=== PATIENT | female | born 1960 | race Caucasian/White ===

== ENCOUNTER 2018-05-22 09:31 | Inpatient (IN) | payer MEDICARE ==
[~2018-05-22] VITALS: Ht 170.2 cm; Wt 68.3 kg
[2018-05-22] MEDS ORDERED: HYDROCODONE/APAP 7.5MG-325MG 1 EA TAB PO PRN (10:15)
[2018-05-22 10:54] LABS: BILIRUBIN,URINE NEGATIVE (NEGATIVE); CLARITY,URINE SL CLOUDY (CLEAR); COLOR,URINE YELLOW (YELLOW); KETONES,URINE NEGATIVE (NEGATIVE); LEUKOCYTE ESTERASE ,URINE NEGATIVE (NEGATIVE); NITRITE,URINE NEGATIVE (NEGATIVE); PROTEIN,URINE DIPSTICK 1+ (NEGATIVE); URINE UROBILINOGEN 1 mg/dL (0.2 - 1)
[2018-05-22 11:01] LABS: BACTERIA,URINE MODERATE /HPF; EPITHELIAL CELLS,URINE MODERATE /LPF; RBC,URINE 0-5 /HPF (0-5)
[2018-05-22 11:17] LABS: BASOPHILS % 0.2 % (0.0-1.0); EOSINOPHILS % 0.2 % (0.0-6.0); HEMOGLOBIN 13.1 g/dL (12.0-16.0); LYMPHOCYTES # (AUTO) 1.8 (1.0-3.2); LYMPHOCYTES % 13.6 % (18.0-39.1); MEAN CORPUSCULAR HEMOGLOBIN 29.2 pg (28-32); MEAN CORPUSCULAR HGB CONC 33.6 g/dL (31-35); MEAN CORPUSCULAR VOLUME 86.9 fL (81-99); MONOCYTES # (AUTO) 0.9 (0.2-0.8); MONOCYTES % 7.1 % (4.4-11.3); NEUTROPHILS # (AUTO) 10.4 (2.1-6.9); NEUTROPHILS % 78.6 % (38.7-80.0); PLATELET COUNT 228 x10e3/uL (140-360); RED BLOOD COUNT 4.49 x10e6/uL (3.6-5.1); RED CELL DISTRIBUTION WIDTH 13.9 % (11.7-14.4)
[2018-05-22 11:25] LABS: INR 1.07; PROTHROMBIN TIME 13.1 seconds (11.9-14.5)
[2018-05-22 11:31] LABS: ALANINE AMINOTRANSFERASE 31 IU/L (0-55); ALBUMIN 3.4 g/dL (3.5-5.0); ALBUMIN/GLOBULIN RATIO 0.9 (0.8-2.0); ALKALINE PHOSPHATASE 85 IU/L (40-150); ANION GAP 14.2 mmol/L (8-16); BLOOD UREA NITROGEN 15 mg/dL (7-26); BUN/CREATININE RATIO 19 (6-25); CALCIUM 9.1 mg/dL (8.4-10.2); CARBON DIOXIDE 28 mmol/L (22-29); CHLORIDE 97 mmol/L (98-107); CREATINE KINASE 2349 IU/L (29-168); CREATININE, SERUM 0.79 mg/dL (0.57-1.11); EST GLOMERULAR FILTRATION RATE > 60 ML/MIN (60-); GLUCOSE 91 mg/dL (74-118); POTASSIUM 4.2 mmol/L (3.5-5.1); SODIUM 135 mmol/L (136-145)
--- NOTE | 2018-05-22 13:11 | Diagnostic Imaging Report ---
Examination: CT CERVICAL SPINE WITHOUT CONTRAST HISTORY:Seizures; syncope. COMPARISON:None. TECHNIQUE: Multidetector helical axial images were obtained without contrast from the foramen magnum to T1. Coronal and sagittal reformatted images were done. Bone and soft tissue windows were evaluated. FINDINGS: Alignment:Normal alignment with straightening of normal lordosis. Vertebrae: Normal height and density. No acute fracture, infection or neoplasm. A 7 mm hemangioma is demonstrated in the posterior and superior aspect of the C5 vertebral body. Disc space heights: Moderately narrowed at C5-C6. Caliber of spinal canal: Developmentally normal. Posterior fossa and craniocervical junction: Foramen magnum patent. No Chiari 1 malformation. Soft tissues: No abnormality. Degenerative changes: Diffuse disc osteophyte complexes at C5-C6 and C6-C7 with severe left foraminal narrowing at C5-C6. No canal stenosis at either level. The remaining cervical levels demonstrate no disc bulge/ herniation or canal stenosis. Visualized lung apices: Biapical pleural thickening. Paraseptal and interstitial emphysematous change. IMPRESSION: 1. No acute abnormality. 2. Degenerative changes at C5-C6 and C6-C7, as above. Signed by: Dr. Demetra Casas M.D. on 05/22/2018 11:33 AM
--- NOTE | 2018-05-22 13:11 | Diagnostic Imaging Report ---
Examination: CT BRAIN WITHOUT CONTRAST History:Seizures. Syncope. Comparison studies:None Technique: Axial images were obtained from the skull base to the vertex. Coronal and sagittal images reconstructed from the axial data. Intravenous contrast: None Findings: Scalp: No abnormalities. Bones: No fractures, blastic or lytic lesions. Brain sulci: Appropriate for age. Ventricles: Normal in size and configuration. No hydrocephalus. Extra-axial space: No abnormalities. Parenchyma: No abnormal densities. No masses, hemorrhage, or acute or chronic cortical based vascular insults.. Sellar/suprasellar region: No abnormalities. Craniocervical junction: Patent foramen magnum. No Chiari one malformation. Incidental findings: None. Impression: No intracranial abnormalities. Signed by: Dr. Demetra Casas M.D. on 05/22/2018 11:28 AM
[2018-05-22] MEDS ORDERED: SODIUM CHLORIDE FLUSH 10 ML SYR INJ PRN (14:15)
[2018-05-22] MEDS ORDERED: ASPIRIN 81 MG CHEW TAB PO ONE (14:15)
[2018-05-22] MEDS ORDERED: NITROGLYCERIN 0.4 MG SUBL SL PRN (14:15)
--- NOTE | 2018-05-22 15:06 | Diagnostic Imaging Report ---
PROCEDURE:HIP LEFT ONE VIEW (+/- PELVIS) COMPARISON:None. INDICATIONS:SEIZURE, FALL FINDINGS: Only a single frontal view of the left hip is submitted. No displaced fracture. Femoral head projects appropriately over the acetabulum. Joint space is maintained. Soft tissues are unremarkable. CONCLUSION: Single frontal view of the left hip shows no acute osseous abnormality. Dictated by: Juvencio Feldman M.D. on 05/22/2018 at 10:58 Electronically approved by: Juvencio Feldman M.D. on 05/22/2018 at 10:58
--- NOTE | 2018-05-22 15:06 | Diagnostic Imaging Report ---
PROCEDURE: CHEST SINGLE (PORTABLE) COMPARISON: None. INDICATIONS: SEIZURE FINDINGS: LUNGS: No consolidations or edema. PLEURA: No effusions or pneumothorax. HEART \T\ MEDIASTINUM: The heart is within normal size-limits. BONES \T\ SOFT TISSUES: No acute findings. CONCLUSION: No acute thoracic abnormality. Dictated by: Juvencio Feldman M.D. on 05/22/2018 at 11:00 Electronically approved by: Juvencio Feldman M.D. on 05/22/2018 at 11:00
[2018-05-22] MEDS ORDERED: IPRATROPIUM BROMIDE 0.02% 2.5 ML NEB NEB STA (15:30)
[2018-05-22] MEDS ORDERED: ALBUTEROL SULF 0.083% NEB SOLN 3 ML NEB NEB STA (15:30)
[2018-05-22] MEDS ORDERED: TRAMADOL/APAP 37.5MG-325MG TAB PO PRN (16:45)
[2018-05-22 17:12] VITALS: BP 104/52
[2018-05-22 17:24] LABS: FERRITIN 229.07 ng/mL (4.63-204.00)
[2018-05-22 17:48] LABS: CREATINE KINASE MB 3.2 ng/mL (0-5.0)
--- NOTE | 2018-05-22 17:50 | History and Physical ---
NO DICTATION. 8 seconds. Job#: [id number] GH
[2018-05-22] MEDS: DEXTROSE 5%/0.9% SOD CHL 1,000 ML IV SCH (17:56)
[2018-05-22] MEDS ORDERED: NICOTINE 21 MG/EA PATCH ONE (17:58)
[2018-05-22] MEDS ORDERED: NICOTINE 7 MG PATCH TOP SCH (18:00)
[2018-05-22] MEDS: NICOTINE 21 MG/EA PATCH TOP SCH (18:00)
--- NOTE | 2018-05-22 18:17 | History and Physical ---
HISTORY OF PRESENT ILLNESS: Patient is a 58-year-old female who had a past medical history positive for COPD and chronic pain. Patient apparently had a syncopal episode at home. She does not remember what happened and she was admitted to the hospital. She was found to have rhabdomyolysis. REVIEW OF SYSTEMS: CARDIOVASCULAR: No chest pain or palpitations. RESPIRATORY: No shortness of breath. No cough. GASTROINTESTINAL: No nausea and no vomiting. No diarrhea. GENITOURINARY: She has no frequency or dysuria. ALLERGIES: CLAIMS SHE NOT ALLERGIC TO ANYTHING. PAST MEDICAL HISTORY: Positive for COPD, bipolar disorder and depression. SOCIAL HISTORY: She smokes. She does not drink alcohol. PHYSICAL EXAMINATION: VITAL SIGNS: Blood pressure 112/78, temperature is 98 degrees, heart rate 78 per minute, respiratory rate 20 per minute. Oxygen saturation 95%. HEART: Regular rhythm. No murmur. No extra sounds. LUNGS: Clear bilaterally. ABDOMEN: Soft. EXTREMITIES: Show no evidence of cyanosis, edema or trauma. On the BMP sodium 135, potassium 4.2, chloride 97. CO2 28. BUN 15, creatinine 0.79. Glucose 91. On the CBC white blood count 13.1, hemoglobin 13.1, hematocrit 39.0, platelet count 228,000. PT 13.1. INR 1.07. PTT 32.0. AST is 73, ALT 31. Total bilirubin 0.7, alkaline phosphatase 85. Total CK of 2349. CK-MB 5.50. Troponin 0.049. Patient also had a CT of the head which came back negative. CT of the cervical spine which showed no fractures. Chest x-ray came back negative and hip x-ray came back negative for fractures. FINAL IMPRESSION 1. Syncopal episode. 2. Rhabdomyolysis. 3. Elevated liver function test. 4. Chronic obstructive pulmonary disease. 5. Bipolar disorder. PLAN OF TREATMENT: Going to get a neurology consult with Dr. Baker, cardiology consultation with Dr. Davis. Continue D5 normal saline 100 mL an hour. Repeat CBC, CMP tomorrow. Liver function test has been ordered for tomorrow also. Hepatitis profile, antinuclear antibodies, ceruloplasmin levels and antimitochondrial antibodies and liver ultrasound has been ordered due to the elevated LFTs. Job#: [id number] GH
[2018-05-22 19:31] VITALS: BP 104/52
[2018-05-22 20:33] VITALS: BP 86/49
--- NOTE | 2018-05-22 20:52 | Diagnostic Imaging Report ---
PROCEDURE:US LIVER COMPARISON:None. INDICATIONS:ELEVATED LFT'S TECHNIQUE: Gonzalez-scale and color doppler transverse and longitudinal images of the right upper quadrant of the abdomen were obtained. FINDINGS: Liver: 12.5 cm in right mid-clavicular line. Normal echogenicity. No masses. Main portal vein: 1.1 cm, hepatopetal flow Gallbladder: No stones, sludge, wall thickening, or pericholecystic fluid. Common Bile Duct: 0.6 cm Sonographic Joshua's sign: Negative Right kidney: 10.1 cm. Normal echogenicity. No solid masses, stones or hydronephrosis. Pancreas: The visualized portions are unremarkable. Inferior vena cava: Patent Aorta: Within normal limits Ascites: None in the right upper quadrant of the abdomen. CONCLUSION: 1. Unremarkable right upper quadrant ultrasound. Tom Henriquez M.D. Dictated by: Tom Henriquez M.D. on 05/22/2018 at 17:49 Electronically approved by: Tom Henriquez M.D. on 05/22/2018 at 17:49
[2018-05-22 21:25] VITALS: BP 86/49
[2018-05-22] MEDS ORDERED: DEPAKOTE ER500 MG PO (21:44)
[2018-05-22] MEDS ORDERED: BENZTROPINE MESY1 MG PO (21:44)
[2018-05-22] MEDS ORDERED: SEROQUEL25 MG PO (21:44)
[2018-05-22] MEDS ORDERED: HYDROXYZINE HCL25 MG PO (21:44)
[2018-05-22] MEDS ORDERED: VENLAFAXINE HCL75 MG PO (21:44)
[2018-05-22] MEDS ORDERED: HYDROXYZINE HCL 25 MG TAB PO PRN (22:00)
[2018-05-22] MEDS: QUETIAPINE FUMARATE 100 MG TAB PO PRN (23:04)
[2018-05-22] MEDS: DEPAKOTE DELAYED-RELEASE TAB 500 MG PO SCH (23:04)
[2018-05-23] VITALS (8 sets, daily range): BP systolic 94–120; BP diastolic 54–77
[2018-05-23] MEDS: DEXTROSE 5%/0.9% SOD CHL 1,000 ML IV SCH ×3 (04:11→19:41)
[2018-05-23 06:51] LABS: BASOPHILS % 0.3 % (0.0-1.0); EOSINOPHILS # (AUTO) 0.1 (0.0-0.4); EOSINOPHILS % 0.8 % (0.0-6.0); HEMATOCRIT 35.7 % (34.2-44.1); HEMOGLOBIN 11.7 g/dL (12.0-16.0); LYMPHOCYTES # (AUTO) 1.8 (1.0-3.2); LYMPHOCYTES % 23.1 % (18.0-39.1); MEAN CORPUSCULAR HEMOGLOBIN 29.3 pg (28-32); MEAN CORPUSCULAR HGB CONC 32.8 g/dL (31-35); MEAN CORPUSCULAR VOLUME 89.3 fL (81-99); MONOCYTES # (AUTO) 0.8 (0.2-0.8); MONOCYTES % 10.2 % (4.4-11.3); NEUTROPHILS # (AUTO) 5.1 (2.1-6.9); NEUTROPHILS % 65.2 % (38.7-80.0); PLATELET COUNT 234 x10e3/uL (140-360); RED CELL DISTRIBUTION WIDTH 13.9 % (11.7-14.4)
[2018-05-23 07:09] LABS: ALANINE AMINOTRANSFERASE 20 IU/L (0-55); ALBUMIN 2.6 g/dL (3.5-5.0); ALBUMIN/GLOBULIN RATIO 0.9 (0.8-2.0); ALKALINE PHOSPHATASE 67 IU/L (40-150); ANION GAP 9.7 mmol/L (8-16); BLOOD UREA NITROGEN 11 mg/dL (7-26); BUN/CREATININE RATIO 15 (6-25); CALCIUM 8.3 mg/dL (8.4-10.2); CARBON DIOXIDE 26 mmol/L (22-29); CHLORIDE 104 mmol/L (98-107); CHOL/HDL RATIO 4.1 (3.0-3.6); CHOLESTEROL 156 MD/DL (0-199); CREATININE, SERUM 0.72 mg/dL (0.57-1.11); EST GLOMERULAR FILTRATION RATE > 60 ML/MIN (60-); GLUCOSE 115 mg/dL (74-118); HDL CHOLESTEROL 38 MG/DL (40-60); LDL CHOLESTEROL 98 MG/DL (60-130); POTASSIUM 3.7 mmol/L (3.5-5.1); SODIUM 136 mmol/L (136-145); TRIGLYCERIDES 101 MG/DL (0-149)
[2018-05-23 07:18] LABS: CREATINE KINASE MB 1.3 ng/mL (0-5.0)
[2018-05-23] MEDS: VENLAFAXINE HCL 75 MG CAPCR PO SCH (08:35)
[2018-05-23] MEDS: NICOTINE 21 MG/EA PATCH TOP SCH (08:35)
[2018-05-23] MEDS: DEPAKOTE DELAYED-RELEASE TAB 500 MG PO SCH ×2 (08:35→17:35)
[2018-05-23] MEDS: ASPIRIN 81 MG ENTERIC COATED PO SCH (08:35)
[2018-05-23] MEDS: BENZTROPINE MESYLATE 1 MG TAB PO SCH ×2 (08:35→17:35)
[2018-05-23] MEDS ORDERED: METOPROLOL TARTRATE 25 MG TAB PO SCH (09:00)
[2018-05-23] MEDS ORDERED: NICOTINE 7 MG PATCH TOP SCH (09:00)
[2018-05-23] MEDS ORDERED: ALBUTEROL SULF 0.083% NEB SOLN 3 ML NEB NEB PRN (09:15)
--- NOTE | 2018-05-23 11:31 | Consultation ---
DATE OF CONSULTATION: May 22, 2018 CARDIAC CONSULTATION REASON FOR CONSULTATION: Syncope. INFORMATION SOURCE: The patient was good historian. HISTORY: She is a a 58-year-old woman who is known with longstanding history of bipolar disorder on several psychotic medications. Patient stays with her mother and father and she takes care of them. Yesterday, her mother came to her room because she did not show up for dinner. She was out for almost an hour. Her mother found her on the floor unconscious. She shook her and she woke up and after that she was doing well. She is having left hip pain. Probably she fell on her hip. She was not able to come to the emergency room because she is taking care of her family. Today, her daughter came and she is still having pain in her left hip so she decided to come to the emergency room. Patient does not recall what happened. She does not remember any details and how she passed out and how she was found on the floor, etcetera, but she was out of her mother's site for an hour and she was found to be on the floor. She had CT head which showed no acute changes. Left hip x-ray showed no fractures, degenerative joint disease in C5 to C7. EKG showing normal sinus rhythm, nonspecific ST changes. CK total are elevated at 2349. Troponin is normal. Patient unfortunately smoker for many years. She continues to smoke, but she cut down to 5 to 6 cigarettes a day. She does have easy fatigability and shortness of breath on exertion. She denied having any anginal symptoms. She denied having any prior cardiac history. There is no orthopnea. There is no paroxysmal nocturnal dyspnea. She does have easy fatigability and shortness of breath on exertion and occasional headaches. No history of seizure activity. There is no history of recent travel. She is at her baseline of shortness of breath on exertion and chronic smoker cough. There is no hemoptysis. There is no pleuritic component of chest pain. She denied having any palpitations. She denied having any syncope or presyncope, although many years ago she had an episode when it was not really "____". REVIEW OF SYSTEMS: Done to all systems and all 14 systems will be summarized for clarity. GENERAL: No fever, no chills. No weight loss. No weight gain. HEENT: Repeated congestion. Cough. PULMONARY: Chronic pulmonary symptoms with no hemoptysis. CARDIAC: As per acute illness. GI: Bloating and indigestion, severe GERD. No hematemesis. No melena. : No hematuria. No dysuria. Occasional stress incontinence. NEUROMUSCULAR: Muscular aches and pain nonspecific. NEUROLOGIC: No seizure activity. No prior syncope. Occasional headache. HOME MEDICATIONS: Include Depakote, hydroxyzine, Cogentin, Seroquel and Effexor. ALLERGIES: NONE. PAST MEDICAL HISTORY: 1. Bipolar disorder, followed in the [facility]. 2. GERD. 3. Several dental surgeries. 4. Partial hysterectomy. 5. Removal of ganglion cyst from the hand. 6. Several other minor surgeries. SOCIAL HISTORY: She is . She does not drink alcohol. She is a smoker of many years. She decreased now to 5 to 10 cigarettes a day. 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 FAMILY HISTORY: Father in his 90s. He got aches and robbie but no major illness. Mother had some form of valve surgery and pacemaker. She is in her 80s. She lost her brother to alcoholism and drug abuse. Her sister is alive, but she does have several medical health problems. She does have one son and two daughters. One of them at least with bipolar. PHYSICAL EXAMINATION GENERAL: A well-built lady. VITAL SIGNS: Height of 5 feet 7 inches, weight of 146 pounds. Blood pressure 100/50. Heart. rate of 80. Respiratory rate of 18. Afebrile. HEENT: There are no teeth. NECK: No elevation of jugular venous pulsation. No bruit. CHEST: Clear to auscultation and percussion. HEART: PMI 5th left intercostal space. Normal 1st and 2nd heart sounds. ABDOMEN: Soft with no organomegaly. No abdominal bruits. EXTREMITIES: No cyanosis. No clubbing. No edema. No delay between pulses. There is tenderness over the left hip but pulses are palpable distally. There are no signs of deep venous thrombosis. NEUROLOGIC: Awake, alert and oriented. Neck is supple. No motor deficits. LABORATORY DATA: CK total of 2349. Troponin of 0.049. BUN of 15. Creatinine 0.8. Sodium 135. Potassium 4.2. Bicarb of 28. White blood cell count of 13.1. Hemoglobin 13.1. Hematocrit 39%. Platelet count of 228,000. EKG he showed no acute changes. IMPRESSION 1. Syncope. 2. Bipolar disorder. 3. Chronic obstructive pulmonary disease. 4. Left hip pain following a fall. 5. Rhabdomyolysis. 6. Gastroesophageal reflux disease. Cardiac-miller plan will be on telemetry. Will review her echocardiogram ordered. Patient should be on telemetry. IV fluids to be given. Repeated labs. Observation. Carotid Doppler will be reviewed. Will follow patient's progression with you and pending on her course further steps to be done. Job#: [id number] MTDKaren
[2018-05-23] MEDS ORDERED: ASPIRIN 81 MG CHEW TAB PO ONE (14:30)
--- NOTE | 2018-05-23 14:43 | Progress Note ---
DATE: INTERNAL MEDICINE PROGRESS NOTE NO DICTATION, LENGTH 0:2 Job#: [id number] NOREEN
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
--- NOTE | 2018-05-23 14:53 | Progress Note ---
DATE: INTERNAL MEDICINE PROGRESS NOTE She is complaining of shortness of breath and wheezing. PHYSICAL EXAMINATION VITALS: Blood pressure 100/68, temperature 98.7, heart rate 73 and now 79 per minute, respiratory rate 15 per minute, oxygen saturation 91%. HEART: Shows regular rhythm. Normal S1 and S2 sounds. LUNGS: With bilateral wheezing and rhonchi. ABDOMEN: Soft. EXTREMITIES: Show no evidence of cyanosis or trauma. On the blood, we have a BMP with a sodium of 136, potassium 3.7, chloride 104, CO2 26, BUN 11, creatinine 0.72, glucose 115. On the CBC, white blood count 7.78, hemoglobin 11.7, hematocrit 35.7, and platelet count 234,000. PT 13.1, INR 1.07 and PTT 32. AST 34, ALT 20, total bilirubin 0.4, alkaline phosphatase 67. MRI of the head and EEG has been ordered. Report is pending. Liver ultrasound showed unremarkable liver. Cervical spine, chest x-ray, hip x-ray, and brain CT all were normal. FINAL IMPRESSION 1. Syncopal episode. 2. Rhabdomyolysis. 3. Elevated liver function tests. 4. Chronic obstructive pulmonary disease exacerbation. 5. Nicotine dependent. PLAN OF TREATMENT: Continue albuterol q.2 h. as needed for shortness of breath. Prednisone 20 mg daily. Albuterol 250 per 50 mg 1 inhalation twice a day. Spiriva 1 inhalation daily. Seroquel 300 mg at bedtime. NicoDerm patch 21 mg daily. 1 mg twice a day. Effexor 150 mg daily. Metoprolol 25 mg daily. Depakote 500 mg twice a day. Tramadol with Tylenol 1 tablet q.6 h. as needed. Hydroxyzine 50 mg 3 times a day as needed. EEG and MRI of the head has been ordered. Dr. Baker is following the case from the neurology point of view. Continue with IV fluids. Going to repeat a BMP and CPK tomorrow. Job#: [id number] NOREEN
[2018-05-23] MEDS: SALMETEROL/FLUTICASONE 250/50 INH SCH (21:51)
[2018-05-23] MEDS: QUETIAPINE FUMARATE 100 MG TAB PO PRN (23:23)
[2018-05-24] VITALS: BP 115/68
[2018-05-24 05:45] VITALS: BP 105/64
[2018-05-24] MEDS ORDERED: TIOTROPIUM 18 MCG INH POWDER INH SCH (06:00)
[2018-05-24 06:03] LABS: ANION GAP 10.9 mmol/L (8-16); BLOOD UREA NITROGEN 8 mg/dL (7-26); BUN/CREATININE RATIO 12 (6-25); CALCIUM 8.3 mg/dL (8.4-10.2); CARBON DIOXIDE 24 mmol/L (22-29); CHLORIDE 112 mmol/L (98-107); CREATINE KINASE 467 IU/L (29-168); CREATININE, SERUM 0.68 mg/dL (0.57-1.11); EST GLOMERULAR FILTRATION RATE > 60 ML/MIN (60-); GLUCOSE 98 mg/dL (74-118); POTASSIUM 3.9 mmol/L (3.5-5.1); SODIUM 143 mmol/L (136-145)
[2018-05-24 07:59] VITALS: BP 121/70
[2018-05-24] MEDS: BENZTROPINE MESYLATE 1 MG TAB PO SCH ×2 (08:22→17:06)
[2018-05-24] MEDS: DEPAKOTE DELAYED-RELEASE TAB 500 MG PO SCH ×2 (08:22→17:06)
[2018-05-24] MEDS: ASPIRIN 81 MG ENTERIC COATED PO SCH (08:22)
[2018-05-24] MEDS: DEXTROSE 5%/0.9% SOD CHL 1,000 ML IV SCH (08:22)
[2018-05-24] MEDS: NICOTINE 21 MG/EA PATCH TOP SCH (08:22)
[2018-05-24] MEDS: VENLAFAXINE HCL 75 MG CAPCR PO SCH (08:22)
[2018-05-24] MEDS: SALMETEROL/FLUTICASONE 250/50 INH SCH (09:00)
[2018-05-24] MEDS ORDERED: PREDNISONE 20 MG TAB PO SCH (09:00)
[2018-05-24] MEDS ORDERED: NEBIVOLOL 10 MG TAB PO SCH (09:00)
[2018-05-24 10:12] VITALS: BP 121/70
[2018-05-24 12:13] VITALS: BP 128/86
--- NOTE | 2018-05-24 13:31 | Diagnostic Imaging Report ---
EXAMINATION: MRI of the brain without contrast. HISTORY: Syncopal episodes COMPARISON: Head CT on 06/18/2018 TECHNIQUE: Sagittal T2; axial DWI, T2, FLAIR, T1-IR, T2 gradient echo; coronal FLAIR. Additional high-resolution coronal T2 and FLAIR over the temporal lobes. IMAGE QUALITY: Adequate. FINDINGS: Parenchyma: 1. No abnormal signal intensity 2. No mass, hemorrhage, acute or chronic infarcts. Skull: Unremarkable. Vessels: Expected flow voids present in the major arteries and dural sinuses. Extra-axial spaces: No abnormal signal intensity or mass effect. Brain volume: Within normal limits for age. Ventricles: No hydrocephalus or displacement. Foramen magnum: Unremarkable. Sella: Unremarkable. Paranasal / mastoid sinuses: No significant inflammatory disease. IMPRESSION: No intracranial abnormalities. Signed by: Dr. Jeana Elkins M.D. on 05/24/2018 1:27 PM
[2018-05-24 16:36] VITALS: BP 114/70
[2018-05-24] MEDS ORDERED: ADVAIR 250-501 EACH INH (18:00)
[2018-05-24] MEDS ORDERED: SPIRIVA18 MCG INH (18:04)
[2018-05-24] MEDS ORDERED: PROAIR HFA INH8.5 GM INH (18:04)
[2018-05-24] MEDS ORDERED: BYSTOLIC10 MG PO (18:04)
--- NOTE | 2018-05-24 20:06 | Discharge Summary ---
HISTORY OF PRESENT ILLNESS: [id number] white female who had a past medical history positive for COPD, history of chronic pain, apparently had syncopal episode at home. She does not remember what happened. She was found to have rhabdomyolysis. Started IV fluids and total CK has decreased significantly. The MRI of the head showed no significant abnormalities. CT of the cervical spine, chest x-ray, hip x-rays and liver ultrasound were and all of them negative. MRI of the head was done and it did not show any significant abnormalities. Electroencephalogram done by Dr. Araceli Baker showed no evidence of any epileptic activity. Patient going home today. PHYSICAL EXAMINATION VITAL SIGNS: Blood pressure 128/86, temperature 98.7, heart rate 87 per minute, respiratory rate 18 per minute. Oxygen saturation 92%. HEART: Regular rhythm. No murmur. No extra sounds. LUNGS: Clear bilaterally. ABDOMEN: Soft. EXTREMITIES: Show no evidence of cyanosis, edema or trauma. NEUROLOGIC: Normal. On the BMP, sodium 143, potassium 3.9, chloride 112. CO2 24, BUN 8, creatinine 0.68, glucose 98. On the CBC white blood count 7.78, hemoglobin 11.7, hematocrit 35.7, platelet count 234,000. PT 13.1, INR 1.07, PTT 32.0. AST 34, ALT 20, total bilirubin 0.4, alkaline phosphatase 67. FINAL IMPRESSION: 1. Episode of syncope. 2. Chronic obstructive pulmonary disease exacerbation. 3. Hypertension. 4. Depression. 5. Bipolar disorder PLAN OF TREATMENT: She is going to be diagnosis home on ProAir metered-dose inhaler 1 puff every 2 or 3 hours as needed for shortness of breath. Aspirin 81 mg daily. Medrol Dosepak to be taken as directed. We are going to continue Depakote 500 mg twice a day. Continue Bystolic 5 mg daily. Effexor 550 mg daily. 1 mg twice a day. Ultracet, she was taking q.6 hours 1 tablet q.6 hours as needed. Advair 250/50 one inhalation twice a day. Seroquel 300 mg at bedtime. Spiriva 1 inhalation daily. The patient is told to quit smoking and to get a nicotine patch. The patient is going home today. LIDA PENNY MD Job#: [id number] [facility]
== END 2018-05-24 18:19 | disposition home or self-care (01) | DRG 312 ==
LOC: ER 09:31 → ERHOLD 14:44 → MED/SURG 15:52
PROVIDERS: ADMIT Internal Medicine; ATTEND Internal Medicine
DX: R55 Syncope and collapse (principal); J44.1 Chronic obstructive pulmonary disease with (acute) exacerbation; M62.82 Rhabdomyolysis; K21.9 Gastro-esophageal reflux disease without esophagitis; I10 Essential (primary) hypertension; F32.9 Major depressive disorder, single episode, unspecified; F43.10 Post-traumatic stress disorder, unspecified; F17.210 Nicotine dependence, cigarettes, uncomplicated; M25.552 Pain in left hip; G89.29 Other chronic pain; R79.89 Other specified abnormal findings of blood chemistry
CPT/HCPCS: 36415; 70450; 70551; 71045; 72125; 76705; 80048; 80053; 80061; 81001; 82390; 82550; 82553; 82728; 83540; 83880; 84443; 84466; 84484; 85025; 85610; 85730; 86039; 86255; 87086; 93005; 93306; 93880; 95812; 99284; J7042

== ENCOUNTER 2018-07-28 19:25 | Observation (INO) | payer OTHER ==
[~2018-07-28] VITALS: Ht 170.2 cm; Wt 70.3 kg
[~2018-07-28 19:25] MED LIST: ADVAIR 250-501 EACH INH; BENZTROPINE MESY1 MG PO; BYSTOLIC10 MG PO; DEPAKOTE ER500 MG PO; HYDROXYZINE HCL25 MG PO; PROAIR HFA INH8.5 GM INH; SEROQUEL25 MG PO; SPIRIVA18 MCG INH; VENLAFAXINE HCL75 MG PO
[2018-07-28 19:45] LABS: BASOPHILS % 0.3 % (0.0-1.0); EOSINOPHILS # (AUTO) 0.1 (0.0-0.4); EOSINOPHILS % 1.2 % (0.0-6.0); HEMATOCRIT 39.1 % (34.2-44.1); HEMOGLOBIN 12.7 g/dL (12.0-16.0); LYMPHOCYTES # (AUTO) 3.6 (1.0-3.2); MEAN CORPUSCULAR HEMOGLOBIN 28.9 pg (28-32); MEAN CORPUSCULAR HGB CONC 32.5 g/dL (31-35); MEAN CORPUSCULAR VOLUME 88.9 fL (81-99); MONOCYTES # (AUTO) 0.8 (0.2-0.8); MONOCYTES % 8.4 % (4.4-11.3); NEUTROPHILS # (AUTO) 5.1 (2.1-6.9); NEUTROPHILS % 52.7 % (38.7-80.0); PLATELET COUNT 280 x10e3/uL (140-360); RED CELL DISTRIBUTION WIDTH 14.9 % (11.7-14.4)
[2018-07-28] MEDS ORDERED: ALBUTEROL/IPRATROPIUM 3 ML NEB NEB ONE ×2 (19:45)
[2018-07-28 20:05] LABS: ALBUMIN 3.6 g/dL (3.5-5.0); ALBUMIN/GLOBULIN RATIO 1.2 (0.8-2.0); CREATININE, SERUM 1.06 mg/dL (0.57-1.11)
[2018-07-28 20:11] LABS: CREATINE KINASE MB 2.1 ng/mL (0-5.0)
--- NOTE | 2018-07-28 20:11 | Diagnostic Imaging Report ---
CHEST SINGLE (PORTABLE), 07/28/2018 7:32 PM Technique: CHEST SINGLE (PORTABLE) Comparison: 06/18/2018 Clinical history: COPD exacerbation Findings: Stable appearance of the heart, mediastinum, lungs and pleural spaces. Hyperinflation related to emphysema. Impression: Emphysema without acute abnormality. Signed by: Dr Cony Tapia MD on 07/28/2018 8:08 PM
[2018-07-28] MEDS ORDERED: SODIUM CHLORIDE 0.9% 500ML 500 ML ONE (20:43)
[2018-07-28] MEDS ORDERED: SODIUM CHLORIDE 0.9% 1000ML 500 ML IV SCH (20:45)
[2018-07-28] MEDS ORDERED: SODIUM CHLORIDE 0.9% 1000ML 500 ML IV ONE (21:00)
[2018-07-28] MEDS ORDERED: AZITHROMYCIN 500MG/NS 250 ML 250 ML IV SCH (22:15)
[2018-07-28 22:20] LABS: ABG HCO3 25 mmol/L (23-28); ABG PCO2 40 mmHg (41-51); ABG PO2 69 mmHg (80-105)
[2018-07-28] MEDS ORDERED: ALBUTEROL SULF 0.083% NEB SOLN 3 ML NEB NEB STA (22:34)
[2018-07-28] MEDS ORDERED: ALBUTEROL SULF 0.083% NEB SOLN 3 ML NEB ONE (22:44)
[2018-07-28] MEDS ORDERED: ADVAIR 250-501 EACH INH (22:57)
[2018-07-28] MEDS ORDERED: QUETIAPINE FUM100 MG PO (22:57)
[2018-07-28] MEDS ORDERED: HYDROXYZINE HCL 25 MG TAB PO PRN (23:00)
[2018-07-28] MEDS ORDERED: ALBUTEROL SULFATE HFA 8GM INHALATION AEROSOL INH PRN (23:00)
[2018-07-28 23:24] VITALS: BP 114/64
[2018-07-28 23:54] VITALS: BP 114/64
[2018-07-29 00:04] VITALS: BP 114/64
[2018-07-29 04:00] VITALS: BP 108/59
[2018-07-29 06:03] LABS: BASOPHILS % 0.1 % (0.0-1.0); HEMATOCRIT 38.9 % (34.2-44.1); HEMOGLOBIN 12.4 g/dL (12.0-16.0); LYMPHOCYTES # (AUTO) 0.7 (1.0-3.2); LYMPHOCYTES % 9.5 % (18.0-39.1); MEAN CORPUSCULAR HEMOGLOBIN 28.8 pg (28-32); MEAN CORPUSCULAR HGB CONC 31.9 g/dL (31-35); MEAN CORPUSCULAR VOLUME 90.3 fL (81-99); MONOCYTES # (AUTO) 0.1 (0.2-0.8); NEUTROPHILS # (AUTO) 6.8 (2.1-6.9); PLATELET COUNT 269 x10e3/uL (140-360); RED BLOOD COUNT 4.31 x10e6/uL (3.6-5.1)
[2018-07-29 06:21] LABS: ANION GAP 14.2 mmol/L (8-16); BLOOD UREA NITROGEN 13 mg/dL (7-26); BUN/CREATININE RATIO 15 (6-25); CALCIUM 8.9 mg/dL (8.4-10.2); CARBON DIOXIDE 24 mmol/L (22-29); CHLORIDE 109 mmol/L (98-107); CREATININE, SERUM 0.88 mg/dL (0.57-1.11); EST GLOMERULAR FILTRATION RATE > 60 ML/MIN (60-); GLUCOSE 172 mg/dL (74-118); POTASSIUM 4.2 mmol/L (3.5-5.1); SODIUM 143 mmol/L (136-145)
[2018-07-29 06:33] LABS: CREATINE KINASE 57 IU/L (29-168)
[2018-07-29] MEDS ORDERED: SALMETEROL/FLUTICASONE 250/50 INH SCH (07:00)
[2018-07-29 08:40] VITALS: BP 111/66
[2018-07-29] MEDS ORDERED: VENLAFAXINE HCL 75 MG TAB PO SCH (09:00)
[2018-07-29] MEDS ORDERED: TIOTROPIUM 18 MCG INH POWDER INH SCH (09:00)
[2018-07-29] MEDS ORDERED: DEPAKOTE ER 500MG TAB(ONCE DAILY) PO SCH (09:00)
[2018-07-29] MEDS ORDERED: BENZTROPINE MESYLATE 1 MG TAB PO SCH (09:00)
[2018-07-29 09:56] VITALS: BP 111/66
[2018-07-29 11:44] VITALS: BP 129/66
[2018-07-29] MEDS ORDERED: AZITHROMYCIN250 MG PO (13:28)
[2018-07-29] MEDS ORDERED: ALBUTEROL0.63 MG/3 INH (13:28)
[2018-07-29] MEDS ORDERED: PREDNISONE20 MG PO (13:28)
--- NOTE | 2018-07-29 14:03 | History and Physical ---
CHIEF COMPLAINT: "I am short of breath". This is a 58-year-old white woman who presents to [facility] with a 3-4 day history of worsening shortness of breath. The patient has COPD, as well as chronic bronchitis. The patient said she quit tobacco smoking in May 2018. She does have a history of preserved ejection fraction congestive heart failure. In May 2018, the patient underwent a 2-D echocardiogram, which revealed left ventricular ejection fraction of 51%. On admission, the patient was found to have a white blood cell count of 9600 with 52% segmented neutrophils. The patient did receive 2 doses of intravenous azithromycin during her brief hospitalization. On the day of discharge, the patient's white blood cell count was 7600 with 89% segmented neutrophils. The patient had a chest x-ray done in the emergency room that revealed lymphemia without acute abnormality. During her brief hospitalization, supplemental home oxygen usage was arranged. The patient did state, however, that she could use her mother's oxygen at home until her own oxygen tanks arrive. The patient was found to have oxygen saturation of 86% on room air at rest during this hospital stay. REVIEW OF SYSTEMS GENERAL: Weight has increased over the last few months because of her psychotropic medications. Denies any fever or chills. HEENT: No headaches. No visual changes. CARDIOVASCULAR/RESPIRATORY: Worsening shortness of breath, as well as worsening nonproductive cough over the last 3-4 days. The patient denies any hemoptysis. The patient also denies any purulent sputum production. The patient denies any chest pain or tenderness. GI: No nausea, vomiting or constipation. She does complain of significant GERD symptoms, which is only minimally alleviated with [id number] Nexium. : Denies any UTI symptoms. NEUROMUSCULAR: Denies any limb weakness or numbness. ALLERGIES: NO KNOWN DRUG ALLERGIES. FAMILY HISTORY: Mother with COPD and recently brother also suffered from COPD. The patient states her brother was an alcoholic. SOCIAL HISTORY: The patient lives with her elderly parents. She is disabled. The patient is a heavy tobacco smoker. Approximately, 40-pack year smoker, but she quit in May 2018. Denies any alcohol or illicit drug use. HOME MEDICATIONS 1. Albuterol inhaler 2 puffs q.i.d. p.r.n. shortness of breath. 2. Cogentin 100 mg b.i.d. 3. Depakote 500 mg b.i.d. 4. Advair 250 per 50 mg 1 puff daily. 5. Hydroxyzine 50 mg t.i.d. p.r.n. itching. 6. Seroquel 600 mg daily. 7. Spiriva 1 puff daily. 8. Venlafaxine 150 mg daily. PAST MEDICAL HISTORY 1. Advanced COPD. 2. Chronic bronchitis. 3. Tobacco abuse (quit in May 2018). 4. Bipolar disorder. 5. Posttraumatic stress disorder. 6. Major depressive disorder. 7. GERD. SURGICAL HISTORY 1. Right hand surgery twice to resect ganglion cyst. 2. Bilateral tubal ligation. 3. Partial hysterectomy. 4. Appendectomy. 5. Tonsillectomy. 6. Adenoidectomy. PHYSICAL EXAMINATION GENERAL: She is awake, alert and oriented. She is pleasant and cooperative with exam. VITALS: Height is 5 feet 7 inches, weight 155 pounds. BMI is 24. Blood pressure is 129/66, pulse 94, respiratory rate 18, temperature 96, oxygen saturation is 95% on 3 L of oxygen. INTEGUMENT: Skin warm and dry. No pallor. No diaphoresis. HEENT: Anicteric. Moist mucous membranes. The patient is edentulous. The patient has a hoarse spoken voice. NECK: Supple. No evidence of jugular venous distention. CARDIOVASCULAR: Distant heart sounds. Tachycardic rate. Regular rhythm. LUNGS: The patient has expiratory wheezing with bronchial breath sounds bilaterally. ABDOMEN: Obese and benign. EXTREMITIES: No edema or deformities. IMPRESSION 1. Chronic obstructive pulmonary disease exacerbation. 2. Acute bronchitis. 3. Preserved ejection fraction congestive heart failure. 4. Tobacco abuse (quit in May 2018). 5. Posttraumatic stress disorder. 6. Bipolar disorder. PLAN 1. Continue psychotropic medications. 2. Prescribe prednisone 40 mg by mouth daily for 5 days for the patient's COPD exacerbation. 3. Will prescribe albuterol/ipratropium in the form of DuoNeb nebulized treatments that the patient will use up to 4 times daily for shortness of breath or wheezing. 4. Will arrange home oxygen therapy for the patient. 5. Prescribe 5-day course of oral azithromycin for the patient's acute bronchitis. 6. Will refill the patient's albuterol inhaler 2 puffs q.i.d. as needed for breakthrough shortness of breath or wheezing. The patient will continue her home medications. The patient will follow up with her primary care physician, namely Dr. Penny, within the next week. DISCHARGE DIAGNOSES 1. Chronic obstructive pulmonary disease exacerbation. 2. Advanced chronic obstructive pulmonary disease. 3. Acute bronchitis. 4. Preserved ejection fraction congestive heart failure. 5. Tobacco abuse (quit in May 2018). 6. Posttraumatic stress disorder. 7. Bipolar disorder. Job#: [id number] RI cc:LIDA PENNY MD
[2018-07-29] MEDS ORDERED: QUETIAPINE FUMARATE 100 MG TAB PO SCH (21:00)
== END 2018-07-29 13:59 | disposition home or self-care (01) ==
LOC: ER 19:25 → UNDOADMOB 22:31 → MED/SURG 22:31 → ERHOLD 23:05 → MED/SURG 23:40
PROVIDERS: ADMIT Internal Medicine; ATTEND Internal Medicine
DX: J44.0 Chronic obstructive pulmonary disease with (acute) lower respiratory infection (principal); J20.9 Acute bronchitis, unspecified; J44.1 Chronic obstructive pulmonary disease with (acute) exacerbation; Z87.891 Personal history of nicotine dependence; R06.03 Acute respiratory distress; I50.9 Heart failure, unspecified; F43.10 Post-traumatic stress disorder, unspecified; F31.9 Bipolar disorder, unspecified; F32.9 Major depressive disorder, single episode, unspecified; K21.9 Gastro-esophageal reflux disease without esophagitis
CPT/HCPCS: 36415 ×2; 71045; 80048; 80053; 82550 ×2; 82553 ×2; 82805; 84484 ×2; 85025 ×2; 93005; 94640; 99285; G0378 ×2; J0456; J7040; 36600

== ENCOUNTER 2019-01-04 11:13 | Emergency (ER) | payer OTHER ==
[~2019-01-04] VITALS: Ht 170.2 cm; Wt 62.1 kg
[~2019-01-04 11:13] MED LIST changes: +ALBUTEROL0.63 MG/3 INH; +AZITHROMYCIN250 MG PO; +PREDNISONE20 MG PO; +QUETIAPINE FUM100 MG PO
--- NOTE | 2019-01-04 12:34 | Diagnostic Imaging Report ---
LEFT SHOULDER - 2 Images LEFT HUMERUS - 2 Images HISTORY: Fall, injury COMPARISON: None available. FINDINGS: Bones: No acute displaced fracture. No aggressive osseous lesion. Joints: Osseous alignment is within normal limits and the joint spaces are well-maintained. Soft tissues: The soft tissues appear unremarkable. IMPRESSION: No acute radiographic abnormality. Signed by: Dr. Jasmeet Penny D.O., M.M.M. on 01/04/2019 12:31 PM
--- NOTE | 2019-01-04 13:13 | Diagnostic Imaging Report ---
LEFT ELBOW - 3 Images HISTORY: Fall, left arm injury COMPARISON: None available. FINDINGS: Bones: No acute displaced fracture. No aggressive osseous lesion. Joints: Osseous alignment is within normal limits and the joint spaces are well-maintained. Soft tissues: The soft tissues appear unremarkable. IMPRESSION: No acute displaced fracture. Signed by: Dr. Jasmeet Penny D.O., M.M.M. on 01/04/2019 1:09 PM
--- NOTE | 2019-01-04 14:13 | Diagnostic Imaging Report ---
RIGHT HIP - 3 Images HISTORY: Fall, injury COMPARISON: None available. FINDINGS: Bones: Some of the osseous structures are partially obscured by stool and overlying bowel gas. No acute displaced fracture. No aggressive osseous lesion. Joints: Moderate degenerative changes of the right hip. Soft tissues: The soft tissues appear unremarkable. IMPRESSION: 1. No acute radiographic abnormality. 2. Moderate right hip osteoarthrosis. Signed by: Dr. Jasmeet Penny D.O., M.M.M. on 01/04/2019 2:10 PM
--- NOTE | 2019-01-04 14:15 | Diagnostic Imaging Report ---
LEFT FOREARM - 2 Images HISTORY: Fall, injury COMPARISON: Elbow radiographs from the same date. FINDINGS: Bones: No acute displaced fracture. No aggressive osseous lesion. Incidentally, ulnar minus variance. Joints: Osseous alignment is within normal limits and the joint spaces are well-maintained. Soft tissues: The soft tissues appear unremarkable. IMPRESSION: No acute radiographic abnormality. Signed by: Dr. Jasmeet Penny D.O., M.M.M. on 01/04/2019 2:12 PM
--- NOTE | 2019-01-04 14:17 | Diagnostic Imaging Report ---
Frontal and lateral views of the chest. HISTORY: Fall, injury COMPARISON: Chest radiograph July 28, 2018 DISCUSSION: Lungs: The lungs remain hyperinflated. No evidence of a consolidative pneumonia or pulmonary alveolar edema. Pleura: No pleural effusion or pneumothorax. Heart and mediastinum: The cardiomediastinal silhouette appears unremarkable. Bones and soft tissues: Mild accentuation of the thoracic kyphosis with mild to moderate multilevel degenerative disc changes. IMPRESSION: 1. No acute radiographic abnormality. 2. No significant interval change. 3. Findings remain compatible with chronic obstructive pulmonary disease. Signed by: Dr. Jasmeet Penny D.O., M.M.M. on 01/04/2019 2:14 PM
[2019-01-04 15:52] VITALS: BP 100/79
--- NOTE | 2019-01-04 16:05 | NUR ---
CALLED PT IN TO ROOM TO DISCHARGE HOME, NO ANSWER WHEN CALLED 3 DIFFERENT TIMES. INFORMED BY MEDIA ASSISTANT THAT PT WAS SEEN WALKING OUT OF ER DOOR INTO PARKING LOT. WENT OUT INTO LOT AND UNABLE TO LOCATE PT. INFORMED CECI LING AND DR. HORTON OF THIS.
[2019-01-04] MEDS ORDERED: HYDROMORPHONE 2MG/ML 2 MG/ML ML IM ONE (19:45)
[2019-01-04] MEDS ORDERED: ONDANSETRON HCL 4 MG ORAL DISINTEGRATING TAB PO ONE (19:45)
== END 2019-01-04 16:05 | disposition home or self-care (01) ==
LOC: ER 11:13
DX: S70.01XA Contusion of right hip, initial encounter (principal); S40.012A Contusion of left shoulder, initial encounter; S40.022A Contusion of left upper arm, initial encounter; S50.02XA Contusion of left elbow, initial encounter; W01.0XXA Fall on same level from slipping, tripping and stumbling without subsequent striking against object, initial encounter; Y92.008 Other place in unspecified non-institutional (private) residence as the place of occurrence of the external cause; J44.9 Chronic obstructive pulmonary disease, unspecified; F41.9 Anxiety disorder, unspecified; F32.9 Major depressive disorder, single episode, unspecified; F17.210 Nicotine dependence, cigarettes, uncomplicated
CPT/HCPCS: 71046; 73030; 73060; 73080; 73090; 73502; 99283; J1170; Q0162

== ENCOUNTER 2019-05-25 12:15 | Emergency (ER) | payer OTHER ==
[~2019-05-25] VITALS: Ht 170.2 cm; Wt 62.1 kg
--- OUTSIDE RECORDS SUMMARY | 2019-05-25 12:17 | XMS REPORT | Continuity of Care Document ---
Author Author [employer] Organization [employer] Address Unknown Phone Unavailable Care Team Providers Care Tank Washer Name Role Phone [employer] Information [employer] Unavailable Unavailable Problems Problem Status Onset Date Classification Date Reported Comments Source Discharge Diagnosis: Asthma with acute exacerbation in adult 07/07/2016 07/10/2016 [facility] ASTHMA Active 07/07/2016 [facility] COPD exacerbation Resolved Problem 07/10/2016 [facility] Medications Medication Details Route Status Patient Instructions Ordering Provider Order Date Source predniSONE 20 mg oral tablet 60 mg=3 tab, PO, Daily, Take 3 tablets for 60 mg dose, X 5 day, # 15 tab, 0 Refill(s) Active 07/07/2016 [facility] 200 ACTUAT Albuterol 0.09 MG/ACTUAT Metered Dose Inhaler 2 puff, Route: INHALATION, Drug Form: AERO/A, Dosing Weight 59.091, kg, ONCE, Start date: 07/07/16 13:14:00 CDT, Stop date: 07/07/16 13:14:00 CDTNotes: Albuterol 90 microgram/inh 8gm HFA WASTE: Aerosol - Return to Pharmacy Same as: Ventolin, Proventil Inactive 07/07/2016 [facility] Allergies, Adverse Reactions, Alerts No Known Medication Allergies Immunizations No Data Provided for This Section Results No Data Provided for This Section Pathology Reports No Data Provided for This Section Diagnostic Reports Report Value Date Source Chest 2 views DX CLINICAL HISTORY: Cough and fever AGE: 56 years GENDER: Female TECHNIQUE: PA and lateral chest radiographs, 2 views. COMPARISON: None FINDINGS: The cardiomediastinal silhouette is within normal limits. No focal airspace or interstitial opacities are seen. No pleural effusions. No pneumothorax. No significant osseous abnormalities are identified. IMPRESSION: No acute cardiopulmonary abnormality. 07/07/2016 [facility] Consultation Notes No Data Provided for This Section Discharge Summaries No Data Provided for This Section History and Physicals No Data Provided for This Section Vital Signs Vital Sign Value Date Comments Source Heart Rate 79 07/07/2016 [facility] Respitory Rate 19 07/07/2016 [facility] Systolic (mm Hg) 116 07/07/2016 [facility] Diastolic (mm Hg) 71 07/07/2016 [facility] Weight 59.091 07/07/2016 [facility] BMI Calculated 20.4 07/07/2016 [facility] Height 170.18 cm 07/07/2016 [facility] Temperature Oral (F) 97.4 F 07/07/2016 [facility] Heart Rate 79 07/07/2016 [facility] Systolic (mm Hg) 122 07/07/2016 [facility] Diastolic (mm Hg) 72 07/07/2016 [facility] Respitory Rate 20 07/07/2016 [facility] Encounters Location Location Details Encounter Type Encounter Number Reason For Visit Attending Provider ADM Date DC Date Status Source [facility] Emergency [id number] Jaymie Jerome 07/07/2016 07/07/2016 [facility] Procedures No Data Provided for This Section Assessment and Plan No Data Provided for This Section Plan of Care No Data Provided for This Section Social History Social History Date Source Social History TypeResponse Smoking Status Former smoker; Exposure to Tobacco Smoke None; Cigarette Smoking Last 365 Days No; Reg Smoking Cessation Counseling No 07/07/2016 [facility] Family History No Data Provided for This Section Advance Directives No Data Provided for This Section Functional Status No Data Provided for This Section
[2019-05-25 12:52] LABS: BILIRUBIN,URINE NEGATIVE (NEGATIVE); CLARITY,URINE CLEAR (CLEAR); COLOR,URINE YELLOW (YELLOW); KETONES,URINE NEGATIVE (NEGATIVE); LEUKOCYTE ESTERASE ,URINE TRACE (NEGATIVE); NITRITE,URINE NEGATIVE (NEGATIVE); PROTEIN,URINE DIPSTICK TRACE (NEGATIVE); URINE UROBILINOGEN 0.2 mg/dL (0.2 - 1)
--- NOTE | 2019-05-25 13:14 | Diagnostic Imaging Report ---
HIP RIGHT 2-3 VW (+/- PELVIS) - 3 views HISTORY: 01/04/2019 COMPARISON: None available. FINDINGS: Bones: No acute displaced fracture. Osseous alignment is within normal limits. Joints: Mild degenerative changes of the hips. Soft tissues: The soft tissues appear unremarkable. IMPRESSION: No acute radiographic abnormality. Signed by: Dr. Clayton Gudino MD on 05/25/2019 1:11 PM
[2019-05-25 13:18] LABS: BACTERIA,URINE FEW /HPF; EPITHELIAL CELLS,URINE MODERATE /LPF; RBC,URINE 0-5 /HPF (0-5); WBC,URINE (MAN) 0-5 /HPF (0-5)
[2019-05-25 13:31] VITALS: BP 112/78
== END 2019-05-25 13:41 | disposition home or self-care (01) ==
LOC: ER 12:15
DX: R30.0 Dysuria (principal); S70.01XA Contusion of right hip, initial encounter; J44.9 Chronic obstructive pulmonary disease, unspecified; F31.9 Bipolar disorder, unspecified
CPT/HCPCS: 81001; 87086; 99283

== ENCOUNTER 2020-06-27 19:00 | Observation (INO) | payer OTHER ==
[~2020-06-27] VITALS: Ht 170.2 cm; Wt 62.6 kg
[~2020-06-27 19:00] MED LIST changes: +KEFLEX500 MG PO
[2020-06-27 21:11] LABS: BASOPHILS % 0.3 % (0.0-1.0); EOSINOPHILS # (AUTO) 0.1 (0.0-0.4); EOSINOPHILS % 0.8 % (0.0-6.0); HEMATOCRIT 43.8 % (34.2-44.1); HEMOGLOBIN 13.7 g/dL (12.0-16.0); LYMPHOCYTES # (AUTO) 1.3 (1.0-3.2); LYMPHOCYTES % 16.8 % (18.0-39.1); MEAN CORPUSCULAR HEMOGLOBIN 26.7 pg (28-32); MEAN CORPUSCULAR HGB CONC 31.3 g/dL (31-35); MEAN CORPUSCULAR VOLUME 85.2 fL (81-99); MONOCYTES # (AUTO) 0.5 (0.2-0.8); MONOCYTES % 6.4 % (4.4-11.3); NEUTROPHILS % 75.3 % (38.7-80.0); PLATELET COUNT 354 x10e3/uL (140-360); RED BLOOD COUNT 5.14 x10e6/uL (3.6-5.1); RED CELL DISTRIBUTION WIDTH 15.9 % (11.7-14.4)
[2020-06-27 21:21] LABS: INR 0.86; PROTHROMBIN TIME 12.1 seconds (11.9-14.5)
[2020-06-27 21:22] LABS: PARTIAL THROMBOPLASTIN TIME 28.3 seconds (23.8-35.5)
[2020-06-27 21:32] LABS: ALANINE AMINOTRANSFERASE 16 IU/L (0-55); ALBUMIN 3.9 g/dL (3.5-5.0); ALBUMIN/GLOBULIN RATIO 1.3 (0.8-2.0); ALKALINE PHOSPHATASE 106 IU/L (40-150); ANION GAP 12.3 mmol/L (8-16); BLOOD UREA NITROGEN 11 mg/dL (7-26); BUN/CREATININE RATIO 9 (6-25); CALCIUM 9.1 mg/dL (8.4-10.2); CARBON DIOXIDE 23 mmol/L (22-29); CHLORIDE 108 mmol/L (98-107); CREATINE KINASE 589 IU/L (29-168); CREATININE, SERUM 1.24 mg/dL (0.57-1.11); EST GLOMERULAR FILTRATION RATE 44 ML/MIN (60-); GLUCOSE 159 mg/dL (74-118); POTASSIUM 3.3 mmol/L (3.5-5.1); SODIUM 140 mmol/L (136-145)
--- NOTE | 2020-06-27 21:43 | Emergency Department Note ---
History of Present Illnes History of Present Illness Chief Complaint: Respiratory History of Present Illness This is a 60 year old female REPORTS "MY COPD IS FLARING UP AND I MAYBE HAD SOME CHEST TIGHTNESS." PT DENIES ANY SOB OR CHEST PAIN AT THIS TIME . Historian: Patient Arrival Mode: Car Onset (how long ago): hour(s) (4) Location: CHEST Quality: TIGHNESS, SOB Radiation: Reports non-radiation Severity: mild Onset quality: sudden Duration (how long): hour(s) (4) Timing of current episode: intermittent Progression: resolved Chronicity: recurrent Context: Denies recent illness, Denies recent surgery, Denies recent travel Relieving factors: none Exacerbating factors: none Associated symptoms: Reports denies other symptoms Past Medical/Family History Physician Review I have reviewed the patient's past medical and family history. Any updates have been documented here. Past Medical History Recent Fever: No Clinical Suspicion of Infectio: No New/Unexplained Change in Ment: No Past Medical History: Asthma, GERD Other Medical History: BIPOLAR Past Surgical History: Appendectomy, Tubal Ligation Other Surgery: LEFT GANGLION CYST Social History Smoking Cessation: Current every day smoker Alcohol Use: None Any Illegal Drug Use: No Family History Family history of heart diseas: No Other Last Tetanus: UTD Review of Systems Review of Systems Constitutional: Reports no symptoms EENTM: Reports no symptoms Cardiovascular: Reports as per HPI Respiratory: Reports as per HPI Gastrointestinal: Reports no symptoms Genitourinary: Reports no symptoms Musculoskeletal: Reports no symptoms Integumentary: Reports no symptoms Neurological: Reports no symptoms Psychological: Reports no symptoms Endocrine: Reports no symptoms Hematological/Lymphatic: Reports no symptoms Physical Exam Related Data Allergies: Uncoded Allergies: SPIRIVA (Allergy, Severe, CAUSES CHEST PAIN, 09/01/19) Triage Vital Signs Vital Signs Date Time Temp Pulse Resp B/P (MAP) Pulse Ox O2 Delivery O2 Flow Rate FiO2 06/27/20 20:21 98.4 92 17 108/69 97 Room Air Vital signs reviewed: Yes Physical Exam CONSTITUTIONAL Constitutional: Present well-developed, Present well-nourished; Absent distressed HENT HENT: Present normocephalic, Present atraumatic, Present oropharynx clear/moist, Present nose normal HENT L/R: Present left ext ear normal, Present right ext ear normal EYES Eyes: Reports PERRL, Reports conjunctivae normal NECK Neck: Present ROM normal PULMONARY Pulmonary: Present effort normal, Present breath sounds normal, Present other (NO WHEEZING, PT WITH GOOD AIR MOVMENT BILATERAL) CARDIOVASCULAR Cardiovascular: Present regular rhythm, Present heart sounds normal, Present capillary refill normal, Present normal rate GASTROINTESTINAL Abdominal: Present soft, Present nontender, Present bowel sounds normal GENITOURINARY Genitourinary: Present exam deferred SKIN Skin: Present warm, Present dry MUSCULOSKELETAL Musculoskeletal: Present ROM normal NEUROLOGICAL Neurological: Present alert, Present oriented x 3, Present no gross motor or sensory deficits PSYCHOLOGICAL Psychological: Present mood/affect normal, Present judgement normal Results Laboratory Result Diagram: 06/27/20203006/27/202030 Laboratory Laboratory Tests Test 06/27/20 20:31 White Blood Count 7.99 x10e3/uL (4.8-10.8) Red Blood Count 5.14 x10e6/uL (3.6-5.1) Hemoglobin 13.7 g/dL (12.0-16.0) Hematocrit 43.8 % (34.2-44.1) Mean Corpuscular Volume 85.2 fL (81-99) Mean Corpuscular Hemoglobin 26.7 pg (28-32) Mean Corpuscular Hemoglobin Concent 31.3 g/dL (31-35) Red Cell Distribution Width 15.9 % (11.7-14.4) Platelet Count 354 x10e3/uL (140-360) Neutrophils (%) (Auto) 75.3 % (38.7-80.0) Lymphocytes (%) (Auto) 16.8 % (18.0-39.1) Monocytes (%) (Auto) 6.4 % (4.4-11.3) Eosinophils (%) (Auto) 0.8 % (0.0-6.0) Basophils (%) (Auto) 0.3 % (0.0-1.0) Neutrophils # (Auto) 6.0 (2.1-6.9) Lymphocytes # (Auto) 1.3 (1.0-3.2) Monocytes # (Auto) 0.5 (0.2-0.8) Eosinophils # (Auto) 0.1 (0.0-0.4) Basophils # (Auto) 0.0 (0.0-0.1) Absolute Immature Granulocyte (auto 0.03 x10e3/uL (0-0.1) Prothrombin Time 12.1 seconds (11.9-14.5) Prothromb Time International Ratio 0.86 Activated Partial Thromboplast Time 28.3 seconds (23.8-35.5) Sodium Level 140 mmol/L (136-145) Potassium Level 3.3 mmol/L (3.5-5.1) Chloride Level 108 mmol/L (98-107) Carbon Dioxide Level 23 mmol/L (22-29) Anion Gap 12.3 mmol/L (8-16) Blood Urea Nitrogen 11 mg/dL (7-26) Creatinine 1.24 mg/dL (0.57-1.11) Estimat Glomerular Filtration Rate 44 ML/MIN (60-) BUN/Creatinine Ratio 9 (6-25) Glucose Level 159 mg/dL (74-118) Calcium Level 9.1 mg/dL (8.4-10.2) Total Bilirubin 0.3 mg/dL (0.2-1.2) Aspartate Amino Transf (AST/SGOT) 24 IU/L (5-34) Alanine Aminotransferase (ALT/SGPT) 16 IU/L (0-55) Alkaline Phosphatase 106 IU/L (40-150) Creatine Kinase 589 IU/L (29-168) Total Protein 6.9 g/dL (6.5-8.1) Albumin 3.9 g/dL (3.5-5.0) Globulin 3.0 g/dL (2.3-3.5) Albumin/Globulin Ratio 1.3 (0.8-2.0) Lipase 32 U/L (8-78) Lab results reviewed: Yes Imaging Imaging results reviewed: Yes Impressions Procedure: [id number] DX/CHEST 2 VIEWS Exam Date: 06/27/20 Exam Time: 2144 REPORT STATUS: Signed EXAMINATION: CHEST 2 VIEWS INDICATION: CHEST TIGHTNESS COMPARISON: Radiograph dated 09/01/2019 FINDINGS: TUBES and LINES: None. LUNGS: Normal lung volumes. Lungs are clear. No consolidations. PLEURA: No pleural effusion or pneumothorax. HEART AND MEDIASTINUM: The cardiomediastinal silhouette is unremarkable. BONES AND SOFT TISSUES: No acute osseous lesion. Soft tissues are unremarkable. UPPER ABDOMEN: No free air under the diaphragm. IMPRESSION: No acute thoracic radiographic abnormality. Signed by: Keily Chu MD on 06/27/2020 10:06 PM Dictated By: KEILY CHU MD 05 Transcribed By: NASIM on 06/27/202205 COPY TO: ZENIA DE PAZ MD~ Procedures 12 Lead ECG Interpretation ECG Interpretation : ECG: ECG 1 Service Tech/Welder: Interpreted by ED physician Date: Jun 27, 2020 Time: 20:24 Rhythm: sinus rhythm Rate: normal BPM: 92 QRS axis: normal ST segments normal: Yes T waves normal: Yes Q waves: V1 Clinical Impression: abnormal ECG Clinical Decision Tools HEART Score List risk factors SMOKER HEART Score: HEART Score Response (Comments) Value History Slightly suspicious 0 EKG Non specific repolarization 1 Age 45 - 65 1 Risk factors 1 or 2 risk factors 1 Troponin 1-3x normal limit Total 3 Assessment & Plan Medical Decision Making MDM PT WITH C/O HAVING CHEST TIGHTNESS AND SOB EARLIER THAT HAS RESOLVED, PT HAS H/O COPD CBC, CMP, EKG, CXR, CARDIAC ENZYMES ORDERED TO EVAL FOR MYOCARDIAL INFARCTION, PNEUMONIA, ELECTROLYTE ABNORMALITY PT'S CK AND CKMB ELEVATED BUT TROPONIN IS NEGATIVE, I SPOKE WITH DR PENNY AND DR Yamilka MCKINLEY, PLACE IN OBS FOR CARDIAC RULE OUT Assessment & Plan Final Impression: (1) Chest pain Last Vital Signs Date Time Temp Pulse Resp B/P (MAP) Pulse Ox O2 Delivery O2 Flow Rate FiO2 06/27/20 20:21 98.4 92 17 108/69 97 Room Air Home Meds Active Scripts Cephalexin Monohydrate (KEFLEX) 500 Mg Capsule, 500 MG PO Q6H for 10 Days, #40 TAB 0 Refills Prov:EVAN NAYAK, 09/01/19 Reported Medications Prednisone (PREDNISONE) 20 Mg Tab, 40 MG PO DAILY, TAB 07/29/18 Azithromycin (Z-HAILEY) 250 Mg Tablet, 250 MG PO UD, #1 UDPKT Z-Pack 07/29/18 Albuterol Sulfate (ALBUTEROL SULFATE) 0.63 Mg/3 Ml Vial.neb, 0.63 MG INH QID PRN for SHORTNESS OF BREATH 07/29/18 Fluticasone/Salmeterol (ADVAIR 250-50 DISKUS) 1 Each Disk.w.dev, 1 INH INH Q12H 07/28/18 Quetiapine Fumarate (QUETIAPINE FUMARATE) 100 Mg Tablet, 600 MG PO HS, #30 TAB 07/28/18 Albuterol Sulf* (PROAIR HFA INHALER*) 8.5 Gm Inh, 2 INH INH Q4HR PRN for SHORTNESS OF BREATH 2 puffs 05/24/18 Tiotropium Newberry (SPIRIVA) 18 Mcg Cap.w.dev, 18 MCG INH DAILY, BOTTLE 05/24/18 Venlafaxine Hcl (VENLAFAXINE HCL) 75 Mg Tab, 150 MG PO DAILY, #30 TAB 05/22/18 Hydroxyzine Hcl (HYDROXYZINE HCL) 25 Mg Tablet, 50 MG PO TID PRN for ANXIETY, #30 TAB 05/22/18 Divalproex Sodium (DEPAKOTE ER) 500 Mg [id number], 500 MG PO BID 05/22/18 Benztropine Mesylate (BENZTROPINE MESYLATE) 1 Mg Tablet, 1 MG PO BID 05/22/18 ZENIA DE PAZ MD Jun 27, 2020 21:43
--- NOTE | 2020-06-27 22:10 | Diagnostic Imaging Report ---
EXAMINATION: CHEST 2 VIEWS INDICATION: CHEST TIGHTNESS COMPARISON: Radiograph dated 09/01/2019 FINDINGS: TUBES and LINES: None. LUNGS: Normal lung volumes. Lungs are clear. No consolidations. PLEURA: No pleural effusion or pneumothorax. HEART AND MEDIASTINUM: The cardiomediastinal silhouette is unremarkable. BONES AND SOFT TISSUES: No acute osseous lesion. Soft tissues are unremarkable. UPPER ABDOMEN: No free air under the diaphragm. IMPRESSION: No acute thoracic radiographic abnormality. Signed by: Ming Bryant MD on 06/27/2020 10:06 PM
--- OUTSIDE RECORDS SUMMARY | 2020-06-27 22:38 | XMS REPORT | Continuity of Care Document ---
Author Author Robert [place]pamela Torres PAYAL [facility] [employer] Address Unknown Phone Unavailable Care Team Providers Care Engineering Supplies Sales Name Role Phone [facility] Unavailable Un available Problems Problem Status Onset Date Classification Date Reported Comments Source Discharge Diagnosis: Asthma with acute e xacerbation in adult 07/07/2016 07/10/2016 [facility] ASTHMA Active 07/07/2016 [facility] Acute exacerbation of chronic obstructiv e airways disease (disorder) Resolved Pr oblem 07/10/2016 [facility] Medications Medication Details Route Status Patient Instructions Ordering Provider Order Date Source predniSONE 20 mg oral tablet 6 0 mg = 3 tab, PO, Daily, Take 3 tablets for 60 mg dose, X 5 day, # 15 tab, 0 Refill(s) Active 07/07/2016 [facility] 200 ACTUAT Albuterol 0.09 MG/ACTUAT Mete red Dose Inhaler Notes: Albuterol 90 microgram/inh 8gm HF A WASTE: Aerosol - Return to Pharmacy Same as: Cheryl Ramesh Inactive 07/07/2016 [facility] Allergies, Adverse Reactions, Alerts No Known Medication Allergies Immunizations No Data Provided for This Section Results No Data Provided for This Section Pathology Reports No Data Provided for This Section Diagnostic Reports Report Value Date Source Chest 2 views DX CLINICAL HIST ORY: Cough and fever AGE: 56 years GENDER: Female TECHNIQUE: PA and lateral chest radiographs, 2 views. COMPARISON: None FINDINGS: The cardiomediastinal silhouette is within normal limits. No focal airspace or interstitial opacities are seen. No pleural effusions. No pneumothorax. No significant osseous abnormalities are identified. IMPRESSION: No acute cardiopulmonary abnormality. 07/07/2016 [facility] Consultation Notes No Data Provided for This Section Discharge Summaries No Data Provided for This Section History and Physicals No Data Provided for This Section Vital Signs Vital Sign Value Date Comments Source Heart Rate 79 07/07/2016 [facility] Respitory Rate 19 07/07/2016 [facility] Systolic (mm Hg) 116 07/07/2016 [facility] Diastolic (mm Hg) 71 07/07/2016 [facility] Weight 59.091 07/07/2016 [facility] BMI Calculated 20.4 07/07/2016 [facility] Height 170.18 cm 07/07/2016 [facility] Temperature Oral (F) 97.4 F 07/07/2016 [facility] Heart Rate 79 07/07/2016 [facility] Systolic (mm Hg) 122 07/07/2016 [facility] Diastolic (mm Hg) 72 07/07/2016 [facility] Respitory Rate 20 07/07/2016 [facility] Encounters Location Location Details Encounter Type Encounter Number Reason For Visit Attending Provider ADM Date DC Date Status Source [facility] Emergency [id number] Jaymie Cano 07/07/2016 07/07/2016 [facility] Procedures No Data Provided for This Section Assessment and Plan No Data Provided for This Section Plan of Care No Data Provided for This Section Social History Social History Date Source Social History TypeResponse Smoking Status Former smoker; Exposure to Tobacco Smoke None; Cigarette Smoking Last 365 Days No; Reg Smoking Cessation Counseling No 07/07/2016 [facility] Family History No Data Provided for This Section Advance Directives No Data Provided for This Section Functional Status No Data Provided for This Section
--- OUTSIDE RECORDS SUMMARY | 2020-06-27 22:38 | XMS REPORT | Clinical Summary ---
Author Author [facility] Organization [facility] Address Unknown Phone Unavailable Care Team Providers Care Hospice Consultant Name Role Phone PCP Unavailable Allergies No Known Allergies Medications End Date Status Medication Sig Dispensed Refills Start Date Active omeprazole (PRILOSEC) 20 Take 1 90 capsule 3 0 mg delayed release capsule by 7 capsuleIndications: mouth daily. Gastroesophageal reflux disease, esophagitis presence not specified Active benztropine (COGENTIN) Take 1 tablet 30 tablet 2 0 0.5 mg tabletIndications: by mouth at 7 Bipolar 1 disorder bedtime nightly. Active venlafaxine (EFFEXOR XR) Take 2 60 capsule 2 0 75 mg extended release capsules by 7 capsuleIndications: mouth daily. Bipolar 1 disorder Active divalproex (DEPAKOTE) 500 Take 1 tablet 30 tablet 2 mg delayed release by mouth at 7 tabletIndications: bedtime Bipolar 1 disorder nightly. Active QUEtiapine (SEROQUEL) 200 Take 3 90 tablet 2 mg tabletIndications: tablets by 7 Bipolar 1 disorder mouth at bedtime nightly. Active hydrOXYzine (ATARAX) 50 Take 1 and 45 tablet 2 mg tabletIndications: 1/2 tablets 7 Bipolar 1 disorder by mouth nightly at bedtime as needed for Anxiety. Active albuterol (PROVENTIL) 2.5 Inhale 1 vial 75 mL 0 mg /3 mL (0.083 %) (3 mL) 7 nebulizer nebulizer and solutionIndications: Mild inhale by persistent asthma without mouth every 6 complication, Medication hours as refill needed for Wheezing or Shortness of Breath. Active Problems Problem Noted Date Shortness of breath 07/30/2017 Generalized anxiety disorder 03/31/2017 Bipolar 1 disorder Immunizations Name Administration Dates Next Due Influenza Vaccine 10/03/2016 PPV 23 Pneumococcal 10/03/2016 Polysaccaride Tdap Tetanus, diphtheria, 10/03/2016 acellular pertussis Vaccine Family History Medical History Relation Name Comments Arthritis Father Diabetes Father Hypertension Father Psychiatry Father Psychiatry Maternal Grandfather Arthritis Mother Heart Mother OPEN HEART SURGERY Hypothyroid Mother Psychiatry Mother Pulmonary Mother Stroke Paternal Grandfather Cancer Paternal COLON CANCER Grandmother Diabetes Paternal Grandmother Psychiatry Paternal Grandmother Hypothyroid Sister Relation Name Status Comments Brother Alive Daughter Alive Daughter Alive Father Alive Maternal Grandfather Maternal Grandmother Mother Alive Paternal Grandfather Paternal Grandmother Sister Alive Sister Son Alive Social History Date Tobacco Use Types Packs/Day Years Used Quit: 11/29/2013 Former Smoker Cigarettes 1 30 Smokeless Tobacco: Never Used Tobacco Cessation: Counseling Given: No Drinks/Week oz/Week Comments Alcohol Use 0 Standard drinks or equivalent 0.0 No Sex Assigned at Date Recorded Not on file Industry Job Start Date Occupation Not on file Not on file Not on file Travel End Travel History Travel Start No recent travel history available. Last Filed Vital Signs Not on file Plan of Treatment Health Maintenance Due Date Last Done Comments Breast Cancer Scrn 2002 (Yearly) Colorectal Cancer Scrn 12/01/2017 12/01/2016 Annual (FIT/FOBT) Age 50 to 75 IMM Influenza Seasonal 08/20/2020 10/03/2016 Oct to January (>/= 19 yrs) Results Not on fileafter 06/27/2019 Insurance Type Payer Benefit Subscriber ID Effective Phone Address Plan / Dates Group [facility] SELF-PAY SELF-PAY xxxxxxxxx 2017- [phone] [id number] [place] [address]
--- OUTSIDE RECORDS SUMMARY | 2020-06-27 22:39 | XMS REPORT | Continuity of Care Document ---
Author Author [facility] t Organization [facility] Address [address] [place] [address] Phone Unavailable Care Team Providers Care Script Girl Name Role Phone JI PENNY MD PCP Emil DE PAZ Attphys Unavailable JOSE MARIA, Low GORDON Attphys Unavailable HUSBYAsh Attphys Unavailable SOL, P DESHAUN Attphys Unavailable JI PENNY Attphys Unavailable RAY, BRIAN Attphys Unavailable Jaymie Cano Attphys JI PENNY Admphys Unavailable RAY, BRIAN Admphys Unavailable Payers Payer Name Policy Type Policy Number Effective Date Expiration Date Low bahenaaxel [employer] [id number] 2017 00:00:00 [facility] [employer] [id number] 2018 00:00:00 [facility] Problems Condition Name Condition Details Condition Category Status Onset Date Resolution Date Last Treatment Date Treating Clinician Comments Source Shortness of breath Shortness of breath Disease Active 2017-07-30 00:00 :00 [facility] Generalized anxiety disorder Generalized anxiety disorder Disease Active 2017-03-31 00:00:00 [facility] ASTHMA ASTH MA Active 07/07/[address] [facility] Diagnosis Active 2016-07-07 00:00:00 2016-07-14 10:24:00 [facility] Syncope Syncope Problem Active [facility] Obstructive chronic bronchitis with exacerbation COPD exacerbati on Problem Active [facility] Acute exacerbation of chronic obstructive airways dise ase (disorder) Acute exacerbation of chronic obstructive airways disease (disorder) Resolved Problem 07/10/[address] [facility] Problem Resolved 2016-07-10 04:04:26 [facility] Bipolar 1 disorder Bipolar 1 disorder Disease Active [facility] Discharge Diagnosis: Asthma with acute exacerbation in adult Discharge Diagnosis: Asthma with acute exacerbation in adult 07/07/2016 07/10/[address] [facility] Problem 2016-07-07 05:00:00 2016-06-21 1 04:04:26 2016-07-10 04:04:26 [facility] Allergies, Adverse Reactions, Alerts Allergy Name Allergy Type Status Severity Reaction(s) Onset Date Inacti ve Date Treating Clinician Comments Source tiotropium DA Active 2020-03-06 00:00:00 [facility] tiotropium DA Active 2020-03-05 00:00:00 [facility] tiotropium DA Active 2019-09-05 00:00:00 [facility] SPIRIVA Allergy to Substance Active Severe CAUSES CHEST PA IN 2019-09-01 00:00:00 [facility] No Known Allergies DA Active U 2019-09-01 00:00:00 [facility] No Known Allergies DA Active U 2011-12-17 00:00:00 [facility] Family History Family Member Diagnosis Comments Start Date Stop Date Source Natural father Arthritis [facility] Natural father Diabetes [facility] Natural father Hypertension [facility] Natural father Psychiatry [facility] Maternal grandfather [facility] Natural mother Arthritis [facility] Natural mother Heart [facility] Natural mother Hypothyroid [facility] Natural mother Psychiatry [facility] Natural mother Pulmonary [facility] Paternal grandfather Stroke [facility] Paternal grandmother Cancer [facility] Paternal grandmother [facility] Paternal grandmother [facility] Natural sister Hypothyroid [facility] Social History Social Habit Start Date Stop Date Quantity Comments Source Sex Assigned At [facility] Cigarettes smoked current (pack per day) - Reported 00:00:00 2017-07-30 00:00:00 [facility] Cigarette pack-years 2017-07-30 00:00:00 2017-07-30 00:00:00 [facility] Alcohol intake 2017-07-30 00:00:00 2017-07-30 00:00:00 Current non-drinker of alcohol (finding) [facility] History of tobacco use 2013-11-29 00:00:00 Current smoker [facility] Smoking Status Start Date Stop Date Source Former smoker 2017-07-30 00:00:00 2017-07-30 00:00:00 [facility] Medications Ordered Medication Name Filled Medication Name Start Date Stop Da te Current Medication? Ordering Clinician Indication Dosage Frequency Signature (SIG) Comments Components Source Cephalexin Monohydrate (Keflex) 500 Mg Capsule Cephale carlos Monohydrate (Keflex) 500 Mg Capsule 2019-09-01 00:00:00 Yes Evan Moise Md 50 0 Every 6 Hours [facility] albuterol (PROVENTIL) 2.5 mg /3 mL (0.083 %) nebulizer solut ion 2017-08-02 00:00:00 Yes Medication refill 2.5mg In quintero 1 vial (3 mL) nebulizer and inhale by mouth every 6 hours as needed for Wheezing or Shortness of Breath. [facility] benztropine (COGENTIN) 0.5 mg tablet 2017-05-16 00:00:00 Yes Bipolar 1 disorder .5mg Take 1 tablet by mouth at bedtime nightly. [facility] venlafaxine (EFFEXOR XR) 75 mg extended release capsule 2017-05-16 00:00:00 Yes Bipolar 1 disorder 150mg QD Take 2 capsules by mouth lauri hyde [facility] divalproex (DEPAKOTE) 500 mg delayed release tablet 05-16 00:00:00 Yes Bipolar 1 disorder 500mg Take 1 tablet by mouth at bedti me nightly. [facility] QUEtiapine (SEROQUEL) 200 mg tablet 2017-05-16 00:00:00 Yes Bipolar 1 disorder 600mg Take 3 tablets by mouth at bedtime nightly. [facility] hydrOXYzine (ATARAX) 50 mg tablet 2017-05-16 00:00:00 Yes Bipolar 1 disorder 75mg Take 1 and 1/2 table ts by mouth nightly at bedtime as needed for Anxiety. [facility] omeprazole (PRILOSEC) 20 mg delayed release capsule -10 00:00:00 Yes Gastroesophageal reflux disease, esophagitis presence not specif ied 20mg QD Take 1 capsule by mouth daily. Daryn Lubin alth predniSONE 20 mg oral tablet 2016-07-07 18:20:00 Yes 60 mg = 3 tab, PO, Daily, Take 3 tablets for 60 mg dose, X 5 day, # 15 tab, 0 Refill(s) Robert Whalen 200 ACTUAT Albuterol 0.09 MG/ACTUAT Metered Dose Inhaler 2016-07-07 18:14:00 No Notes: Albuter ol 90 microgram/inh 8gm HFA WASTE: Aerosol - Return to Pharmacy Same as: Cheryl Ramesh Albuterol Sulfate 0.63 Mg/3 Ml Vial.neb Albuterol Sulfate 0. 63 Mg/3 Ml Vial.neb Yes .63 Four Times Daily as needed for Shortness Of Breath [facility] Albuterol Sulfate (Proair Hfa Inhaler*) 8.5 Gm Inh Alb uterol Sulfate (Proair Hfa Inhaler*) 8.5 Gm Inh Yes 2 Lisette ry 4 Hours as needed for Shortness Of Breath [facility] Azithromycin (Z-Ryan) 250 Mg Tablet Azithromycin (Z-Ryan) 250 Mg Tablet Yes 250 Use As Directed [facility] Benztropine Mesylate 1 Mg Tablet Benztropine Mesylate 1 Mg Tablet Yes 1 Twice A Day [facility] Divalproex Sodium (Depakote Er) 500 Mg [id number] Diva lproex Sodium (Depakote Er) 500 Mg [id number] Yes 500 Twice A Day [facility] Fluticasone/Salmeterol (Advair 250-50 Diskus) 1 Each D isk.w.dev Fluticasone/Salmeterol (Advair 250-50 Diskus) 1 Each Disk.w.dev Yes 1 Every 12 Hours [facility] Hydroxyzine Hcl 25 Mg Tablet Hydroxyzine Hcl 25 Mg Tablet Y es 50 Three Times A Day as needed for Anxiety [facility] Prednisone 20 Mg Tab Prednisone 20 Mg Tab Yes 40 Daily [facility] Quetiapine Fumarate 100 Mg Tablet Quetiapine Fumarate 100 Mg Tablet Yes 600 Bedtime [facility] Tiotropium [place] (Spiriva) 18 Mcg Cap.w.dev Tiotropi um [place] (Spiriva) 18 Mcg Cap.w.dev Yes 18 Daily [facility] Venlafaxine Hcl 75 Mg Tab Venlafaxine Hcl 75 Mg Tab Yes 150 Daily [facility] Fluticasone/Salmeterol (Advair 250-50 Di skus) 1 Each Disk.w.dev, 250 Mg Inhalation Fluticasone/Salmeterol (Advair 250-50 Di skus) 1 Each Disk.w.dev, 250 Mg Inhalation 2018-07-28 00:00:00 No 250 Every 12 H ours [facility] Nebivolol Hcl (Bystolic) 10 Mg Tablet, 5 Mg Oral Nebiv olol Hcl (Bystolic) 10 Mg Tablet, 5 Mg Oral 2018-07-28 00:00:00 No 5 Daily [facility] Quetiapine Fumarate (Seroquel) 25 Mg Tablet, 300 Mg Or al Quetiapine Fumarate (Seroquel) 25 Mg Tablet, 300 Mg Oral 2018-07-28 00:00:00 No 300 Bedtime as needed for Sleep [facility] Immunizations Ordered Immunization Name Filled Immunization Name Date Status Comments Source PPV 23 Pneumococcal Polysaccaride 2016-10-03 00:00:00 Comp leted [facility] Tdap Tetanus, diphtheria, acellular pertussis Vaccine 2016-10-03 00:00:00 Completed [facility] Influenza Vaccine 2016-10-03 00:00:00 Completed [facility] Vital Signs Vital Name Observation Time Observation Value Comments Source Heart Rate 2016-07-07 18:50:00 Robert Whalen Respitory Rate 2016-07-07 18:50:00 Scar Simental Systolic (mm Hg) 2016-07-07 18:50:00 Jesus Alberto Whalen Diastolic (mm Hg) 2016-07-07 18:50:00 Nando Whalen Weight 2016-07-07 16:45:00 Robert Whalen BMI Calculated 2016-07-07 16:45:00 [facility] Height 2016-07-07 16:45:00 170.18 cm [facility] Temperature Oral (F) 2016-07-07 16:45:00 97.4 F [facility] Heart Rate 2016-07-07 16:45:00 [facility] Systolic (mm Hg) 2016-07-07 16:45:00 Jesus Alberto [facility] Diastolic (mm Hg) 2016-07-07 16:45:00 [facility] Respitory Rate 2016-07-07 16:45:00 [facility] Procedures Procedure Date / Time Performed Performing Clinician [facility] X-ray of chest, two views 2019-09-01 00:00:00 EVAN MOISE [facility] CT of abdomen and pelvis without contrast 2019-09-01 00:00:00 EVAN TORREZ [facility] X-ray of chest, two views 2019-01-04 00:00:00 ANURADHA COLLIER [facility] Plan of Care Planned Activity Planned Date Details Comments Source Future Scheduled Test 2020-08-20 00:00:00 IMM Influenza Seas onal Aug to January (>/= 19 yrs) [code = IMM Influenza Seasonal Aug to January (>/= 19 yrs)] [facility] Scheduled Test 2017-12-01 00:00:00 Screening for akila gnant neoplasm of colon (procedure) [code = 848758921] [facility] Scheduled Test 2002 00:00:00 Breast Cancer Scrn (Yearly) [code = Breast Cancer Scrn (Yearly)] [facility] Encounters Start Date/Time End Date/Time Encounter Type Admission Type [facility] Care Department Encounter ID Source 2019-09-01 09:32:00 2019-09-01 13:09:00 Departed Emergency Room 1 EVAN MOISE [facility] [id number] [facility] 2019-05-25 12:15:00 2019-05-25 13:41:00 Departed Emergency Room 1 NANDO NAVARRETE [facility] [id number] [facility] 2019-01-04 11:13:00 2019-01-04 16:05:00 Departed Emergency Room 1 DESHAUN HORTON [facility] [id number] [facility] 2018-07-28 23:05:00 2018-07-29 13:59:00 Discharged Inpatient (obs) 1 EVAN MOISE [facility] [id number] [facility] 2018-05-22 14:44:00 2018-05-24 18:19:00 Discharged Inpatient 1 JI PENNY [facility] [id number] [facility] 2017-09-07 00:00:00 2017-09-07 00:00:00 Outpatient [facility] [id number] [facility] 2017-08-22 00:00:00 2017-08-22 00:00:00 Outpatient [facility] [id number] [facility] 2017-08-04 00:00:00 2017-08-04 00:00:00 Outpatient [facility] [id number] [facility] 2017-07-30 20:04:51 2017-07-30 20:04:51 Emergency [facility] [id number] [facility] 2017-07-30 18:05:06 2017-07-30 18:05:06 Emergency [facility] [id number] [facility] 2017-07-24 13:53:00 2017-07-24 13:53:00 Emergency E [facility] [id number] [facility] 2017-05-16 08:03:03 2017-05-16 08:03:03 Outpatient [facility] [id number] [facility] 2017-04-11 12:45:50 2017-04-11 12:45:50 Outpatient [facility] [id number] [facility] 2017-04-04 08:29:19 2017-04-04 08:29:19 Outpatient [facility] [id number] [facility] 2017-03-31 13:02:06 2017-03-31 13:02:06 Outpatient [facility] [id number] [facility] 2017-03-14 08:18:10 2017-03-14 08:18:10 Outpatient [facility] [id number] [facility] 2017-02-21 11:00:57 2017-02-21 11:00:57 Outpatient [facility] [id number] [facility] 2016-07-07 11:40:00 2016-07-07 13:57:00 Outpatient Jaymie Cano [facility] [id number] Results Test Description Test Time Test Comments Results Result Comments Source CHEST 2 VIEWS 2020-06-27 21:59:00 [facility] [address] [address] Patient Name: PAYAL EDWARDS MR #: [id number] : 1960 Age/Sex: 60/F Req #: [id number] Adm Physician: Ordered by: ZENIA DE PAZ MD Report #: [id number] Location: ER Room/Bed: Procedure: [id number] DX/CHEST 2 VIEWS Exam Date: 06/27/20 Exam Time: 2144 REPORT STATUS: Signed EXAMINATION: CHEST 2 VIEWS INDICATION: CHEST TIGHTNESS COMPARISON: Radiograph dated 09/01/2019 FINDINGS: TUBES and LINES: None. LUNGS: Normal lung volumes. Lungs are clear. No consolidations. PLEURA: No pleural effusion or pneumothorax. HEART AND MEDIASTINUM: The cardiomediastinal silhouette is unremarkable. BONES AND SOFT TISSUES: No acute osseous lesion. Soft tissues are unremarkable. UPPER ABDOMEN: No free air under the diaphragm. IMPRESSION: No acute thoracic radiographic abnormality. Signed by: Keily Bryant MD on 06/27/2020 10:06 PM Dictated By: KEILY BRYANT MD 05 Transcribed By: NASIM on 06/27/202205 COPY TO: ZENIA DE PAZ MD LIPID PROFILE (CORONARY RISK) 2020-03-06 15:23:00 Test Item TRIGLYCERIDES (test code = TRIG) 44 mg/dL 20-150 N CHOLESTEROL (test code = CHOL) 171 mg/dL 0-200 N CHOLESTEROL/HDL RATIO (test code = CHOLHDL) 2.0 RATIO 0-4.9 N RISK ASSOCIATED WITH CHOL/HDL RATIOS: Risk Male Female1/2 AVERAGE 3.43 3.27AVERAGE 4.97 4.442X AVERAGE 9.55 7.053X AVERAGE 23.39 11.04 REFERENCE VALUE IS RELATED TO RISK LEVELS ASRECOMMENDED BY THE DWIGHT. HEART, LUNG, AND BLOOD INST. HDL CHOLESTEROL (test code = HDL) 60 mg/dL 40-60 N LIPOPROTEIN LDL (test code = LDL) 95 mg/dL 100-129 L Reference Interval: mg/dL mmol/L Optimal <100 <2.6Near/above optimal 100-129 2.6- 3.3Borderline High 130-159 3.4-4.1High 160-189 4.1-4.9Very High >=190 >=4.9========= This LDL result is a direct measurement.========= [id number] 15:23:00* Test Item Value Reference Range Interpretation Comments LIPASE (test code = LIP) 106 U/L 73.0-393.0 N THYROID PROFILE [id number] 15:23:00* Test Item Value Reference Range Interpretation Comments T3 UPTAKE (test code = T3UP) 35.0 % 30.0-40.0 N T4 (THYROXINE) (test code = T4) 7.4 ug/dL 4.5-13.9 N T7 (FREE THYROXINE INDEX) (test code = T7) 2.59 FTI 1.3-5.1 N THYROID STIMULATING HORMONE (test code = TSH) 0.689 uIU/mL 0.36-3.7 4 N TSH REFERENCE RANGES: EUTHYROID: 0.35 - 4.3 mIU/mL HYPO : > 5.5 mIU/mL HYPER : < 0.35 mIU/mL [id number] 15:23:00* Test Item Value Reference Range Interpretation Comments TROPONIN-I (test code = TROPI) 0.048 ng/mL 0-0.045 HH RESULT VERIFIED BY REPEAT ANALYSIS [id number] 15:15:00* Test Item Value Reference Range Interpretation Comments GLYCOSYLATED HEMOGLOBIN (HA1C) (test code = GLYHGB) 5.8 % HbA1 SUGGESTED DIAGNOSIS: HbA1C (%) Diabetic >6.4Prediabetes 5.7 - 6.4Normal <5.7 ESTIMATED AVERAGE GLUCOSE (test code = EAG) 120 MG/DL [id number] 09:18:00* Test Item Value Reference Range Interpretation Comments TROPONIN-I (test code = TROPI) 0.061 ng/mL 0-0.045 HH Results called to [id number] by [email or web address] 03/06/20 0918Critical results verified and read back by Nurse? YES COMMENTS TO EIGHT SECTION BLOWER: COLLECT 3 HOURS AFTER PREVIOUS [id number] 06:45:00* Test Item Value Reference Range Interpretation Comments TROPONIN-I (test code = TROPI) 0.035 ng/mL 0-0.045 N COMMENTS TO EIGHT SECTION BLOWER: COLLECT 3 HOURS AFTER PREVIOUS [id number] 06:26:00* Test Item Value Reference Range Interpretation Comments GLUBED (test code = GLUBED) 139 mg/dL 74-106 H Performed by certified filler operator at [facility] [id number] 02:22:00* Test Item Value Reference Range Interpretation Comments GLUBED (test code = GLUBED) 117 mg/dL 74-106 H Performed by certified filler operator at [facility] - CTA [id number] 23:41:00 Name: PAYAL EDWARDS [facility] : 1960 Age/S: 60 / F [address] [facility] Unit #: [id number] Loc: [place] [address] Phys: Devi Nettles MD Acct: [id number] Dis Date: Status: ADM IN PHONE #: [phone] Exam Date: 03/05/20202254 FAX #: [phone] Reason: sob syncope EXAMS: CPT CODE: [id number] CTA CHEST 80117 HISTORY: Chest pain, evaluate for pulmonary embolus. Location: C3 COMPARISON: None TECHNIQUE: Axial tomograms through the chest were obtained after intravenous contrast utilizing pulmonary CTA protocol. Multiplanar maximum intensity projection reformatted images are provided. One or more of the following dose reduction techniques were used: Automated exposure control, adjustment of the mA and/or kV according to patient size, and/or utilization of iterative reconstruction technique. FINDINGS: The pulmonary arteries are well opacified with no evidence of pulmonary embolus. There is no evidence of aortic aneurysm or dissection. There is no significant mediastinal or hilar adenopathy. No significant pleural effusion. No acute osseous abnorm alities are demonstrated. Emphysema is demonstrated most pronounced in the lung apices. IMPRESSION: 1. Extensive e mphysema. 2. No evidence of pulmonary embolus. 3. No evidence of aortic aneurysm or dissection. at 2341 Reported and signed by: Lucas Goel MD CC: Devi Nettles MD Technologist:RT ELLEN CTDI: DLP: Trnscb D ate/Time: 03/05/2020 (1096) t.[email or web address] Orig Print D/T: S: 03/05/2020 (1910) PAGE 1 Signed Report ARTERIAL BLOOD [id number] 21:34:00* Test Item Value Reference Range Interpretation Comments ARTERIAL BLOOD GAS PH (test code = PHA) 7.31 7.35-7.45 L ARTERIAL BLOOD GAS PCO2 (test code = PCO2A) 38.8 mm Hg 35-45 N ARTERIAL BLOOD GAS PO2 (test code = PO2A) 100.2 mmHg 80-100 H BICARBONATE TOTAL HCO3 (test code = HCO3) 19.1 mmol/L 23.0-27.0 L BASE EXCESS (test code = EDYTA) -6.6 mmol/L -3.0-5.0 LL Results called to and read back by devi galarza 03/05/2020; by [id number] ABG O2 SATURATION (test code = SATA) 96.9 % 90.0-98.0 N ABG TYPE (test code = TYPEA) Arterial FIO2 (test code = FIO2A) 35.0 ABG VENT MODE (test code = MODEA) BiPAP ABG PEEP (test code = PEEPA) 5.0 cmH2O ABG PRESSURE SUPPORT (test code = PSABG) 3 cmH2O ABG SITE (test code = SITEA) Rt RADIAL ARTERY MODIFIED ALLENS (test code = MODALL) Yes CHECK PERFORMED HEMATOCRIT (test code = HCT/ABG) 35 % 35-47 N TOTAL HGB (test code = THB) 11.8 gram/dL 11.5-15.5 N HGB O2 SAT (test code = HBOSAT) 93.4 % 94.00-98.00 L CARBOXYHEMOGLOBIN (test code = HOHGBT) 3.5 %totalHg 0.5-1.5 HH Results called to and read back by devi galarza 03/05/2020; by [id number] METHEMOGLOBIN (test code = METHGB) 0.1 % 0.0-1.50 N O2 CONTENT (test code = O2CT) 15.6 % vol 18.0-22.0 L B-TYPE NATRIURETIC [id number] 21:04:00* Test Item Value Reference Range Interpretation Comments B-TYPE NATRIURETIC PEPTIDE (test code = BNP) 21.71 pgram/mL 0-100 N URINALYSIS [id number] 20:30:00* Test Item Value Reference Range Interpretation Comments UA COLOR (test code = COLU) Light-Yellow YELLOW UA APPEARANCE (test code = APPU) CLEAR CLEAR UA GLUCOSE DIPSTICK (test code = DGLUU) NEGATIVE mg/dL NEGATIVE UA BILIRUBIN DIPSTICK (test code = BILU) NEGATIVE mg/dL NEGATIVE UA KETONE DIPSTICK (test code = KETU) NEGATIVE mg/dL NEGATIVE UA SPECIFIC GRAVITY (test code = SGU) 1.013 1.001-1.035 UA BLOOD DIPSTICK (test code = TENZIN) Negative mg/dL NEGATIVE UA PH DIPSTICK (test code = ANTONINA) 6.5 5.0-8.0 UA PROTEIN DIPSTICK (test code = PROU) NEGATIVE mg/dL NEGATIVE UA UROBILINIOGEN DIPSTICK (test code = URO) Normal mg/dL NEGATIVE UA NITRITE DIPSTICK (test code = YAZMIN) NEGATIVE NEGATIVE UA LEUKOCYTE ESTERASE W REFLEX (test code = LEUUR) 500 Peter/u L (3+) Peter/uL NEGATIVE A UA WBC (test code = WBCU) 6-10 per HPF 0-5 A UA RBC (test code = RBCU) 0-2 #/HPF 0-5 UA EPITHELIAL CELLS (test code = EPIU) FEW per HPF FEW UA BACTERIA (test code = BACU) FEW #/HPF NONE A UA MUCUS (test code = MUCU) FEW #/LPF FEW Urine Source? Clean CatchDRUGS OF ABUSE SCREEN [id number] 20:30:00* Test Item Value Reference Range Interpretation Comments URN COCAINE (test code = COCAURN) NEGATIVE <300 ng/mL URN CANNABINOIDS (test code = CANNABURN) NEGATIVE <50 ng/mL URN AMPHETAMINE (test code = AMPHETURN) NEGATIVE <1000 ng/mL URN BARBITURATE (test code = BARBITURN) NEGATIVE <200 ng/mL URN BENZODIAZEPINE (test code = BENZOURN) NEGATIVE <200 ng/mL URN OPIATES (test code = OPIATURN) NEGATIVE <300 ng/mL URN PHENCYCLIDINE (PCP) (test code = PHENCURN) NEGATIVE <25 ng/ mL URN METHADONE (test code = METHAURN) NEGATIVE <300 ng/mL Urine Source? Clean CatchBASIC METABOLIC [id number] 20:24:00* Test Item Value Reference Range Interpretation Comments SODIUM (test code = NA) 146 mmol/L 136-145 H POTASSIUM (test code = K) 3.4 mmol/L 3.5-5.1 L CHLORIDE (test code = CL) 116.0 mmol/L 98-107 H CARBON DIOXIDE (test code = CO2) 21.0 mmol/L 21-32 N ANION GAP (test code = GAP) 12.4 10-20 N GLUCOSE (test code = GLU) 98 mg/dL 74-106 N BLOOD UREA NITROGEN (test code = BUN) 8 mg/dL 7-18 N GLOMERULAR FILTRATION RATE (test code = GFR) > 60 mL/min >=60 Estimated GFR by using Modified MDRD formula.Chronic kidney disease is defined as either kidney damageor GFR <60 mL/min/1.73 m2 for >3 months. CREATININE (test code = CREAT) 0.90 mg/dL 0.55-1.02 N Note change in reference range due to change in reagent. BUN/CREATININE RATIO (test code = BUN/CREA) 8.9 10-20 L CALCIUM (test code = CA) 7.5 mg/dL 8.5-10.1 L HEPATIC FUNCTION [id number] 20:24:00* Test Item Value Reference Range Interpretation Comments TOTAL PROTEIN (test code = PROT) 5.6 gram/dL 6.4-8.2 L ALBUMIN (test code = ALB) 2.8 g/dL 3.4-5.0 L GLOBULIN (test code = GLOB) 2.8 gram/dL 2.7-4.2 N ALBUMIN/GLOBULIN RATIO (test code = A/G) 1.0 0.75-1.50 N BILIRUBIN TOTAL (test code = BILT) 0.10 mg/dL 0.0-1.0 N BILIRUBIN DIRECT (test code = BILD) < 0.05 mg/dL 0.0-0.20 N SGOT/AST (test code = AST) 25 IUnit/L 15-37 N SGPT/ALT (test code = ALT) 36 IUnit/L 12-78 N ALKALINE PHOSPHATASE TOTAL (test code = ALKP) 133 IUnit/L 45-117 H Note change in reference range due to change in reagent. CREATINE KINASE (CK)2020-03-05 20:24:00* Test Item Value Reference Range Interpretation Comments CREATINE KINASE (CK) (test code = CK) 119 IUnit/L 26-208 N [id number] 20:24:00* Test Item Value Reference Range Interpretation Comments LIPASE (test code = LIP) 88 U/L 73.0-393.0 N [id number] 20:24:00* Test Item Value Reference Range Interpretation Comments MAGNESIUM (test code = MAG) 2.0 mg/dL 1.8-2.4 N [id number] 20:24:00* Test Item Value Reference Range Interpretation Comments TROPONIN-I (test code = TROPI) <0.015 ng/mL 0-0.045 N [id number] 20:24:00* Test Item Value Reference Range Interpretation Comments ACETAMINOPHEN (test code = ACET) < 10 mcg/mL 10-30 L A RANGE OF 10-30 mcg/mL IS A THERAPEUTIC RANGE. TOXIC CONCENTRATIONS: >150 mcg/mL AT 4 HOURS AFTER INGESTION >= 50 mcg/mL AT 12 HOURS AFTER INGESTION [id number] 20:24:00* Test Item Value Reference Range Interpretation Comments SALICYLATE (test code = MONA) < 1.7 mg/dL 2.8-20.0 L [id number] 20:24:00* Test Item Value Reference Range Interpretation Comments ALCOHOL (test code = ALC) 18 mg/dL 0.0-3.0 H -- INTERPRETIVE DATA NOTE: POSITIVE SCREENING RESULTS SHOULD BE CONSIDERED PRESUMPTIVE.WHEN COLLECTED FOR MEDICAL PURPOSES ONLY. SPECIMEN WILL NOTBE COLLECTED BY CHAIN OF CUSTODY.IF A CONFIRMATION OF POSITIVE RESULTS IS DESIRED, ACONFIRMATION TEST MUST BE REQUESTED BY THE PHYSICIAN AT ANADDITIONAL CHARGE TO THE PATIENT. URINALYSIS [id number] 20:21:00* Test Item Value Reference Range Interpretation Comments UA COLOR (test code = COLU) Light-Yellow YELLOW UA APPEARANCE (test code = APPU) CLEAR CLEAR UA GLUCOSE DIPSTICK (test code = DGLUU) NEGATIVE mg/dL NEGATIVE UA BILIRUBIN DIPSTICK (test code = BILU) NEGATIVE mg/dL NEGATIVE UA KETONE DIPSTICK (test code = KETU) NEGATIVE mg/dL NEGATIVE UA SPECIFIC GRAVITY (test code = SGU) 1.013 1.001-1.035 UA BLOOD DIPSTICK (test code = TENZIN) Negative mg/dL NEGATIVE UA PH DIPSTICK (test code = ANTONINA) 6.5 5.0-8.0 UA PROTEIN DIPSTICK (test code = PROU) NEGATIVE mg/dL NEGATIVE UA UROBILINIOGEN DIPSTICK (test code = URO) Normal mg/dL NEGATIVE UA NITRITE DIPSTICK (test code = YAZMIN) NEGATIVE NEGATIVE UA LEUKOCYTE ESTERASE W REFLEX (test code = LEUUR) 500 Peter/u L (3+) Peter/uL NEGATIVE A UA WBC (test code = WBCU) 6-10 per HPF 0-5 A UA RBC (test code = RBCU) 0-2 #/HPF 0-5 UA EPITHELIAL CELLS (test code = EPIU) FEW per HPF FEW UA BACTERIA (test code = BACU) FEW #/HPF NONE A UA MUCUS (test code = MUCU) FEW #/LPF FEW Urine Source? Clean CatchDRUGS OF ABUSE SCREEN [id number] 20:21:00* Test Item Value Reference Range Interpretation Comments URN COCAINE (test code = COCAURN) <300 ng/mL URN CANNABINOIDS (test code = CANNABURN) <50 ng/mL URN AMPHETAMINE (test code = AMPHETURN) <1000 ng/mL URN BARBITURATE (test code = BARBITURN) <200 ng/mL URN BENZODIAZEPINE (test code = BENZOURN) <200 ng/mL URN OPIATES (test code = OPIATURN) <300 ng/mL URN PHENCYCLIDINE (PCP) (test code = PHENCURN) <25 ng/ mL URN METHADONE (test code = METHAURN) <300 ng/mL Urine Source? Clean CatchPROTHROMBIN [id number] 20:17:00* Test Item Value Reference Range Interpretation Comments PROTHROMBIN TIME PATIENT (test code = PTP) 11.2 seconds 9.0-14.0 N INTERNATIONAL NORMAL RATIO (test code = INR) 0.9 0.8-1.2 N The therapeutic range for oral anticoagulant therapy formost indications is an international normalized ratio (INR)of between 2.0 and 3.0. The recommended therapeutic INRrange for various clinical situations is listed below: Clinical Situation INR range Pulmonary e mbolism treatment (2.0-3.0)Venous thrombosis treatmentVenous thrombosis prophylaxis (high risk surgery)Prevention of systemic embolism from: Acute myocardial infarction Valvular heart disease Atrial fibrillation Mechanical prosthetic heart valves (2.5-3.5) IS PATIENT ON ANTICOAGULANTS? NTHROMBOPLASTIN TIME [id number] 20:17:00* Test Item Value Reference Range Interpretation Comments THROMBOPLASTIN TIME PARTIAL (test code = PTT) 31.0 seconds 25.0-36. 5 N IS PATIENT ON ANTICOAGULANTS? NBASIC METABOLIC [id number] 20:13:00* Test Item Value Reference Range Interpretation Comments SODIUM (test code = NA) 146 mmol/L 136-145 H POTASSIUM (test code = K) 3.4 mmol/L 3.5-5.1 L CHLORIDE (test code = CL) 116.0 mmol/L 98-107 H CARBON DIOXIDE (test code = CO2) mmol/L 21-32 ANION GAP (test code = GAP) 10-20 GLUCOSE (test code = GLU) mg/dL 74-106 BLOOD UREA NITROGEN (test code = BUN) mg/dL 7-18 GLOMERULAR FILTRATION RATE (test code = GFR) mL/min >=60 CREATININE (test code = CREAT) mg/dL 0.55-1.02 BUN/CREATININE RATIO (test code = BUN/CREA) 10-20 CALCIUM (test code = CA) mg/dL 8.5-10.1 HEPATIC FUNCTION [id number] 20:13:00* Test Item Value Reference Range Interpretation Comments TOTAL PROTEIN (test code = PROT) gram/dL 6.4-8.2 ALBUMIN (test code = ALB) g/dL 3.4-5.0 GLOBULIN (test code = GLOB) gram/dL 2.7-4.2 ALBUMIN/GLOBULIN RATIO (test code = A/G) 0.75-1.50 BILIRUBIN TOTAL (test code = BILT) mg/dL 0.0-1.0 BILIRUBIN DIRECT (test code = BILD) mg/dL 0.0-0.20 SGOT/AST (test code = AST) IUnit/L 15-37 SGPT/ALT (test code = ALT) IUnit/L 12-78 ALKALINE PHOSPHATASE TOTAL (test code = ALKP) IUnit/L 45-117 CREATINE KINASE (CK)2020-03-05 20:13:00* Test Item Value Reference Range Interpretation Comments CREATINE KINASE (CK) (test code = CK) IUnit/L 26-208 [id number] 20:13:00* Test Item Value Reference Range Interpretation Comments LIPASE (test code = LIP) U/L 73.0-393.0 [id number] 20:13:00* Test Item Value Reference Range Interpretation Comments MAGNESIUM (test code = MAG) mg/dL 1.8-2.4 [id number] 20:13:00* Test Item Value Reference Range Interpretation Comments TROPONIN-I (test code = TROPI) ng/mL 0-0.045 [id number] 20:13:00* Test Item Value Reference Range Interpretation Comments ACETAMINOPHEN (test code = ACET) mcg/mL 10-30 [id number] 20:13:00* Test Item Value Reference Range Interpretation Comments SALICYLATE (test code = MONA) mg/dL 2.8-20.0 [id number] 20:13:00* Test Item Value Reference Range Interpretation Comments ALCOHOL (test code = ALC) mg/dL 0-3 CBC W/AUTO [id number] 20:04:00* Test Item Value Reference Range Interpretation Comments WHITE BLOOD CELL (test code = WBC) 7.4 K/mm3 4.5-12.5 N RED BLOOD CELL (test code = RBC) 3.66 mill/mm3 3.7-5.2 L HEMOGLOBIN (test code = HGB) 10.2 gram/dL 11.5-15.5 L HEMATOCRIT (test code = HCT) 32.2 % 36.0-46.0 L MEAN CELL VOLUME (test code = MCV) 88.0 fL 80-98 N MEAN CELL HGB (test code = MCH) 27.9 picogram 27.0-33.0 N MEAN CELL HGB CONCETRATION (test code = MCHC) 31.7 gram/dL 33.0-36. 0 L RED CELL DISTRIBUTION WIDTH (test code = RDW) 14.3 % 11.6-16. 2 N RED CELL DISTRIBUTION WIDTH SD (test code = RDW-SD) 46.1 fL 37 .0-51.0 N PLATELET COUNT (test code = PLT) 305 K/mm3 150-450 N MEAN PLATELET VOLUME (test code = MPV) 9.8 fL 6.7-11.0 N NEUTROPHIL % (test code = NT%) 72.9 % 39.0-69.0 H IMMATURE GRANULOCYTE % (test code = IG%) 0.3 % 0.0-5.0 N LYMPHOCYTE % (test code = LY%) 18.6 % 25.0-55.0 L MONOCYTE % (test code = MO%) 7.2 % 0.0-10.0 N EOSINOPHIL % (test code = EO%) 0.7 % 0.0-5.0 N BASOPHIL % (test code = BA%) 0.3 % 0.0-1.0 N NUCLEATED RBC % (test code = NRBC%) 0.0 % 0-0 N NEUTROPHIL # (test code = NT#) 5.41 K/mm3 1.8-7.7 N IMMATURE GRANULOCYTE # (test code = IG#) 0.02 x10 3/uL 0-0.03 N LYMPHOCYTE # (test code = LY#) 1.38 K/mm3 1.0-5.0 N MONOCYTE # (test code = MO#) 0.53 K/mm3 0-0.8 N EOSINOPHIL # (test code = EO#) 0.05 K/mm3 0.0-0.5 N BASOPHIL # (test code = BA#) 0.02 K/mm3 0.0-0.2 N NUCLEATED RBC # (test code = NRBC#) 0.00 K/mm3 0.0-0.1 N MANUAL DIFF REQUIRED (test code = MDIFF) NO - XR CHEST 1 [id number] 19:22:00 FAX: Devi Nettles MD [phone] [place]: [facility]: [facility] FAX: Ji Schwartz MD [phone] Name: PAYAL EDWARDS [facility] : 1960 Age/S: 60/F [address] [facility] Unit #: [id number] Loc: [place] [address] Phys: Devi Nettles MD Acct: [id number] Dis Date: Status: REG ER PHONE #: [phone] Exam Date: 03/05/2020 1907 FAX #: [phone] Reason: SHORTNESS OF BREATH EXAMS: CPT CODE: [id number] XR CHEST 1 V 19782 HISTORY: Shortness of breath. COMPARISON: June 06, 2019. Location: TH. No acute infiltrates, effusion or congestion is noted. Scarring. The cardiac and mediastinal silhouette are within normal limits. IMPRESSION: No acute infiltrates, effusion or congestion. at 1922 Reported and signed by: Iain Moses M.D. CC: Devi Nettles MD; Ji Larkin i Technologist: OLIVIER PRECIADO Trntnrd Date/Time/By: 03/05/2020 (1921) : By: [email or web address] Orig Print D/T: S: 03/05/2020 (1925) PAGE 1 Signed Report - CT HEAD/BRAIN W/O [id number] 19:15:00 [facility] 1960 Age[facility]S: 60 / F [address] [facility] Unit #: [id number] Loc: [place] [address] Phys: Devi Nettles MD Acct: [id number] Dis Date: Status: REG ER PHONE #: [phone] Exam Date: 03/05/2020 1855 FAX #: [phone] Reason: confusion EXAMS: CPT CODE: [id number] CT HEAD/BRAIN W/O CONT 09657 HISTORY: Confusion. COMPARISON: None available. CT brain without contrast: Automated exposure control. Location: TH. No acute intracranial bleeds or extra-axial collections are noted. No acute territorial vascular infarction is noted. The sulci, gyri, ventricles and subarachnoid spaces and the basilar cisterns are normal for patient's age. No herniation or hydrocephalus or midline shift is noted. Mild periventricular ischemic gliosis is noted. Age-appropriate atrophy is noted as well. Portions of the visualized paranasal sinuses are normal. No obvious bony calvarial defect is noted. IMPRESSION: No acute intracranial bleeds or extra-axial collections. No acute territorial vascular infarction. No herniation or hydrocephalus or midline shift. Chronic white matter ischemic disease and atrophy . at 1914 Reported and signed by: Iain Moses M.D. CC: Devi Nettles MD; Ji Penny Technologist:Shira Alfaro RT(R); TRES Haskins CTDI: DLP: Trnscb Date/Time: 03/05/2020 (1914) t.SDR.TH4 Orig Print D/T: S: 03/05/2020 (1917) PAGE 1 Signed Report SUSAN [id number] 16:05:00 RUN DATE: 09/10/19 [facility] PAGE 1 RUN TIME: 1605 Specimen Inqui ry RUN USER: INTERFACE PATIENT: PAYAL EDWARDS ACCT #: [id number] LOC: [place] U #: [id number] AGE/SX: 59/F ROOM: [facility] RE09/05/19REG DR: Ji Penny MD : [birth year] BED: A DIS: 09/06/19 STATUS: DIS Abhishek TLOC: SPEC #: [id number] RECD: 09/09/19 STATUS: JERICHO MCGUIRE #: [id number] ROSSY: 09/06/[address] [facility] [address]: Connor Ugarte MD ENTERED: 09/09/19 SP TYPE: BX DUODEN OTHR DR: Moncho Mejias MD ORDERED: GROSS COPIES TO: Connor Ugarte MD [address] [place] [address] Moncho Mejias MD [address] [address] PROCEDURES: GROSS (09/10/19-382) TISSUE S: 1. DUODENUM, NOS - COLD BX 2. GASTRIC CORPUS - BX COLD CLINICAL HISTORY COLLECTION DATE: 09/06/19 DYSPHAGIA, NAUSEA, VOMIT ING FINAL DIAGNOSIS Duodenum, biopsy: DUODENAL MUCOSA, NO PATH OLOGIC ALTERATION Gastric biopsy: PATCHY MILD CHRONIC INFLAMMAT ION, GASTRIC MUCOSA NO INTESTINAL METAPLASIA SEEN NEGATIVE FOR HEL ICOBACTER PYLORI NEGATIVE FOR MALIGNANCY DMJozef/nick Jnoes [id number], [id number] CONTINUED ON NEXT PAGE -RUN DATE: 09/10/19 [place] - Lab PAGE 2 RUN TIME: 1605 Specimen Inquiry RUN USER: INTERFACE SPEC #: [id number] PATIENT: PAYAL EDWARDS #[id number] (Continued) MACROSCOPIC The firs t specimen is received in formalin, labeled with the patient's name, and ident ified as "duodenum bx". It consists of mane biopsy tissue measuring 0.5 cm in aggregate. The second specimen is received in formalin, labeled with the p atient's name, and identified as "gastric bx". It consists of mane biopsy tiss ue measuring 0.4 cm in aggregate. An H E and a Giemsa stain will be prepared. GROSS PERFORMED AT [facility] [address] [place] [address] (p)[phone] MICROSCOPIC All of the stains, including any controls performed, stain appropriately. MICROSCOPIC PERFORMED AT [facility] [address] [place] [address] (P) PERFORMING SITE Diagnosis performed at: [facility] [address] [place] [address] Signed SIGNATDIANA E ON FILE Temi Hong MD 09/10/19 1605 END OF REPORT PROTHROMBIN TIME 2019-09-06 11:50:00* Test Item Value Reference Range Interpretation Comments PROTHROMBIN TIME PATIENT (test code = PTP) 12.0 seconds 9.0-14.0 N INTERNATIONAL NORMAL RATIO (test code = INR) 1.0 0.8-1.2 N The therapeutic range for oral anticoagulant therapy formost indications is an international normalized ratio (INR)of between 2.0 and 3.0. The recommended therapeutic INRrange for various clinical situations is listed below: Clinical Situation INR range Pulmonary e mbolism treatment (2.0-3.0)Venous thrombosis treatmentVenous thrombosis prophylaxis (high risk surgery)Prevention of systemic embolism from: Acute myocardial infarction Valvular heart disease Atrial fibrillation Mechanical prosthetic heart valves (2.5-3.5) IS PATIENT ON ANTICOAGULANTS? N- CT ABD PELVIS W/O [id number] 19:34:00 Name: PAYAL EDWARDS [facility] : 1960 Age/S: 59 / F [address] [facility] Unit #: [id number] Loc: [place] [address] Phys: Татьяна Ramos Acct: [id number] Hina magallanes Date: Status: ADM IN PHONE #: Exam Date: 09/05/2019 6067 FAX #: [phone] Reason: epigastric tenderness, dysphagia, n/v, hiatal h EXAMS: CPT CODE: [id number] CT ABD PELVIS W/O CONT 90804 HISTORY: Epigastric tende rness and pain. COMPARISON: None available. CT of ab domen and pelvis without IV and with oral contrast: 100 mL of Isovue-370. Automated exposure control. CT ABDOMEN: The lung bas es are clear. Bullous changes. Unremarkable noncontrast liver. No discrete parenchymal mass or nodules. Gallbladder is without radiopaque st ones. The liver is not enlarged. The spleen is not enlarged either. Accessory spleen. The stomach distended incompletely with moderate ly thickened distal esophagus. Correlate for esophagitis. No ncontrast pancreas is normal. Adrenals are normal. Kidneys are yue e from hydroureteronephrosis. No calyceal stones. No pathologic ad enopathy. Mild atherosclerotic change of the abdominal and pelvic vasculat ure. No bowel obstruction. Moderate distention of the large bowel with contrast. CT PELVIS: Appendix is now visi ble with certainty but no inflammatory changes. Pelvic bowel loops are emelina bstructed. Unremarkable urinary bladder. Unremarkable uterus and o varies. No free fluid or free air. No pelvic pathologic adenopathy. Subcutaneous tissues and the musculature are normal in appearance. No lytic or blastic lesions are noted within the bony skeleton. IMPRESSION: Moderately thickened distal esophagus. Co rrelate for esophagitis. Small hiatal hernia as well. PAGE 1 Signed Report (CONTINUED) Name: PAYAL EDWARSD [facility] : 1960 Age/S: 59 / F [address] [facility] Unit #: [id number] Loc: [place] [address] Phys: Татьяна Ramos Acct: [id number] Dis Date: Status: ADM IN PHONE #: [phone] Exam Date: 09/05/2019 174 FAX #: [phone] Reason: ep igastric tenderness, dysphagia, n/v, hiatal h EXAMS: CPT CODE: [id number] CT ABD PELVIS W/O CONT 89041 <Continued> Moderate distention of the large bowel but no obstruction. Small bowel loops are unremarkable. Appendix is not visible with certainty but no inflammation is noted. No hydroureteronephrosis or calyceal stones. Unremarkable urinary bladder. No free fluid or free air. at 1934 Reported and signed by: Iain Moses M.D. CC: Ji Penny; Татьяна Ramos Technologist:Meryl Clarke RT(R),CT; CTDI: DLP: Trnscb Date/Time: 09/05/2019 (1933) t.SDR.TH4 Orig Print D/T: S: 09/05/2019 (1937) PAGE 2 Signed Report BASIC METABOLIC [id number] 16:31:00* Test Item Value Reference Range Interpretation Comments SODIUM (test code = NA) 142 mmol/L 136-145 N POTASSIUM (test code = K) 3.6 mmol/L 3.5-5.1 N CHLORIDE (test code = CL) 110.0 mmol/L 98-107 H CARBON DIOXIDE (test code = CO2) 26.0 mmol/L 21-32 N ANION GAP (test code = GAP) 9.6 10-20 L GLUCOSE (test code = GLU) 118 mg/dL 74-106 H BLOOD UREA NITROGEN (test code = BUN) 14 mg/dL 7-18 N GLOMERULAR FILTRATION RATE (test code = GFR) 51 mL/min >=60 Estimated GFR by using Modified MDRD formula.Chronic kidney disease is defined as either kidney damageor GFR <60 mL/min/1.73 m2 for >3 months. CREATININE (test code = CREAT) 1.10 mg/dL 0.55-1.02 H Note change in reference range due to change in reagent. BUN/CREATININE RATIO (test code = BUN/CREA) 12.7 10-20 N CALCIUM (test code = CA) 9.1 mg/dL 8.5-10.1 N [id number] 16:31:00* Test Item Value Reference Range Interpretation Comments LIPASE (test code = LIP) 96 U/L 73.0-393.0 N BASIC METABOLIC [id number] 16:27:00* Test Item Value Reference Range Interpretation Comments SODIUM (test code = NA) 142 mmol/L 136-145 N POTASSIUM (test code = K) 3.6 mmol/L 3.5-5.1 N CHLORIDE (test code = CL) 110.0 mmol/L 98-107 H CARBON DIOXIDE (test code = CO2) mmol/L 21-32 ANION GAP (test code = GAP) 10-20 GLUCOSE (test code = GLU) mg/dL 74-106 BLOOD UREA NITROGEN (test code = BUN) mg/dL 7-18 GLOMERULAR FILTRATION RATE (test code = GFR) mL/min >=60 CREATININE (test code = CREAT) mg/dL 0.55-1.02 BUN/CREATININE RATIO (test code = BUN/CREA) 10-20 CALCIUM (test code = CA) mg/dL 8.5-10.1 [id number] 16:27:00* Test Item Value Reference Range Interpretation Comments LIPASE (test code = LIP) U/L 73.0-393.0 CBC W/AUTO [id number] 15:50:00* Test Item Value Reference Range Interpretation Comments WHITE BLOOD CELL (test code = WBC) 6.0 K/mm3 4.5-12.5 N RED BLOOD CELL (test code = RBC) 4.78 mill/mm3 3.7-5.2 N HEMOGLOBIN (test code = HGB) 13.0 gram/dL 11.5-15.5 N HEMATOCRIT (test code = HCT) 39.6 % 36.0-46.0 N MEAN CELL VOLUME (test code = MCV) 82.8 fL 80-98 N MEAN CELL HGB (test code = MCH) 27.2 picogram 27.0-33.0 N MEAN CELL HGB CONCETRATION (test code = MCHC) 32.8 gram/dL 33.0-36. 0 L RED CELL DISTRIBUTION WIDTH (test code = RDW) 14.6 % 11.6-16. 2 N RED CELL DISTRIBUTION WIDTH SD (test code = RDW-SD) 44.1 fL 37 .0-51.0 N PLATELET COUNT (test code = PLT) 390 K/mm3 150-450 N MEAN PLATELET VOLUME (test code = MPV) 9.3 fL 6.7-11.0 N NEUTROPHIL % (test code = NT%) 58.2 % 39.0-69.0 N IMMATURE GRANULOCYTE % (test code = IG%) 0.3 % 0.0-5.0 N LYMPHOCYTE % (test code = LY%) 32.9 % 25.0-55.0 N MONOCYTE % (test code = MO%) 8.0 % 0.0-10.0 N EOSINOPHIL % (test code = EO%) 0.3 % 0.0-5.0 N BASOPHIL % (test code = BA%) 0.3 % 0.0-1.0 N NUCLEATED RBC % (test code = NRBC%) 0.0 % 0-0 N NEUTROPHIL # (test code = NT#) 3.47 K/mm3 1.8-7.7 N IMMATURE GRANULOCYTE # (test code = IG#) 0.02 x10 3/uL 0-0.03 N LYMPHOCYTE # (test code = LY#) 1.97 K/mm3 1.0-5.0 N MONOCYTE # (test code = MO#) 0.48 K/mm3 0-0.8 N EOSINOPHIL # (test code = EO#) 0.02 K/mm3 0.0-0.5 N BASOPHIL # (test code = BA#) 0.02 K/mm3 0.0-0.2 N NUCLEATED RBC # (test code = NRBC#) 0.00 K/mm3 0.0-0.[address] ABDOMEN/PELVIS [id number] 12:27:00 [place] [address] Patient Name: PAYAL EDWARDS MR #: [id number] : 1960 Age/Sex: 59/F Req #: [id number] Adm Physician: Ordered by: EVAN MOISE MD Report #: [id number] Location: ER Room/Bed: Procedure: [id number] CT/C T ABDOMEN/PELVIS WO Exam Date: Exam Time: REPORT STATUS: Signed EXAM: CT Abdomen a nd Pelvis without contrast INDICATION: Epigastric pain. COMPARISON: None. TECHNIQUE: Abdomen and pelvis were scanned utilizing a multidetector helical scanner from the lung base to the pubic symphysis without administrati on of IV contrast. Absence of intravenous contrast decreases sensitivity for d etection of focal lesions and vascular pathology. Coronal and sagittal reforma tions were obtained. Routine protocol was performed. IV CONTRAS T: None. ORAL CONTRAST: Gastrografin RADIATION DOSE: Total DLP: 302.5 mGy*cm Estimated effective dose: (DLP x 0.015 x size factor) mSv COMPLICATIONS: None FINDINGS: LINES and TUBES: None. LOWER THORAX: Trace pericardial fluid. Small hiatal hernia with mild wall thickening of the distal esophagus. HEPATOBILIARY: Subcent imeter hypodensity in the left hepatic lobe is too small to characterize, but likely represents a cyst. No biliary ductal dilation. GALLBLADDER: No radi o-opaque stones or sludge. No wall thickening. SPLEEN: No splenomegaly. PANCREAS: No focal masses or ductal dilatation. ADRENALS: No adrenal nodules KIDNEYS/URETERS: No hydronephrosis. No cystic or solid mass le sions. No stones. GI TRACT: No abnormal distention, wall thickening, or evidence of bowel obstruction. Status post appendectomy. PELVIC ORGANS/B LADDER: Unremarkable. LYMPH NODES: No lymphadenopathy. Nonspecific lymph no lynette near the gastroesophageal junction, measuring up to 7 mm (series 2, image 13). VESSELS: There are scattered atherosclerotic calcifications in the ao rta and branch vessels. PERITONEUM / RETROPERITONEUM: No free air or flu id. BONES: Unremarkable. SOFT TISSUES: Unremarkable. IMPRESSION: Small hiatal hernia with mild wall thickening of the distal esoph melani, which may reflect gastroesophageal reflux in the setting of acute epigas tric pain and vomiting. There are nonspecific gastroesophageal lymph nodes, me asuring up to 7 mm. Suggest GI follow-up, and endoscopy if clinically indicate d. Signed by: Dr. Adelaida Watson MD on 09/01/2019 12:34 PM Dictated By: ADELAIDA WATSON MD 1230 Transc ribed By: NASIM on 09/01/19 1234 COPY TO: EVAN MOISE MD Urine [id number] 11:41:00* Test Item Value Reference Range Interpretation Comments Urine WBC (test code = 5821-4) 6-10 0-5 [facility] [id number] 11:41:00* Test Item Value Reference Range Interpretation Comments Urine RBC (test code = 73121-7) 0-5 0-5 [facility] [id number] 11:41:00* Test Item Value Reference Range Interpretation Comments Urine Bacteria (test code = 30788-4) MODERATE NONE H [facility] Epithelial [id number] 11:41:00 * Test Item Value Reference Range Interpretation Comments Urine Epithelial Cells (test code = 23355-0) NONE NONE [facility] Amorphous [id number] 11:41:00* Test Item Value Reference Range Interpretation Comments Urine Amorphous Sediment (test code = 8246-1) MODERATE FEW H [facility] [id number] 11:41:00* Test Item Value Reference Range Interpretation Comments Urine Mucus (test code = 8247-9) FEW RARE H [facility] [id number] 11:33:00* Test Item Value Reference Range Interpretation Comments Urine Color (test code = 5778-6) YELLOW YELLOW [facility] [id number] 11:33:00* Test Item Value Reference Range Interpretation Comments Urine Clarity (test code = 88915-4) CLOUDY CLEAR H [facility] Specific [id number] 11:33:00 * Test Item Value Reference Range Interpretation Comments Urine Specific [place] (test code = 5811-5) 1.015 1.010-1.02 5 [facility] [id number] 11:33:00* Test Item Value Reference Range Interpretation Comments Urine pH (test code = 12633-8) 6.5 5-7 [facility] Leukocyte [id number] 11:33:00* Test Item Value Reference Range Interpretation Comments Urine Leukocyte Esterase (test code = 5799-2) 1+ NEGATIVE H [facility] [id number] 11:33:00* Test Item Value Reference Range Interpretation Comments Urine Nitrite (test code = 41005-3) NEGATIVE NEGATIVE [facility] [id number] 11:33:00* Test Item Value Reference Range Interpretation Comments Urine Protein (test code = 5804-0) NEGATIVE NEGATIVE [facility] Glucose (UA)2019-09-01 11:33:00* Test Item Value Reference Range Interpretation Comments Urine Glucose (UA) (test code = 2349-9) NEGATIVE NEGATIVE [facility] [id number] 11:33:00* Test Item Value Reference Range Interpretation Comments Urine Ketones (test code = 03227-9) NEGATIVE NEGATIVE [facility] Stfgrebyfdni9672-48-15 11:33:00* Test Item Value Reference Range Interpretation Comments Urine Urobilinogen (test code = 14082-7) 0.2 0.2-1 [facility] Brbhfzorh4445-14-25 11:33:00* Test Item Value Reference Range Interpretation Comments Urine Bilirubin (test code = 1978-6) NEGATIVE NEGATIVE [facility] [id number] 11:33:00* Test Item Value Reference Range Interpretation Comments Urine Blood (test code = 64830-8) NEGATIVE NEGATIVE [facility] Kinase [id number] 10:48:00* Test Item Value Reference Range Interpretation Comments Creatine Kinase MB (test code = 10066-9) 2.40 0-5.0 [facility] [id number] 10:48:00* Test Item Value Reference Range Interpretation Comments Troponin I (test code = XFC6102) 0.003 0-0.300 [facility] 2 [id number] 10:36:00 [facility] [address] [place] [address] Patient Name: PAYAL EDWARDS MR #: [id number] : 1960 Age/Sex: 59/F Req #: [id number] Adm Physician: Ordered by: EVAN MOISE MD Report #: [id number] Location: ER Room/Bed: Procedure: [id number] DX/C HEST 2 VIEWS Exam Date: Exam Time: REPORT STATUS: Signed EXAMINATION: NECK SOFT T ISSUE, CHEST 2 VIEWS INDICATION: Chest pain. COMPARISON: Chest p ain 01/04/2019. FINDINGS: TUBES and LINES: None. LUNGS: Lungs are well inflated. Mild patchy bibasilar opacities, likely atelectasis. There is no evidence of lobar pneumonia or pulmonary edema. PLEURA: Trace right pleural effusion. No evidence of pneumothorax. HEART AND MEDIASTINUM: The cardiomediastinal silhouette is unremarkable. No evidence of pneumomediast inum. BONES AND SOFT TISSUES: No acute osseous lesion. Soft tissues are unremarkable. Dedicated radiographs of the neck demonstrate no acute abnormal ity. Mild degenerative disc changes in the lower cervical spine. No prevertebr al soft tissue edema. UPPER ABDOMEN: No free air under the diaphragm. IMPRESSION: No acute radiographic abnormality the neck or thorax. S igned by: Dr. Adelaida Watson MD on 09/01/2019 10:39 AM Dictated By: ADELAIDA STONE MD 1039 Transcribed By: NASIM on 09/01/19 1039 COPY TO: EVAN MOISE MD NECK SOFT [id number] 10:36:00 [place] [address] Patient Name: PAYAL EDWARDS MR #: [id number] : 1960 Age/Sex: 59/F Req #: [id number] Adm Physician: Ordered by: EVAN MOISE MD Report #: [id number] Location: ER Room/Bed: Procedure: [id number] DX/N [place] SOFT TISSUE Exam Date: Exam Time: REPORT STATUS: Signed EXAMINATION: NECK SOFT TISSUE, CHEST 2 VIEWS INDICATION: Chest pain. COMPARISON: Chest pain 01/04/2019. FINDINGS: TUBES and LINES: None. LUNGS: Kelsea ngs are well inflated. Mild patchy bibasilar opacities, likely atelectasis. Th ere is no evidence of lobar pneumonia or pulmonary edema. PLEURA: Trace rig ht pleural effusion. No evidence of pneumothorax. HEART AND MEDIASTINUM: T he cardiomediastinal silhouette is unremarkable. No evidence of pneumomedi astinum. BONES AND SOFT TISSUES: No acute osseous lesion. Soft tissues ar e unremarkable. Dedicated radiographs of the neck demonstrate no acute abnor mality. Mild degenerative disc changes in the lower cervical spine. No prevert ebral soft tissue edema. UPPER ABDOMEN: No free air under the diaphragm. IMPRESSION: No acute radiographic abnormality the neck or thorax. Signed by: Dr. Adelaida Watson MD on 09/01/2019 10:39 AM Dictated By: ADELAIDA WATSON MD 1039 Transcribed By: NASIM on 09/01/19 1039 COPY TO: EVAN MOISE MD Sodium Tmfnb8682-82-73 10:30:00* Test Item Value Reference Range Interpretation Comments Sodium Level (test code = 2951-2) 137 136-145 [facility]Potassium Qerkm0707-14-29 10:30:00* Test Item Value Reference Range Interpretation Comments Potassium Level (test code = 2823-3) 3.8 3.5-5.1 [facility]neChloride Utrcf8871-17-88 10:30:00* Test Item Value Reference Range Interpretation Comments Chloride Level (test code = 2075-0) 104 98-107 [facility]burneCarbon Dioxide Nknht7719-05-03 10:30:00* Test Item Value Reference Range Interpretation Comments Carbon Dioxide Level (test code = 2028-9) 24 22-29 [facility]neAnion Msy3861-36-72 10:30:00* Test Item Value Reference Range Interpretation Comments Anion Gap (test code = 50381-8) 12.8 8-16 [facility] CleburneBlood Urea Peivmthk1099-09-18 10:30:00* Test Item Value Reference Range Interpretation Comments Blood Urea Nitrogen (test code = 3094-0) 17 7-26 [facility]neCreatinine2019-10-13 10:30:00* Test Item Value Reference Range Interpretation Comments Creatinine (test code = 2160-0) 1.09 0.57-1.11 [facility]neBUN/Creatinine Avski0701-31-84 10:30:00* Test Item Value Reference Range Interpretation Comments BUN/Creatinine Ratio (test code = 3097-3) 16 6-25 [facility] CleburneEstimat Glomerular Filtration Rate 2019-09-01 10:30:00* Test Item Value Reference Range Interpretation Comments Estimat Glomerular Filtration Rate (test code = 079796551) 52 >60 L Ranges were taken from the National Kidney Disease Education Program and the [employer] alleg[facility] health[employer] literature.Reference ranges:60 or greater: Xlobjc09-16 ( for 3 consecutive months): Chronic kidney disease 15 or less: Kidney failureTexas [facility] CleburneGlucose Tueqi4806-53-48 10:30:00* Test Item Value Reference Range Interpretation Comments Glucose Level (test code = GUW6646) 102 74-118 [facility]burneCalcium Uvdjy6463-55-30 10:30:00* Test Item Value Reference Range Interpretation Comments Calcium Level (test code = 30040-4) 9.8 8.4-10.2 [facility] CleburneTotal Llgipucnw4092-24-25 10:30:00* Test Item Value Reference Range Interpretation Comments Total Bilirubin (test code = 1975-2) 0.7 0.2-1.2 [facility] CleburneAspartate Amino Transf (AST/SGOT) 2019-09-01 10:30:00* Test Item Value Reference Range Interpretation Comments Aspartate Amino Transf (AST/SGOT) (test code = Aspartate Amino Transf (AST/SGOT)) 19 5-34 [facility] CleburneAlanine Aminotransferase (ALT/SGPT) 2019-09-01 10:30:00* Test Item Value Reference Range Interpretation Comments Alanine Aminotransferase (ALT/SGPT) (test code = 1742-6) 17 0-55 [facility] CleburneTotal Pxgfwhm1508-13-04 10:30:00* Test Item Value Reference Range Interpretation Comments Total Protein (test code = 2885-2) 7.4 6.5-8.1 [facility] CleburneAlbumin2019-10-13 10:30:00* Test Item Value Reference Range Interpretation Comments Albumin (test code = 1751-7) 3.9 3.5-5.0 [facility] CleburneGlobulin2019-10-13 10:30:00* Test Item Value Reference Range Interpretation Comments Globulin (test code = 64156-9) 3.5 2.3-3.5 [facility] CleburneAlbumin/Globulin Upahe0051-77-37 10:30:00 * Test Item Value Reference Range Interpretation Comments Albumin/Globulin Ratio (test code = 1759-0) 1.1 0.8-2.0 [facility] CleburneAlkaline Vzvansstmfh0482-41-55 10:30:00* Test Item Value Reference Range Interpretation Comments Alkaline Phosphatase (test code = 6768-6) 126 40-150 [facility]burneCreatine Zdowtr3384-98-23 10:30:00* Test Item Value Reference Range Interpretation Comments Creatine Kinase (test code = 2157-6) 114 29-168 [facility] CleburneWhite Blood Smnhb6575-86-40 10:09:00* Test Item Value Reference Range Interpretation Comments White Blood Count (test code = 6690-2) 14.95 4.8-10.8 H [facility] CleburneRed Blood Eeroy4014-43-42 10:09:00* Test Item Value Reference Range Interpretation Comments Red Blood Count (test code = 789-8) 5.27 3.6-5.1 H [facility]neHemoglobin2019-10-13 10:09:00* Test Item Value Reference Range Interpretation Comments Hemoglobin (test code = 75179-9) 14.4 12.0-16.0 [facility]neHematocrit2019-10-13 10:09:00* Test Item Value Reference Range Interpretation Comments Hematocrit (test code = 4544-3) 44.2 34.2-44.1 H [facility] CleburneMean Corpuscular Mwgonr8141-99-73 10:09:00* Test Item Value Reference Range Interpretation Comments Mean Corpuscular Volume (test code = 787-2) 83.9 81-99 [facility] CleburneMean Corpuscular Pocxkidgod9438-50-24 10:09:00* Test Item Value Reference Range Interpretation Comments Mean Corpuscular Hemoglobin (test code = 785-6) 27.3 28-32 L [facility] CleburneMean Corpuscular Hemoglobin Concent 2019-09-01 10:09:00* Test Item Value Reference Range Interpretation Comments Mean Corpuscular Hemoglobin Concent (test code = 786-4) 32.6 31-35 [facility] CleburneRed Cell Distribution Uuzue6805-96-16 10:09:00* Test Item Value Reference Range Interpretation Comments Red Cell Distribution Width (test code = 35812-2) 14.8 11.7 -14.4 H [facility] CleburnePlatelet Jqzka7518-57-29 10:09:00* Test Item Value Reference Range Interpretation Comments Platelet Count (test code = 777-3) 316 140-360 [facility]neNeutrophils (%) (Auto)2019-09-01 10:09:00 * Test Item Value Reference Range Interpretation Comments Neutrophils (%) (Auto) (test code = 65541-4) 81.9 38.7-80.0 H [facility] CleburneLymphocytes (%) (Auto)2019-09-01 10:09:00 * Test Item Value Reference Range Interpretation Comments Lymphocytes (%) (Auto) (test code = 736-9) 11.4 18.0-39.1 L [facility]burneMonocytes (%) (Auto)2019-09-01 10:09:00* Test Item Value Reference Range Interpretation Comments Monocytes (%) (Auto) (test code = 5905-5) 5.9 4.4-11.3 [facility]neEosinophils (%) (Auto)2019-09-01 10:09:00 * Test Item Value Reference Range Interpretation Comments Eosinophils (%) (Auto) (test code = 713-8) 0.1 0.0-6.0 [facility]neBasophils (%) (Auto)2019-09-01 10:09:00* Test Item Value Reference Range Interpretation Comments Basophils (%) (Auto) (test code = 706-2) 0.2 0.0-1.0 [facility] CleburneIM GRANULOCYTES %2019-09-01 10:09:00* Test Item Value Reference Range Interpretation Comments IM GRANULOCYTES % (test code = IM GRANULOCYTES %) 0.5 0.0- 1.0 [facility]neNeutrophils # (Auto)2019-09-01 10:09:00* Test Item Value Reference Range Interpretation Comments Neutrophils # (Auto) (test code = 751-8) 12.2 2.1-6.9 H [facility] CleburneLymphocytes # (Auto)2019-09-01 10:09:00* Test Item Value Reference Range Interpretation Comments Lymphocytes # (Auto) (test code = 15049-6) 1.7 1.0-3.2 [facility]neMonocytes # (Auto)2019-09-01 10:09:00* Test Item Value Reference Range Interpretation Comments Monocytes # (Auto) (test code = 742-7) 0.9 0.2-0.8 H [facility]neEosinophils # (Auto)2019-09-01 10:09:00* Test Item Value Reference Range Interpretation Comments Eosinophils # (Auto) (test code = 711-2) 0.0 0.0-0.4 [facility]neBasophils # (Auto)2019-09-01 10:09:00* Test Item Value Reference Range Interpretation Comments Basophils # (Auto) (test code = 704-7) 0.0 0.0-0.1 [facility] CleburneAbsolute Immature Granulocyte (auto 2019-09-01 10:09:00* Test Item Value Reference Range Interpretation Comments Absolute Immature Granulocyte (auto (nathan t code = Absolute Immature Granulocyte (auto) 0.08 0-0.1 [facility] CleburnePROCALCITONIN (PCT)2019-06-06 16:59:00* Test Item Value Reference Range Interpretation Comments PROCALCITONIN (PCT) (test code = PROCAL) 1.20 ng/ml Concentration Interpretation (ng/mL) <0.51 Sepsis is not likely. Local bacterial infection is possible. (LOW RISK for progression to Sepsis) 0.51 - 2.00 Sepsis is possible, but other conditions are known to elevate PCT as well. (MODERATE RISK for progression to Sepsis) > 2.00 Sepsis is likely, unless other causes are known. (HIGH RISK for progression to Severe Sepsis or Septic Shock) 10.00 High likelihood of Severe Sepsis or Septic or higher Shock. *Increased PCT levels may not always be related to systemic bacterial infection.*Low PCT levels do not automatically exclude the presence of bacterial infection.*All results should be interpreted taking into account the patients history. LACTIC BHOU2018-35-32 15:42:00* Test Item Value Reference Range Interpretation Comments LACTIC ACID (test code = LACT) 0.8 mmol/L 0.4-1.9 N B-TYPE NATRIURETIC VESJJCB2335-35-16 14:53:00* Test Item Value Reference Range Interpretation Comments B-TYPE NATRIURETIC PEPTIDE (test code = BNP) 162.97 pgram/mL 0-100 H BASIC METABOLIC KVQBG0317-58-79 14:28:00* Test Item Value Reference Range Interpretation Comments SODIUM (test code = NA) 136 mmol/L 136-145 N POTASSIUM (test code = K) 3.6 mmol/L 3.5-5.1 N CHLORIDE (test code = CL) 106.0 mmol/L 98-107 N CARBON DIOXIDE (test code = CO2) 24.0 mmol/L 21-32 N ANION GAP (test code = GAP) 9.6 10-20 L GLUCOSE (test code = GLU) 105 mg/dL 74-106 N BLOOD UREA NITROGEN (test code = BUN) 14 mg/dL 7-18 N GLOMERULAR FILTRATION RATE (test code = GFR) 57 mL/min >=60 Estimated GFR by using Modified MDRD formula.Chronic kidney disease is defined as either kidney damageor GFR <60 mL/min/1.73 m2 for >3 months. CREATININE (test code = CREAT) 1.00 mg/dL 0.55-1.02 N Note change in reference range due to change in reagent. BUN/CREATININE RATIO (test code = BUN/CREA) 14.0 10-20 N CALCIUM (test code = CA) 9.0 mg/dL 8.5-10.1 N HSPHHVXY-A7195-48-18 14:28:00* Test Item Value Reference Range Interpretation Comments TROPONIN-I (test code = TROPI) <0.015 ng/mL 0-0.045 N BASIC METABOLIC GDGKX4613-78-13 14:23:00* Test Item Value Reference Range Interpretation Comments SODIUM (test code = NA) 136 mmol/L 136-145 N POTASSIUM (test code = K) 3.6 mmol/L 3.5-5.1 N CHLORIDE (test code = CL) 106.0 mmol/L 98-107 N CARBON DIOXIDE (test code = CO2) mmol/L 21-32 ANION GAP (test code = GAP) 10-20 GLUCOSE (test code = GLU) mg/dL 74-106 BLOOD UREA NITROGEN (test code = BUN) mg/dL 7-18 GLOMERULAR FILTRATION RATE (test code = GFR) mL/min >=60 CREATININE (test code = CREAT) mg/dL 0.55-1.02 BUN/CREATININE RATIO (test code = BUN/CREA) 10-20 CALCIUM (test code = CA) 9.0 mg/dL 8.5-10.1 N PGKPPJDT-[id number] 14:23:00* Test Item Value Reference Range Interpretation Comments TROPONIN-I (test code = TROPI) ng/mL 0-0.045 CBC W/O PZIW8681-58-02 14:11:00* Test Item Value Reference Range Interpretation Comments WHITE BLOOD CELL (test code = WBC) 30.0 K/mm3 4.5-12.5 H RED BLOOD CELL (test code = RBC) 4.79 mill/mm3 3.7-5.2 N HEMOGLOBIN (test code = HGB) 13.0 gram/dL 11.5-15.5 N HEMATOCRIT (test code = HCT) 41.1 % 36.0-46.0 N MEAN CELL VOLUME (test code = MCV) 85.8 fL 80-98 N MEAN CELL HGB (test code = MCH) 27.1 picogram 27.0-33.0 N MEAN CELL HGB CONCETRATION (test code = MCHC) 31.6 gram/dL 33.0-36. 0 L RED CELL DISTRIBUTION WIDTH (test code = RDW) 14.2 % 11.6-16. 2 N PLATELET COUNT (test code = PLT) 312 K/mm3 150-450 N MEAN PLATELET VOLUME (test code = MPV) 9.3 fL 6.7-11.0 N CBC W/O [id number] 14:03:00* Test Item Value Reference Range Interpretation Comments WHITE BLOOD CELL (test code = WBC) K/mm3 4.5-12.5 RED BLOOD CELL (test code = RBC) mill/mm3 3.7-5.2 HEMOGLOBIN (test code = HGB) 13.0 gram/dL 11.5-15.5 N HEMATOCRIT (test code = HCT) 41.1 % 36.0-46.0 N MEAN CELL VOLUME (test code = MCV) fL 80-98 MEAN CELL HGB (test code = MCH) picogram 27.0-33.0 MEAN CELL HGB CONCETRATION (test code = MCHC) gram/dL 33.0-36. 0 RED CELL DISTRIBUTION WIDTH (test code = RDW) % 11.6-16. 2 PLATELET COUNT (test code = PLT) K/mm3 150-450 MEAN PLATELET VOLUME (test code = MPV) fL 6.7-11.0 - XR CHEST 1 [id number] 13:27:00 FAX: Ismael Velásquez DO [place]: B St: PRE Name: PAYAL ARSHAD [facility] : [birth year] Age/S: 59/F [address] [facility] Unit #: [id number] Loc: [place] [address] Phys: Ismael Velásquez DO Acct: [id number] Dis Date: Status: PRE ER PHONE #: [phone] Exam Date: 06/06/2019 1320 FAX #: [phone] Reason: Shortness of Breath EXAMS: CPT CODE: [id number] XR CHEST 1 V 94590 HISTORY: Shortness of breath. COMPARISON: None available. Patchy left upper lobe infil trate. Hyperinflation and COPD. No effusion or congestion. Cardiac and the mediastinal silhouette are normal IMPRESSION: Patchy left upper lobe infiltrate. Hyperinflation. Electronic ally Signed by Demetrius Moses on 06/06/2019 at 1327 R eported and signed by: Iain Moses M.D. CC: Ismael Velásquez DO Technologist: RT CALLIE( Lucas) Trnscrd Date/Time/By: 06/06/2019 (2542) : By: [email or web address] Orig Print D/T: S: 06/06/2019 (4553) PAGE 1 Signed Report Urine [id number] 13:18:00* Test Item Value Reference Range Interpretation Comments Urine WBC (test code = 5821-4) 0-5 0-5 [facility]neUrine [id number] 13:18:00* Test Item Value Reference Range Interpretation Comments Urine RBC (test code = 13553-4) 0-5 0-5 [facility]neUrine Yptqryrd2751-94-61 13:18:00* Test Item Value Reference Range Interpretation Comments Urine Bacteria (test code = 72670-3) FEW NONE [facility]neUrine Epithelial Jmrob8606-86-99 13:18:00 * Test Item Value Reference Range Interpretation Comments Urine Epithelial Cells (test code = 22488-9) MODERATE NONE [facility] (+/- PELVIS)2019-05-25 13:10:00 [facility] [address] [address] Patient Name: PAYAL EDWARDS MR #: [id number] : 1960 Age/Sex: 59/F Req #: [id number] Adm Physician: Ordered by: NANDO NAVARRETE MD Report #: [id number] Location: ER Room/Bed: Procedure: [id number] DX/H IP RIGHT 2-3 VW (+/- PELVIS) Exam Date: Exam Time: REPORT STATUS: Signed HIP RIGHT 2-3 VW (+/- PELVIS) - 3 views HISTORY: 01/04/2019 COMPARISON: None avail able. FINDINGS: Bones: No acute displaced fracture. Osseous al ignment is within normal limits. Joints: Mild degenerative changes of the hips. Soft tissues: The soft tissues appear unremarkable. IMPRES JOSE MIGUEL: No acute radiographic abnormality. Signed by: Dontae Stephen on 05/25/2019 1:11 PM Dictated By: TOMAS DOYLE MD Electronically Krissy d By: TOMAS DOYLE MD on 05/25/19 1311 Transcribed By: NASIM on 05/25/19 131 1 COPY TO: NANDO NAVARRETE MD Urine Aehtw7493-40-71 12:53:00* Test Item Value Reference Range Interpretation Comments Urine Color (test code = 5778-6) YELLOW YELLOW [facility] Upxmszj6550-46-77 12:53:00* Test Item Value Reference Range Interpretation Comments Urine Clarity (test code = 24189-2) CLEAR CLEAR [facility]neU[facility] Specific Ehqzgaa2654-06-03 12:53:00 * Test Item Value Reference Range Interpretation Comments Urine Specific [place] (test code = 5811-5) >=1.030 1.010-1.02 5 [facility]neUrine lU8939-21-26 12:53:00* Test Item Value Reference Range Interpretation Comments Urine pH (test code = 68772-2) 6 5-7 [facility] Leukocyte Hdsuoujl3609-53-79 12:53:00* Test Item Value Reference Range Interpretation Comments Urine Leukocyte Esterase (test code = 47334-9) TRACE NEGATIV E H [facility]neUrine Qtkfhnb1250-05-03 12:53:00* Test Item Value Reference Range Interpretation Comments Urine Nitrite (test code = 84068-6) NEGATIVE NEGATIVE [facility] Uaortrl9766-93-26 12:53:00* Test Item Value Reference Range Interpretation Comments Urine Protein (test code = 92197-1) TRACE NEGATIVE H [facility]neUrine Glucose (UA)2019-05-25 12:53:00* Test Item Value Reference Range Interpretation Comments Urine Glucose (UA) (test code = 15005-0) NEGATIVE NEGATIVE [facility]neUrine Lqmdbab1110-96-74 12:53:00* Test Item Value Reference Range Interpretation Comments Urine Ketones (test code = 36620-7) NEGATIVE NEGATIVE [facility]neUrine Cobnoeoerssb9868-56-68 12:53:00* Test Item Value Reference Range Interpretation Comments Urine Urobilinogen (test code = 84523-8) 0.2 0.2-1 [facility]neUrine Vviuokhgi1343-12-36 12:53:00* Test Item Value Reference Range Interpretation Comments Urine Bilirubin (test code = 1977-8) NEGATIVE NEGATIVE [facility]neU[facility] Yhvkt4895-04-60 12:53:00* Test Item Value Reference Range Interpretation Comments Urine Blood (test code = 78700-5) NEGATIVE NEGATIVE [facility]neCHEST 2 GCHDO3998-91-32 14:12:00 [facility] [address] [address] Patient Name: PAYAL EDWARDS MR #: [id number] : 1960 Age/Sex: 58/F Req #: [id number] Adm Physician: Ordered by: ANURADHA COLLIER WASHER AND CAPPER MACHINE OPERATOR Report #: [id number] Location: ER Room/Bed: Procedure: [id number] DX/JODI ST 2 VIEWS Exam Date: 01/04/19 Exam Time: 1200 REPORT STATUS: Signed Frontal and lat eral views of the chest. HISTORY: Fall, injury COMPARISON: Chest radiog raph July 28, 2018 DISCUSSION: Lungs: The lungs remain hyperinflated. No evidence of a consolidative pneumonia or pulmonary alveol ar edema. Pleura: No pleural effusion or pneumothorax. Heart and m ediastinum: The cardiomediastinal silhouette appears unremarkable. Bone s and soft tissues: Mild accentuation of the thoracic kyphosis with mild to moderate multilevel degenerative disc changes. IMPRESSION: 1. No a cute radiographic abnormality. 2. No significant interval change. 3. Findi ngs remain compatible with chronic obstructive pulmonary disease. Signed by : Dr. Jamseet Hong D.O., M.M.M. on 01/04/2019 2:14 PM Dictated By: JASMEET INIGUEZ DO 13 Transcribed By: NASIM on 01/04/191413 COPY TO: ANURADHA COLLIER NP FOREARM LEFT 2 RZMZ3393-70-67 14:10:00 [place] [address] Patient Name: PAYAL EDWARDS MR #: [id number] : 1960 Age/Sex: 58/F Req #: [id number] Adm Physician: Ordered by: ANURADHA COLLIER WASHER AND CAPPER MACHINE OPERATOR Report #: [id number] Location: ER Room/Bed: Procedure: [id number] DX/FOR EARM LEFT 2 VIEW Exam Date: 01/04/19 Exam Time: 1200 REPORT STATUS: Signed LEFT FORE ARM - 2 Images HISTORY: Fall, injury COMPARISON: Elbow radiograp hs from the same date. FINDINGS: Bones: No acute displaced fractur e. No aggressive osseous lesion. Incidentally, ulnar minus variance. Joints: Osseous alignment is within normal limits and the joint spaces are w ell-maintained. Soft tissues: The soft tissues appear unremarkable. IMPRESSION: No acute radiographic abnormality. Signed by: Dr. Jasmeet iniguez D.O., M.M.M. on 01/04/2019 2:12 PM Dictated By: JASMEET HONG DO Elec tronically Signed By: JASMEET HONG DO on 01/04/191411 Transcribed By: NASIM spring 01/04/191411 COPY TO: ANURADHA COLLIER NP HIP RIGHT 2-3 VW (+/- PELVIS)2019-01-04 14:08:00 [place] [address] Patient Name: PAYAL EDWARDS MR #: [id number] : 1960 Age/Sex: 58/F Req #: [id number] Adm Physician: Ordered by: ANURADHA COLLIER WASHER AND CAPPER MACHINE OPERATOR Report #: [id number] Location: ER Room/Bed: Procedure: DX/HIP RIGHT 2-3 VW (+/- PELVIS) Exam Date: Exam Time: REPORT STATUS: Signed RIGHT HIP - 3 Images HISTORY: Fall, injury COMPARISON: None available. FINDINGS: Bones: Some of the osseous structures are partially obscured by stool and overlying bowel gas. No acute displaced fracture. No aggr essive osseous lesion. Joints: Moderate degenerative changes of the right hip. Soft tissues: The soft tissues appear unremarkable. IMPRESS ION: 1. No acute radiographic abnormality. 2. Moderate right hip osteoart hrosis. Signed by: Dr. Jasmeet Hong D.O., M.M.M. on 01/04/2019 2:10 PM Dictated By: JASMEET HONG DO 1410 COPY TO: RIGO COLLIER WASHER AND CAPPER MACHINE OPERATOR ELBOW LEFT LBSFRZCY3594-94-21 13:04:00 [address] [place] [address] Patient Name: PAYAL EDWARDS MR #: [id number] : 1960 Age/Sex: 58/F Req #: [id number] Adm Physician: Ordered by: ANURADHA COLLIER WASHER AND CAPPER MACHINE OPERATOR Report #: [id number] Location: ER Room/Bed: Procedure: DX/ELB OW LEFT COMPLETE Exam Date: 01/04/19 Exam Time: 1200 REPORT STATUS: Signed LEFT ELBOW - 3 Images HISTORY: Fall, left arm injury COMPARISON: None laurie ilable. FINDINGS: Bones: No acute displaced fracture. No aggre ssive osseous lesion. Joints: Osseous alignment is within normal limits a nd the joint spaces are well-maintained. Soft tissues: The soft tissues appear unremarkable. IMPRESSION: No acute displaced fracture. S igned by: Dr. Jasmeet Hong D.O., M.M.M. on 01/04/2019 1:09 PM Dictated By: JASMEET HONG DO [address] scribed By: NASIM on 01/04/19 1305 COPY TO: ANURADHA COLLIER NP HUMERUS LEFT 2+ZALEF3574-67-40 12:29:00 [address] [place] [address] Patient Name: PAYAL EDWARDS MR #: [id number] : 1960 Age/Sex: 58/F Req #: [id number] Adm Physician: Ordered by: ANURADHA COLLIER NP Report #: [id number] Location: ER Room/Bed: Procedure: [id number] DX/HUM ERUS LEFT 2+VIEWS Exam Date: 01/04/19 Exam Time: 120 0 REPORT STATUS: Signed LEFT MARIEL ULDER - 2 Images LEFT HUMERUS - 2 Images HISTORY: Fall, injury COMPARISON: None available. FINDINGS: Bones: No acute displac ed fracture. No aggressive osseous lesion. Joints: Osseous alignment is within normal limits and the joint spaces are well-maintained. Soft ti ssues: The soft tissues appear unremarkable. IMPRESSION: No acute r adiographic abnormality. Signed by: Dr. Jasmeet Hong D.O., M.M.M. on 019 12:31 PM Dictated By: JASMEET HONG DO 123 Transcribed By: NASIM on 01/04/191230 COPY TO: ANURADHA COLLIER NP SHOULDER LEFT [id number] 12:29:00 [place] [address] Patient Name: PAYAL EDWARDS MR #: [id number] : 1960 Age/Sex: 58/F Req #: [id number] Adm Physician: Ordered by: ANURADHA COLLIER NP Report #: [id number] Location: ER Room/Bed: Procedure: [id number] DX/MARIEL SALGADO COMPLETE Exam Date: 01/04/19 Exam Time: 1 200 REPORT STATUS: Signed LEFT S HOULDER - 2 Images LEFT HUMERUS - 2 Images HISTORY: Fall, injury COMPARISON: None available. FINDINGS: Bones: No acute displ aced fracture. No aggressive osseous lesion. Joints: Osseous alignmen t is within normal limits and the joint spaces are well-maintained. Soft tissues: The soft tissues appear unremarkable. IMPRESSION: No acute radiographic abnormality. Signed by: Dr. Jasmeet Hong D.O., M.M.M. on 01/04 12:31 PM Dictated By: JASMEET HONG DO 30 Transcribed By: NASIM on 01/04/191230 [employer] G[employer]IFICATION TECHNICIAN Y TO: ANURADHA COLLIER NP Creatine Kinase [id number] 06:42:00* Test Item Value Reference Range Interpretation Comments Creatine Kinase MB (test code = 43510-9) 1.50 0-5.0 [place] [id number] 06:42:00* Test Item Value Reference Range Interpretation Comments Troponin I (test code = JCM9140) -0.001 0-0.300 [facility] [id number] 06:42:00* Test Item Value Reference Range Interpretation Comments Creatine Kinase MB (test code = 54371-9) 1.50 0-5.0 [place] [id number] 06:42:00* Test Item Value Reference Range Interpretation Comments Troponin I (test code = IWC5683) < 0.001 0-0.300 [facility]neCreat[facility] Kinase [id number] 06:42:00* Test Item Value Reference Range Interpretation Comments Creatine Kinase MB (test code = 88588-4) 1.50 0-5.0 [place] [id number] 06:42:00* Test Item Value Reference Range Interpretation Comments Troponin I (test code = LYO8637) < 0.001 0-0.300 [facility]neCreatine Trhqyr0964-45-97 06:33:00* Test Item Value Reference Range Interpretation Comments Creatine Kinase (test code = 2157-6) 57 29-168 [facility] Rkzqoy9796-81-82 06:33:00* Test Item Value Reference Range Interpretation Comments Creatine Kinase (test code = 2157-6) 57 29-168 [facility]ine Fbaxxq5891-77-40 06:33:00* Test Item Value Reference Range Interpretation Comments Creatine Kinase (test code = 2157-6) 57 29-168 [facility]odium Jsfqz0032-97-19 06:22:00* Test Item Value Reference Range Interpretation Comments Sodium Level (test code = 2951-2) 143 136-145 [facility]nePotassium Mrtyh8617-49-61 06:22:00* Test Item Value Reference Range Interpretation Comments Potassium Level (test code = 2823-3) 4.2 3.5-5.1 [facility]neChloride Oqkwe1152-19-74 06:22:00* Test Item Value Reference Range Interpretation Comments Chloride Level (test code = 2075-0) 109 98-107 H [facility] CleburneCarbon Dioxide Ontcl1886-60-48 06:22:00* Test Item Value Reference Range Interpretation Comments Carbon Dioxide Level (test code = 2028-9) 24 -29 [facility]neAnion Ekf1558-98-80 06:22:00* Test Item Value Reference Range Interpretation Comments Anion Gap (test code = 58111-9) 14.2 8-16 [facility]neBlood Urea Jzilnfmv4166-64-01 06:22:00* Test Item Value Reference Range Interpretation Comments Blood Urea Nitrogen (test code = 3094-0) 13 7-26 [facility]neCreatinine2018-09-09 06:22:00* Test Item Value Reference Range Interpretation Comments Creatinine (test code = 2160-0) 0.88 0.57-1.11 [facility]neBUN/Creatinine Ywsuo2605-22-55 06:22:00* Test Item Value Reference Range Interpretation Comments BUN/Creatinine Ratio (test code = 3097-3) 15 6-25 [facility] CleburneEstimat Glomerular Filtration Rate 2018-07-29 06:22:00* Test Item Value Reference Range Interpretation Comments Estimat Glomerular Filtration Rate (test code = 90745-0) 60- >60 Ranges were taken from the National Kidney Disease Education Program and the [employer] alleg[facility] healthal [employer] literature.Reference ranges:60 or greater: Abylen25-54 ( for 3 consecutive months): Chronic kidney disease 15 or less: Kidney failureTexas [facility] CleburneGlucose Yloda8261-09-86 06:22:00* Test Item Value Reference Range Interpretation Comments Glucose Level (test code = WXV3995) 172 74-118 H [facility]neCalcium Ujczs0390-01-37 06:22:00* Test Item Value Reference Range Interpretation Comments Calcium Level (test code = 81583-0) 8.9 8.4-10.2 [facility] Arlingtonodium Kzuhz6296-81-52 06:22:00* Test Item Value Reference Range Interpretation Comments Sodium Level (test code = 2951-2) 143 136-145 [facility]nePotassium Vypmi1077-10-19 06:22:00* Test Item Value Reference Range Interpretation Comments Potassium Level (test code = 2823-3) 4.2 3.5-5.1 [facility]neChloride Yhxko8646-44-79 06:22:00* Test Item Value Reference Range Interpretation Comments Chloride Level (test code = 2075-0) 109 98-107 H [facility] CleburneCarbon Dioxide Okwsl7530-05-11 06:22:00* Test Item Value Reference Range Interpretation Comments Carbon Dioxide Level (test code = 2028-9) 24 -29 [facility] CleburneAnion Syo7840-88-83 06:22:00* Test Item Value Reference Range Interpretation Comments Anion Gap (test code = 05603-9) 14.2 8-16 [facility] CleburneBlood Urea Vikvitge2320-79-97 06:22:00* Test Item Value Reference Range Interpretation Comments Blood Urea Nitrogen (test code = 3094-0) 13 7-26 [facility]neCreatinine2018-09-09 06:22:00* Test Item Value Reference Range Interpretation Comments Creatinine (test code = 2160-0) 0.88 0.57-1.11 [facility]neBUN/Creatinine Coius1984-99-14 06:22:00* Test Item Value Reference Range Interpretation Comments BUN/Creatinine Ratio (test code = 3097-3) 15 6-25 [facility] CleburneEstimat Glomerular Filtration Rate 2018-07-29 06:22:00* Test Item Value Reference Range Interpretation Comments Estimat Glomerular Filtration Rate (test code = 048532837) > 60 >60 Ranges were taken from the National Kidney Disease Education Program and the Dwight alleghany healthal Kid[employer] Foundation literature.Reference ranges:60 or greater: Mpdozl88-96 ( for 3 consecutive months): Chronic kidney disease 15 or less: Kidney failureTexas Health [facility] CleburneGlucose Jtwia6623-52-12 06:22:00* Test Item Value Reference Range Interpretation Comments Glucose Level (test code = LZC4664) 172 74-118 H [facility]neCalcium Ztgxj8898-51-24 06:22:00* Test Item Value Reference Range Interpretation Comments Calcium Level (test code = 25053-6) 8.9 8.4-10.2 [facility] Arlingtonodium Xchpm3744-26-88 06:22:00* Test Item Value Reference Range Interpretation Comments Sodium Level (test code = 2951-2) 143 136-145 [facility]nePotassium Cegiw0741-31-39 06:22:00* Test Item Value Reference Range Interpretation Comments Potassium Level (test code = 2823-3) 4.2 3.5-5.1 [facility]neChloride Fbjlr0568-10-68 06:22:00* Test Item Value Reference Range Interpretation Comments Chloride Level (test code = 2075-0) 109 98-107 H [facility] CleburneCarbon Dioxide Eocjd7454-20-91 06:22:00* Test Item Value Reference Range Interpretation Comments Carbon Dioxide Level (test code = 2028-9) 24 22-29 [facility] CleburneAnion Yko6488-30-59 06:22:00* Test Item Value Reference Range Interpretation Comments Anion Gap (test code = 42647-0) 14.2 8-16 [facility]neBlood Urea Efleqznj3128-60-01 06:22:00* Test Item Value Reference Range Interpretation Comments Blood Urea Nitrogen (test code = 3094-0) 13 7-26 [facility] CleburneCreatinine2018-09-09 06:22:00* Test Item Value Reference Range Interpretation Comments Creatinine (test code = 2160-0) 0.88 0.57-1.11 [facility]neBUN/Creatinine Strhg3686-33-79 06:22:00* Test Item Value Reference Range Interpretation Comments BUN/Creatinine Ratio (test code = 3097-3) 15 6-25 [facility] CleburneEstimat Glomerular Filtration Rate 2018-07-29 06:22:00* Test Item Value Reference Range Interpretation Comments Estimat Glomerular Filtration Rate (test code = 808307848) > 60 >60 Ranges were taken from the National Kidney Disease Education Program and the Dwight alleghany healthal Kid[employer] Foundation literature.Reference ranges:60 or greater: Hduyzs51-90 ( for 3 consecutive months): Chronic kidney disease 15 or less: Kidney failureTexas Health Harris [facility] Hospital CleburneGlucose Kuxzl4660-98-62 06:22:00* Test Item Value Reference Range Interpretation Comments Glucose Level (test code = AJB5687) 172 74-118 H [facility] CleburneCalcium Zfdyl9140-64-83 06:22:00* Test Item Value Reference Range Interpretation Comments Calcium Level (test code = 03143-3) 8.9 8.4-10.2 [facility] CleburneWhite Blood Holmx4916-73-44 06:06:00* Test Item Value Reference Range Interpretation Comments White Blood Count (test code = 6690-2) 7.69 4.8-10.8 [facility] CleburneRed Blood Vrdrw4170-89-62 06:06:00* Test Item Value Reference Range Interpretation Comments Red Blood Count (test code = 789-8) 4.31 3.6-5.1 [facility]neHemoglobin2018-09-09 06:06:00* Test Item Value Reference Range Interpretation Comments Hemoglobin (test code = 59351-1) 12.4 12.0-16.0 [facility]burneHematocrit2018-09-09 06:06:00* Test Item Value Reference Range Interpretation Comments Hematocrit (test code = 4544-3) 38.9 34.2-44.1 [facility] CleburneMean Corpuscular Kcbekl2684-77-62 06:06:00* Test Item Value Reference Range Interpretation Comments Mean Corpuscular Volume (test code = 787-2) 90.3 81-99 [facility] CleburneMean Corpuscular Orfmgtuhyl6353-05-72 06:06:00* Test Item Value Reference Range Interpretation Comments Mean Corpuscular Hemoglobin (test code = 785-6) 28.8 28-32 [facility] CleburneMean Corpuscular Hemoglobin Concent 2018-07-29 06:06:00* Test Item Value Reference Range Interpretation Comments Mean Corpuscular Hemoglobin Concent (test code = 786-4) 31.9 31-35 [facility] CleburneRed Cell Distribution Yltda5812-53-53 06:06:00* Test Item Value Reference Range Interpretation Comments Red Cell Distribution Width (test code = 06379-0) 15.0 11.7 -14.4 H [facility] CleburnePlatelet Rllzr1342-24-99 06:06:00* Test Item Value Reference Range Interpretation Comments Platelet Count (test code = 777-3) 269 140-360 [facility]burneNeutrophils (%) (Auto)2018-07-29 06:06:00 * Test Item Value Reference Range Interpretation Comments Neutrophils (%) (Auto) (test code = 00382-0) 89.0 38.7-80.0 H [facility] CleburneLymphocytes (%) (Auto)2018-07-29 06:06:00 * Test Item Value Reference Range Interpretation Comments Lymphocytes (%) (Auto) (test code = 736-9) 9.5 18.0-39.1 L [facility] CleburneMonocytes (%) (Auto)2018-07-29 06:06:00* Test Item Value Reference Range Interpretation Comments Monocytes (%) (Auto) (test code = 5905-5) 1.0 4.4-11.3 L [facility]neEosinophils (%) (Auto)2018-07-29 06:06:00 * Test Item Value Reference Range Interpretation Comments Eosinophils (%) (Auto) (test code = 713-8) 0.0 0.0-6.0 [facility]neBasophils (%) (Auto)2018-07-29 06:06:00* Test Item Value Reference Range Interpretation Comments Basophils (%) (Auto) (test code = 706-2) 0.1 0.0-1.0 [facility] CleburneIM GRANULOCYTES %2018-07-29 06:06:00* Test Item Value Reference Range Interpretation Comments IM GRANULOCYTES % (test code = IM GRANULOCYTES %) 0.4 0.0- 1.0 [facility]neNeutrophils # (Auto)2018-07-29 06:06:00* Test Item Value Reference Range Interpretation Comments Neutrophils # (Auto) (test code = 751-8) 6.8 2.1-6.9 [facility] CleburneLymphocytes # (Auto)2018-07-29 06:06:00* Test Item Value Reference Range Interpretation Comments Lymphocytes # (Auto) (test code = 36455-5) 0.7 1.0-3.2 L [facility] CleburneMonocytes # (Auto)2018-07-29 06:06:00* Test Item Value Reference Range Interpretation Comments Monocytes # (Auto) (test code = 742-7) 0.1 0.2-0.8 L [facility]neEosinophils # (Auto)2018-07-29 06:06:00* Test Item Value Reference Range Interpretation Comments Eosinophils # (Auto) (test code = 711-2) 0.0 0.0-0.4 [facility]neBasophils # (Auto)2018-07-29 06:06:00* Test Item Value Reference Range Interpretation Comments Basophils # (Auto) (test code = 704-7) 0.0 0.0-0.1 [facility] CleburneAbsolute Immature Granulocyte (auto 2018-07-29 06:06:00* Test Item Value Reference Range Interpretation Comments Absolute Immature Granulocyte (auto (nathan t code = Absolute Immature Granulocyte (auto) 0.03 0-0.1 [facility] CleburneWhite Blood Wkjcg0760-99-74 06:06:00* Test Item Value Reference Range Interpretation Comments White Blood Count (test code = 6690-2) 7.69 4.8-10.8 [facility] CleburneRed Blood Chbru8245-66-10 06:06:00* Test Item Value Reference Range Interpretation Comments Red Blood Count (test code = 789-8) 4.31 3.6-5.1 [facility]burneHemoglobin2018-09-09 06:06:00* Test Item Value Reference Range Interpretation Comments Hemoglobin (test code = 51039-1) 12.4 12.0-16.0 [facility]burneHematocrit2018-09-09 06:06:00* Test Item Value Reference Range Interpretation Comments Hematocrit (test code = 4544-3) 38.9 34.2-44.1 [facility] CleburneMean Corpuscular Vunmyn9524-57-17 06:06:00* Test Item Value Reference Range Interpretation Comments Mean Corpuscular Volume (test code = 787-2) 90.3 81-99 [facility] CleburneMean Corpuscular Bkijeyrbsu0555-46-39 06:06:00* Test Item Value Reference Range Interpretation Comments Mean Corpuscular Hemoglobin (test code = 785-6) 28.8 28-32 [facility] CleburneMean Corpuscular Hemoglobin Concent 2018-07-29 06:06:00* Test Item Value Reference Range Interpretation Comments Mean Corpuscular Hemoglobin Concent (test code = 786-4) 31.9 31-35 [facility] CleburneRed Cell Distribution Ledil3644-05-89 06:06:00* Test Item Value Reference Range Interpretation Comments Red Cell Distribution Width (test code = 69354-5) 15.0 11.7 -14.4 H [facility] CleburnePlatelet Qyzkk3896-42-55 06:06:00* Test Item Value Reference Range Interpretation Comments Platelet Count (test code = 777-3) 269 140-360 [facility]neNeutrophils (%) (Auto)2018-07-29 06:06:00 * Test Item Value Reference Range Interpretation Comments Neutrophils (%) (Auto) (test code = 17555-0) 89.0 38.7-80.0 H [facility] CleburneLymphocytes (%) (Auto)2018-07-29 06:06:00 * Test Item Value Reference Range Interpretation Comments Lymphocytes (%) (Auto) (test code = 736-9) 9.5 18.0-39.1 L [facility]neMonocytes (%) (Auto)2018-07-29 06:06:00* Test Item Value Reference Range Interpretation Comments Monocytes (%) (Auto) (test code = 5905-5) 1.0 4.4-11.3 L [facility]neEosinophils (%) (Auto)2018-07-29 06:06:00 * Test Item Value Reference Range Interpretation Comments Eosinophils (%) (Auto) (test code = 713-8) 0.0 0.0-6.0 [facility]neBasophils (%) (Auto)2018-07-29 06:06:00* Test Item Value Reference Range Interpretation Comments Basophils (%) (Auto) (test code = 706-2) 0.1 0.0-1.0 [facility] CleburneIM GRANULOCYTES %2018-07-29 06:06:00* Test Item Value Reference Range Interpretation Comments IM GRANULOCYTES % (test code = IM GRANULOCYTES %) 0.4 0.0- 1.0 [facility]neNeutrophils # (Auto)2018-07-29 06:06:00* Test Item Value Reference Range Interpretation Comments Neutrophils # (Auto) (test code = 751-8) 6.8 2.1-6.9 [facility] CleburneLymphocytes # (Auto)2018-07-29 06:06:00* Test Item Value Reference Range Interpretation Comments Lymphocytes # (Auto) (test code = 43219-3) 0.7 1.0-3.2 L [facility] CleburneMonocytes # (Auto)2018-07-29 06:06:00* Test Item Value Reference Range Interpretation Comments Monocytes # (Auto) (test code = 742-7) 0.1 0.2-0.8 L [facility]neEosinophils # (Auto)2018-07-29 06:06:00* Test Item Value Reference Range Interpretation Comments Eosinophils # (Auto) (test code = 711-2) 0.0 0.0-0.4 [facility]neBasophils # (Auto)2018-07-29 06:06:00* Test Item Value Reference Range Interpretation Comments Basophils # (Auto) (test code = 704-7) 0.0 0.0-0.1 [facility] CleburneAbsolute Immature Granulocyte (auto 2018-07-29 06:06:00* Test Item Value Reference Range Interpretation Comments Absolute Immature Granulocyte (auto (nathan t code = Absolute Immature Granulocyte (auto) 0.03 0-0.1 [facility] CleburneWhite Blood Kqdje1304-04-10 06:06:00* Test Item Value Reference Range Interpretation Comments White Blood Count (test code = 6690-2) 7.69 4.8-10.8 [facility] CleburneRed Blood Gwhyw3960-10-37 06:06:00* Test Item Value Reference Range Interpretation Comments Red Blood Count (test code = 789-8) 4.31 3.6-5.1 [facility]neHemoglobin2018-09-09 06:06:00* Test Item Value Reference Range Interpretation Comments Hemoglobin (test code = 32849-2) 12.4 12.0-16.0 [facility]burneHematocrit2018-09-09 06:06:00* Test Item Value Reference Range Interpretation Comments Hematocrit (test code = 4544-3) 38.9 34.2-44.1 [facility]burneMean Corpuscular Hzuqdb6455-23-64 06:06:00* Test Item Value Reference Range Interpretation Comments Mean Corpuscular Volume (test code = 787-2) 90.3 81-99 [facility] CleburneMean Corpuscular Niaqywkrfe2091-48-07 06:06:00* Test Item Value Reference Range Interpretation Comments Mean Corpuscular Hemoglobin (test code = 785-6) 28.8 28-32 [facility]burneMean Corpuscular Hemoglobin Concent 2018-07-29 06:06:00* Test Item Value Reference Range Interpretation Comments Mean Corpuscular Hemoglobin Concent (test code = 786-4) 31.9 31-35 [facility] CleburneRed Cell Distribution Zajla3221-16-15 06:06:00* Test Item Value Reference Range Interpretation Comments Red Cell Distribution Width (test code = 44907-1) 15.0 11.7 -14.4 H [facility] CleburnePlatelet Mayit7582-45-75 06:06:00* Test Item Value Reference Range Interpretation Comments Platelet Count (test code = 777-3) 269 140-360 [facility]neNeutrophils (%) (Auto)2018-07-29 06:06:00 * Test Item Value Reference Range Interpretation Comments Neutrophils (%) (Auto) (test code = 83167-6) 89.0 38.7-80.0 H [facility] CleburneLymphocytes (%) (Auto)2018-07-29 06:06:00 * Test Item Value Reference Range Interpretation Comments Lymphocytes (%) (Auto) (test code = 736-9) 9.5 18.0-39.1 L [facility]neMonocytes (%) (Auto)2018-07-29 06:06:00* Test Item Value Reference Range Interpretation Comments Monocytes (%) (Auto) (test code = 5905-5) 1.0 4.4-11.3 L [facility]neEosinophils (%) (Auto)2018-07-29 06:06:00 * Test Item Value Reference Range Interpretation Comments Eosinophils (%) (Auto) (test code = 713-8) 0.0 0.0-6.0 [facility]neBasophils (%) (Auto)2018-07-29 06:06:00* Test Item Value Reference Range Interpretation Comments Basophils (%) (Auto) (test code = 706-2) 0.1 0.0-1.0 [facility] Cle[facility]neIM GRANULOCYTES %2018-07-29 06:06:00* Test Item Value Reference Range Interpretation Comments IM GRANULOCYTES % (test code = IM GRANULOCYTES %) 0.4 0.0- 1.0 [facility]neNeutrophils # (Auto)2018-07-29 06:06:00* Test Item Value Reference Range Interpretation Comments Neutrophils # (Auto) (test code = 751-8) 6.8 2.1-6.9 [facility] CleburneLymphocytes # (Auto)2018-07-29 06:06:00* Test Item Value Reference Range Interpretation Comments Lymphocytes # (Auto) (test code = 75052-4) 0.7 1.0-3.2 L [facility]neMonocytes # (Auto)2018-07-29 06:06:00* Test Item Value Reference Range Interpretation Comments Monocytes # (Auto) (test code = 742-7) 0.1 0.2-0.8 L [facility]neEosinophils # (Auto)2018-07-29 06:06:00* Test Item Value Reference Range Interpretation Comments Eosinophils # (Auto) (test code = 711-2) 0.0 0.0-0.4 [facility]neBasophils # (Auto)2018-07-29 06:06:00* Test Item Value Reference Range Interpretation Comments Basophils # (Auto) (test code = 704-7) 0.0 0.0-0.1 [facility] CleburneAbsolute Immature Granulocyte (auto 2018-07-29 06:06:00* Test Item Value Reference Range Interpretation Comments Absolute Immature Granulocyte (auto (nathan t code = Absolute Immature Granulocyte (auto) 0.03 0-0.1 [facility] CleburneArterial Blood yK2488-92-41 22:21:00* Test Item Value Reference Range Interpretation Comments Arterial Blood pH (test code = 2744-1) 7.40 7.31-7.41 [facility] CleburneArterial Blood Partial Pressure CO2 2018-07-28 22:21:00* Test Item Value Reference Range Interpretation Comments Arterial Blood Partial Pressure CO2 (test code = 2019-8) 40 41-51 L [facility] CleburneArterial Blood Partial Pressure O2 2018-07-28 22:21:00* Test Item Value Reference Range Interpretation Comments Arterial Blood Partial Pressure O2 (test code = 2018-8) 69 80-105 L [facility] CleburneArterial Blood CPD04773-52-68 22:21:00* Test Item Value Reference Range Interpretation Comments Arterial Blood HCO3 (test code = 1960-4) 25 23-28 [facility] CleburneArterial Blood Base Zhhowv7750-29-46 22:21:00* Test Item Value Reference Range Interpretation Comments Arterial Blood Base Excess (test code = 1925-7) 1.0 -2-3 [facility] Oxygen Saturation 2018-07-28 22:21:00* Test Item Value Reference Range Interpretation Comments Arterial Blood Oxygen Saturation (test code = 2708-6) 94.0 95-98 L [facility]neFiO22018-09-08 22:21:00* Test Item Value Reference Range Interpretation Comments FiO2 (test code = FiO2) 0.28 PT. ON 2L [facility] [id number] 22:21:00* Test Item Value Reference Range Interpretation Comments Arterial Blood pH (test code = 2744-1) 7.40 7.31-7.41 [facility] Partial Pressure CO2 2018-07-28 22:21:00* Test Item Value Reference Range Interpretation Comments Arterial Blood Partial Pressure CO2 (test code = 2018-8) 40 41-51 L [facility] Partial Pressure O2 2018-07-28 22:21:00* Test Item Value Reference Range Interpretation Comments Arterial Blood Partial Pressure O2 (test code = 2018-8) 69 80-105 L [facility] Blood [id number] 22:21:00* Test Item Value Reference Range Interpretation Comments Arterial Blood HCO3 (test code = 1960-4) 25 23-28 [facility] Base Tpyduh2159-72-43 22:21:00* Test Item Value Reference Range Interpretation Comments Arterial Blood Base Excess (test code = 1925-7) 1.0 -2-3 [facility] Oxygen Saturation 2018-07-28 22:21:00* Test Item Value Reference Range Interpretation Comments Arterial Blood Oxygen Saturation (test code = 2708-6) 94.0 95-98 L [facility]Fi[facility]22018-09-08 22:21:00* Test Item Value Reference Range Interpretation Comments FiO2 (test code = FiO2) 0.28 PT. ON 2L [facility] Blood [id number] 22:21:00* Test Item Value Reference Range Interpretation Comments Arterial Blood pH (test code = 2744-1) 7.40 7.31-7.41 [facility] Partial Pressure CO2 2018-07-28 22:21:00* Test Item Value Reference Range Interpretation Comments Arterial Blood Partial Pressure CO2 (test code = 2019-06) 40 41-51 L [facility] Partial Pressure O2 2018-07-28 22:21:00* Test Item Value Reference Range Interpretation Comments Arterial Blood Partial Pressure O2 (test code = 2019-06) 69 80-105 L [facility] Blood [id number] 22:21:00* Test Item Value Reference Range Interpretation Comments Arterial Blood HCO3 (test code = 1960-4) 25 23-28 [facility] Blood Base Mrftzg2496-42-32 22:21:00* Test Item Value Reference Range Interpretation Comments Arterial Blood Base Excess (test code = 1925-7) 1.0 -2-3 [facility]ne[facility] Blood Oxygen Saturation 2018-07-28 22:21:00* Test Item Value Reference Range Interpretation Comments Arterial Blood Oxygen Saturation (test code = 2708-6) 94.0 95-98 L [facility]neFiO22018-09-08 22:21:00* Test Item Value Reference Range Interpretation Comments FiO2 (test code = FiO2) 0.28 PT. ON 2L [facility] 2018-07-28 20:07:00 [place] [address] Patient Name: PAYAL EDWARDS MR #: [id number] : 1960 Age/Sex: 58/F Req #: [id number] Adm Physician: Ordered by: EVAN MOISE MD Report #: [id number] Location: ER Room/Bed: Procedure: [id number] DX/CHEST SINGLE (PORTABLE) Exa m Date: 07/28/18 Exam Time: 1900 REPORT STATUS: Signed CHEST SINGLE (PORTABLE), 07/28/2018 7:32 PM Technique: CHEST SINGLE (PORTABLE) Comparison: 06/18/2018 Clinical history: COPD exacerbation Findings: Stable appearance of the heart, mediastinum, lungs and pleural space s. Hyperinflation related to emphysema. Impression: Emphysema without a cute abnormality. Signed by: Dr Philip Rivera MD on 07/28/2018 8:08 PM Dictated By: PHILIP RIVERA MD 07 Transcribed By: NASIM on 07/28/182007 COPY TO: EVAN BAJWA MD Total Voesmlxza9247-47-37 20:06:00* Test Item Value Reference Range Interpretation Comments Total Bilirubin (test code = 1975-2) 0.2 0.2-1.2 [facility]neAspartate Amino Transf (AST/SGOT) 2018-07-28 20:06:00* Test Item Value Reference Range Interpretation Comments Aspartate Amino Transf (AST/SGOT) (test code = Aspartate Amino Transf (AST/SGOT)) 13 5-34 [facility]neAlanine Aminotransferase (ALT/SGPT) 2018-07-28 20:06:00* Test Item Value Reference Range Interpretation Comments Alanine Aminotransferase (ALT/SGPT) (test code = 1742-6) 11 0-55 [facility]neTotal Gghxehm5937-16-63 20:06:00* Test Item Value Reference Range Interpretation Comments Total Protein (test code = 2885-2) 6.7 6.5-8.1 [facility]neAlbumin2018-09-08 20:06:00* Test Item Value Reference Range Interpretation Comments Albumin (test code = 1751-7) 3.6 3.5-5.0 [facility]neGlobulin2018-09-08 20:06:00* Test Item Value Reference Range Interpretation Comments Globulin (test code = 05519-0) 3.1 2.3-3.5 [facility]neAlbumin/Globulin [id number] 20:06:00 * Test Item Value Reference Range Interpretation Comments Albumin/Globulin Ratio (test code = 1759-0) 1.2 0.8-2.0 [facility]neAlkaline Oaigubjvwvv9874-35-53 20:06:00* Test Item Value Reference Range Interpretation Comments Alkaline Phosphatase (test code = 6768-6) 87 40-150 [facility]neTotal Augvoxxts5841-15-27 20:06:00* Test Item Value Reference Range Interpretation Comments Total Bilirubin (test code = 1975-2) 0.2 0.2-1.2 [facility]neAspartate Amino Transf (AST/SGOT) 2018-07-28 20:06:00* Test Item Value Reference Range Interpretation Comments Aspartate Amino Transf (AST/SGOT) (test code = Aspartate Amino Transf (AST/SGOT)) 13 5-34 [facility]neAlanine Aminotransferase (ALT/SGPT) 2018-07-28 20:06:00* Test Item Value Reference Range Interpretation Comments Alanine Aminotransferase (ALT/SGPT) (test code = 1742-6) 11 0-55 [facility]neTotal Fvjtqso7342-99-84 20:06:00* Test Item Value Reference Range Interpretation Comments Total Protein (test code = 2885-2) 6.7 6.5-8.1 [facility]neAlbumin2018-09-08 20:06:00* Test Item Value Reference Range Interpretation Comments Albumin (test code = 1751-7) 3.6 3.5-5.0 [facility]neGlobulin2018-09-08 20:06:00* Test Item Value Reference Range Interpretation Comments Globulin (test code = 96353-9) 3.1 2.3-3.5 [facility]neAlbumin/Globulin Sghrb6661-78-26 20:06:00 * Test Item Value Reference Range Interpretation Comments Albumin/Globulin Ratio (test code = 1759-0) 1.2 0.8-2.0 [facility]neAlkaline Adkurlmjrum0667-07-30 20:06:00* Test Item Value Reference Range Interpretation Comments Alkaline Phosphatase (test code = 6768-6) 87 40-150 [facility]neTotal Mfojvvzzj4963-87-29 20:06:00* Test Item Value Reference Range Interpretation Comments Total Bilirubin (test code = 1975-2) 0.2 0.2-1.2 [facility]neAspartate Amino Transf (AST/SGOT) 2018-07-28 20:06:00* Test Item Value Reference Range Interpretation Comments Aspartate Amino Transf (AST/SGOT) (test code = Aspartate Amino Transf (AST/SGOT)) 13 5-34 [facility] Cle[facility]neAlanine Aminotransferase (ALT/SGPT) 2018-07-28 20:06:00* Test Item Value Reference Range Interpretation Comments Alanine Aminotransferase (ALT/SGPT) (test code = 1742-6) 11 0-55 [facility]neTotal Oepnxsr7582-57-94 20:06:00* Test Item Value Reference Range Interpretation Comments Total Protein (test code = 2885-2) 6.7 6.5-8.1 [facility]neAlbumin2018-09-08 20:06:00* Test Item Value Reference Range Interpretation Comments Albumin (test code = 1751-7) 3.6 3.5-5.0 [facility]neGlobulin2018-09-08 20:06:00* Test Item Value Reference Range Interpretation Comments Globulin (test code = 17903-4) 3.1 2.3-3.5 [facility]neAlbumin/Globulin Yyuyl5016-81-83 20:06:00 * Test Item Value Reference Range Interpretation Comments Albumin/Globulin Ratio (test code = 1759-0) 1.2 0.8-2.0 [facility]neAlkaline Kyravbxydjo8446-67-67 20:06:00* Test Item Value Reference Range Interpretation Comments Alkaline Phosphatase (test code = 6768-6) 87 40-150 [facility]burneAnti-Mitochondrial Jfxmdsjb5071-39-05 06:16:00* Test Item Value Reference Range Interpretation Comments Anti-Mitochondrial Antibody (test code = 20943-7) 9.9 0.0- 20.0 Negative 0.0 - 20.0 Equivocal 20.1 - 24.9 Positive > 24.9Mitochondrial (M2) Antibodies are found in 90-96% ofpatients with primary bi liary cirrhosis.Performed at: [address] [id number] Director: Hakan Schwartz MD, Phone: [phone] Health Harris [facility] Hospital CleburneAnti-Mitochondrial Yshkgdiz0656-15-42 06:16:00* Test Item Value Reference Range Interpretation Comments Anti-Mitochondrial Antibody (test code = 87578-0) 9.9 0.0- 20.0 Negative 0.0 - 20.0 Equivocal 20.1 - 24.9 Positive > 24.9Mitochondrial (M2) Antibodies are found in 90-96% ofpatients with primary bi liary cirrhosis.Performed at: [address] [id number] Director: Hakan Schwartz MD, Phone: [phone] Health Harris [facility] Hospital CleburneCeruloplasmin2018-07-06 07:46:00* Test Item Value Reference Range Interpretation Comments Ceruloplasmin (test code = 2064-4) 33.7 19.0-39.0 Performed at: [address], [place] [id number] 4Lab Director: GERONIMO Rincon MD, Phone: [phone] Health Harris [facility] Hospital CleburneCeruloplasmin2018-07-06 07:46:00* Test Item Value Reference Range Interpretation Comments Ceruloplasmin (test code = 2064-4) 33.7 19.0-39.0 Performed at: [address], [place] [id number] 4Lab Director: GERONIMO Rincon MD, Phone: [phone] Health Harris [facility] Hospital CleburneMRI BRAIN [id number] 12:40:00 [place] [address] Patient Name: PAYAL EDWARDS MR #: [id number] : 1960 Age/Sex: 58/F Req #: [id number] Adm Physician: JI PENNY MD Ordered by: LOIS DAVIS M.D. Report #: [id number] Location: MED/SURG Room/Bed: [facility] Procedure: 070 5-0001 MRI/MRI BRAIN WO Exam Date: Exam Time: REPORT STATUS: Signed EXAMINATION: MRI of the brain without contrast. HISTORY: Syncopal episodes COMPARISON: Head CT on 06/18/2018 TECHNIQUE: Sagit fernando T2; axial DWI, T2, FLAIR, T1-IR, T2 gradient echo; coronal FLAIR. Addition al high-resolution coronal T2 and FLAIR over the temporal lobes. IMAGE QUALITY : Adequate. FINDINGS: Parenchyma: 1. No abnormal signal inte nsity 2. No mass, hemorrhage, acute or chronic infarcts. Skull: Un remarkable. Vessels: Expected flow voids present in the major kenji kyle and dural sinuses. Extra-axial spaces: No abnormal signal intensit y or mass effect. Brain volume: Within normal limits for age. Vent ricles: No hydrocephalus or displacement. Foramen magnum: Unremarkable. Sella: Unremarkable. Paranasal / mastoid sinuses: No significant inflammatory disease. IMPRESSION: No intracranial abnormalities. Signed by: Dr. Anne Shen M.D. on 05/24/2018 1:27 PM Dictated By: ANNE SHEN MD 26 Transcribed By: NASIM on 05/24/181326 COPY TO: LOIS DAVIS M.D. Anti-Nuclear Antibody Verzck4024-28-09 11:42:00* Test Item Value Reference Range Interpretation Comments Anti-Nuclear Antibody Screen (test code = 5048-4) Negative . Negative <1:80 Borderline 1:80 Positive > 1:80Performed at: [facility] Lab[address] [id number] 3Lab Director: Jonathan Nath MD, Phone: [phone] Health Harris [facility] Hospital CleburneAnti-Nuclear Antibody Wgzwxc9690-42-49 11:42:00* Test Item Value Reference Range Interpretation Comments Anti-Nuclear Antibody Screen (test code = 5048-4) Negative . Negative <1:80 Borderline 1:80 Positive > 1:80Performed at: [facility] Lab[address] [id number] 3Lab Director: Jonathan Nath MD, Phone: [phone] Health Harris [facility] Hospital CleburneAnti-Nuclear Antibody Qeefms7451-16-05 11:42:00* Test Item Value Reference Range Interpretation Comments Anti-Nuclear Antibody Screen (test code = 5048-4) Negative . Negative <1:80 Borderline 1:80 Positive > 1:80Performed at: [facility] Lab[address] [id number] 3Lab Director: Jonathan Nath MD, Phone: [phone] Health Heart & [facility]ascular Hospital Arlingtonodium Vdhas9602-45-37 06:07:00* Test Item Value Reference Range Interpretation Comments Sodium Level (test code = 2951-2) 143 136-145 [facility]nePotassium Alxja6432-45-88 06:07:00* Test Item Value Reference Range Interpretation Comments Potassium Level (test code = 2823-3) 3.9 3.5-5.1 [facility] Cle[facility]neChloride Nfcaj8265-81-76 06:07:00* Test Item Value Reference Range Interpretation Comments Chloride Level (test code = 2075-0) 112 98-107 H [facility] CleburneCarbon Dioxide Spjqc8538-44-16 06:07:00* Test Item Value Reference Range Interpretation Comments Carbon Dioxide Level (test code = 2028-9) 24 22-29 [facility] CleburneAnion Gix5118-62-06 06:07:00* Test Item Value Reference Range Interpretation Comments Anion Gap (test code = 33558-1) 10.9 8-16 [facility] CleburneBlood Urea Vorzdwbl1056-50-37 06:07:00* Test Item Value Reference Range Interpretation Comments Blood Urea Nitrogen (test code = 3094-0) 8 7-26 [facility] CleburneCreatinine2018-07-05 06:07:00* Test Item Value Reference Range Interpretation Comments Creatinine (test code = 2160-0) 0.68 0.57-1.11 [facility] Cle[facility]neBUN/Creatinine Byzdl5082-12-43 06:07:00* Test Item Value Reference Range Interpretation Comments BUN/Creatinine Ratio (test code = 3097-3) 12 05-14 [facility] CleburneEstimat Glomerular Filtration Rate 2018-05-24 06:07:00* Test Item Value Reference Range Interpretation Comments Estimat Glomerular Filtration Rate (test code = 68478-7) 60- >60 Ranges were taken from the National Kidney Disease Education Program and the [facility] Kidney Foundation literature.Reference ranges:60 or greater: Acacvo31-69 ( for 3 consecutive months): Chronic kidney disease 15 or less: Kidney failureTexas Health Harris Methodist Hospital CleburneGlucose Gnhtu0476-45-90 06:07:00* Test Item Value Reference Range Interpretation Comments Glucose Level (test code = KTL5664) 98 74-118 [facility] CleburneCalcium Ljaya5841-18-43 06:07:00* Test Item Value Reference Range Interpretation Comments Calcium Level (test code = 33435-3) 8.3 8.4-10.2 L [facility] CleburneCreatine Iqcuhl1196-93-52 06:07:00* Test Item Value Reference Range Interpretation Comments Creatine Kinase (test code = 2157-6) 467 29-168 H [facility] CleburneCreatine Kinase UH0317-37-65 06:07:00* Test Item Value Reference Range Interpretation Comments Creatine Kinase MB (test code = 90525-3) 1.20 0-5.0 [facility] CleburneTroponin F2542-26-21 06:07:00* Test Item Value Reference Range Interpretation Comments Troponin I (test code = VRY5827) 0.004 0-0.300 [facility] CleburneThyroid Stimulating Hormone (TSH) 2018-05-23 07:51:00* Test Item Value Reference Range Interpretation Comments Thyroid Stimulating Hormone (TSH) (test code = 70984-8) 0.941 0.350-4.940 [facility] CleburneThyroid Stimulating Hormone (TSH) 2018-05-23 07:51:00* Test Item Value Reference Range Interpretation Comments Thyroid Stimulating Hormone (TSH) (test code = 98154-6) 0.941 0.350-4.940 [facility] CleburneThyroid Stimulating Hormone (TSH) 2018-05-23 07:51:00* Test Item Value Reference Range Interpretation Comments Thyroid Stimulating Hormone (TSH) (test code = 42623-2) 0.941 0.350-4.940 [facility] CleburneTotal Rysdvfkub7809-58-43 07:14:00* Test Item Value Reference Range Interpretation Comments Total Bilirubin (test code = 1975-2) 0.4 0.2-1.2 [facility] CleburneAspartate Amino Transf (AST/SGOT) 2018-05-23 07:14:00* Test Item Value Reference Range Interpretation Comments Aspartate Amino Transf (AST/SGOT) (test code = Aspartate Amino Transf (AST/SGOT)) 34 5-34 [facility] CleburneAlanine Aminotransferase (ALT/SGPT) 2018-05-23 07:14:00* Test Item Value Reference Range Interpretation Comments Alanine Aminotransferase (ALT/SGPT) (test code = 1742-6) 20 0-55 [facility] CleburneTotal Lmzoacf4841-72-84 07:14:00* Test Item Value Reference Range Interpretation Comments Total Protein (test code = 2885-2) 5.4 6.5-8.1 L [facility] CleburneAlbumin2018-07-04 07:14:00* Test Item Value Reference Range Interpretation Comments Albumin (test code = 1751-7) 2.6 3.5-5.0 L [facility] CleburneGlobulin2018-07-04 07:14:00* Test Item Value Reference Range Interpretation Comments Globulin (test code = 42117-5) 2.8 2.3-3.5 [facility] CleburneAlbumin/Globulin Zjzuf8125-37-92 07:14:00 * Test Item Value Reference Range Interpretation Comments Albumin/Globulin Ratio (test code = 1759-0) 0.9 0.8-2.0 [facility] CleburneAlkaline Avligsmebpi7491-48-78 07:14:00* Test Item Value Reference Range Interpretation Comments Alkaline Phosphatase (test code = 6768-6) 67 40-150 [facility] CleburneTriglycerides Cuvbd2195-61-22 07:14:00* Test Item Value Reference Range Interpretation Comments Triglycerides Level (test code = 2571-8) 101 0-149 [facility] CleburneCholesterol Pscnk1131-08-84 07:14:00* Test Item Value Reference Range Interpretation Comments Cholesterol Level (test code = 2093-3) 156 0-199 Less than 200 mg/dL Low Wfvn295 - 239 mg/dL Borderline Rnhm815 m g/dl and greater High Risk [facility] CleburneLDL Rzdotzxxacv9952-52-30 07:14:00* Test Item Value Reference Range Interpretation Comments LDL Cholesterol (test code = 2089-1) 98 60-130 [facility] CleburneHDL Snprzffkkau5302-45-21 07:14:00* Test Item Value Reference Range Interpretation Comments HDL Cholesterol (test code = 2085-9) 38 40-60 L [facility] CleburneCholesterol/HDL Lxidi0138-65-41 07:14:00 * Test Item Value Reference Range Interpretation Comments Cholesterol/HDL Ratio (test code = 9830-1) 4.1 3.0-3.6 H [facility] CleburneTriglycerides Iexwf2539-98-73 07:14:00* Test Item Value Reference Range Interpretation Comments Triglycerides Level (test code = 2571-8) 101 0-149 [facility] Cle[facility]neCholesterol Kxywq6149-78-87 07:14:00* Test Item Value Reference Range Interpretation Comments Cholesterol Level (test code = 2093-3) 156 0-199 Less than 200 mg/dL Low Mnji879 - 239 mg/dL Borderline Qniv463 m g/dl and greater High Risk [facility] CleburneLDL Upxisnxitwd0265-57-97 07:14:00* Test Item Value Reference Range Interpretation Comments LDL Cholesterol (test code = 2089-1) 98 60-130 [facility]L Kevqplavqzb5740-82-92 07:14:00* Test Item Value Reference Range Interpretation Comments HDL Cholesterol (test code = 2085-9) 38 40-60 L [facility]neCholesterol/HDL Ykbpg4180-66-25 07:14:00 * Test Item Value Reference Range Interpretation Comments Cholesterol/HDL Ratio (test code = 9830-1) 4.1 3.0-3.6 H [facility] CleburneTriglycerides Zqfnc7736-75-86 07:14:00* Test Item Value Reference Range Interpretation Comments Triglycerides Level (test code = 2571-8) 101 0-149 [facility]neCholesterol Ikqqz5302-04-44 07:14:00* Test Item Value Reference Range Interpretation Comments Cholesterol Level (test code = 2093-3) 156 0-199 Less than 200 mg/dL Low Iyoc340 - 239 mg/dL Borderline Aelq716 m g/dl and greater High Risk [facility] CleburneLDL Wesjcrhswuk0677-84-71 07:14:00* Test Item Value Reference Range Interpretation Comments LDL Cholesterol (test code = 2089-1) 98 60-130 [facility] Uggswintkwb4179-53-38 07:14:00* Test Item Value Reference Range Interpretation Comments HDL Cholesterol (test code = 2085-9) 38 40-60 L [facility]neCholesterol/HDL Ayvsf7512-61-71 07:14:00 * Test Item Value Reference Range Interpretation Comments Cholesterol/HDL Ratio (test code = 9830-1) 4.1 3.0-3.6 H [facility] CleburneWhite Blood Uczav6035-16-24 06:58:00* Test Item Value Reference Range Interpretation Comments White Blood Count (test code = 6690-2) 7.78 4.8-10.8 [facility] CleburneRed Blood Jzbhk9124-89-69 06:58:00* Test Item Value Reference Range Interpretation Comments Red Blood Count (test code = 789-8) 4.00 3.6-5.1 [facility]neHemoglobin2018-07-04 06:58:00* Test Item Value Reference Range Interpretation Comments Hemoglobin (test code = 58743-1) 11.7 12.0-16.0 L [facility] CleburneHematocrit2018-07-04 06:58:00* Test Item Value Reference Range Interpretation Comments Hematocrit (test code = 4544-3) 35.7 34.2-44.1 [facility] CleburneMean Corpuscular Gpgpfy3703-63-33 06:58:00* Test Item Value Reference Range Interpretation Comments Mean Corpuscular Volume (test code = 787-2) 89.3 81-99 [facility] CleburneMean Corpuscular Vivdkmaace0975-66-79 06:58:00* Test Item Value Reference Range Interpretation Comments Mean Corpuscular Hemoglobin (test code = 785-6) 29.3 28-32 [facility] CleburneMean Corpuscular Hemoglobin Concent 2018-05-23 06:58:00* Test Item Value Reference Range Interpretation Comments Mean Corpuscular Hemoglobin Concent (test code = 786-4) 32.8 31-35 [facility] CleburneRed Cell Distribution Kvbpj2492-62-29 06:58:00* Test Item Value Reference Range Interpretation Comments Red Cell Distribution Width (test code = 36551-4) 13.9 11.7 -14.4 [facility] CleburnePlatelet Wliwa2799-67-06 06:58:00* Test Item Value Reference Range Interpretation Comments Platelet Count (test code = 777-3) 234 140-360 [facility] CleburneNeutrophils (%) (Auto)2018-05-23 06:58:00 * Test Item Value Reference Range Interpretation Comments Neutrophils (%) (Auto) (test code = 89416-8) 65.2 38.7-80.0 [facility] CleburneLymphocytes (%) (Auto)2018-05-23 06:58:00 * Test Item Value Reference Range Interpretation Comments Lymphocytes (%) (Auto) (test code = 736-9) 23.1 18.0-39.1 [facility] Cle[facility]neMonocytes (%) (Auto)2018-05-23 06:58:00* Test Item Value Reference Range Interpretation Comments Monocytes (%) (Auto) (test code = 5905-5) 10.2 4.4-11.3 [facility]neEosinophils (%) (Auto)2018-05-23 06:58:00 * Test Item Value Reference Range Interpretation Comments Eosinophils (%) (Auto) (test code = 713-8) 0.8 0.0-6.0 [facility] CleburneBasophils (%) (Auto)2018-05-23 06:58:00* Test Item Value Reference Range Interpretation Comments Basophils (%) (Auto) (test code = 706-2) 0.3 0.0-1.0 [facility] [place] %2018-05-23 06:58:00* Test Item Value Reference Range Interpretation Comments IM GRANULOCYTES % (test code = IM GRANULOCYTES %) 0.4 0.0- 1.0 [facility]neNeutrophils # (Auto)2018-05-23 06:58:00* Test Item Value Reference Range Interpretation Comments Neutrophils # (Auto) (test code = 751-8) 5.1 2.1-6.9 [facility] CleburneLymphocytes # (Auto)2018-05-23 06:58:00* Test Item Value Reference Range Interpretation Comments Lymphocytes # (Auto) (test code = 64774-6) 1.8 1.0-3.2 [facility] [place]neMonocytes # (Auto)2018-05-23 06:58:00* Test Item Value Reference Range Interpretation Comments Monocytes # (Auto) (test code = 742-7) 0.8 0.2-0.8 [facility] [place]neEosinophils # (Auto)2018-05-23 06:58:00* Test Item Value Reference Range Interpretation Comments Eosinophils # (Auto) (test code = 711-2) 0.1 0.0-0.4 [facility] [place]neBasophils # (Auto)2018-05-23 06:58:00* Test Item Value Reference Range Interpretation Comments Basophils # (Auto) (test code = 704-7) 0.0 0.0-0.1 [facility] CleburneAbsolute Immature Granulocyte (auto 2018-05-23 06:58:00* Test Item Value Reference Range Interpretation Comments Absolute Immature Granulocyte (auto (nathan t code = Absolute Immature Granulocyte (auto) 0.03 0-0.1 [facility] Cle[place]neUS SQPMJ5458-10-07 17:49:00 [facility] [address] [place] [address] Patient Name: PAYAL EDWARDS MR #: [id number] : 1960 Age/Sex: 58/F Req #: [id number] Adm Physician: JI PENNY MD Ordered by: JI PENNY MD Report #: [id number] Loc ation: MED/SURG Room/Bed: [facility] Procedure: [id number] US/US LIVER Exam Date: 05/22/18 Exam Time: 1714 REPORT STATUS: Signed PROCEDURE: US LIVER COMPARISON: None. INDICAT IONS: ELEVATED LFT'S TECHNIQUE: Gonzalez-scale and color doppler transverse and longitudinal images of the right upper quadrant of the abdomen were obtained. FINDINGS: Liver: 12.5 cm in right mid-clavicular line. Normal ec hogenicity. No masses. Main portal vein: 1.1 cm, hepatopetal flow Gal lbladder: No stones, sludge, wall thickening, or pericholecystic fluid. Com mon Bile Duct: 0.6 cm Sonographic Joshua's sign: Negative Right kidney: 10.1 cm. Normal echogenicity. No solid masses, stones or hydronephrosis. Pancreas: The visualized portions are unremarkable. Inferior vena cava: Patent Aorta: Within normal limits Ascites: None in the right upper quadra nt of the abdomen. CONCLUSION: 1. Unremarkable right upper quadrant u ltrasound. Tom Louie M.D. Dictated by: Tom cueva M.D. on 05/22/2018 at 17:49 Electronically approved by: Tom tyler M.D. on 05/22/2018 at 17:49 Dictated By: TOM LOUIE MD 48 Transcribed B y: THANIACE on 05/22/181748 COPY TO: JI PENNY MD Ferritin 2018-05-22 17:26:00* Test Item Value Reference Range Interpretation Comments Ferritin (test code = 2276-4) 229.07 4.63-204.00 H [facility] CleburneFerritin2018-07-03 17:26:00* Test Item Value Reference Range Interpretation Comments Ferritin (test code = 2276-4) 229.07 4.63-204.00 H [facility] CleburneFerritin2018-07-03 17:26:00* Test Item Value Reference Range Interpretation Comments Ferritin (test code = 2276-4) 229.07 4.63-204.00 H [facility] [place]neIron Nvtka2984-16-65 17:05:00* Test Item Value Reference Range Interpretation Comments Iron Level (test code = 2498-4) 40 50-170 L [facility] Cle[place]neTotal Iron Binding Yqpifrlo0579-70-07 17:05:00* Test Item Value Reference Range Interpretation Comments Total Iron Binding Capacity (test code = 2500-7) 308 261-4 78 [facility] Cle[place]nePercent Iron Tllyhepmso4413-83-88 17:05:00* Test Item Value Reference Range Interpretation Comments Percent Iron Saturation (test code = 2502-3) 13 15-50 L [facility] CleburneTransferrin2018-07-03 17:05:00* Test Item Value Reference Range Interpretation Comments Transferrin (test code = 3034-6) 220 180-382 [facility]2018-07-03 17:05:00* Test Item Value Reference Range Interpretation Comments Iron Level (test code = 2498-4) 40 50-[address] [facility] Iron Binding Danzbkeh3177-39-53 17:05:00* Test Item Value Reference Range Interpretation Comments Total Iron Binding Capacity (test code = 2500-7) 308 261-4 78 [facility] Iron Nevaglqmfw0580-26-20 17:05:00* Test Item Value Reference Range Interpretation Comments Percent Iron Saturation (test code = 2502-3) 13 15-50 L [facility] CleburneTransferrin2018-07-03 17:05:00* Test Item Value Reference Range Interpretation Comments Transferrin (test code = 3034-6) 220 180-382 [facility]2018-07-03 17:05:00* Test Item Value Reference Range Interpretation Comments Iron Level (test code = 2498-4) 40 50-[address] [facility] Iron Binding Marqqyqt3567-08-43 17:05:00* Test Item Value Reference Range Interpretation Comments Total Iron Binding Capacity (test code = 2500-7) 308 261-4 78 [facility] Iron Uxfslcsftd0370-04-56 17:05:00* Test Item Value Reference Range Interpretation Comments Percent Iron Saturation (test code = 2502-3) 13 15-50 L [facility] CleburneTransferrin2018-07-03 17:05:00* Test Item Value Reference Range Interpretation Comments Transferrin (test code = 3034-6) 220 180-382 [facility] CleburneB-Type Natriuretic Gvvirwd8549-23-35 11:50:00* Test Item Value Reference Range Interpretation Comments B-Type Natriuretic Peptide (test code = 70533-4) 39.7 0-100 [facility] CleburneB-Type Natriuretic Nvlkmxt5467-27-23 11:50:00* Test Item Value Reference Range Interpretation Comments B-Type Natriuretic Peptide (test code = 38433-1) 39.7 0-100 [facility] CleburneB-Type Natriuretic Lpgwfeb0457-40-96 11:50:00* Test Item Value Reference Range Interpretation Comments B-Type Natriuretic Peptide (test code = 57159-4) 39.7 0-100 [facility] CleburneCT CERVICAL SPINE HB2121-89-16 11:28:00 [facility] [address] [address] Patient Name: PAYAL EDWARDS MR #: [id number] DO B: 1960 Age/Sex: 58/F Req #: [id number] Adm Physici an: Ordered by: KAJAL DAVIS WASHER AND CAPPER MACHINE OPERATOR Report #: [id number] Location: [facility]/Bed: Procedure: [id number] CT/CT CERVICAL SPINE WO Exam Date: 05/22/18 Exam Time: 1050 REPORT STAT US: Signed Examination: CT CERVICAL SPINE WITHOUT CONTRAST HISTORY:Seizu res; syncope. COMPARISON:None. TECHNIQUE: Multidetector helical axial image s were obtained without contrast from the foramen magnum to T1. Coronal and s agittal reformatted images were done. Bone and soft tissue windows were evalua fausto. FINDINGS: Alignment:Normal alignment with straightening of normal lordosis. Vertebrae: Normal height and density. No acute fracture, infection or neoplasm. A 7 mm hemangioma is demonstrated in the posterior and superior aspect of the C5 vertebral body. Disc space heights: Moderately narrowed at C5-C6. Caliber of spinal canal: Developmentally normal. Posterior fossa a nd craniocervical junction: Foramen magnum patent. No Chiari 1 malformation. Soft tissues: No abnormality. Degenerative changes: Diffuse disc oste ophyte complexes at C5-C6 and C6-C7 with severe left foraminal narrowing at C5 -C6. No canal stenosis at either level. The remaining cervical levels demonstr ate no disc bulge/ herniation or canal stenosis. Visualized lung apices: Biapical pleural thickening. Paraseptal and interstitial emphysematous change. IMPRESSION: 1. No acute abnormality. 2. Degenerative changes at C5- C6 and C6-C7, as above. Signed by: Dr. Demetra Casas M.D. on 05/22/2018 11:33 AM Dictated By: DEMETRA LIRA MD 1133 Transcribed By: NASIM on 1133 COPY TO: KAJAL DAVIS WASHER AND CAPPER MACHINE OPERATOR Prothrombin Time 2018-05-22 11:27:00* Test Item Value Reference Range Interpretation Comments Prothrombin Time (test code = 5902-2) 13.1 11.9-14.5 [facility] CleburneProthromb Time International Ratio 2018-05-22 11:27:00* Test Item Value Reference Range Interpretation Comments Prothromb Time International Ratio (test code = 6301-6) 1.07 Oral Anticoagulant Therapy INR Values:1. Low Intensity Therapy 1.5 - 2.02 . Moderate Intensity Therapy 2.0 - 3.03. High Intensity Therapy(1) 2.5 - 3. 54. High Intensity Therapy(2) 3.0 - 4.05. Panic Value INR > 5.0 [facility] CleburneActivated Partial Thromboplast Time 2018-05-22 11:27:00* Test Item Value Reference Range Interpretation Comments Activated Partial Thromboplast Time (test code = 43038-7) 32.0 23.8-35.5 [facility] CleburneProthrombin Rudk1291-19-50 11:27:00* Test Item Value Reference Range Interpretation Comments Prothrombin Time (test code = 5902-2) 13.1 11.9-14.5 [facility] Cle[place]neProthromb Time International Ratio 2018-05-22 11:27:00* Test Item Value Reference Range Interpretation Comments Prothromb Time International Ratio (test code = 6301-6) 1.07 Oral Anticoagulant Therapy INR Values:1. Low Intensity Therapy 1.5 - 2.02 . Moderate Intensity Therapy 2.0 - 3.03. High Intensity Therapy(1) 2.5 - 3. 54. High Intensity Therapy(2) 3.0 - 4.05. Panic Value INR > 5.0 [facility] CleburneActivated Partial Thromboplast Time 2018-05-22 11:27:00* Test Item Value Reference Range Interpretation Comments Activated Partial Thromboplast Time (test code = 44325-2) 32.0 23.8-35.5 [facility] CleburneProthrombin Hmuv8393-78-59 11:27:00* Test Item Value Reference Range Interpretation Comments Prothrombin Time (test code = 5902-2) 13.1 11.9-14.5 [facility] CleburneProthromb Time International Ratio 2018-05-22 11:27:00* Test Item Value Reference Range Interpretation Comments Prothromb Time International Ratio (test code = 6301-6) 1.07 Oral Anticoagulant Therapy INR Values:1. Low Intensity Therapy 1.5 - 2.02 . Moderate Intensity Therapy 2.0 - 3.03. High Intensity Therapy(1) 2.5 - 3. 54. High Intensity Therapy(2) 3.0 - 4.05. Panic Value INR > 5.0 [facility]neActivated Partial Thromboplast Time 2018-05-22 11:27:00* Test Item Value Reference Range Interpretation Comments Activated Partial Thromboplast Time (test code = 05117-4) 32.0 23.8-35.5 [facility] CleburneCT BRAIN TC5143-08-36 11:27:00 [address] [address] Patient Name: PAYAL EDWARDS MR #: [id number] : 1960 Age/Sex: 58/F Req #: [id number] Adm Physician: Ordered by: KAJAL DAVIS NP Report #: [id number] Location: [facility]/Bed: Procedure: [id number] CT/CT BRAIN WO Exam Date : 05/22/18 Exam Time: 1050 REPORT STATUS: Krissy d Examination: CT BRAIN WITHOUT CONTRAST History:Seizures. Syncope. Co mparison studies:None Technique: Axial images were obtained from the skul l base to the vertex. Coronal and sagittal images reconstructed from the axial data. Intravenous contrast: None Findings: Scalp: No abnormalities. Bones: No fractures, blastic or lytic lesions. Brain sulci: Appropriate for age. Ventricles: Normal in size and configuration. No hydrocephalus. Extra-axial space: No abnormalities. Parenchyma: No abnormal densities . No masses, hemorrhage, or acute or chronic cortical based vascular insults. . Sellar/suprasellar region: No abnormalities. Craniocervical junction: P atent foramen magnum. No Chiari one malformation. Incidental findings: N one. Impression: No intracranial abnormalities. Signed by: Dr. Elsa Casas M.D. on 05/22/2018 11:28 AM Dictated By: DEMETRA CASAS MD 11 28 Transcribed By: NASIM on 05/22/18 1128 COPY TO: KAJAL DAVIS WASHER AND CAPPER MACHINE OPERATOR Urine [id number] 11:01:00* Test Item Value Reference Range Interpretation Comments Urine WBC (test code = 5821-4) 6-10 0-5 H [facility] Cle[facility]neUrine FHL4123-78-25 11:01:00* Test Item Value Reference Range Interpretation Comments Urine RBC (test code = 79781-1) 0-5 0-5 [facility]neUrine Igoiagmw3483-74-62 11:01:00* Test Item Value Reference Range Interpretation Comments Urine Bacteria (test code = 41420-9) MODERATE NONE H [facility] Cle[facility]neUrine Epithelial Rkvvr1756-21-55 11:01:00 * Test Item Value Reference Range Interpretation Comments Urine Epithelial Cells (test code = 84597-2) MODERATE NONE [facility] CleburneUrine VMQ3832-53-14 11:01:00* Test Item Value Reference Range Interpretation Comments Urine WBC (test code = 5821-4) 6-10 0-5 H [facility] Cle[facility]neUrine REZ5821-07-10 11:01:00* Test Item Value Reference Range Interpretation Comments Urine RBC (test code = 90226-5) 0-5 0-5 [facility]neUrine Hlsahdbm9090-65-77 11:01:00* Test Item Value Reference Range Interpretation Comments Urine Bacteria (test code = 66757-1) MODERATE NONE H [facility]neUrine Epithelial Aewyp9875-55-54 11:01:00 * Test Item Value Reference Range Interpretation Comments Urine Epithelial Cells (test code = 07178-6) MODERATE NONE [facility] Cle[facility]neUrine FVR9756-99-14 11:01:00* Test Item Value Reference Range Interpretation Comments Urine WBC (test code = 5821-4) 6-10 0-5 H [facility]neUrine [id number] 11:01:00* Test Item Value Reference Range Interpretation Comments Urine RBC (test code = 35072-5) 0-5 0-5 [facility]neU[facility] Fjngvirh2357-92-63 11:01:00* Test Item Value Reference Range Interpretation Comments Urine Bacteria (test code = 16964-3) MODERATE NONE H [facility] Cle[facility]neUrine Epithelial Trxsk8113-94-62 11:01:00 * Test Item Value Reference Range Interpretation Comments Urine Epithelial Cells (test code = 94780-9) MODERATE NONE [facility] CleburneCHEST SINGLE (PORTABLE)2018-05-22 11:00:00 [address] [place] [address] Patient Name: PAYAL EDWARDS MR #: [id number] : 1960 Age/Sex: 58/F Req #: [id number] Adm Physician: JI PENNY MD Ordered by: KAJAL DAVIS WASHER AND CAPPER MACHINE OPERATOR Report #: [id number] Location: MED/SURG Room/Bed: 107-1 Procedure: 002 5 DX/CHEST SINGLE (PORTABLE) Exam Date: 05/22/18 Markos izquierdo Time: 1025 REPORT STATUS: Signed PROCEDURE: CHEST SINGLE (PORTABLE) COMPARISON: None. INDICATIONS: SEIZURE FINDINGS: LUNGS: No cons olidations or edema. PLEURA: No effusions or pneumothorax. HEART T MEDIASTINUM: The heart is within normal size-limits. BONES T SO FT TISSUES: No acute findings. CONCLUSION: No acute thoracic abn ormality. Dictated by: Jairo Demarco M.D. on 05/22/2018 at 11:00 Electronically approved by: Jairo Demarco M.D. on 05/22/2018 at 11:00 Dictated By: JAIRO DEMARCO MD 1100 Transcribed By: JOSE on 05/22/18 1100 COPY TO: CYNTHIA DAVIS WASHER AND CAPPER MACHINE OPERATOR HIP LEFT ONE VIEW (+/- PELVIS)2018-05-22 10:58:00 [place] [address] Patient Name: PAYAL EDWARDS MR #: [id number] : 1960 Age/Sex: 58/F Req #: [id number] Adm Physician: JI PENNY MD Ordered by: AKJAL DAVIS WASHER AND CAPPER MACHINE OPERATOR Report #: [id number] L ocation: MED/SURG Room/Bed: 107-1 Procedure: 6 DX/HIP LEFT ONE VIEW (+/- PELVIS) Exam Date: Exam Time: REPORT STATUS: Signed PROCEDURE: HIP LEFT ONE VIEW (+/- PELVI S) COMPARISON: None. INDICATIONS: SEIZURE, FALL FINDINGS: Only a single frontal view of the left hip is submitted. No displaced fr acture. Femoral head projects appropriately over the acetabulum. Joint space is maintained. Soft tissues are unremarkable. CONCLUSION: Single frontal view of the left hip shows no acute osseous abnormality. Dict ated by: Jairo Demarco M.D. on 05/22/2018 at 10:58 Electronically approved by: Jairo Demarco M.D. on 05/22/2018 at 10:58 Dictated By: JAIRO DEMARCO MD 1058 Transcrib ed By: JOSE on 05/22/18 1058 COPY TO: KAJAL DAVIS WASHER AND CAPPER MACHINE OPERATOR Urine Suogf1477-69-01 10:54:00* Test Item Value Reference Range Interpretation Comments Urine Color (test code = 5778-6) YELLOW YELLOW [facility]neU[facility] Jyezgkx3052-05-18 10:54:00* Test Item Value Reference Range Interpretation Comments Urine Clarity (test code = 30703-1) SL CLOUDY CLEAR [facility]neUrine Specific Gfuglcz5365-02-67 10:54:00 * Test Item Value Reference Range Interpretation Comments Urine Specific [place] (test code = 5811-5) 1.010 1.010-1.02 5 [facility]neU[facility] cO1204-12-92 10:54:00* Test Item Value Reference Range Interpretation Comments Urine pH (test code = 89645-0) 8 5-7 H [facility]neU[facility] Leukocyte Ohhsmqcp5892-02-12 10:54:00* Test Item Value Reference Range Interpretation Comments Urine Leukocyte Esterase (test code = 5799-2) NEGATIVE NEGATIVE [facility]neU[facility] Xuydkwx4908-95-47 10:54:00* Test Item Value Reference Range Interpretation Comments Urine Nitrite (test code = 19405-0) NEGATIVE NEGATIVE [facility]neU[facility] Eejqqvt8582-39-22 10:54:00* Test Item Value Reference Range Interpretation Comments Urine Protein (test code = 5804-0) 1+ NEGATIVE H [facility]neUrine Glucose (UA)2018-05-22 10:54:00* Test Item Value Reference Range Interpretation Comments Urine Glucose (UA) (test code = 2349-9) NEGATIVE NEGATIVE [facility]neU[facility] Eewibmt8086-74-95 10:54:00* Test Item Value Reference Range Interpretation Comments Urine Ketones (test code = 17686-4) NEGATIVE NEGATIVE [facility] Sujtxzswcgsr3906-45-82 10:54:00* Test Item Value Reference Range Interpretation Comments Urine Urobilinogen (test code = 47123-5) 1 0.2-1 [facility] Umviavfct2312-72-22 10:54:00* Test Item Value Reference Range Interpretation Comments Urine Bilirubin (test code = 1978-6) NEGATIVE NEGATIVE [facility]neU[facility] Nzfxq2604-37-01 10:54:00* Test Item Value Reference Range Interpretation Comments Urine Blood (test code = 30418-9) NEGATIVE NEGATIVE [facility]neU[facility] Qvilm4463-03-20 10:54:00* Test Item Value Reference Range Interpretation Comments Urine Color (test code = 5778-6) YELLOW YELLOW [facility]neU[facility] Ikapxrc2571-20-58 10:54:00* Test Item Value Reference Range Interpretation Comments Urine Clarity (test code = 19069-5) SL CLOUDY CLEAR [facility]neUrine Specific Whngglj3227-10-21 10:54:00 * Test Item Value Reference Range Interpretation Comments Urine Specific [place] (test code = 5811-5) 1.010 1.010-1.02 5 [facility]neU[facility] aX4876-17-40 10:54:00* Test Item Value Reference Range Interpretation Comments Urine pH (test code = 39829-7) 8 5-7 H [facility]neU[facility] Leukocyte Djeyjxqo9732-49-08 10:54:00* Test Item Value Reference Range Interpretation Comments Urine Leukocyte Esterase (test code = 5799-2) NEGATIVE NEGATIVE [facility]neU[facility] Ubovyqv8397-88-49 10:54:00* Test Item Value Reference Range Interpretation Comments Urine Nitrite (test code = 02358-4) NEGATIVE NEGATIVE [facility]neU[facility] Rnborrt9034-83-67 10:54:00* Test Item Value Reference Range Interpretation Comments Urine Protein (test code = 5804-0) 1+ NEGATIVE H [facility] Glucose (UA)2018-05-22 10:54:00* Test Item Value Reference Range Interpretation Comments Urine Glucose (UA) (test code = 2349-9) NEGATIVE NEGATIVE [facility] Igtvxdv5636-72-17 10:54:00* Test Item Value Reference Range Interpretation Comments Urine Ketones (test code = 22778-1) NEGATIVE NEGATIVE [facility] Agfakvoswsjj5937-96-85 10:54:00* Test Item Value Reference Range Interpretation Comments Urine Urobilinogen (test code = 60473-2) 1 0.2-1 [facility] Yvutljvtq2438-59-81 10:54:00* Test Item Value Reference Range Interpretation Comments Urine Bilirubin (test code = 1978-6) NEGATIVE NEGATIVE [facility] Zvhki7757-79-52 10:54:00* Test Item Value Reference Range Interpretation Comments Urine Blood (test code = 90484-4) NEGATIVE NEGATIVE [facility]ne[facility] Yvdgp7632-66-57 10:54:00* Test Item Value Reference Range Interpretation Comments Urine Color (test code = 5778-6) YELLOW YELLOW [facility]neU[facility] Fpwacol6239-90-74 10:54:00* Test Item Value Reference Range Interpretation Comments Urine Clarity (test code = 07608-0) SL CLOUDY CLEAR [facility] Specific Swxvyoe5429-48-28 10:54:00 * Test Item Value Reference Range Interpretation Comments Urine Specific [place] (test code = 5811-5) 1.010 1.010-1.02 5 [facility]ne[facility] cO5223-34-56 10:54:00* Test Item Value Reference Range Interpretation Comments Urine pH (test code = 71150-6) 8 5-7 H [facility] Leukocyte Ioztifgv1339-20-18 10:54:00* Test Item Value Reference Range Interpretation Comments Urine Leukocyte Esterase (test code = 5799-2) NEGATIVE NEGATIVE [facility] Otoflec3441-47-89 10:54:00* Test Item Value Reference Range Interpretation Comments Urine Nitrite (test code = 88244-2) NEGATIVE NEGATIVE [facility] Fwapsfd9042-79-58 10:54:00* Test Item Value Reference Range Interpretation Comments Urine Protein (test code = 5804-0) 1+ NEGATIVE H [facility] Glucose (UA)2018-05-22 10:54:00* Test Item Value Reference Range Interpretation Comments Urine Glucose (UA) (test code = 2349-9) NEGATIVE NEGATIVE [facility] Cdrtakc8170-97-51 10:54:00* Test Item Value Reference Range Interpretation Comments Urine Ketones (test code = 24947-4) NEGATIVE NEGATIVE [facility] Xnkqdoedzqzx9515-74-92 10:54:00* Test Item Value Reference Range Interpretation Comments Urine Urobilinogen (test code = 04886-6) 1 0.2-1 [facility] Jpxqpnets5927-49-56 10:54:00* Test Item Value Reference Range Interpretation Comments Urine Bilirubin (test code = 1978-6) NEGATIVE NEGATIVE [facility] Anmer9701-94-14 10:54:00* Test Item Value Reference Range Interpretation Comments Urine Blood (test code = 77189-8) NEGATIVE NEGATIVE [facility] CleburneComprehensive Metabolic Hvinb2880-91-11 16:02:00* Test Item Value Reference Range Interpretation Comments Sodium (test code = NA) 138 mmol/L 135-145 N Potassium (test code = K) 3.7 mmol/L 3.5-5.1 N Chloride (test code = CL) 101 mmol/L 98-105 N Carbon Dioxide (test code = CO2) 26 mmol/L 22-29 N Glucose (test code = GLU) 123 mg/dL 70-115 H Blood Urea Nitrogen (test code = BUN) 11 mg/dL 6-20 N Creatinine (test code = CREAT) 1.0 mg/dL 0.5-0.9 H Calcium (test code = CA) 9.2 mg/dL 8.3-10.5 N Prot Total (test code = TP) 6.7 g/dL 6.4-8.3 N Albumin (test code = ALB) 4.4 g/dL 3.5-5.2 N A/G Ratio (test code = AGRATIO) 1.9 Ratio Globulin (test code = GLOB) 2.3 2.9-3.1 L Bili Total (test code = TBIL) 0.2 mg/dL 0.1-0.9 N Alk Phos (test code = APHOS) 99 U/L 35-104 N AST (test code = AST) 15 U/L 1-32 N ALT (test code = ALT) 11 U/L 1-33 N BUN/Creatinine Ratio (test code = BCRATIO) 11.0 Anion Gap (test code = AGAP) 11 mmol/L 7-16 N Estimated GFR (test code = GFR) >60 mL/min/1.73m2 eGFR (estimated Glomerular Filtration Rate) is an estimated value,calculated from the patient's serum creatinine using the MDRD equation.It is NOT the patient's actual GFR. The eGFR provides a more clinicallyuseful measure of kidney disease than serum creatinine alone.This calculation takes sex and race into account, if the informationis provided. If the race is not provided, and the patient isAfrican-Sudanese, multiply by 1.212. If sex is not provided, and thepatient is female, multiply by 0.742. Results for patients <18 years ofage have not been validated by the MDRD study and should be interpretedwith caution.eGFR Result Interpretation:eGFR > or = 60 is in the Normal RangeeGFR < 60 may mean kidney diseaseeGFR < 15 may mean kidney failureRanges recommended by the National Kidney Found ation,http://nkdep.nih.gov Troponin [id number] 16:02:00* Test Item Value Reference Range Interpretation Comments Troponin T (test code = JAY) <0.010 ng/mL 0.000-0.090 N CBC with [id number] 15:47:00* Test Item Value Reference Range Interpretation Comments WBC (test code = WBC) 8.1 K/cumm 4.4-10.5 N RBC (test code = RBC) 4.52 M/cumm 3.75-5.20 N Hemoglobin (test code = HGB) 13.4 gm/dL 12.2-14.8 N Hematocrit (test code = HCT) 39.7 % 36.5-44.4 N MCV (test code = MCV) 87.8 fL 80-100 N MCH (test code = MCH) 29.7 pg 27.0-32.5 N MCHC (test code = MCHC) 33.8 g/dL 32.0-37.5 N RDW (test code = RDW) 13.4 % 11.5-14.5 N Platelet Count (test code = PLTCT) 292 K/cumm 140-440 N MPV (test code = MPV) 6.9 fL Diff Method (test code = DIFFM) Auto Neutrophil (test code = NEUT) 81.9 % 36-70 H Lymphocyte (test code = LYMPH) 15.2 % 12-44 N Monocyte (test code = MONO) 2.7 % 0-11 N Eosinophil (test code = EOS) 0.1 % 0-7 N Basophil (test code = BASO) 0.1 % 0-2 N Neutro Abs (test code = ANEUT) 6.6 K/cumm 1.6-7.4 N Lymph Abs (test code = ALYMPH) 1.2 K/cumm 0.5-4.6 N Mitchell Abs (test code = AMONO) 0.2 K/cumm 0.0-1.2 N Eos Abs (test code = AEOS) 0.01 K/cumm 0.00-0.74 N Baso Abs (test code = ABASO) 0.0 K/cumm 0.00-0.21 N XR CHEST 1 [id number] 15:06:11Exam: AP chestLocation: D 4History: SOBComparison: NoneFindings:The lungs are clear. The pulmonary vasculature is normal. The heart sizeis normal. The mediastinal silhouette is unremarkable. The bony thoraxis intact.Impression:No acute disease.
[2020-06-28] VITALS (9 sets, daily range): BP systolic 99–121; BP diastolic 65–88
[2020-06-28] MEDS ORDERED: MORPHINE SULFATE 2 MG/ML SYR 1ML IV PRN (00:15)
--- OUTSIDE RECORDS SUMMARY | 2020-06-28 00:33 | XMS REPORT | Continuity of Care Document ---
Author Author Robert Morse Bluffpamela Torres PAYAL [facility] [employer] Address Unknown Phone Unavailable Care Team Providers Care Web Applications Developer Name Role Phone [facility] Information [employer] Unavailable Un available Problems Problem Status Onset Date Classification Date Reported Comments Source Discharge Diagnosis: Asthma with acute e xacerbation in adult 07/07/2016 07/10/2016 [facility] ASTHMA Active 07/07/2016 [facility] Acute exacerbation of chronic obstructiv e airways disease (disorder) Resolved Pr oblem 07/10/2016 [facility] Medications Medication Details Route Status Patient Instructions Ordering Provider Order Date Source predniSONE 20 mg oral tablet 6 0 mg = 3 tab, PO, Daily, Take 3 tablets for 60 mg dose, X 5 day, # 15 tab, 0 Refill(s) Active 07/07/2016 [facility] 200 ACTUAT Albuterol 0.09 MG/ACTUAT Mete red Dose Inhaler Notes: Albuterol 90 microgram/inh 8gm HF A WASTE: Aerosol - Return to Pharmacy Same as: Cheryl Ramesh Inactive 07/07/2016 [facility] Allergies, Adverse Reactions, Alerts No Known Medication [...] identified. IMPRESSION: No acute cardiopulmonary abnormality. 07/07/2016 [facility] Consultation Notes No Data Provided for This Section Discharge Summaries No Data Provided for This Section History and Physicals No Data Provided for This Section Vital Signs Vital Sign Value Date Comments Source Heart Rate 79 07/07/2016 [facility] Respitory Rate 19 07/07/2016 [facility] Systolic (mm Hg) 116 07/07/2016 [facility] Diastolic (mm Hg) 71 07/07/2016 [facility] Weight 59.091 07/07/2016 [facility] BMI Calculated 20.4 07/07/2016 [facility] Height 170.18 cm 07/07/2016 [facility] Temperature Oral (F) 97.4 F 07/07/2016 [facility] Heart Rate 79 07/07/2016 [facility] Systolic (mm Hg) 122 07/07/2016 [facility] Diastolic (mm Hg) 72 07/07/2016 [facility] Respitory Rate 20 07/07/2016 [facility] Encounters Location Location Details Encounter Type Encounter Number Reason For Visit Attending Provider ADM Date DC Date Status Source [facility] Emergency [id number] Jaymie Cano 07/07/2016 07/07/2016 [facility] Procedures No Data Provided for This Section Assessment and Plan No Data Provided for This Section Plan of Care No Data Provided for This Section Social History Social History Date Source Social History TypeResponse Smoking Status Former smoker; Exposure to Tobacco Smoke None; Cigarette Smoking Last 365 Days No; Reg Smoking Cessation Counseling No 07/07/2016 [facility] Family History No Data Provided for This Section Advance Directives No Data Provided for This Section Functional Status No Data Provided for This Section
--- OUTSIDE RECORDS SUMMARY | 2020-06-28 00:33 | XMS REPORT | Clinical Summary ---
Author Author [facility] Organization [facility] Address Unknown Phone Unavailable Care Team Providers Care Alliance Consultant Name Role Phone PCP Unavailable Allergies [...] (>/= 19 yrs) Results Not on fileafter 06/28/2019 Insurance Type Payer Benefit Subscriber ID Effective Phone Address Plan / Dates Group [facility] SELF-PAY SELF-PAY xxxxxxxxx 2017- [phone] [id number] [place] [address]
--- OUTSIDE RECORDS SUMMARY | 2020-06-28 00:34 | XMS REPORT | Continuity of Care Document ---
Author Author [facility] t Organization [facility] Address [address] [place] [address] Phone Unavailable Care Team Providers Care Mold Filler Plastic Dolls Name Role Phone JI PENNY MD PCP Emil DE PAZ Attphys Unavailable JOSE MARIA, Low GORDON Attphys Unavailable HUSBYAsh Attphys Unavailable SOL, P DESHAUN Attphys Unavailable JI PENNY Attphys Unavailable RAY, BRIAN Attphys Unavailable Jaymie Cano Attphys JI PENNY Admphys Unavailable RAY, BRIAN Admphys Unavailable Payers Payer Name Policy Type Policy Number Effective Date Expiration Date Low bahenaaxel [employer] [id number] 2017 00:00:00 [facility] [employer] [id number] 2018 00:00:00 [facility] Problems Condition Name Condition Details Condition Category Status Onset Date Resolution Date Last Treatment Date Treating Clinician Comments Source Shortness of breath Shortness of breath Disease Active 2017-07-30 00:00 :00 [facility] Generalized anxiety disorder Generalized anxiety disorder Disease Active 2017-03-31 00:00:00 [facility] ASTH MA Active 07/07/2016 [facility] Diagnosis Active 2016-07-07 00:00:00 2016-07-14 10:24:00 [facility] Syncope Syncope Problem Active [facility] Obstructive chronic bronchitis with exacerbation COPD exacerbati on Problem Active [facility] Bipolar 1 disorder Bipolar 1 disorder Disease Active [facility] Acute exacerbation of chronic obstructive airways dise ase (disorder) Acute exacerbation of chronic obstructive airways disease (disorder) Resolved Problem 07/10/2016 [facility] Problem Resolved 2016-07-10 04:04:26 [facility] Discharge Diagnosis: Asthma with acute exacerbation in adult Discharge Diagnosis: Asthma with acute exacerbation in adult 07/07/2016 07/10/2016 [facility] Problem 2016-07-07 05:00:00 2016-06-21 1 04:04:26 2016-07-10 04:04:26 [facility] Allergies, Adverse Reactions, Alerts Allergy Name Allergy Type Status Severity Reaction(s) Onset Date Inacti ve Date Treating Clinician Comments Source tiotropium DA Active 2020-03-06 00:00:00 [facility] tiotropium DA Active 2020-03-05 00:00:00 [facility] tiotropium DA Active 2019-09-05 00:00:00 [facility] No Known Allergies DA Active U 2019-09-01 00:00:00 [facility] SPIRIVA Allergy to Substance Active Severe CAUSES CHEST PA IN 2019-09-01 00:00:00 [facility] No Known Allergies DA Active U 2011-12-17 00:00:00 [facility] Family History Family Member Diagnosis Comments Start Date Stop Date Source Natural father Arthritis [facility] Natural father Diabetes [facility] Natural father Hypertension [facility] Natural father Psychiatry [facility] [...] Date Quantity Comments Source Sex Assigned At [facility] Cigarettes smoked current (pack per day) - Reported 00:00:00 2017-07-30 00:00:00 [facility] Cigarette pack-years 2017-07-30 00:00:00 2017-07-30 00:00:00 [facility] Alcohol intake 2017-07-30 00:00:00 2017-07-30 00:00:00 Current non-drinker of alcohol (finding) [facility] History of tobacco use 2013-11-29 00:00:00 Current smoker [facility] Smoking Status Start Date Stop Date Source Social History 2016-07-07 17:31:13 2016-07-07 17:31:13 [facility] Medications Ordered Medication Name Filled Medication Name Start Date Stop Da te Current Medication? Ordering Clinician Indication Dosage Frequency Signature (SIG) Comments Components Source Cephalexin Monohydrate (Keflex) 500 Mg Capsule Cephale carlos Monohydrate (Keflex) 500 Mg Capsule 2019-09-01 00:00:00 Yes Evan Moise Md 50 0 Every 6 Hours [facility] albuterol (PROVENTIL) 2.5 mg /3 mL (0.083 %) nebulizer solut ion 2017-08-02 00:00:00 Yes Medication refill 2.5mg In quintero 1 vial (3 mL) nebulizer and inhale by mouth every 6 hours as needed for Wheezing or Shortness of Breath. [facility] benztropine (COGENTIN) 0.5 mg tablet 2017-05-16 00:00:00 Yes Bipolar 1 disorder .5mg Take 1 tablet by mouth at bedtime nightly. [facility] venlafaxine (EFFEXOR XR) 75 mg extended release capsule 2017-05-16 00:00:00 Yes Bipolar 1 disorder 150mg QD Take 2 capsules by mouth lauri hyde [facility] divalproex (DEPAKOTE) 500 mg delayed release tablet 05-16 00:00:00 Yes Bipolar 1 disorder 500mg Take 1 tablet by mouth at bedti me nightly. [facility] QUEtiapine (SEROQUEL) 200 mg tablet 2017-05-16 00:00:00 Yes Bipolar 1 disorder 600mg Take 3 tablets by mouth at bedtime nightly. [facility] hydrOXYzine (ATARAX) 50 mg tablet 2017-05-16 00:00:00 Yes Bipolar 1 disorder 75mg Take 1 and 1/2 table ts by mouth nightly at bedtime as needed for Anxiety. [facility] omeprazole (PRILOSEC) 20 mg delayed release capsule 2016--10 00:00:00 Yes Gastroesophageal reflux disease, esophagitis presence [...] needed for Shortness Of Breath [facility] Albuterol Sulfate (Proair Hfa Inhaler*) 8.5 Gm Inh Alb uterol Sulfate (Proair Hfa Inhaler*) 8.5 Gm Inh Yes 2 Lisette ry 4 Hours as needed for Shortness Of Breath [facility] Azithromycin (Z-Ryan) 250 Mg Tablet Azithromycin (Z-Ryan) 250 Mg Tablet Yes 250 Use As Directed [facility] Benztropine Mesylate 1 Mg Tablet Benztropine Mesylate 1 Mg Tablet Yes 1 Twice A Day [facility] Divalproex Sodium (Depakote Er) 500 Mg Bvsawjy13l Diva lproex Sodium (Depakote Er) 500 Mg Rusyxyl39x Yes 500 Twice A Day [facility] Fluticasone/Salmeterol (Advair 250-50 Diskus) 1 Each D isk.w.dev Fluticasone/Salmeterol (Advair 250-50 Diskus) 1 Each Disk.w.dev Yes 1 Every 12 Hours [facility] Hydroxyzine Hcl 25 Mg Tablet Hydroxyzine Hcl 25 Mg Tablet Y es 50 Three Times A Day as needed for Anxiety [facility] Prednisone 20 Mg Tab Prednisone 20 Mg Tab Yes 40 Daily [facility] Quetiapine Fumarate 100 Mg Tablet Quetiapine Fumarate 100 Mg Tablet Yes 600 Bedtime [facility] Tiotropium [place] (Spiriva) 18 Mcg Cap.w.dev Tiotropi um [place] (Spiriva) 18 Mcg Cap.w.dev Yes 18 Daily [facility] Venlafaxine Hcl 75 Mg Tab Venlafaxine Hcl 75 Mg Tab Yes 150 Daily [facility] Fluticasone/Salmeterol (Advair 250-50 Di skus) 1 Each Disk.w.dev, 250 Mg Inhalation Fluticasone/Salmeterol (Advair 250-50 Di skus) 1 Each Disk.w.dev, 250 Mg Inhalation 2018-07-28 00:00:00 No 250 Every 12 H ours [facility] Nebivolol Hcl (Bystolic) 10 Mg Tablet, 5 Mg Oral Nebiv olol Hcl (Bystolic) 10 Mg Tablet, 5 Mg Oral 2018-07-28 00:00:00 No 5 Daily [facility] Quetiapine Fumarate (Seroquel) 25 Mg Tablet, 300 Mg Or al Quetiapine Fumarate (Seroquel) 25 Mg Tablet, 300 Mg Oral 2018-07-28 00:00:00 No 300 Bedtime as needed for Sleep [facility] Immunizations Ordered Immunization Name Filled Immunization Name Date Status Comments Source PPV 23 Pneumococcal Polysaccaride 2016-10-03 00:00:00 Comp leted [facility] Tdap Tetanus, diphtheria, acellular pertussis Vaccine 2016-10-03 00:00:00 Completed [facility] Influenza Vaccine 2016-10-03 00:00:00 Completed [facility] Vital Signs Vital Name Observation Time Observation Value Comments Source Heart Rate 2016-07-07 18:50:00 Robert Whalen Respitory Rate 2016-07-07 18:50:00 Scar Simental Systolic (mm Hg) 2016-07-07 18:50:00 Jesus Alberto Whalen Diastolic (mm Hg) 2016-07-07 18:50:00 Nando Whalen Weight 2016-07-07 16:45:00 Robert Whalen BMI Calculated 2016-07-07 16:45:00 [facility] Height 2016-07-07 16:45:00 170.18 cm [facility] Temperature Oral (F) 2016-07-07 16:45:00 97.4 F [facility] Heart Rate 2016-07-07 16:45:00 [facility] Systolic (mm Hg) 2016-07-07 16:45:00 Jesus Albertosharon remy Koby Diastolic (mm Hg) 2016-07-07 16:45:00 Mem orial Koby Respitory Rate 2016-07-07 16:45:00 [facility]ori [facility] Procedures Procedure Date / Time Performed Performing Clinician [facility] e X-ray of chest, two views 2019-09-01 00:00:00 EVAN MOISE [facility] CT of abdomen and pelvis without contrast 2019-09-01 00:00:00 EVAN TORREZ [facility] X-ray of chest, two views 2019-01-04 00:00:00 ANURADHA COLLIER [facility] Plan of Care Planned Activity Planned Date Details Comments Source Future Scheduled Test 2020-08-20 00:00:00 IMM Influenza Seas onal Aug to January (>/= 19 yrs) [code = IMM Influenza Seasonal Aug to January (>/= 19 yrs)] [facility] Scheduled Test 2017-12-01 00:00:00 Screening for akila gnant neoplasm of colon (procedure) [code = 020918577] [facility] Scheduled Test 2002 00:00:00 Breast Cancer Scrn (Yearly) [code = Breast Cancer Scrn (Yearly)] [facility] Encounters Start Date/Time End Date/Time En[facility] ID Source 2019-09-01 09:32:00 2019-09-01 13:09:00 Departed Emergency Room 1 EVAN MOISE [facility] [id number] [facility] 2019-05-25 12:15:00 2019-05-25 13:41:00 Departed Emergency Room 1 RAYMONDCRISTIANNANDO [facility] [id number] [facility] 2019-01-04 11:13:00 2019-01-04 16:05:00 Departed Emergency Room 1 DESHAUN HORTON [facility] [id number] [facility] 2018-07-28 23:05:00 2018-07-29 13:59:00 Discharged Inpatient (obs) 1 EVAN MOISE [facility] [id number] [facility] 2018-05-22 14:44:00 2018-05-24 18:19:00 Discharged Inpatient 1 JI PENNY [facility] [id number] [facility] 2017-09-07 00:00:00 2017-09-07 00:00:00 Outpatient [facility] [id number] [facility] 2017-08-22 00:00:00 2017-08-22 00:00:00 Outpatient [facility] [id number] [facility] 2017-08-04 00:00:00 2017-08-04 00:00:00 Outpatient [facility] [id number] [facility] 2017-07-30 20:04:51 2017-07-30 20:04:51 Emergency [facility] [id number] [facility] 2017-07-30 18:05:06 2017-07-30 18:05:06 Emergency [facility] [id number] [facility] 2017-07-24 13:53:00 2017-07-24 13:53:00 Emergency E [facility] [id number] [facility] 2017-05-16 08:03:03 2017-05-16 08:03:03 Outpatient [facility] [id number] [facility] 2017-04-11 12:45:50 2017-04-11 12:45:50 Outpatient [facility] [id number] [facility] 2017-04-04 08:29:19 2017-04-04 08:29:19 Outpatient [facility] [id number] [facility] 2017-03-31 13:02:06 2017-03-31 13:02:06 Outpatient [facility] [id number] [facility] 2017-03-14 08:18:10 2017-03-14 08:18:10 Outpatient [facility] [id number] [facility] 2017-02-21 11:00:57 2017-02-21 11:00:57 Outpatient [facility] [id number] [facility] 2016-07-07 11:40:00 2016-07-07 13:57:00 Outpatient Jaymie Cano [facility] [id number] Results Test Description Test Time Test Comments Results Result Comments Source CHEST 2 VIEWS 2020-06-27 21:59:00 [facility] [address] [address] Patient Name: PAYAL EDWARDS MR #: [id number] : 1960 Age/Sex: 60/F Req #: [id number] Adm Physician: Ordered by: ZENIA DE PAZ MD Report #: [id number] Location: ER Room/Bed: Procedure: [id number] DX/CHEST 2 VIEWS Exam Date: 06/27/20 Exam [...] This LDL result is a direct measurement.========= [id number] 15:23:00* Test Item Value Reference Range Interpretation Comments LIPASE (test code = LIP) 106 U/L 73.0-393.0 N THYROID PROFILE [id number] 15:23:00* Test Item Value Reference Range Interpretation [...] 5.5 mIU/mL HYPER : < 0.35 mIU/mL [id number] 15:23:00* Test Item Value Reference Range Interpretation Comments TROPONIN-I (test code = TROPI) 0.048 ng/mL 0-0.045 HH RESULT VERIFIED BY REPEAT ANALYSIS [id number] 15:15:00* Test Item Value Reference Range Interpretation Comments GLYCOSYLATED HEMOGLOBIN (HA1C) (test code = GLYHGB) 5.8 % HbA1 SUGGESTED DIAGNOSIS: HbA1C (%) Diabetic >6.4Prediabetes 5.7 - 6.4Normal <5.7 ESTIMATED AVERAGE GLUCOSE (test code = EAG) 120 MG/DL [id number] 09:18:00* Test Item Value Reference Range Interpretation Comments TROPONIN-I (test code = TROPI) 0.061 ng/mL 0-0.045 HH Results called to [id number] by [email or web address] 03/06/20 0918Critical results verified and read back by Nurse? YES COMMENTS TO SHOE CLEANER: COLLECT 3 HOURS AFTER PREVIOUS [id number] 06:45:00* Test Item Value Reference Range Interpretation Comments TROPONIN-I (test code = TROPI) 0.035 ng/mL 0-0.045 N COMMENTS TO SHOE CLEANER: COLLECT 3 HOURS AFTER PREVIOUS [id number] 06:26:00* Test Item Value Reference Range Interpretation Comments GLUBED (test code = GLUBED) 139 mg/dL 74-106 H Performed by certified production broaching machine operator at [facility] [id number] 02:22:00* Test Item Value Reference Range Interpretation Comments GLUBED (test code = GLUBED) 117 mg/dL 74-106 H Performed by certified production broaching machine operator at [facility] - CTA [id number] 23:41:00 Name: PAYAL EDWARDS [facility] : 1960 Age/S: 60 / F [address] [facility] Unit #: [id number] Loc: [place] [address] Phys: Devi Nettles MD Acct: [id number] Dis Date: Status: ADM IN PHONE #: [phone] Exam Date: 03/05/20202254 FAX #: [phone] Reason: sob syncope EXAMS: CPT CODE: [id number] CTA CHEST 28198 HISTORY: Chest pain, evaluate for pulmonary embolus. [...] ELLEN CTDI: DLP: Trnscb D ate/Time: 03/05/2020 (6820) t.SDR.[email or web address] Orig Print D/T: S: 03/05/2020 (9166) PAGE 1 Signed Report ARTERIAL BLOOD [id number] 21:34:00* Test Item Value Reference Range Interpretation [...] read back by devi galarza 03/05/2020; by [email or web address] ABG O2 SATURATION (test code = SATA) [...] read back by devi galarza 03/05/2020; by [email or web address] METHEMOGLOBIN (test code = METHGB) 0.1 % 0.0-1.50 N O2 CONTENT (test code = O2CT) 15.6 % vol 18.0-22.0 L B-TYPE NATRIURETIC [id number] 21:04:00* Test Item Value Reference Range Interpretation Comments B-TYPE NATRIURETIC PEPTIDE (test code = BNP) 21.71 pgram/mL 0-100 N URINALYSIS [id number] 20:30:00* Test Item Value Reference Range Interpretation [...] Urine Source? Clean CatchDRUGS OF ABUSE SCREEN [id number] 20:30:00* Test Item Value Reference Range Interpretation [...] <300 ng/mL Urine Source? Clean CatchBASIC METABOLIC [id number] 20:24:00* Test Item Value Reference Range Interpretation [...] CA) 7.5 mg/dL 8.5-10.1 L HEPATIC FUNCTION [id number] 20:24:00* Test Item Value Reference Range Interpretation [...] code = CK) 119 IUnit/L 26-208 N [id number] 20:24:00* Test Item Value Reference Range Interpretation Comments LIPASE (test code = LIP) 88 U/L 73.0-393.0 N [id number] 20:24:00* Test Item Value Reference Range Interpretation Comments MAGNESIUM (test code = MAG) 2.0 mg/dL 1.8-2.4 N [id number] 20:24:00* Test Item Value Reference Range Interpretation Comments TROPONIN-I (test code = TROPI) <0.015 ng/mL 0-0.045 N [id number] 20:24:00* Test Item Value Reference Range Interpretation Comments ACETAMINOPHEN (test code = ACET) < 10 mcg/mL 10-30 L A RANGE OF 10-30 mcg/mL IS A THERAPEUTIC RANGE. TOXIC CONCENTRATIONS: >150 mcg/mL AT 4 HOURS AFTER INGESTION >= 50 mcg/mL AT 12 HOURS AFTER INGESTION [id number] 20:24:00* Test Item Value Reference Range Interpretation Comments SALICYLATE (test code = MONA) < 1.7 mg/dL 2.8-20.0 L [id number] 20:24:00* Test Item Value Reference Range Interpretation Comments ALCOHOL (test code = ALC) 18 mg/dL 0.0-3.0 H -- INTERPRETIVE DATA NOTE: POSITIVE SCREENING RESULTS SHOULD BE CONSIDERED PRESUMPTIVE.WHEN COLLECTED FOR MEDICAL PURPOSES ONLY. SPECIMEN WILL NOTBE COLLECTED BY CHAIN OF CUSTODY.IF A CONFIRMATION OF POSITIVE RESULTS IS DESIRED, ACONFIRMATION TEST MUST BE REQUESTED BY THE PHYSICIAN AT ANADDITIONAL CHARGE TO THE PATIENT. URINALYSIS [id number] 20:21:00* Test Item Value Reference Range Interpretation [...] Urine Source? Clean CatchDRUGS OF ABUSE SCREEN [id number] 20:21:00* Test Item Value Reference Range Interpretation [...] METHAURN) <300 ng/mL Urine Source? Clean CatchPROTHROMBIN [id number] 20:17:00* Test Item Value Reference Range Interpretation [...] (2.5-3.5) IS PATIENT ON ANTICOAGULANTS? NTHROMBOPLASTIN TIME [id number] 20:17:00* Test Item Value Reference Range Interpretation Comments THROMBOPLASTIN TIME PARTIAL (test code = PTT) 31.0 seconds 25.0-36. 5 N IS PATIENT ON ANTICOAGULANTS? NBASIC METABOLIC [id number] 20:13:00* Test Item Value Reference Range Interpretation [...] code = CA) mg/dL 8.5-10.1 HEPATIC FUNCTION [id number] 20:13:00* Test Item Value Reference Range Interpretation [...] (CK) (test code = CK) IUnit/L 26-208 [id number] 20:13:00* Test Item Value Reference Range Interpretation Comments LIPASE (test code = LIP) U/L 73.0-393.0 [id number] 20:13:00* Test Item Value Reference Range Interpretation Comments MAGNESIUM (test code = MAG) mg/dL 1.8-2.4 [id number] 20:13:00* Test Item Value Reference Range Interpretation Comments TROPONIN-I (test code = TROPI) ng/mL 0-0.045 [id number] 20:13:00* Test Item Value Reference Range Interpretation Comments ACETAMINOPHEN (test code = ACET) mcg/mL 10-30 [id number] 20:13:00* Test Item Value Reference Range Interpretation Comments SALICYLATE (test code = MONA) mg/dL 2.8-20.0 [id number] 20:13:00* Test Item Value Reference Range Interpretation Comments ALCOHOL (test code = ALC) mg/dL 0-3 CBC W/AUTO [id number] 20:04:00* Test Item Value Reference Range Interpretation [...] = MDIFF) NO - XR CHEST 1 [id number] 19:22:00 FAX: Devi Nettles MD [phone] [place]: St: [facility] FAX: Ji Schwartz MD [phone] Name: PAYAL EDWARDS [facility] : 1960 Age/S: 60/F [address] [facility] Unit #: [id number] Loc: [place] [address] Phys: Devi Nettles MD Acct: [id number] Dis Date: Status: REG ER PHONE #: [phone] Exam Date: 03/05/2020 1907 FAX #: [phone] Reason: SHORTNESS OF BREATH EXAMS: CPT CODE: [id number] XR CHEST 1 V 67114 HISTORY: Shortness of breath. COMPARISON: June 06, 2019. Location: TH. No acute infiltrates, effusion or congestion is noted. Scarring. The cardiac and mediastinal silhouette are within normal limits. IMPRESSION: No acute infiltrates, effusion or congestion. at 1922 Reported and signed by: Iain Moses M.D. CC: Devi Nettles MD; Ji Larkin i Technologist: OLIVIER PRECIADO Trnmdrd Date/Time/By: 03/05/2020 (1921) : By: [email or web address] Orig Print D/T: S: 03/05/2020 (1925) PAGE 1 Signed Report - CT HEAD/BRAIN W/O [id number] 19:15:00 Name: PAYAL EDWARDS [facility] : 1960 Age/S: 60 / F [address] [facility] Unit #: [id number] Loc: [place] [address] Phys: Devi Nettles MD Acct: [id number] Dis Date: Status: REG ER PHONE #: [phone] Exam Date: 03/05/2020 1855 FAX #: [phone] Reason: confusion EXAMS: CPT CODE: [id number] CT HEAD/BRAIN W/O CONT 22154 HISTORY: Confusion. COMPARISON: None available. CT brain [...] matter ischemic disease and atrophy . at 191 Reported and signed by: Iain Moses M.D. CC: Devi Nettles MD; Ji Penny Technologist:Shira Alfaro RT(R); TRES Haskins CTDI: DLP: Trnscb Date/Time: 03/05/2020 (1914) t.[email or web address].TH4 Orig Print D/T: S: 03/05/2020 (1917) PAGE 1 Signed Report SUSAN [id number] 16:05:00 RUN DATE: 09/10/19 [facility] PAGE 1 RUN TIME: 1605 Specimen Inqui ry RUN USER: INTERFACE PATIENT: PAYAL EDWARDS ACCT #: [id number] LOC: [place] U #: [id number] AGE/SX: 59/F ROOM: [facility] RE09/05/19REG DR: Ji Penny MD : [birth year] BED: A DIS: 09/06/19 STATUS: DIS Abhishek TLOC: SPEC #: [id number] RECD: 09/09/19 STATUS: JERICHO MCGUIRE #: [id number] ROSSY: 09/06/[address] [facility] [address]: Connor Ugarte MD ENTERED: 09/09/19 SP TYPE: BX DUODEN OTHR DR: Moncho Mejias MD ORDERED: GROSS COPIES TO: Connor Ugarte MD [address] [place] [address] Moncho Mejias MD [address] [address] PROCEDURES: GROSS (09/10/19-150) TISSUE S: 1. DUODENUM, NOS - COLD BX 2. GASTRIC CORPUS - BX COLD CLINICAL HISTORY COLLECTION DATE: 09/06/19 DYSPHAGIA, NAUSEA, VOMIT ING FINAL DIAGNOSIS Duodenum, biopsy: DUODENAL MUCOSA, NO PATH OLOGIC ALTERATION Gastric biopsy: PATCHY MILD CHRONIC INFLAMMAT ION, GASTRIC MUCOSA NO INTESTINAL METAPLASIA SEEN NEGATIVE FOR HEL ICOBACTER PYLORI NEGATIVE FOR MALIGNANCY DMW/nick D 955459, 07501 CONTINUED ON NEXT PAGE -RUN DATE: 09/10/19 [facility] PAGE 2 RUN TIME: 1605 Specimen Inquiry RUN USER: INTERFACE SPEC #: [id number] PATIENT: PAYAL EDWARDS #[id number] (Continued) MACROSCOPIC The firs t specimen is [...] stain will be prepared. GROSS PERFORMED AT [facility] [address] [place] [address] [phone] MICROSCOPIC All of the stains, including any controls performed, stain appropriately. MICROSCOPIC PERFORMED AT [facility] [address] [place] [address] [phone] PER[address] SITE Diagnosis performed at: [facility] [address] [place] [address] Signed SIGNATDIANA E ON FILE [...] ON ANTICOAGULANTS? N- CT ABD PELVIS W/O [id number] 19:34:00 Name: PAYAL EDWARDS [facility] : 1960 Age/S: 59 / F [address] [facility] Unit #: [id number] Loc: [place] [address] Phys: Татьяна Ramos Acct: [id number] Hina magallanes Date: Status: ADM IN PHONE #: [phone] Exam Date: 09/05/2019 9102 FAX #: Reason: epigastric tenderness, dysphagia, n/v, hiatal h EXAMS: CPT CODE: [id number] CT ABD PELVIS W/O CONT 09862 HISTORY: Epigastric tende rness and pain. COMPARISON: [...] PAGE 1 Signed Report (CONTINUED) Name: PAYAL EDWARDS [facility] : 1960 Age/S: 59 / F [address] [facility] Unit #: [id number] Loc: [place] [address] Phys: Татьяна Ramos Acct: [id number] Dis Date: Status: ADM IN PHONE #: [phone] Exam Date: 09/05/2019 174 FAX #: [phone] Reason: ep igastric tenderness, dysphagia, n/v, hiatal h EXAMS: CPT CODE: [id number] CT ABD PELVIS W/O CONT 95680 <Continued> Moderate distention of the large bowel [...] (1937) PAGE 2 Signed Report BASIC METABOLIC [id number] 16:31:00* Test Item Value Reference Range Interpretation [...] code = CA) 9.1 mg/dL 8.5-10.1 N [id number] 16:31:00* Test Item Value Reference Range Interpretation Comments LIPASE (test code = LIP) 96 U/L 73.0-393.0 N BASIC METABOLIC [id number] 16:27:00* Test Item Value Reference Range Interpretation [...] CALCIUM (test code = CA) mg/dL 8.5-10.1 [id number] 16:27:00* Test Item Value Reference Range Interpretation Comments LIPASE (test code = LIP) U/L 73.0-393.0 CBC W/AUTO [id number] 15:50:00* Test Item Value Reference Range Interpretation [...] NRBC#) 0.00 K/mm3 0.0-0.[address] ABDOMEN/PELVIS [id number] 12:27:[address] [address] Patient Name: PAYAL EDWARDS MR #: [id number] : 1960 Age/Sex: 59/F Req #: [id number] Adm Physician: Ordered by: EVAN MOISE MD Report #: [id number] Location: ER Room/Bed: Procedure: [id number] CT/C T ABDOMEN/PELVIS WO Exam Date: Exam [...] 12:34 PM Dictated By: ADELAIDA WATSON MD 1234 Transc ribed By: NASIM on 09/01/19 1234 COPY TO: EVAN MOISE MD Urine IAU1629-80-75 11:41:00* Test Item Value Reference Range Interpretation Comments Urine WBC (test code = 5821-4) 6-10 0-5 [facility] TLH8934-10-33 11:41:00* Test Item Value Reference Range Interpretation Comments Urine RBC (test code = 59088-0) 0-5 0-5 [facility] Slljogkj8273-62-18 11:41:00* Test Item Value Reference Range Interpretation Comments Urine Bacteria (test code = 36924-5) MODERATE NONE [facility] Epithelial Vrnoq3046-97-30 11:41:00 * Test Item Value Reference Range Interpretation Comments Urine Epithelial Cells (test code = 52018-7) NONE NONE [facility] Amorphous Dczvbuag1197-32-61 11:41:00* Test Item Value Reference Range Interpretation Comments Urine Amorphous Sediment (test code = 8246-1) MODERATE FEW [facility] Wsbas6502-06-29 11:41:00* Test Item Value Reference Range Interpretation Comments Urine Mucus (test code = 8247-9) FEW RARE [facility] Inzhm4761-00-80 11:33:00* Test Item Value Reference Range Interpretation Comments Urine Color (test code = 5778-6) YELLOW YELLOW [facility] Eiuejlc3975-78-92 11:33:00* Test Item Value Reference Range Interpretation Comments Urine Clarity (test code = 16335-7) CLOUDY CLEAR [facility] Specific Kvludch8446-16-98 11:33:00 * Test Item Value Reference Range Interpretation Comments Urine Specific [place] (test code = 5811-5) 1.015 1.010-1.02 5 [facility] sZ4863-43-58 11:33:00* Test Item Value Reference Range Interpretation Comments Urine pH (test code = 47497-4) 6.5 5-7 [facility] Leukocyte Iznmkenn8288-82-86 11:33:00* Test Item Value Reference Range Interpretation Comments Urine Leukocyte Esterase (test code = 5799-2) 1+ NEGATIVE H [facility] Huvyppk1467-05-01 11:33:00* Test Item Value Reference Range Interpretation Comments Urine Nitrite (test code = 23223-7) NEGATIVE NEGATIVE [facility] Dchdclw1209-69-91 11:33:00* Test Item Value Reference Range Interpretation Comments Urine Protein (test code = 5804-0) NEGATIVE NEGATIVE [facility] Glucose (UA)2019-09-01 11:33:00* Test Item Value Reference Range Interpretation Comments Urine Glucose (UA) (test code = 2349-9) NEGATIVE NEGATIVE [facility] Dxuulvb9261-11-50 11:33:00* Test Item Value Reference Range Interpretation Comments Urine Ketones (test code = 86479-4) NEGATIVE NEGATIVE [facility] Jgbbexrvhkzk3368-22-29 11:33:00* Test Item Value Reference Range Interpretation Comments Urine Urobilinogen (test code = 02230-2) 0.2 0.2-1 [facility] Zixmnjgfr5063-98-95 11:33:00* Test Item Value Reference Range Interpretation Comments Urine Bilirubin (test code = 1978-6) NEGATIVE NEGATIVE [facility] Xntso8082-73-18 11:33:00* Test Item Value Reference Range Interpretation Comments Urine Blood (test code = 64972-3) NEGATIVE NEGATIVE [facility]isco[facility] Kinase FJ4423-52-68 10:48:00* Test Item Value Reference Range Interpretation Comments Creatine Kinase MB (test code = 08256-7) 2.40 0-5.0 [facility]iscoTroponin I3379-54-49 10:48:00* Test Item Value Reference Range Interpretation Comments Troponin I (test code = SGH1916) 0.003 0-0.300 [facility]iscoCHEST 2 OZCWQ6945-51-67 10:36:00 [facility] [address] [place] [address] Patient Name: PAYAL EDWARDS MR #: [id number] : 1960 Age/Sex: 59/F Req #: [id number] Adm Physician: Ordered by: EVAN MOISE MD Report #: [id number] Location: ER Room/Bed: Procedure: [id number] DX/C HEST 2 VIEWS Exam Date: Exam [...] COPY TO: EVAN MOISE MD NECK SOFT DOUNCG5683-68-75 10:36:00 [place] [address] Patient Name: PAYAL EDWARDS MR #: [id number] : 1960 Age/Sex: 59/F Req #: [id number] Adm Physician: Ordered by: EVAN MOISE MD Report #: [id number] Location: ER Room/Bed: Procedure: [id number] DX/N BASILIA SOFT TISSUE Exam Date: Exam [...] 1039 COPY TO: EVAN MOISE MD Sodium Czskx9387-05-97 10:30:00* Test Item Value Reference Range Interpretation Comments Sodium Level (test code = 2951-2) 137 136-145 [facility] Lcoyk5693-93-77 10:30:00* Test Item Value Reference Range Interpretation Comments Potassium Level (test code = 2823-3) 3.8 3.5-5.1 [facility]iscoChloride Mkacl9446-38-48 10:30:00* Test Item Value Reference Range Interpretation Comments Chloride Level (test code = 2075-0) 104 98-107 [facility]iscoCarbon Dioxide Jedbi0274-84-74 10:30:00* Test Item Value Reference Range Interpretation Comments Carbon Dioxide Level (test code = 2028-9) 24 22-29 [facility]iscoAnion Mzn7701-47-63 10:30:00* Test Item Value Reference Range Interpretation Comments Anion Gap (test code = 50053-9) 12.8 8-16 [facility]iscoBlood Urea Ryqfsykn3743-69-43 10:30:00* Test Item Value Reference Range Interpretation Comments Blood Urea Nitrogen (test code = 3094-0) 17 7-26 [facility]iscoCreatinine2019-10-13 10:30:00* Test Item Value Reference Range Interpretation Comments Creatinine (test code = 2160-0) 1.09 0.57-1.11 [facility]iscoBUN/Creatinine Qzifc5213-22-42 10:30:00* Test Item Value Reference Range Interpretation Comments BUN/Creatinine Ratio (test code = 3097-3) 16 6-25 [facility]iscoEstimat Glomerular Filtration Rate 2019-09-01 10:30:00* Test Item Value Reference Range Interpretation Comments Estimat Glomerular Filtration Rate (test code = 887114474) 52 >60 L Ranges were taken from the National Kidney Disease Education Program and the [facility] Kidney Foundation literature.Reference ranges:60 or greater: Ebqavq08-18 ( for 3 consecutive months): Chronic kidney disease 15 or less: Kidney failureTexas Health FriscoGlucose Ozbea7860-17-21 10:30:00* Test Item Value Reference Range Interpretation Comments Glucose Level (test code = VUK9090) 102 74-118 [facility]iscoCalcium Fxjis0734-62-75 10:30:00* Test Item Value Reference Range Interpretation Comments Calcium Level (test code = 71742-9) 9.8 8.4-10.2 [facility]iscoTotal Decqbcmik6985-67-24 10:30:00* Test Item Value Reference Range Interpretation Comments Total Bilirubin (test code = 1975-2) 0.7 0.2-1.2 [facility]iscoAspartate Amino Transf (AST/SGOT) 2019-09-01 10:30:00* Test Item Value Reference Range Interpretation Comments Aspartate Amino Transf (AST/SGOT) (test code = Aspartate Amino Transf (AST/SGOT)) 19 5-34 [facility]iscoAlanine Aminotransferase (ALT/SGPT) 2019-09-01 10:30:00* Test Item Value Reference Range Interpretation Comments Alanine Aminotransferase (ALT/SGPT) (test code = 1742-6) 17 0-55 [facility]iscoTotal Wowelxd9670-51-13 10:30:00* Test Item Value Reference Range Interpretation Comments Total Protein (test code = 2885-2) 7.4 6.5-8.1 [facility]iscoAlbumin2019-10-13 10:30:00* Test Item Value Reference Range Interpretation Comments Albumin (test code = 1751-7) 3.9 3.5-5.0 [facility]iscoGlobulin2019-10-13 10:30:00* Test Item Value Reference Range Interpretation Comments Globulin (test code = 14688-4) 3.5 2.3-3.5 [facility]iscoAlbumin/Globulin Dyfig6781-41-84 10:30:00 * Test Item Value Reference Range Interpretation Comments Albumin/Globulin Ratio (test code = 1759-0) 1.1 0.8-2.0 [facility]iscoAlkaline Eenvvofcdux9254-87-63 10:30:00* Test Item Value Reference Range Interpretation Comments Alkaline Phosphatase (test code = 6768-6) 126 40-150 [facility]iscoCreatine Silujy1920-05-16 10:30:00* Test Item Value Reference Range Interpretation Comments Creatine Kinase (test code = 2157-6) 114 29-168 [facility]iscoWhite Blood Mdtwo4737-15-79 10:09:00* Test Item Value Reference Range Interpretation Comments White Blood Count (test code = 6690-2) 14.95 4.8-10.8 H [facility]iscoRed Blood Mqlhx2136-78-99 10:09:00* Test Item Value Reference Range Interpretation Comments Red Blood Count (test code = 789-8) 5.27 3.6-5.1 H [facility]iscoHemoglobin2019-10-13 10:09:00* Test Item Value Reference Range Interpretation Comments Hemoglobin (test code = 51838-6) 14.4 12.0-16.0 [facility]iscoHematocrit2019-10-13 10:09:00* Test Item Value Reference Range Interpretation Comments Hematocrit (test code = 4544-3) 44.2 34.2-44.1 H [facility] FriscoMean Corpuscular Pjuczb6971-48-77 10:09:00* Test Item Value Reference Range Interpretation Comments Mean Corpuscular Volume (test code = 787-2) 83.9 81-99 [facility]iscoMean Corpuscular Mwvnysjvoc4118-00-06 10:09:00* Test Item Value Reference Range Interpretation Comments Mean Corpuscular Hemoglobin (test code = 785-6) 27.3 28-32 L [facility]iscoMean Corpuscular Hemoglobin Concent 2019-09-01 10:09:00* Test Item Value Reference Range Interpretation Comments Mean Corpuscular Hemoglobin Concent (test code = 786-4) 32.6 31-35 [facility]iscoRed Cell Distribution Xrntd0351-29-86 10:09:00* Test Item Value Reference Range Interpretation Comments Red Cell Distribution Width (test code = 09598-3) 14.8 11.7 -14.4 H [facility] FriscoPlatelet Aosqh6905-18-62 10:09:00* Test Item Value Reference Range Interpretation Comments Platelet Count (test code = 777-3) 316 140-360 [facility]iscoNeutrophils (%) (Auto)2019-09-01 10:09:00 * Test Item Value Reference Range Interpretation Comments Neutrophils (%) (Auto) (test code = 31468-1) 81.9 38.7-80.0 H [facility]iscoLymphocytes (%) (Auto)2019-09-01 10:09:00 * Test Item Value Reference Range Interpretation Comments Lymphocytes (%) (Auto) (test code = 736-9) 11.4 18.0-39.1 L [facility]iscoMonocytes (%) (Auto)2019-09-01 10:09:00* Test Item Value Reference Range Interpretation Comments Monocytes (%) (Auto) (test code = 5905-5) 5.9 4.4-11.3 [facility]iscoEosinophils (%) (Auto)2019-09-01 10:09:00 * Test Item Value Reference Range Interpretation Comments Eosinophils (%) (Auto) (test code = 713-8) 0.1 0.0-6.0 [facility]iscoBasophils (%) (Auto)2019-09-01 10:09:00* Test Item Value Reference Range Interpretation Comments Basophils (%) (Auto) (test code = 706-2) 0.2 0.0-1.0 [facility]iscoIM GRANULOCYTES %2019-09-01 10:09:00* Test Item Value Reference Range Interpretation Comments IM GRANULOCYTES % (test code = IM GRANULOCYTES %) 0.5 0.0- 1.0 [facility]iscoNeutrophils # (Auto)2019-09-01 10:09:00* Test Item Value Reference Range Interpretation Comments Neutrophils # (Auto) (test code = 751-8) 12.2 2.1-6.9 H [facility]iscoLymphocytes # (Auto)2019-09-01 10:09:00* Test Item Value Reference Range Interpretation Comments Lymphocytes # (Auto) (test code = 50140-9) 1.7 1.0-3.2 [facility]iscoMonocytes # (Auto)2019-09-01 10:09:00* Test Item Value Reference Range Interpretation Comments Monocytes # (Auto) (test code = 742-7) 0.9 0.2-0.8 H [facility]iscoEosinophils # (Auto)2019-09-01 10:09:00* Test Item Value Reference Range Interpretation Comments Eosinophils # (Auto) (test code = 711-2) 0.0 0.0-0.4 [facility]iscoBasophils # (Auto)2019-09-01 10:09:00* Test Item Value Reference Range Interpretation Comments Basophils # (Auto) (test code = 704-7) 0.0 0.0-0.1 [facility]iscoAbsolute Immature Granulocyte (auto 2019-09-01 10:09:00* Test Item Value Reference Range Interpretation Comments Absolute Immature Granulocyte (auto (nathan t code = Absolute Immature Granulocyte (auto) 0.08 0-0.1 [facility] FriscoPROCALCITONIN (PCT)2019-06-06 16:59:00* Test Item Value Reference Range [...] taking into account the patients history. LACTIC VJBW6230-37-51 15:42:00* Test Item Value Reference Range Interpretation Comments LACTIC ACID (test code = LACT) 0.8 mmol/L 0.4-1.9 N B-TYPE NATRIURETIC SQPHLUL4874-29-99 14:53:00* Test Item Value Reference Range Interpretation Comments B-TYPE NATRIURETIC PEPTIDE (test code = BNP) 162.97 pgram/mL 0-100 H BASIC METABOLIC EMNCR6593-87-45 14:28:00* Test Item Value Reference Range Interpretation [...] code = CA) 9.0 mg/dL 8.5-10.1 N YYAYENOT-F7415-75-18 14:28:00* Test Item Value Reference Range Interpretation Comments TROPONIN-I (test code = TROPI) <0.015 ng/mL 0-0.045 N BASIC METABOLIC ZFBZD2727-47-39 14:23:00* Test Item Value Reference Range Interpretation [...] code = CA) 9.0 mg/dL 8.5-10.1 N YCCJSJHN-X0900-43-18 14:23:00* Test Item Value Reference Range Interpretation Comments TROPONIN-I (test code = TROPI) ng/mL 0-0.045 CBC W/O SCHF5741-15-63 14:11:00* Test Item Value Reference Range Interpretation [...] MPV) 9.3 fL 6.7-11.0 N CBC W/O WPBA8237-08-55 14:03:00* Test Item Value Reference Range Interpretation [...] MPV) fL 6.7-11.0 - XR CHEST 1 Q9214-66-69 13:27:00 FAX: Ismael Velásquez DO [place]: B St: PRE [facility] : [birth year] Age/S: 59/F [address] [facility] Unit #: [id number] Loc: [place] [address] Phys: Ismael Velásquez DO Acct: [id number] Dis Date: Status: PRE ER PHONE #: [phone] Exam Date: 06/06/2019 1320 FAX #: [phone] Reason: Shortness of Breath EXAMS: CPT CODE: [id number] XR CHEST 1 V 62146 HISTORY: Shortness of breath. COMPARISON: None available. Patchy left upper lobe infil trate. Hyperinflation and COPD. No effusion or congestion. Cardiac and the mediastinal silhouette are normal IMPRESSION: Patchy left upper lobe infiltrate. Hyperinflation. Electronic ally Signed by Demetrius Moses on 06/06/2019 at 1327 R eported and signed by: Iain Moses M.D. CC: Ismael Velásquez DO Technologist: RT CALLIE( Lucas) Trnscrd Date/Time/By: 06/06/2019 (9327) : By: [email or web address] Orig Print D/T: S: 06/06/2019 (4034) PAGE 1 Signed Report Urine UPP9434-60-74 13:18:00* Test Item Value Reference Range Interpretation Comments Urine WBC (test code = 5821-4) 0-5 0-5 [facility] YLB1746-12-81 13:18:00* Test Item Value Reference Range Interpretation Comments Urine RBC (test code = 88469-4) 0-5 0-5 [facility] Xcrjomxk5004-84-91 13:18:00* Test Item Value Reference Range Interpretation Comments Urine Bacteria (test code = 69145-9) FEW NONE [facility] Epithelial Qizch2750-06-50 13:18:00 * Test Item Value Reference Range Interpretation Comments Urine Epithelial Cells (test code = 23100-4) MODERATE NONE [facility] Resources[facility] RIGHT 2-3 VW (+/- PELVIS)2019-05-25 13:10:00 [facility] [address] [address] Patient Name: PAYAL EDWARDS MR #: [id number] : 1960 Age/Sex: 59/F Req #: [id number] Adm Physician: Ordered by: NANDO NAVARRETE MD Report #: [id number] Location: ER Room/Bed: Procedure: [id number] DX/H IP RIGHT 2-3 VW (+/- PELVIS) [...] 1 COPY TO: NANDO NAVARRETE MD Urine Rcaed5130-73-23 12:53:00* Test Item Value Reference Range Interpretation Comments Urine Color (test code = 5778-6) YELLOW YELLOW [facility] ResourcesU[facility] Bdmvqrf5176-00-04 12:53:00* Test Item Value Reference Range Interpretation Comments Urine Clarity (test code = 26771-9) CLEAR CLEAR [facility] Specific Daaezxj8713-52-38 12:53:00 * Test Item Value Reference Range Interpretation Comments Urine Specific [place] (test code = 5811-5) >=1.030 1.010-1.02 5 [facility]iscoU[facility] uF8728-31-56 12:53:00* Test Item Value Reference Range Interpretation Comments Urine pH (test code = 71646-2) 6 5-7 [facility] Leukocyte Vqxmojhd2932-68-95 12:53:00* Test Item Value Reference Range Interpretation Comments Urine Leukocyte Esterase (test code = 54397-6) TRACE NEGATIV E H [facility]iscoU[facility] Ozkxdjy2148-37-65 12:53:00* Test Item Value Reference Range Interpretation Comments Urine Nitrite (test code = 36130-7) NEGATIVE NEGATIVE [facility] Agncdio3041-46-15 12:53:00* Test Item Value Reference Range Interpretation Comments Urine Protein (test code = 12207-8) TRACE NEGATIVE H [facility] Glucose (UA)2019-05-25 12:53:00* Test Item Value Reference Range Interpretation Comments Urine Glucose (UA) (test code = 82998-0) NEGATIVE NEGATIVE [facility] Vetvaak9929-59-09 12:53:00* Test Item Value Reference Range Interpretation Comments Urine Ketones (test code = 38699-6) NEGATIVE NEGATIVE [facility] Tnagsonnvkji0573-26-52 12:53:00* Test Item Value Reference Range Interpretation Comments Urine Urobilinogen (test code = 81647-6) 0.2 0.2-1 [facility] Wrykjxout7276-15-52 12:53:00* Test Item Value Reference Range Interpretation Comments Urine Bilirubin (test code = 1977-8) NEGATIVE NEGATIVE [facility] Ghvbc9970-94-78 12:53:00* Test Item Value Reference Range Interpretation Comments Urine Blood (test code = 93111-8) NEGATIVE NEGATIVE [facility]iscoCHEST 2 BMRTB6874-74-32 14:12:00 [facility] [address] [address] Patient Name: PAYAL EDWARDS MR #: [id number] : 1960 Age/Sex: 58/F Req #: [id number] Adm Physician: Ordered by: ANURADHA COLLIER NP Report #: [id number] Location: ER Room/Bed: Procedure: [id number] DX/JODI ST 2 VIEWS Exam Date: 01/04/19 [...] obstructive pulmonary disease. Signed by : Dr. Jasmeet Hong D.O., M.M.M. on 01/04/2019 2:14 PM Dictated By: JASMEET INIGUEZ DO 1414 Transcribed By: NASIM on 01/04/191413 COPY TO: ANURADHA COLLIER NP FOREARM LEFT 2 IEYC9666-70-40 14:10:00 [place] [address] Patient Name: PAYAL EDWARDS MR #: [id number] : 1960 Age/Sex: 58/F Req #: [id number] Adm Physician: Ordered by: ANURADHA COLLIER CLEAN OUT DRILLER HELPER Report #: [id number] Location: ER Room/Bed: Procedure: [id number] DX/FOR EARM LEFT 2 VIEW Exam Date: [...] HIP RIGHT 2-3 VW (+/- PELVIS)2019-01-04 14:08:00 [place] [address] Patient Name: PAYAL EDWARDS MR #: [id number] : 1960 Age/Sex: 58/F Req #: [id number] Adm Physician: Ordered by: ANURADHA COLLIER CLEAN OUT DRILLER HELPER Report #: [id number] Location: ER Room/Bed: Procedure: DX/HIP RIGHT 2-3 [...] HONG DO 1410 COPY TO: RIGO COLLIER CLEAN OUT DRILLER HELPER ELBOW LEFT UJSFXAHT7418-35-08 13:04:00 [place] [address] Patient Name: PAYAL EDWARDS MR #: [id number] : 1960 Age/Sex: 58/F Req #: [id number] Adm Physician: Ordered by: ANURADHA COLLIER CLEAN OUT DRILLER HELPER Report #: [id number] Location: ER Room/Bed: [...] 1:09 PM Dictated By: JASMEET HONG DO [address] scribed By: NASIM on 01/04/19 1309 COPY TO: ANURADHA COLLIER NP HUMERUS LEFT 2+UHWZB4753-12-40 12:29:00 [place] [address] Patient Name: PAYAL EDWARDS MR #: [id number] : 1960 Age/Sex: 58/F Req #: [id number] Adm Physician: Ordered by: ANURADHA COLLIER NP Report #: [id number] Location: ER Room/Bed: Procedure: [id number] DX/HUM ERUS LEFT 2+VIEWS Exam Date: 01/04/19 [...] DO 30 Transcribed By: NASIM on 01/04/191230 COPY TO: ANURADHA COLLIER NP SHOULDER LEFT AJJLDWSU4864-54-79 12:29:00 [place] [address] Patient Name: PAYAL EDWADRS MR #: [id number] : 1960 Age/Sex: 58/F Req #: [id number] Adm Physician: Ordered by: ANURADHA COLLIER NP Report #: [id number] Location: ER Room/Bed: Procedure: [id number] DX/MARIEL BELLA LEFT COMPLETE Exam Date: 01/04/19 Exam Time: 1 [...] DO 30 Transcribed By: NASIM on 01/04/191230 [employer] Y TO: ANURADHA COLLIER NP Creatine Kinase GN1422-66-26 06:42:00* Test Item Value Reference Range Interpretation Comments Creatine Kinase MB (test code = 07955-6) 1.50 0-5.0 [place] 96528018-09-09 06:42:00* Test Item Value Reference Range Interpretation Comments Troponin I (test code = FVA8863) -0.001 0-0.300 [facility] Kinase RZ8662-13-99 06:42:00* Test Item Value Reference Range Interpretation Comments Creatine Kinase MB (test code = 75005-8) 1.50 0-5.0 [place] 96528018-09-09 06:42:00* Test Item Value Reference Range Interpretation Comments Troponin I (test code = QWX2512) < 0.001 0-0.300 [facility]iscoCreatine Kinase GS0444-46-83 06:42:00* Test Item Value Reference Range Interpretation Comments Creatine Kinase MB (test code = 22961-8) 1.50 0-5.0 [place] 96528018-09-09 06:42:00* Test Item Value Reference Range Interpretation Comments Troponin I (test code = USF7147) < 0.001 0-0.300 [facility]iscoCreatine Vlnhpd3580-06-60 06:33:00* Test Item Value Reference Range Interpretation Comments Creatine Kinase (test code = 2157-6) 57 29-168 [facility]iscoCreatine Kqcwwx8087-81-71 06:33:00* Test Item Value Reference Range Interpretation Comments Creatine Kinase (test code = 2157-6) 57 29-168 [facility]iscoCreatine Mlujom7585-05-20 06:33:00* Test Item Value Reference Range Interpretation Comments Creatine Kinase (test code = 2157-6) 57 29-168 [facility] Qqzei3033-55-81 06:22:00* Test Item Value Reference Range Interpretation Comments Sodium Level (test code = 2951-2) 143 136-145 [facility]iscoPotassium Vkbsu8967-93-03 06:22:00* Test Item Value Reference Range Interpretation Comments Potassium Level (test code = 2823-3) 4.2 3.5-5.1 [facility]iscoChloride Jjugw1444-28-88 06:22:00* Test Item Value Reference Range Interpretation Comments Chloride Level (test code = 2075-0) 109 98-107 H [facility]iscoCarbon Dioxide Pvkqd2011-36-45 06:22:00* Test Item Value Reference Range Interpretation Comments Carbon Dioxide Level (test code = 2028-9) 24 22-29 [facility] FriscoAnion Yck4415-97-14 06:22:00* Test Item Value Reference Range Interpretation Comments Anion Gap (test code = 32054-6) 14.2 8-16 [facility]iscoBlood Urea Tlxblmiz8542-09-50 06:22:00* Test Item Value Reference Range Interpretation Comments Blood Urea Nitrogen (test code = 3094-0) 13 7-26 [facility]iscoCreatinine2018-09-09 06:22:00* Test Item Value Reference Range Interpretation Comments Creatinine (test code = 2160-0) 0.88 0.57-1.11 [facility]iscoBUN/Creatinine Xnjen7496-88-29 06:22:00* Test Item Value Reference Range Interpretation Comments BUN/Creatinine Ratio (test code = 3097-3) 15 6-25 [facility] FriscoEstimat Glomerular Filtration Rate 2018-07-29 06:22:00* Test Item Value Reference Range Interpretation Comments Estimat Glomerular Filtration Rate (test code = 57662-2) 60- >60 Ranges were taken from the National Kidney Disease Education Program and the [facility] careal Kidney Foundation literature.Reference ranges:60 or greater: Ihexva11-12 ( for 3 consecutive months): Chronic kidney disease 15 or less: Kidney failureTexas Health FriscoGlucose Dhifv7178-13-96 06:22:00* Test Item Value Reference Range Interpretation Comments Glucose Level (test code = UYB2283) 172 74-118 H [facility]iscoCalcium Jzfyy2682-87-16 06:22:00* Test Item Value Reference Range Interpretation Comments Calcium Level (test code = 14669-4) 8.9 8.4-10.2 [facility]hamodium Douid6639-41-76 06:22:00* Test Item Value Reference Range Interpretation Comments Sodium Level (test code = 2951-2) 143 136-145 [facility]iscoPotassium Xydtf3177-73-98 06:22:00* Test Item Value Reference Range Interpretation Comments Potassium Level (test code = 2823-3) 4.2 3.5-5.1 [facility]iscoChloride Kyugb4427-92-31 06:22:00* Test Item Value Reference Range Interpretation Comments Chloride Level (test code = 2075-0) 109 98-107 H [facility] FriscoCarbon Dioxide Ddgxa7382-35-94 06:22:00* Test Item Value Reference Range Interpretation Comments Carbon Dioxide Level (test code = 2028-9) 24 -29 [facility] FriscoAnion Kno4218-91-68 06:22:00* Test Item Value Reference Range Interpretation Comments Anion Gap (test code = 91704-9) 14.2 8-16 [facility]iscoBlood Urea Sbzbuycg7068-02-67 06:22:00* Test Item Value Reference Range Interpretation Comments Blood Urea Nitrogen (test code = 3094-0) 13 7-26 [facility] FriscoCreatinine2018-09-09 06:22:00* Test Item Value Reference Range Interpretation Comments Creatinine (test code = 2160-0) 0.88 0.57-1.11 [facility]iscoBUN/Creatinine Mrpno0434-36-54 06:22:00* Test Item Value Reference Range Interpretation Comments BUN/Creatinine Ratio (test code = 3097-3) 15 6-25 [facility] FriscoEstimat Glomerular Filtration Rate 2018-07-29 06:22:00* Test Item Value Reference Range Interpretation Comments Estimat Glomerular Filtration Rate (test code = 350799798) > 60 >60 Ranges were taken from the National Kidney Disease Education Program and the [facility] careal Kidney Foundation literature.Reference ranges:60 or greater: Lvpwtj93-44 ( for 3 consecutive months): Chronic kidney disease 15 or less: Kidney failureTexas Health FriscoGlucose Dbgbw7371-26-90 06:22:00* Test Item Value Reference Range Interpretation Comments Glucose Level (test code = QLZ3882) 172 74-118 [facility]iscoCalcium Ndqem8961-02-33 06:22:00* Test Item Value Reference Range Interpretation Comments Calcium Level (test code = 84119-8) 8.9 8.4-10.2 [facility] Dacka0981-61-68 06:22:00* Test Item Value Reference Range Interpretation Comments Sodium Level (test code = 2951-2) 143 136-145 [facility]iscoPotassium Znmgn4386-82-69 06:22:00* Test Item Value Reference Range Interpretation Comments Potassium Level (test code = 2823-3) 4.2 3.5-5.1 [facility]iscoChloride Yknas6657-87-37 06:22:00* Test Item Value Reference Range Interpretation Comments Chloride Level (test code = 2075-0) 109 98-107 [facility]iscoCarbon Dioxide Pkrna3514-18-30 06:22:00* Test Item Value Reference Range Interpretation Comments Carbon Dioxide Level (test code = 2028-9) 24 22-29 [facility]iscoAnion Swi9874-74-98 06:22:00* Test Item Value Reference Range Interpretation Comments Anion Gap (test code = 76111-5) 14.2 8-16 [facility]iscoBlood Urea Idhxgovv7822-01-62 06:22:00* Test Item Value Reference Range Interpretation Comments Blood Urea Nitrogen (test code = 3094-0) 13 7-26 [facility]iscoCreatinine2018-09-09 06:22:00* Test Item Value Reference Range Interpretation Comments Creatinine (test code = 2160-0) 0.88 0.57-1.11 [facility]iscoBUN/Creatinine Nzhpl7777-07-56 06:22:00* Test Item Value Reference Range Interpretation Comments BUN/Creatinine Ratio (test code = 3097-3) 15 6-25 [facility]iscoEstimat Glomerular Filtration Rate 2018-07-29 06:22:00* Test Item Value Reference Range Interpretation Comments Estimat Glomerular Filtration Rate (test code = 323571523) > 60 >60 Ranges were taken from the National Kidney Disease Education Program and the [facility] literature.Reference ranges:60 or greater: Vokiwp55-56 ( for 3 consecutive months): Chronic kidney disease 15 or less: Kidney failureTexas Health FriscoGlucose Tzlci3160-91-79 06:22:00* Test Item Value Reference Range Interpretation Comments Glucose Level (test code = UGI9779) 172 74-118 [facility]iscoCalcium Xivhm6566-74-18 06:22:00* Test Item Value Reference Range Interpretation Comments Calcium Level (test code = 36273-6) 8.9 8.4-10.2 [facility]iscoWhite Blood Xfifb1909-89-18 06:06:00* Test Item Value Reference Range Interpretation Comments White Blood Count (test code = 6690-2) 7.69 4.8-10.8 [facility]iscoRed Blood Meubg1731-00-22 06:06:00* Test Item Value Reference Range Interpretation Comments Red Blood Count (test code = 789-8) 4.31 3.6-5.1 [facility]iscoHemoglobin2018-09-09 06:06:00* Test Item Value Reference Range Interpretation Comments Hemoglobin (test code = 71727-8) 12.4 12.0-16.0 [facility]iscoHematocrit2018-09-09 06:06:00* Test Item Value Reference Range Interpretation Comments Hematocrit (test code = 4544-3) 38.9 34.2-44.1 [facility]iscoMean Corpuscular Wgrdgr0327-52-81 06:06:00* Test Item Value Reference Range Interpretation Comments Mean Corpuscular Volume (test code = 787-2) 90.3 81-99 [facility]iscoMean Corpuscular Mzpxfnxwgd2244-90-10 06:06:00* Test Item Value Reference Range Interpretation Comments Mean Corpuscular Hemoglobin (test code = 785-6) 28.8 28-32 [facility]iscoMean Corpuscular Hemoglobin Concent 2018-07-29 06:06:00* Test Item Value Reference Range Interpretation Comments Mean Corpuscular Hemoglobin Concent (test code = 786-4) 31.9 31-35 [facility]iscoRed Cell Distribution Zcmhn0750-39-22 06:06:00* Test Item Value Reference Range Interpretation Comments Red Cell Distribution Width (test code = 26743-5) 15.0 11.7 -14.4 H [facility] FriscoPlatelet Qqpfw4920-86-47 06:06:00* Test Item Value Reference Range Interpretation Comments Platelet Count (test code = 777-3) 269 140-360 [facility]iscoNeutrophils (%) (Auto)2018-07-29 06:06:00 * Test Item Value Reference Range Interpretation Comments Neutrophils (%) (Auto) (test code = 93420-2) 89.0 38.7-80.0 H [facility]iscoLymphocytes (%) (Auto)2018-07-29 06:06:00 * Test Item Value Reference Range Interpretation Comments Lymphocytes (%) (Auto) (test code = 736-9) 9.5 18.0-39.1 L [facility]iscoMonocytes (%) (Auto)2018-07-29 06:06:00* Test Item Value Reference Range Interpretation Comments Monocytes (%) (Auto) (test code = 5905-5) 1.0 4.4-11.3 L [facility]iscoEosinophils (%) (Auto)2018-07-29 06:06:00 * Test Item Value Reference Range Interpretation Comments Eosinophils (%) (Auto) (test code = 713-8) 0.0 0.0-6.0 [facility]iscoBasophils (%) (Auto)2018-07-29 06:06:00* Test Item Value Reference Range Interpretation Comments Basophils (%) (Auto) (test code = 706-2) 0.1 0.0-1.0 [facility]iscoIM GRANULOCYTES %2018-07-29 06:06:00* Test Item Value Reference Range Interpretation Comments IM GRANULOCYTES % (test code = IM GRANULOCYTES %) 0.4 0.0- 1.0 [facility]iscoNeutrophils # (Auto)2018-07-29 06:06:00* Test Item Value Reference Range Interpretation Comments Neutrophils # (Auto) (test code = 751-8) 6.8 2.1-6.9 [facility]iscoLymphocytes # (Auto)2018-07-29 06:06:00* Test Item Value Reference Range Interpretation Comments Lymphocytes # (Auto) (test code = 07603-7) 0.7 1.0-3.2 L [facility]iscoMonocytes # (Auto)2018-07-29 06:06:00* Test Item Value Reference Range Interpretation Comments Monocytes # (Auto) (test code = 742-7) 0.1 0.2-0.8 L [facility]iscoEosinophils # (Auto)2018-07-29 06:06:00* Test Item Value Reference Range Interpretation Comments Eosinophils # (Auto) (test code = 711-2) 0.0 0.0-0.4 [facility]iscoBasophils # (Auto)2018-07-29 06:06:00* Test Item Value Reference Range Interpretation Comments Basophils # (Auto) (test code = 704-7) 0.0 0.0-0.1 [facility]iscoAbsolute Immature Granulocyte (auto 2018-07-29 06:06:00* Test Item Value Reference Range Interpretation Comments Absolute Immature Granulocyte (auto (nathan t code = Absolute Immature Granulocyte (auto) 0.03 0-0.1 [facility]iscoWhite Blood Zhpvw2431-54-23 06:06:00* Test Item Value Reference Range Interpretation Comments White Blood Count (test code = 6690-2) 7.69 4.8-10.8 [facility]iscoRed Blood Scldc4858-25-63 06:06:00* Test Item Value Reference Range Interpretation Comments Red Blood Count (test code = 789-8) 4.31 3.6-5.1 [facility]iscoHemoglobin2018-09-09 06:06:00* Test Item Value Reference Range Interpretation Comments Hemoglobin (test code = 44187-9) 12.4 12.0-16.0 [facility]iscoHematocrit2018-09-09 06:06:00* Test Item Value Reference Range Interpretation Comments Hematocrit (test code = 4544-3) 38.9 34.2-44.1 [facility]iscoMean Corpuscular Eaulrg2369-94-89 06:06:00* Test Item Value Reference Range Interpretation Comments Mean Corpuscular Volume (test code = 787-2) 90.3 81-99 [facility]iscoMean Corpuscular Tbewcnadmi7554-67-03 06:06:00* Test Item Value Reference Range Interpretation Comments Mean Corpuscular Hemoglobin (test code = 785-6) 28.8 28-32 [facility]iscoMean Corpuscular Hemoglobin Concent 2018-07-29 06:06:00* Test Item Value Reference Range Interpretation Comments Mean Corpuscular Hemoglobin Concent (test code = 786-4) 31.9 31-35 [facility]iscoRed Cell Distribution Siclr6254-77-34 06:06:00* Test Item Value Reference Range Interpretation Comments Red Cell Distribution Width (test code = 08120-1) 15.0 11.7 -14.4 H [facility] FriscoPlatelet Wjjsz6975-51-49 06:06:00* Test Item Value Reference Range Interpretation Comments Platelet Count (test code = 777-3) 269 140-360 [facility]iscoNeutrophils (%) (Auto)2018-07-29 06:06:00 * Test Item Value Reference Range Interpretation Comments Neutrophils (%) (Auto) (test code = 96151-9) 89.0 38.7-80.0 H [facility]iscoLymphocytes (%) (Auto)2018-07-29 06:06:00 * Test Item Value Reference Range Interpretation Comments Lymphocytes (%) (Auto) (test code = 736-9) 9.5 18.0-39.1 L [facility]iscoMonocytes (%) (Auto)2018-07-29 06:06:00* Test Item Value Reference Range Interpretation Comments Monocytes (%) (Auto) (test code = 5905-5) 1.0 4.4-11.3 L [facility]iscoEosinophils (%) (Auto)2018-07-29 06:06:00 * Test Item Value Reference Range Interpretation Comments Eosinophils (%) (Auto) (test code = 713-8) 0.0 0.0-6.0 [facility]iscoBasophils (%) (Auto)2018-07-29 06:06:00* Test Item Value Reference Range Interpretation Comments Basophils (%) (Auto) (test code = 706-2) 0.1 0.0-1.0 [facility]iscoIM GRANULOCYTES %2018-07-29 06:06:00* Test Item Value Reference Range Interpretation Comments IM GRANULOCYTES % (test code = IM GRANULOCYTES %) 0.4 0.0- 1.0 [facility]iscoNeutrophils # (Auto)2018-07-29 06:06:00* Test Item Value Reference Range Interpretation Comments Neutrophils # (Auto) (test code = 751-8) 6.8 2.1-6.9 [facility]iscoLymphocytes # (Auto)2018-07-29 06:06:00* Test Item Value Reference Range Interpretation Comments Lymphocytes # (Auto) (test code = 71342-8) 0.7 1.0-3.2 L [facility]iscoMonocytes # (Auto)2018-07-29 06:06:00* Test Item Value Reference Range Interpretation Comments Monocytes # (Auto) (test code = 742-7) 0.1 0.2-0.8 L [facility]iscoEosinophils # (Auto)2018-07-29 06:06:00* Test Item Value Reference Range Interpretation Comments Eosinophils # (Auto) (test code = 711-2) 0.0 0.0-0.4 [facility]iscoBasophils # (Auto)2018-07-29 06:06:00* Test Item Value Reference Range Interpretation Comments Basophils # (Auto) (test code = 704-7) 0.0 0.0-0.1 [facility]iscoAbsolute Immature Granulocyte (auto 2018-07-29 06:06:00* Test Item Value Reference Range Interpretation Comments Absolute Immature Granulocyte (auto (nathan t code = Absolute Immature Granulocyte (auto) 0.03 0-0.1 [facility]iscoWhite Blood Edric6952-01-85 06:06:00* Test Item Value Reference Range Interpretation Comments White Blood Count (test code = 6690-2) 7.69 4.8-10.8 [facility]iscoRed Blood Qsnmd5412-85-66 06:06:00* Test Item Value Reference Range Interpretation Comments Red Blood Count (test code = 789-8) 4.31 3.6-5.1 [facility]iscoHemoglobin2018-09-09 06:06:00* Test Item Value Reference Range Interpretation Comments Hemoglobin (test code = 87145-2) 12.4 12.0-16.0 [facility]iscoHematocrit2018-09-09 06:06:00* Test Item Value Reference Range Interpretation Comments Hematocrit (test code = 4544-3) 38.9 34.2-44.1 [facility]iscoMean Corpuscular Gmajfh0751-93-18 06:06:00* Test Item Value Reference Range Interpretation Comments Mean Corpuscular Volume (test code = 787-2) 90.3 81-99 [facility]iscoMean Corpuscular Ipzgsrmkug5461-02-69 06:06:00* Test Item Value Reference Range Interpretation Comments Mean Corpuscular Hemoglobin (test code = 785-6) 28.8 28-32 [facility]iscoMean Corpuscular Hemoglobin Concent 2018-07-29 06:06:00* Test Item Value Reference Range Interpretation Comments Mean Corpuscular Hemoglobin Concent (test code = 786-4) 31.9 31-35 [facility]iscoRed Cell Distribution Kgyzy7487-50-80 06:06:00* Test Item Value Reference Range Interpretation Comments Red Cell Distribution Width (test code = 06422-4) 15.0 11.7 -14.4 H [facility]iscoPlatelet Dpbof6663-16-29 06:06:00* Test Item Value Reference Range Interpretation Comments Platelet Count (test code = 777-3) 269 140-360 [facility]iscoNeutrophils (%) (Auto)2018-07-29 06:06:00 * Test Item Value Reference Range Interpretation Comments Neutrophils (%) (Auto) (test code = 69449-2) 89.0 38.7-80.0 H [facility]iscoLymphocytes (%) (Auto)2018-07-29 06:06:00 * Test Item Value Reference Range Interpretation Comments Lymphocytes (%) (Auto) (test code = 736-9) 9.5 18.0-39.1 L [facility]iscoMonocytes (%) (Auto)2018-07-29 06:06:00* Test Item Value Reference Range Interpretation Comments Monocytes (%) (Auto) (test code = 5905-5) 1.0 4.4-11.3 L [facility]iscoEosinophils (%) (Auto)2018-07-29 06:06:00 * Test Item Value Reference Range Interpretation Comments Eosinophils (%) (Auto) (test code = 713-8) 0.0 0.0-6.0 [facility]iscoBasophils (%) (Auto)2018-07-29 06:06:00* Test Item Value Reference Range Interpretation Comments Basophils (%) (Auto) (test code = 706-2) 0.1 0.0-1.0 [facility]iscoIM GRANULOCYTES %2018-07-29 06:06:00* Test Item Value Reference Range Interpretation Comments IM GRANULOCYTES % (test code = IM GRANULOCYTES %) 0.4 0.0- 1.0 [facility]iscoNeutrophils # (Auto)2018-07-29 06:06:00* Test Item Value Reference Range Interpretation Comments Neutrophils # (Auto) (test code = 751-8) 6.8 2.1-6.9 [facility]iscoLymphocytes # (Auto)2018-07-29 06:06:00* Test Item Value Reference Range Interpretation Comments Lymphocytes # (Auto) (test code = 28147-1) 0.7 1.0-3.2 L [facility]iscoMonocytes # (Auto)2018-07-29 06:06:00* Test Item Value Reference Range Interpretation Comments Monocytes # (Auto) (test code = 742-7) 0.1 0.2-0.8 L [facility]iscoEosinophils # (Auto)2018-07-29 06:06:00* Test Item Value Reference Range Interpretation Comments Eosinophils # (Auto) (test code = 711-2) 0.0 0.0-0.4 [facility]iscoBasophils # (Auto)2018-07-29 06:06:00* Test Item Value Reference Range Interpretation Comments Basophils # (Auto) (test code = 704-7) 0.0 0.0-0.1 [facility]iscoAbsolute Immature Granulocyte (auto 2018-07-29 06:06:00* Test Item Value Reference Range Interpretation Comments Absolute Immature Granulocyte (auto (nathan t code = Absolute Immature Granulocyte (auto) 0.03 0-0.1 [facility]iscoArterial Blood eZ1195-47-38 22:21:00* Test Item Value Reference Range Interpretation Comments Arterial Blood pH (test code = 2744-1) 7.40 7.31-7.41 [facility]iscoArterial Blood Partial Pressure CO2 2018-07-28 22:21:00* Test Item Value Reference Range Interpretation Comments Arterial Blood Partial Pressure CO2 (test code = 2019-8) 40 41-51 L [facility]iscoArterial Blood Partial Pressure O2 2018-07-28 22:21:00* Test Item Value Reference Range Interpretation Comments Arterial Blood Partial Pressure O2 (test code = 2019-) 69 80-105 L [facility]iscoArterial Blood PRS13548-79-12 22:21:00* Test Item Value Reference Range Interpretation Comments Arterial Blood HCO3 (test code = 1960-4) 25 23-28 [facility]iscoArterial Blood Base Noeopm9194-88-31 22:21:00* Test Item Value Reference Range Interpretation Comments Arterial Blood Base Excess (test code = 1925-7) 1.0 -2-3 [facility]iscoArterial Blood Oxygen Saturation 2018-07-28 22:21:00* Test Item Value Reference Range Interpretation Comments Arterial Blood Oxygen Saturation (test code = 2708-6) 94.0 95-98 L [facility]iscoFiO22018-09-08 22:21:00* Test Item Value Reference Range Interpretation Comments FiO2 (test code = FiO2) 0.28 PT. ON 2L [facility] aC2110-64-91 22:21:00* Test Item Value Reference Range Interpretation Comments Arterial Blood pH (test code = 2744-1) 7.40 7.31-7.41 [facility]iscoArterial Blood Partial Pressure CO2 2018-07-28 22:21:00* Test Item Value Reference Range Interpretation Comments Arterial Blood Partial Pressure CO2 (test code = 2018-8) 40 41-51 L [facility]iscoArterial Blood Partial Pressure O2 2018-07-28 22:21:00* Test Item Value Reference Range Interpretation Comments Arterial Blood Partial Pressure O2 (test code = 2018-8) 69 80-105 L [facility] Blood FMJ26719-11-56 22:21:00* Test Item Value Reference Range Interpretation Comments Arterial Blood HCO3 (test code = 1960-4) 25 23-28 [facility]iscoArterial Blood Base Nwaybq4673-21-12 22:21:00* Test Item Value Reference Range Interpretation Comments Arterial Blood Base Excess (test code = 1925-7) 1.0 -2-3 [facility]iscoArterial Blood Oxygen Saturation 2018-07-28 22:21:00* Test Item Value Reference Range Interpretation Comments Arterial Blood Oxygen Saturation (test code = 2708-6) 94.0 95-98 L [facility]iscoFiO22018-09-08 22:21:00* Test Item Value Reference Range Interpretation Comments FiO2 (test code = FiO2) 0.28 PT. ON 2L [facility] yJ4649-48-91 22:21:00* Test Item Value Reference Range Interpretation Comments Arterial Blood pH (test code = 2744-1) 7.40 7.31-7.41 [facility]iscoArterial Blood Partial Pressure CO2 2018-07-28 22:21:00* Test Item Value Reference Range Interpretation Comments Arterial Blood Partial Pressure CO2 (test code = 2019-06) 40 41-51 L [facility]iscoArterial Blood Partial Pressure O2 2018-07-28 22:21:00* Test Item Value Reference Range Interpretation Comments Arterial Blood Partial Pressure O2 (test code = 2019-06) 69 80-105 L [facility]iscoAr[facility]ial Blood DQQ97934-21-38 22:21:00* Test Item Value Reference Range Interpretation Comments Arterial Blood HCO3 (test code = 1960-4) 25 23-28 [facility]iscoAr[facility]ial Blood Base Iustgp1434-28-37 22:21:00* Test Item Value Reference Range Interpretation Comments Arterial Blood Base Excess (test code = 1925-7) 1.0 -2-3 [facility]iscoAr[facility]ial Blood Oxygen Saturation 2018-07-28 22:21:00* Test Item Value Reference Range Interpretation Comments Arterial Blood Oxygen Saturation (test code = 2708-6) 94.0 95-98 L [facility]iscoFiO22018-09-08 22:21:00* Test Item Value Reference Range Interpretation Comments FiO2 (test code = FiO2) 0.28 PT. ON 2L [facility] ResourcesCHEST SINGLE ([facility]ABLE) 2018-07-28 20:07:00 [place] [address] Patient Name: PAYAL EDWARDS MR #: [id number] : 1960 Age/Sex: 58/F Req #: [id number] Adm Physician: Ordered by: EVAN MOISE MD Report #: [id number] Location: ER Room/Bed: Procedure: [id number] DX/CHEST SINGLE (PORTABLE) Exa m Date: 07/28/18 [...] 07/28/182007 COPY TO: EVAN BAJWA MD Total Pkddwwrba6207-68-08 20:06:00* Test Item Value Reference Range Interpretation Comments Total Bilirubin (test code = 1975-2) 0.2 0.2-1.2 [facility]iscoAspartate Amino Transf (AST/SGOT) 2018-07-28 20:06:00* Test Item Value Reference Range Interpretation Comments Aspartate Amino Transf (AST/SGOT) (test code = Aspartate Amino Transf (AST/SGOT)) 13 5-34 [facility]iscoAlanine Aminotransferase (ALT/SGPT) 2018-07-28 20:06:00* Test Item Value Reference Range Interpretation Comments Alanine Aminotransferase (ALT/SGPT) (test code = 1742-6) 11 0-55 [facility]iscoTotal Pindqym4300-39-93 20:06:00* Test Item Value Reference Range Interpretation Comments Total Protein (test code = 2885-2) 6.7 6.5-8.1 [facility]iscoAlbumin2018-09-08 20:06:00* Test Item Value Reference Range Interpretation Comments Albumin (test code = 1751-7) 3.6 3.5-5.0 [facility]iscoGlobulin2018-09-08 20:06:00* Test Item Value Reference Range Interpretation Comments Globulin (test code = 40229-0) 3.1 2.3-3.5 [facility]iscoAlbumin/Globulin Pzbhu5437-52-94 20:06:00 * Test Item Value Reference Range Interpretation Comments Albumin/Globulin Ratio (test code = 1759-0) 1.2 0.8-2.0 [facility] FriscoAlkaline Upwjanfvzag5915-84-13 20:06:00* Test Item Value Reference Range Interpretation Comments Alkaline Phosphatase (test code = 6768-6) 87 40-150 [facility]iscoTotal Jmztbeagw9522-91-78 20:06:00* Test Item Value Reference Range Interpretation Comments Total Bilirubin (test code = 1975-2) 0.2 0.2-1.2 [facility] FriscoAspartate Amino Transf (AST/SGOT) 2018-07-28 20:06:00* Test Item Value Reference Range Interpretation Comments Aspartate Amino Transf (AST/SGOT) (test code = Aspartate Amino Transf (AST/SGOT)) 13 5-34 [facility] FriscoAlanine Aminotransferase (ALT/SGPT) 2018-07-28 20:06:00* Test Item Value Reference Range Interpretation Comments Alanine Aminotransferase (ALT/SGPT) (test code = 1742-6) 11 0-55 [facility]iscoTotal Xxulirc4032-26-83 20:06:00* Test Item Value Reference Range Interpretation Comments Total Protein (test code = 2885-2) 6.7 6.5-8.1 [facility]iscoAlbumin2018-09-08 20:06:00* Test Item Value Reference Range Interpretation Comments Albumin (test code = 1751-7) 3.6 3.5-5.0 [facility]iscoGlobulin2018-09-08 20:06:00* Test Item Value Reference Range Interpretation Comments Globulin (test code = 42426-0) 3.1 2.3-3.5 [facility]iscoAlbumin/Globulin Eiaoj8748-26-67 20:06:00 * Test Item Value Reference Range Interpretation Comments Albumin/Globulin Ratio (test code = 1759-0) 1.2 0.8-2.0 [facility] FriscoAlkaline Jkcalejidmf4911-67-61 20:06:00* Test Item Value Reference Range Interpretation Comments Alkaline Phosphatase (test code = 6768-6) 87 40-150 [facility]iscoTotal Nhigbtddu7603-61-66 20:06:00* Test Item Value Reference Range Interpretation Comments Total Bilirubin (test code = 1975-2) 0.2 0.2-1.2 [facility] FriscoAspartate Amino Transf (AST/SGOT) 2018-07-28 20:06:00* Test Item Value Reference Range Interpretation Comments Aspartate Amino Transf (AST/SGOT) (test code = Aspartate Amino Transf (AST/SGOT)) 13 5-34 [facility] FriscoAlanine Aminotransferase (ALT/SGPT) 2018-07-28 20:06:00* Test Item Value Reference Range Interpretation Comments Alanine Aminotransferase (ALT/SGPT) (test code = 1742-6) 11 0-55 [facility]iscoTotal Nrtfrhg7191-35-97 20:06:00* Test Item Value Reference Range Interpretation Comments Total Protein (test code = 2885-2) 6.7 6.5-8.1 [facility]iscoAlbumin2018-09-08 20:06:00* Test Item Value Reference Range Interpretation Comments Albumin (test code = 1751-7) 3.6 3.5-5.0 [facility]iscoGlobulin2018-09-08 20:06:00* Test Item Value Reference Range Interpretation Comments Globulin (test code = 03961-2) 3.1 2.3-3.5 [facility]iscoAlbumin/Globulin Lpogu2391-48-98 20:06:00 * Test Item Value Reference Range Interpretation Comments Albumin/Globulin Ratio (test code = 1759-0) 1.2 0.8-2.0 [facility] FriscoAlkaline Rtsfmedgpos9624-83-18 20:06:00* Test Item Value Reference Range Interpretation Comments Alkaline Phosphatase (test code = 6768-6) 87 40-150 [facility] FriscoAnti-Mitochondrial Uzsuvqiq0264-89-37 06:16:00* Test Item Value Reference Range Interpretation Comments Anti-Mitochondrial Antibody (test code = 25312-5) 9.9 0.0- 20.0 Negative 0.0 - 20.0 Equivocal 20.1 - 24.9 Positive > 24.9Mitochondrial (M2) Antibodies are found in 90-96% ofpatients with primary bi liary cirrhosis.Performed at: [address] [id number] Director: Hakan Schwartz MD, Phone: [phone] Health FriscoAnti-Mitochondrial Ipvlrkuu4434-89-54 06:16:00* Test Item Value Reference Range Interpretation Comments Anti-Mitochondrial Antibody (test code = 14901-9) 9.9 0.0- 20.0 Negative 0.0 - 20.0 Equivocal 20.1 - 24.9 Positive > 24.9Mitochondrial (M2) Antibodies are found in 90-96% ofpatients with primary bi liary cirrhosis.Performed at: [address] [id number] Director: Hakan Schwartz MD, Phone: [phone] Health FriscoCeruloplasmin2018-07-06 07:46:00* Test Item Value Reference Range Interpretation Comments Ceruloplasmin (test code = 2064-4) 33.7 19.0-39.0 Performed at: [address] [place] [address] [id number] 4Lab Director: GERONIMO Rincon MD, Phone: [phone] Health FriscoCeruloplasmin2018-07-06 07:46:00* Test Item Value Reference Range Interpretation Comments Ceruloplasmin (test code = 2064-4) 33.7 19.0-39.0 Performed at: [address] [place] [address] [id number] 4Lab Director: GERONIMO Rincon MD, Phone: [phone] Health FriscoMRI BRAIN PZ4888-53-80 12:40:00 [place] [address] Patient Name: PAYAL EDWARDS MR #: [id number] : 1960 Age/Sex: 58/F Req #: [id number] Adm Physician: JI PENNY MD Ordered by: LOIS DAVIS M.D. Report #: [id number] Location: MED/SURG Room[facility]Bed: [facility] Procedure: [id number] MRI/MRI BRAIN WO Exam Date: Exam Time: [...] COPY TO: LOIS DAVIS M.D. Anti-Nuclear Antibody Agqrsa9561-16-04 11:42:00* Test Item Value Reference Range Interpretation Comments Anti-Nuclear Antibody Screen (test code = 5048-4) Negative . Negative <1:80 Borderline 1:80 Positive > 1:80Performed at: [facility] [id number] 3Lab Director: Jonathan Nath MD, Phone: [phone] Health FriscoAnti-Nuclear Antibody Aehaid5387-53-88 11:42:00* Test Item Value Reference Range Interpretation Comments Anti-Nuclear Antibody Screen (test code = 5048-4) Negative . Negative <1:80 Borderline 1:80 Positive > 1:80Performed at: [facility] [id number] 3Lab Director: Jonathan Nath MD, Phone: [phone] Health FriscoAnti-Nuclear Antibody Ajyuxp2582-13-70 11:42:00* Test Item Value Reference Range Interpretation Comments Anti-Nuclear Antibody Screen (test code = 5048-4) Negative . Negative <1:80 Borderline 1:80 Positive > 1:80Performed at: [facility] [id number] 3Lab Director: Jonathan Nath MD, Phone: [phone] Scott & White Medical Center – Brenhamodium Ijufe8628-95-56 06:07:00* Test Item Value Reference Range Interpretation Comments Sodium Level (test code = 2951-2) 143 136-145 [facility]iscoPotassium Ofmhl4330-06-67 06:07:00* Test Item Value Reference Range Interpretation Comments Potassium Level (test code = 2823-3) 3.9 3.5-5.1 [facility] FriscoChloride Acwtj0649-68-89 06:07:00* Test Item Value Reference Range Interpretation Comments Chloride Level (test code = 2075-0) 112 98-107 H [facility] FriscoCarbon Dioxide Wrlnr4572-85-23 06:07:00* Test Item Value Reference Range Interpretation Comments Carbon Dioxide Level (test code = 2028-9) 24 22-29 [facility] FriscoAnion Wle8679-80-14 06:07:00* Test Item Value Reference Range Interpretation Comments Anion Gap (test code = 33975-7) 10.9 8-16 [facility] FriscoBlood Urea Lfxzxkiu5903-67-90 06:07:00* Test Item Value Reference Range Interpretation Comments Blood Urea Nitrogen (test code = 3094-0) 8 7-26 [facility] FriscoCreatinine2018-07-05 06:07:00* Test Item Value Reference Range Interpretation Comments Creatinine (test code = 2160-0) 0.68 0.57-1.11 [facility] FriscoBUN/Creatinine Lbfch5642-85-30 06:07:00* Test Item Value Reference Range Interpretation Comments BUN/Creatinine Ratio (test code = 3097-3) 12 - [facility] FriscoEstimat Glomerular Filtration Rate 2018-05-24 06:07:00* Test Item Value Reference Range Interpretation Comments Estimat Glomerular Filtration Rate (test code = 31115-3) 60- >60 Ranges were taken from the National Kidney Disease Education Program and the [facility] Kidney Foundation literature.Reference ranges:60 or greater: Nhdiqp50-17 ( for 3 consecutive months): Chronic kidney disease 15 or less: Kidney failureTexas Health FriscoGlucose Eshts4623-18-54 06:07:00* Test Item Value Reference Range Interpretation Comments Glucose Level (test code = SSQ3619) 98 74-118 [facility] FriscoCalcium Zjltf7019-64-47 06:07:00* Test Item Value Reference Range Interpretation Comments Calcium Level (test code = 65752-5) 8.3 8.4-10.2 L [facility] FriscoCreatine Kzwnws8563-38-55 06:07:00* Test Item Value Reference Range Interpretation Comments Creatine Kinase (test code = 2157-6) 467 29-168 H [facility] FriscoCreatine Kinase ZJ4940-03-26 06:07:00* Test Item Value Reference Range Interpretation Comments Creatine Kinase MB (test code = 43987-1) 1.20 0-5.0 [facility] FriscoTroponin O2393-44-09 06:07:00* Test Item Value Reference Range Interpretation Comments Troponin I (test code = HDU2460) 0.004 0-0.300 [facility] FriscoThyroid Stimulating Hormone (TSH) 2018-05-23 07:51:00* Test Item Value Reference Range Interpretation Comments Thyroid Stimulating Hormone (TSH) (test code = 60675-9) 0.941 0.350-4.940 [facility] FriscoThyroid Stimulating Hormone (TSH) 2018-05-23 07:51:00* Test Item Value Reference Range Interpretation Comments Thyroid Stimulating Hormone (TSH) (test code = 02757-0) 0.941 0.350-4.940 [facility] FriscoThyroid Stimulating Hormone (TSH) 2018-05-23 07:51:00* Test Item Value Reference Range Interpretation Comments Thyroid Stimulating Hormone (TSH) (test code = 23380-7) 0.941 0.350-4.940 [facility] FriscoTotal Hhamebvxw2294-32-26 07:14:00* Test Item Value Reference Range Interpretation Comments Total Bilirubin (test code = 1975-2) 0.4 0.2-1.2 [facility] FriscoAspartate Amino Transf (AST/SGOT) 2018-05-23 07:14:00* Test Item Value Reference Range Interpretation Comments Aspartate Amino Transf (AST/SGOT) (test code = Aspartate Amino Transf (AST/SGOT)) 34 5-34 [facility] FriscoAlanine Aminotransferase (ALT/SGPT) 2018-05-23 07:14:00* Test Item Value Reference Range Interpretation Comments Alanine Aminotransferase (ALT/SGPT) (test code = 1742-6) 20 0-55 [facility] FriscoTotal Geveeki0518-38-74 07:14:00* Test Item Value Reference Range Interpretation Comments Total Protein (test code = 2885-2) 5.4 6.5-8.1 L [facility] FriscoAlbumin2018-07-04 07:14:00* Test Item Value Reference Range Interpretation Comments Albumin (test code = 1751-7) 2.6 3.5-5.0 L [facility] FriscoGlobulin2018-07-04 07:14:00* Test Item Value Reference Range Interpretation Comments Globulin (test code = 19369-1) 2.8 2.3-3.5 [facility] FriscoAlbumin/Globulin Xjywa9387-40-27 07:14:00 * Test Item Value Reference Range Interpretation Comments Albumin/Globulin Ratio (test code = 1759-0) 0.9 0.8-2.0 [facility] FriscoAlkaline Waodipoepkg3381-80-34 07:14:00* Test Item Value Reference Range Interpretation Comments Alkaline Phosphatase (test code = 6768-6) 67 40-150 [facility] FriscoTriglycerides Mwgfl2887-72-55 07:14:00* Test Item Value Reference Range Interpretation Comments Triglycerides Level (test code = 2571-8) 101 0-149 [facility] FriscoCholesterol Tfdug7128-39-51 07:14:00* Test Item Value Reference Range Interpretation Comments Cholesterol Level (test code = 2093-3) 156 0-199 Less than 200 mg/dL Low Hojc666 - 239 mg/dL Borderline Asnu559 m g/dl and greater High Risk [facility] FriscoLDL Pjzxzsoxjhj4303-71-31 07:14:00* Test Item Value Reference Range Interpretation Comments LDL Cholesterol (test code = 2089-1) 98 60-130 [facility] FriscoHDL Lrjzfbhjlys4139-33-15 07:14:00* Test Item Value Reference Range Interpretation Comments HDL Cholesterol (test code = 2085-9) 38 40-60 L [facility] FriscoCholesterol/HDL Kidrt6066-89-08 07:14:00 * Test Item Value Reference Range Interpretation Comments Cholesterol/HDL Ratio (test code = 9830-1) 4.1 3.0-3.6 H [facility] FriscoTriglycerides Npcuo5720-66-61 07:14:00* Test Item Value Reference Range Interpretation Comments Triglycerides Level (test code = 2571-8) 101 0-149 [facility] FriscoCholesterol Vxhuh1674-84-39 07:14:00* Test Item Value Reference Range Interpretation Comments Cholesterol Level (test code = 2093-3) 156 0-199 Less than 200 mg/dL Low Gczt714 - 239 mg/dL Borderline Eexl197 m g/dl and greater High Risk [facility] FriscoLDL Juvsxusehff1499-27-07 07:14:00* Test Item Value Reference Range Interpretation Comments LDL Cholesterol (test code = 2089-1) 98 60-130 [facility] FriscoHDL Faxhelgrdjf8193-65-29 07:14:00* Test Item Value Reference Range Interpretation Comments HDL Cholesterol (test code = 2085-9) 38 40-60 L [facility] FriscoCholesterol/HDL Covkx6343-62-80 07:14:00 * Test Item Value Reference Range Interpretation Comments Cholesterol/HDL Ratio (test code = 9830-1) 4.1 3.0-3.6 H [facility] FriscoTriglycerides Ikzjd0151-55-95 07:14:00* Test Item Value Reference Range Interpretation Comments Triglycerides Level (test code = 2571-8) 101 0-149 [facility] FriscoCholesterol Jdvkk5476-87-98 07:14:00* Test Item Value Reference Range Interpretation Comments Cholesterol Level (test code = 2093-3) 156 0-199 Less than 200 mg/dL Low Njzc160 - 239 mg/dL Borderline Lqle620 m g/dl and greater High Risk [facility] FriscoLDL Ikpeybztwhi1942-89-89 07:14:00* Test Item Value Reference Range Interpretation Comments LDL Cholesterol (test code = 2089-1) 98 60-130 [facility] Zhymbzznyqb9388-85-51 07:14:00* Test Item Value Reference Range Interpretation Comments HDL Cholesterol (test code = 2085-9) 38 40-60 L [facility] FriscoCholesterol/HDL Bcmoe6745-83-61 07:14:00 * Test Item Value Reference Range Interpretation Comments Cholesterol/HDL Ratio (test code = 9830-1) 4.1 3.0-3.6 H [facility] FriscoWhite Blood Yplsv0246-65-87 06:58:00* Test Item Value Reference Range Interpretation Comments White Blood Count (test code = 6690-2) 7.78 4.8-10.8 [facility] FriscoRed Blood Pqpyz7557-23-17 06:58:00* Test Item Value Reference Range Interpretation Comments Red Blood Count (test code = 789-8) 4.00 3.6-5.1 [facility] FriscoHemoglobin2018-07-04 06:58:00* Test Item Value Reference Range Interpretation Comments Hemoglobin (test code = 01418-6) 11.7 12.0-16.0 L [facility] FriscoHematocrit2018-07-04 06:58:00* Test Item Value Reference Range Interpretation Comments Hematocrit (test code = 4544-3) 35.7 34.2-44.1 [facility] FriscoMean Corpuscular Lwhalu4950-19-87 06:58:00* Test Item Value Reference Range Interpretation Comments Mean Corpuscular Volume (test code = 787-2) 89.3 81-99 [facility] FriscoMean Corpuscular Iafohnwjim2819-32-24 06:58:00* Test Item Value Reference Range Interpretation Comments Mean Corpuscular Hemoglobin (test code = 785-6) 29.3 28-32 [facility] FriscoMean Corpuscular Hemoglobin Concent 2018-05-23 06:58:00* Test Item Value Reference Range Interpretation Comments Mean Corpuscular Hemoglobin Concent (test code = 786-4) 32.8 31-35 [facility] FriscoRed Cell Distribution Klswp9311-55-85 06:58:00* Test Item Value Reference Range Interpretation Comments Red Cell Distribution Width (test code = 94339-1) 13.9 11.7 -14.4 [facility] FriscoPlatelet Aqkze0917-65-15 06:58:00* Test Item Value Reference Range Interpretation Comments Platelet Count (test code = 777-3) 234 140-360 [facility] FriscoNeutrophils (%) (Auto)2018-05-23 06:58:00 * Test Item Value Reference Range Interpretation Comments Neutrophils (%) (Auto) (test code = 04624-5) 65.2 38.7-80.0 [facility] FriscoLymphocytes (%) (Auto)2018-05-23 06:58:00 * Test Item Value Reference Range Interpretation Comments Lymphocytes (%) (Auto) (test code = 736-9) 23.1 18.0-39.1 [facility]iscoMonocytes (%) (Auto)2018-05-23 06:58:00* Test Item Value Reference Range Interpretation Comments Monocytes (%) (Auto) (test code = 5905-5) 10.2 4.4-11.3 [facility]iscoEosinophils (%) (Auto)2018-05-23 06:58:00 * Test Item Value Reference Range Interpretation Comments Eosinophils (%) (Auto) (test code = 713-8) 0.8 0.0-6.0 [facility]iscoBasophils (%) (Auto)2018-05-23 06:58:00* Test Item Value Reference Range Interpretation Comments Basophils (%) (Auto) (test code = 706-2) 0.3 0.0-1.0 [facility] FriscoIM GRANULOCYTES %2018-05-23 06:58:00* Test Item Value Reference Range Interpretation Comments IM GRANULOCYTES % (test code = IM GRANULOCYTES %) 0.4 0.0- 1.0 [facility] FriscoNeutrophils # (Auto)2018-05-23 06:58:00* Test Item Value Reference Range Interpretation Comments Neutrophils # (Auto) (test code = 751-8) 5.1 2.1-6.9 [facility]iscoLymphocytes # (Auto)2018-05-23 06:58:00* Test Item Value Reference Range Interpretation Comments Lymphocytes # (Auto) (test code = 30433-6) 1.8 1.0-3.2 [facility]iscoMonocytes # (Auto)2018-05-23 06:58:00* Test Item Value Reference Range Interpretation Comments Monocytes # (Auto) (test code = 742-7) 0.8 0.2-0.8 [facility]iscoEosinophils # (Auto)2018-05-23 06:58:00* Test Item Value Reference Range Interpretation Comments Eosinophils # (Auto) (test code = 711-2) 0.1 0.0-0.4 [facility]iscoBasophils # (Auto)2018-05-23 06:58:00* Test Item Value Reference Range Interpretation Comments Basophils # (Auto) (test code = 704-7) 0.0 0.0-0.1 [facility] FriscoAbsolute Immature Granulocyte (auto 2018-05-23 06:58:00* Test Item Value Reference Range Interpretation Comments Absolute Immature Granulocyte (auto (nathan t code = Absolute Immature Granulocyte (auto) 0.03 0-0.1 [facility] FriscoUS ORXGR6784-89-05 17:49:00 [facility] [address] [place] [address] Patient Name: PAYAL EDWARDS MR #: [id number] : 1960 Age/Sex: 58/F Req #: [id number] Adm Physician: JI PENNY MD Ordered by: JI PENNY MD Report #: [id number] Loc ation: MED/SURG Room[facility]Bed: [facility] Procedure: [id number] US/US LIVER Exam Date: 05/22/18 Exam Time: [...] TOM LOUIE MD 50 Transcribed B y: JOSE on 05/22/181748 COPY TO: JI PENNY MD Ferritin 2018-05-22 17:26:00* Test Item Value Reference Range Interpretation Comments Ferritin (test code = 2276-4) 229.07 4.63-204.00 H [facility]iscoFerritin2018-07-03 17:26:00* Test Item Value Reference Range Interpretation Comments Ferritin (test code = 2276-4) 229.07 4.63-204.00 H [facility] FriscoFerritin2018-07-03 17:26:00* Test Item Value Reference Range Interpretation Comments Ferritin (test code = 2276-4) 229.07 4.63-204.00 H [facility] FriscoIron Yyneq1284-65-19 17:05:00* Test Item Value Reference Range Interpretation Comments Iron Level (test code = 2498-4) 40 50-170 L [facility] FriscoTotal Iron Binding Ytffbwfs1134-42-11 17:05:00* Test Item Value Reference Range Interpretation Comments Total Iron Binding Capacity (test code = 2500-7) 308 261-4 78 [facility] FriscoPercent Iron Yfjcaljdze1592-32-89 17:05:00* Test Item Value Reference Range Interpretation Comments Percent Iron Saturation (test code = 2502-3) 13 15-50 L [facility] FriscoTransferrin2018-07-03 17:05:00* Test Item Value Reference Range Interpretation Comments Transferrin (test code = 3034-6) 220 180-382 [facility]2018-07-03 17:05:00* Test Item Value Reference Range Interpretation Comments Iron Level (test code = 2498-4) 40 50-170 L [facility]iscoTohe[facility] Iron Binding Lpdmxcig6937-50-86 17:05:00* Test Item Value Reference Range Interpretation Comments Total Iron Binding Capacity (test code = 2500-7) 308 261-4 78 [facility]iscoPercleveland clinic [facility] Iron Ukrpduiilm3343-50-43 17:05:00* Test Item Value Reference Range Interpretation Comments Percent Iron Saturation (test code = 2502-3) 13 15-50 L [facility] FriscoTransferrin2018-07-03 17:05:00* Test Item Value Reference Range Interpretation Comments Transferrin (test code = 3034-6) 220 180-382 [facility]2018-07-03 17:05:00* Test Item Value Reference Range Interpretation Comments Iron Level (test code = 2498-4) 40 50-170 L [facility]iscoToheber [facility] center Iron Binding Htgbmdvj1023-83-05 17:05:00* Test Item Value Reference Range Interpretation Comments Total Iron Binding Capacity (test code = 2500-7) 308 261-4 78 [facility] Iron Uqfwadyknc3077-44-00 17:05:00* Test Item Value Reference Range Interpretation Comments Percent Iron Saturation (test code = 2502-3) 13 15-50 L [facility] FriscoTransferrin2018-07-03 17:05:00* Test Item Value Reference Range Interpretation Comments Transferrin (test code = 3034-6) 220 180-382 [facility] FriscoB-Type Natriuretic Lrshuys7809-83-93 11:50:00* Test Item Value Reference Range Interpretation Comments B-Type Natriuretic Peptide (test code = 14552-3) 39.7 0-100 [facility] FriscoB-Type Natriuretic Czzxyjp2154-95-34 11:50:00* Test Item Value Reference Range Interpretation Comments B-Type Natriuretic Peptide (test code = 43507-6) 39.7 0-100 [facility] FriscoB-Type Natriuretic Tyhsgih5780-55-53 11:50:00* Test Item Value Reference Range Interpretation Comments B-Type Natriuretic Peptide (test code = 01632-9) 39.7 0-100 [facility] FriscoCT CERVICAL SPINE FK2721-89-52 11:28:00 [facility] [address] [address] Patient Name: PAYAL EDWARDS MR #: [id number] DO B: 1960 Age/Sex: 58/F Req #: [id number] Adm Physici an: Ordered by: KAJAL DAVIS CLEAN OUT DRILLER HELPER Report #: [id number] Location: [facility]/Bed: Procedure: [id number] CT/CT CERVICAL SPINE WO Exam Date: 05/22/18 [...] NASIM on 1133 COPY TO: KAJAL DAVIS CLEAN OUT DRILLER HELPER Prothrombin Time 2018-05-22 11:27:00* Test Item Value Reference Range Interpretation Comments Prothrombin Time (test code = 5902-2) 13.1 11.9-14.5 [facility]iscoProthromb Time International Ratio 2018-05-22 11:27:00* Test Item Value Reference Range Interpretation Comments Prothromb Time International Ratio (test code = 6301-6) 1.07 Oral Anticoagulant Therapy INR Values:1. Low Intensity Therapy 1.5 - 2.02 . Moderate Intensity Therapy 2.0 - 3.03. High Intensity Therapy(1) 2.5 - 3. 54. High Intensity Therapy(2) 3.0 - 4.05. Panic Value INR > 5.0 [facility]iscoActivated Partial Thromboplast Time 2018-05-22 11:27:00* Test Item Value Reference Range Interpretation Comments Activated Partial Thromboplast Time (test code = 77947-9) 32.0 23.8-35.5 [facility] FriscoProthrombin Nmgb7816-88-37 11:27:00* Test Item Value Reference Range Interpretation Comments Prothrombin Time (test code = 5902-2) 13.1 11.9-14.5 [facility] FriscoProthromb Time International Ratio 2018-05-22 11:27:00* Test Item Value Reference Range Interpretation Comments Prothromb Time International Ratio (test code = 6301-6) 1.07 Oral Anticoagulant Therapy INR Values:1. Low Intensity Therapy 1.5 - 2.02 . Moderate Intensity Therapy 2.0 - 3.03. High Intensity Therapy(1) 2.5 - 3. 54. High Intensity Therapy(2) 3.0 - 4.05. Panic Value INR > 5.0 [facility]iscoActivated Partial Thromboplast Time 2018-05-22 11:27:00* Test Item Value Reference Range Interpretation Comments Activated Partial Thromboplast Time (test code = 67546-3) 32.0 23.8-35.5 [facility]iscoProthrombin Ahvj4674-57-13 11:27:00* Test Item Value Reference Range Interpretation Comments Prothrombin Time (test code = 5902-2) 13.1 11.9-14.5 [facility] FriscoProthromb Time International Ratio 2018-05-22 11:27:00* Test Item Value Reference Range Interpretation Comments Prothromb Time International Ratio (test code = 6301-6) 1.07 Oral Anticoagulant Therapy INR Values:1. Low Intensity Therapy 1.5 - 2.02 . Moderate Intensity Therapy 2.0 - 3.03. High Intensity Therapy(1) 2.5 - 3. 54. High Intensity Therapy(2) 3.0 - 4.05. Panic Value INR > 5.0 [facility]iscoActivated Partial Thromboplast Time 2018-05-22 11:27:00* Test Item Value Reference Range Interpretation Comments Activated Partial Thromboplast Time (test code = 21171-8) 32.0 23.8-35.5 [facility] FriscoCT BRAIN AT0471-90-42 11:27:00 [facility] [address] [place] [address] Patient Name: PAYAL EDWARDS MR #: [id number] : 1960 Age/Sex: 58/F Req #: [id number] Adm Physician: Ordered by: KAJAL DAVIS CLEAN OUT DRILLER HELPER Report #: [id number] Location: [facility]/Bed: Procedure: [id number] CT/CT BRAIN WO Exam Date : 05/22/18 [...] on 05/22/18 1128 COPY TO: KAJAL DAVIS CLEAN OUT DRILLER HELPER Urine RGF3691-28-35 11:01:00* Test Item Value Reference Range Interpretation Comments Urine WBC (test code = 5821-4) 6-10 0-5 H [facility]iscoUrine USK9581-94-30 11:01:00* Test Item Value Reference Range Interpretation Comments Urine RBC (test code = 01311-3) 0-5 0-5 [facility]iscoUrine Wyyrdmox6687-74-84 11:01:00* Test Item Value Reference Range Interpretation Comments Urine Bacteria (test code = 84512-6) MODERATE NONE H [facility]iscoUrine Epithelial Aejir2278-60-94 11:01:00 * Test Item Value Reference Range Interpretation Comments Urine Epithelial Cells (test code = 68405-9) MODERATE NONE [facility]iscoUrine TPR5364-77-99 11:01:00* Test Item Value Reference Range Interpretation Comments Urine WBC (test code = 5821-4) 6-10 0-5 H [facility] FriscoUrine IDS8086-29-86 11:01:00* Test Item Value Reference Range Interpretation Comments Urine RBC (test code = 10434-7) 0-5 0-5 [facility]iscoU[facility] Bkkpdejd7004-56-55 11:01:00* Test Item Value Reference Range Interpretation Comments Urine Bacteria (test code = 95230-7) MODERATE NONE H [facility]iscoUrine Epithelial Xnchm1462-43-37 11:01:00 * Test Item Value Reference Range Interpretation Comments Urine Epithelial Cells (test code = 88877-2) MODERATE NONE [facility]iscoUrine OFE5752-93-08 11:01:00* Test Item Value Reference Range Interpretation Comments Urine WBC (test code = 5821-4) 6-10 0-5 H [facility]iscoUrine THL9763-68-78 11:01:00* Test Item Value Reference Range Interpretation Comments Urine RBC (test code = 70360-7) 0-5 0-5 [facility]iscoUrine Loeycirf9970-42-32 11:01:00* Test Item Value Reference Range Interpretation Comments Urine Bacteria (test code = 48899-1) MODERATE NONE H [facility]iscoUrine Epithelial Ugjqv0078-10-05 11:01:00 * Test Item Value Reference Range Interpretation Comments Urine Epithelial Cells (test code = 70062-3) MODERATE NONE [facility]iscoCHEST SINGLE (PORTABLE)2018-05-22 11:00:[address] [address] Patient Name: PAYAL EDWARDS MR #: [id number] : 1960 Age/Sex: 58/F Req #: [id number] Adm Physician: JI PENNY MD Ordered by: KAJAL DAVIS CLEAN OUT DRILLER HELPER Report #: [id number] Location: MED/SURG Room/Bed: 107-1 Procedure: [id number] 5 DX/CHEST SINGLE (PORTABLE) Exam Date: 05/22/18 [...] on 05/22/18 1100 COPY TO: CYNTHIA DAVIS CLEAN OUT DRILLER HELPER HIP LEFT ONE VIEW (+/- PELVIS)2018-05-22 10:58:00 [address] [address] Patient Name: PAYAL EDWARDS MR #: [id number] : 1960 Age/Sex: 58/F Req #: [id number] Adm Physician: JI PENNY MD Ordered by: KAJAL DAVIS CLEAN OUT DRILLER HELPER Report #: [id number] L ocation: MED/SURG Room/Bed: 107-1 Procedure: [id number] 6 DX/HIP LEFT ONE VIEW (+/- PELVIS) [...] on 05/22/18 1058 COPY TO: KAJAL DAVIS CLEAN OUT DRILLER HELPER Urine Woyih6792-42-20 10:54:00* Test Item Value Reference Range Interpretation Comments Urine Color (test code = 5778-6) YELLOW YELLOW [facility]iscoU[facility] Xbuscyr0808-66-00 10:54:00* Test Item Value Reference Range Interpretation Comments Urine Clarity (test code = 03100-6) SL CLOUDY CLEAR [facility]iscoUrine Specific Llxpdhw4373-00-75 10:54:00 * Test Item Value Reference Range Interpretation Comments Urine Specific [place] (test code = 5811-5) 1.010 1.010-1.02 5 [facility]iscoUrine iJ3665-43-01 10:54:00* Test Item Value Reference Range Interpretation Comments Urine pH (test code = 04965-0) 8 5-7 H [facility]iscoU[facility] Leukocyte Zkwrhqoj0326-89-95 10:54:00* Test Item Value Reference Range Interpretation Comments Urine Leukocyte Esterase (test code = 5799-2) NEGATIVE NEGATIVE [facility]iscoU[facility] Pyhlvyk6669-24-40 10:54:00* Test Item Value Reference Range Interpretation Comments Urine Nitrite (test code = 77812-0) NEGATIVE NEGATIVE [facility]iscoU[facility] Wejejas5659-08-37 10:54:00* Test Item Value Reference Range Interpretation Comments Urine Protein (test code = 5804-0) 1+ NEGATIVE H [facility] Glucose (UA)2018-05-22 10:54:00* Test Item Value Reference Range Interpretation Comments Urine Glucose (UA) (test code = 2349-9) NEGATIVE NEGATIVE [facility] Cpppbyn9543-61-93 10:54:00* Test Item Value Reference Range Interpretation Comments Urine Ketones (test code = 77278-2) NEGATIVE NEGATIVE [facility] Eoxzygkehvhd1582-34-67 10:54:00* Test Item Value Reference Range Interpretation Comments Urine Urobilinogen (test code = 60816-7) 1 0.2-1 [facility] Ytxtbjcid5217-76-80 10:54:00* Test Item Value Reference Range Interpretation Comments Urine Bilirubin (test code = 1978-6) NEGATIVE NEGATIVE [facility] Bwahm0847-02-66 10:54:00* Test Item Value Reference Range Interpretation Comments Urine Blood (test code = 78094-1) NEGATIVE NEGATIVE [facility]iscoU[facility] Kvjpx7996-42-07 10:54:00* Test Item Value Reference Range Interpretation Comments Urine Color (test code = 5778-6) YELLOW YELLOW [facility]iscoU[facility] Lhvcfdf9046-91-19 10:54:00* Test Item Value Reference Range Interpretation Comments Urine Clarity (test code = 41819-4) SL CLOUDY CLEAR [facility]iscoUrine Specific Vwefgpo1222-95-53 10:54:00 * Test Item Value Reference Range Interpretation Comments Urine Specific [place] (test code = 5811-5) 1.010 1.010-1.02 5 [facility]iscoU[facility] rC0562-89-85 10:54:00* Test Item Value Reference Range Interpretation Comments Urine pH (test code = 32603-3) 8 5-7 H [facility]iscoU[facility] Leukocyte Fmmguhln1906-34-79 10:54:00* Test Item Value Reference Range Interpretation Comments Urine Leukocyte Esterase (test code = 5799-2) NEGATIVE NEGATIVE [facility] Nhdtohe7637-42-75 10:54:00* Test Item Value Reference Range Interpretation Comments Urine Nitrite (test code = 72923-9) NEGATIVE NEGATIVE [facility] Bohzcgc9972-67-06 10:54:00* Test Item Value Reference Range Interpretation Comments Urine Protein (test code = 5804-0) 1+ NEGATIVE H [facility] Glucose (UA)2018-05-22 10:54:00* Test Item Value Reference Range Interpretation Comments Urine Glucose (UA) (test code = 2349-9) NEGATIVE NEGATIVE [facility] [id number] 10:54:00* Test Item Value Reference Range Interpretation Comments Urine Ketones (test code = 88818-1) NEGATIVE NEGATIVE [facility] [id number] 10:54:00* Test Item Value Reference Range Interpretation Comments Urine Urobilinogen (test code = 44569-3) 1 0.2-1 [facility] [id number] 10:54:00* Test Item Value Reference Range Interpretation Comments Urine Bilirubin (test code = 1978-6) NEGATIVE NEGATIVE [facility] [id number] 10:54:00* Test Item Value Reference Range Interpretation Comments Urine Blood (test code = 89935-5) [facility] [id number] 10:54:00* Test Item Value Reference Range Interpretation Comments Urine Color (test code = 5778-6) YELLOW YELLOW [facility] [id number] 10:54:00* Test Item Value Reference Range Interpretation Comments Urine Clarity (test code = 19767-6) SL CLOUDY CLEAR [facility] Specific [id number] 10:54:00 * Test Item Value Reference Range Interpretation Comments Urine Specific [place] (test code = 5811-5) 1.010 1.010-1.02 5 [facility] [id number] 10:54:00* Test Item Value Reference Range Interpretation Comments Urine pH (test code = 79606-0) 8 5-7 [facility] Leukocyte [id number] 10:54:00* Test Item Value Reference Range Interpretation Comments Urine Leukocyte Esterase (test code = 5799-2) NEGATIVE [facility]GATIVE [facility] [id number] 10:54:00* Test Item Value Reference Range Interpretation Comments Urine Nitrite (test code = 92276-2) NEGATIVE [facility]GATIVE [facility] [id number] 10:54:00* Test Item Value Reference Range Interpretation Comments Urine Protein (test code = 5804-0) 1+ NEGATIVE H [facility] Glucose (UA)2018-05-22 10:54:00* Test Item Value Reference Range Interpretation Comments Urine Glucose (UA) (test code = 2349-9) NEGATIVE [facility]IVE [facility] [id number] 10:54:00* Test Item Value Reference Range Interpretation Comments Urine Ketones (test code = 57225-8) NEGATIVE [facility]IVE [facility] [id number] 10:54:00* Test Item Value Reference Range Interpretation Comments Urine Urobilinogen (test code = 95094-1) 1 0.2-1 [facility] [id number] 10:54:00* Test Item Value Reference Range Interpretation Comments Urine Bilirubin (test code = 1978-6) NEGATIVE [facility]GATIVE [facility] [id number] 10:54:00* Test Item Value Reference Range Interpretation Comments Urine Blood (test code = 37093-4) NEGATIVE [facility]GATIVE [facility] [id number] 16:02:00* Test Item Value Reference Range Interpretation [...] race is not provided, and the patient isAfrican-Micronesian, multiply by 1.212. If sex is not [...] by the National Kidney Found ation,http://nkdep.nih.gov Troponin [id number] 16:02:00* Test Item Value Reference Range Interpretation Comments Troponin T (test code = JAY) <0.010 ng/mL 0.000-0.090 N CBC with [id number] 15:47:00* Test Item Value Reference Range Interpretation [...] code = ALYMPH) 1.2 K/cumm 0.5-4.6 N [place] Abs (test code = AMONO) 0.2 K/cumm 0.0-1.2 N Eos Abs (test code = AEOS) 0.01 K/cumm 0.00-0.74 N Baso Abs (test code = ABASO) 0.0 K/cumm 0.00-0.21 N XR CHEST 1 [id number] 15:06:11Exam: AP chestLocation: D 4History: SOBComparison: NoneFindings:The lungs are clear. The pulmonary vasculature is normal. The heart sizeis normal. The mediastinal silhouette is unremarkable. The bony thoraxis intact.Impression:No acute disease.
[2020-06-28 01:34] LABS: CLARITY,URINE CLOUDY (CLEAR); COLOR,URINE YELLOW (YELLOW); LEUKOCYTE ESTERASE ,URINE SMALL (NEGATIVE); NITRITE,URINE NEGATIVE (NEGATIVE)
[2020-06-28 01:35] LABS: AMPHETAMINES SCREEN,URINE NEGATIVE (NEGATIVE); BENZODIAZEPINES SCREEN,URINE NEGATIVE (NEGATIVE); KETONES,URINE NEGATIVE (NEGATIVE); PHENCYCLIDINE SCREEN,URINE NEGATIVE (NEGATIVE); PROTEIN,URINE DIPSTICK NEGATIVE (NEGATIVE)
[2020-06-28 01:36] LABS: BACTERIA,URINE MANY /HPF; BILIRUBIN,URINE NEGATIVE (NEGATIVE); EPITHELIAL CELLS,URINE MANY /LPF; URINE UROBILINOGEN 0.2 mg/dL (0.2 - 1)
[2020-06-28 01:37] LABS: AMORPHOUS SEDIMENT,URINE MANY (FEW)
--- NOTE | 2020-06-28 01:45 | NUR ---
PATIENT CAME FROM ER VIA WHEELCHAIR. ALERT AND ORIENTED. ASSISTED TO BED. BED IN LOWEST POSITION AND LOCKED. IV TO LEFT FOREARM INTACT. REFUSED BED ALARM AND NONSKID SOCKS. PATIENT WANTS TO WEAR HER OWN SOCKS. PATIENT CAN'T REMEMBER HOME MEDS. STATES SOMEBODY CAN BRING HOME MEDS LATER TODAY.
--- NOTE | 2020-06-28 06:16 | NUR ---
Dr Davis made aware of this consultation.
--- NOTE | 2020-06-28 07:03 | NUR ---
Bed side report received from Karli BARRAGAN. Patient received lying in bed, HOB elevated 30 degrees in no acute distress. Patient stated no current needs. Patient educated on fall risk precautions and call with needs. Call light and belongings nearby. Will continue to monitor.
--- NOTE | 2020-06-28 08:00 | NUR ---
I spoke with patient regarding reconciliation of home meds. Patient states her sister will bring home medications this morning.
--- NOTE | 2020-06-28 08:17 | Diagnostic Imaging Report ---
Hip complete Indication: ^PAIN ^Y Technique: AP and frogleg views of left hip obtained. Comparison: CT abdomen/pelvis 09/01/2019 Findings: Left hip remains properly located. The cortex appears intact throughout. Trochanters appear intact. No significant joint space narrowing or osteophytic lipping. Femoral head is normal in morphology. Adjacent pubic rami appear intact. Stable phleboliths in the lower right pelvis. IMPRESSION: Left hip properly located. No acute osseous abnormalities to explain pain. Signed by: Dr. Destinee Lux MD on 06/28/2020 8:13 AM
[2020-06-28] MEDS: ASPIRIN 81 MG ENTERIC COATED PO SCH (09:21)
[2020-06-28 09:27] LABS: CREATINE KINASE 475 IU/L (29-168)
[2020-06-28] MEDS: ONDANSETRON HCL INJ 2MG/ML 2ML 2 MG/ML VIAL IV PRN (12:59)
[2020-06-28] MEDS ORDERED: ALBUTEROL SULF 0.083% NEB SOLN 3 ML NEB INH PRN (13:00)
[2020-06-28] MEDS ORDERED: SALMETEROL/FLUTICASONE 250/50 INH SCH (13:00)
[2020-06-28] MEDS ORDERED: ALBUTEROL SULFATE HFA 8GM INHALATION AEROSOL INH PRN (13:00)
[2020-06-28] MEDS ORDERED: HYDROXYZINE HCL 25 MG TAB PO PRN (13:00)
[2020-06-28] MEDS ORDERED: NEBIVOLOL 10 MG TAB PO SCH (13:15)
[2020-06-28] MEDS ORDERED: POTASSIUM CHLORIDE 20 MEQ TAB CR PO ONE (13:20)
[2020-06-28] MEDS ORDERED: ASPIRIN 81 MG CHEW TAB PO ONE (13:30)
[2020-06-28] MEDS: DEPAKOTE DELAYED-RELEASE TAB 500 MG PO SCH ×2 (13:30→18:30)
[2020-06-28] MEDS: VENLAFAXINE HCL 75 MG TAB PO SCH (13:49)
[2020-06-28] MEDS: NICOTINE 21 MG/EA PATCH TOP SCH (13:50)
[2020-06-28] MEDS: PREDNISONE 20 MG TAB PO SCH (13:50)
[2020-06-28] MEDS: DEXTROSE 5%/0.9% SOD CHL 1,000 ML IV SCH (13:50)
[2020-06-28] MEDS: ALBUTEROL/IPRATROPIUM 3 ML NEB NEB SCH ×2 (13:55→18:30)
[2020-06-28] MEDS ORDERED: ZOLPIDEM TARTRATE 10 MG TAB PO PRN (14:15)
[2020-06-28] MEDS ORDERED: DEPAKOTE ER 500MG TAB(ONCE DAILY) PO SCH (17:00)
[2020-06-28] MEDS: BENZTROPINE MESYLATE 1 MG TAB PO SCH (18:49)
--- NOTE | 2020-06-28 20:55 | History and Physical ---
HISTORY OF PRESENT ILLNESS: 60-year-old female with past medical history positive for COPD, heavy smoker, and insomnia. The patient came with chest pain radiated to the left side of the chest with no radiation to her neck. The patient apparently get out of the building came back again. We are going to add drug screening. Screen came back negative. REVIEW OF SYSTEMS: CARDIOVASCULAR: She has chest pain, which is resolved. No palpitation. RESPIRATORY: She has chronic shortness of breath. No cough. GASTROINTESTINAL: She has nausea and vomiting one time. No diarrhea. No blood in the stool. GENITOURINARY: No frequency or dysuria. PAST MEDICAL HISTORY: Positive for hypertension, smoker, and COPD. ALLERGIES: SHE IS ALLERGIC TO SPIRIVA. SOCIAL HISTORY: She smokes and drinks alcohol occasionally. PHYSICAL EXAMINATION: HEART: Showed regular rhythm normal S1 and S2 sound. LUNGS: Clear bilaterally. ABDOMEN: Soft. EXTREMITIES: Show no edema. VITAL SIGNS: Blood pressure 121/71, temperature 97.5 degrees Fahrenheit, heart rate 79 per minute, respiratory rate 20 per minute, and O2 saturation 95%. LABORATORY DATA: On the CBC; white blood count 7.99, hemoglobin 13.0, hematocrit 43.8, and platelet count 354,000. On the BMP; sodium 140, potassium 3.3, chloride 108, CO2 of 23, anion gap 12.3, BUN 11, creatinine 1.24, glucose 159, calcium 9.1, total bilirubin 0.3, AST 24, ALT 16, alkaline phosphatase 106. CPK is elevated at 475, CK-MB is elevated at 18, troponin 0.001 twice. Albumin 3.9, globulin 3.0, and lipase 32. Toxicology: Urine drug screen negative. PT 12.1, INR 0.86, PTT 28.3. Serology: Coronavirus is pending. She had a chest x-ray, which showed no acute thoracic radiographic abnormality. She had a hip x-ray because she fell few days ago, shoulder and hip are properly located. No acute osseous abnormality to explain the pain. FINAL DIAGNOSES: 1. Atypical chest pain. 2. Possible non-STEMI. 3. Chronic obstructive pulmonary disease exacerbation. 4. Smoker. 5. Hypertension. 6. Rhabdomyolysis. PLAN OF TREATMENT: Replace the potassium due to the hypokalemia. Recheck the magnesium. We are going to continue albuterol q.4 hours as needed for shortness of breath. Continue , Lipitor going to be discontinued because the patient apparently is allergic to statins. Continue benztropine 1 mg twice a day, Depakote 500 g twice a day, hydroxyzine 50 mg three times a day as needed for anxiety, morphine is going to be discontinued. Continue Bystolic 5 mg daily, nicotine patch 21 mg daily, Zofran 4 mg IV q.4 hours as needed for nausea and vomiting, prednisone 4 mg daily, Seroquel 600 mg at bedtime, Advair 1 inhalation twice a day. Apparently, she is allergic to Spiriva, so we are going to stop that. Continue Effexor 150 mg daily and Lunesta 3 mg at bedtime as needed. Dr. Huff has been consulted from the Cardiology point of view. We are going to start her on D5 normal saline at 80 mL an hour. We are going to check CK and CK-MB tomorrow along with a BMP tomorrow. MD KARRIE Torres/WENDI /[id number]
[2020-06-28] MEDS ORDERED: QUETIAPINE FUMARATE 100 MG TAB PO SCH (21:00)
[2020-06-28] MEDS ORDERED: ATORVASTATIN 20 MG TAB PO SCH (21:00)
[2020-06-28] MEDS ORDERED: ATORVASTATIN 40 MG TAB PO SCH (21:00)
--- NOTE | 2020-06-28 21:21 | NUR ---
BP IMPROVED 113/80 [facility] NV 79 BPM.
--- NOTE | 2020-06-28 21:35 | Consultation ---
DATE OF CONSULTATION: 06/28/2020 Cardiology Consultation Report. REASON FOR CONSULTATION: Chest pain. HISTORY OF PRESENT ILLNESS: Ms. Vizcarra is a 60-year-old lady with past medical history of hypertension, bipolar disorder, COPD, smoker, forgetfulness, and history of seizure disorders and prior history of falls. She is a very poor historian at baseline. Basically, she ended up sustaining a fall landing on her Botox and on her left hip region and the pain and discomfort ended up coming here. Upon checking labs, she was noted to have elevated CK and MB with a troponin of less than 0.001 x2. Basically at that point in time upon probing she endorsed a history of chest pain and we were consulted to evaluate that in light of her risk factors. She reports off and on chest pain, left subxiphoid region radiating across the lower ribcage to the left side of her axilla area, severe in nature, lasting minutes at a time, no known exacerbating or alleviating factors. She reports baseline poor functional state and difficulty breathing, but suspects that this is due to her lung disease. 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 PAST MEDICAL HISTORY: 1. Hypertension. 2. Bipolar disorder. 3. COPD smoker. 4. Forgetfulness. 5. History of seizures. PAST SURGICAL HISTORY: History of left ganglion hand surgery x2. FAMILY HISTORY: Mother at 78, had mechanical valves and pacemaker. Father is alive age 89, has back issues and arthritis. SOCIAL HISTORY: She is an occasional smoker. Denies any alcohol or illicit drug use. ALLERGIES: INCLUDE COCONUT MAKES HER VOMIT. CURRENT MEDICATIONS: include; 1. Albuterol inhaled q.4 hours p.r.n. 2. Benztropine 1 mg b.i.d. 3. Depakote 500 mg b.i.d. 4. Advair Diskus 250/50 b.i.d. 5. Hydroxyzine 50 mg t.i.d. p.r.n. 6. Prednisone 40 mg daily. 7. Seroquel 600 mg at bedtime. 8. Spiriva 18 mcg inhaled daily. 9. Venlafaxine 150 mg daily. REVIEW OF SYSTEMS: GENERAL: Positive for fatigue, malaise. Denies any fevers, chills. HEENT: Occasional headaches. No visual complaints. There is no sore throat, stuffy nose. RESPIRATORY: Denies any pleuritic chest pain, has severe dyspnea with minimal exertion. CARDIOVASCULAR: As per HPI. Denies any subjective palpitations. Does have fall spells, but denies any loss of consciousness. GI: Has GERD. No bright red blood per rectum, melena, hematemesis. HEMATOLOGY: Positive for easy bruising, no bleeding. : No dysuria. Does have increased urinary frequency. No pyuria. MUSCULOSKELETAL: Has aches in her lower back and left hip region. ENDOCRINE: Denies any heat or cold intolerance. NEUROLOGIC: Positive for history of seizures. Denies any TIA or stroke. Remainder of review of systems negative otherwise mentioned. PHYSICAL EXAMINATION: VITAL SIGNS: Height of 67 inches, weight of 138 pounds, BMI is 21.6, temperature of 97.5, pulse 79, respiratory rate 20, blood pressure 121/71, O2 saturation 95% on room air. GENERAL: This is a frail lady lying in bed, who is currently in no apparent distress. HEENT: Normocephalic, atraumatic. Pupils are equal, round, and reactive to light. Extraocular movements are intact. Oropharynx is clear with very poor dentition. NECK: No elevation of jugular venous pulsation. Faint carotid bruits. CARDIOVASCULAR: Regular rate and rhythm. Normal S1 and S2. A 1/6 systolic murmur at the right upper sternal border. LUNGS: Poor air flow throughout lung benedict and diminished air entry compatible with advanced COPD changes. ABDOMEN: Skinny, nontender, nondistended. Normoactive bowel sounds. No mass, splenomegaly. BACK: No costovertebral angle tenderness. EXTREMITIES: Warm with 0 to 1+ bilateral radial pulses, 0 to 1+ femoral pulses and absent pedal pulses. There is no edema. NEUROLOGIC: Cranial nerves II through XII are grossly intact. Moves all four extremities albeit mild weakness, but seems to be symmetric. PSYCHIATRIC: Positive for anxiety, anxious mood and has tangential thinking. LABORATORY DATA: White count of 8, hemoglobin 13.7, hematocrit 43.8, and platelets of 354,000. Sodium 140, potassium 3.3, chloride 108, bicarb 23, BUN 11, creatinine 1.24, glucose of 159, calcium 9.1, AST 24, ALT 16, alkaline phosphatase 106, total protein 6.9, albumin 3.9, lipase of 32, CK 589, MB 29.6, troponin is less than 0.001, repeat shows a CK of 475, MB of 18, troponin is less than 0.001. Magnesium 2.1. INR 0.86. Urine drug screen is negative. UA shows 11-20 white cells. Lindsey virus PCR is pending. Hip x-ray shows left hip that is appropriately located. No acute bony abnormalities. Chest x-ray reveals COPD type changes, but no acute changes. EKG reveals normal sinus rhythm and nonspecific ST-T wave changes. DIAGNOSES: 1. Elevated CK-MB likely rhabdomyolysis secondary to the injury. 2. Repeated chest pain. 3. Chronic obstructive pulmonary disease, smoker. 4. Hypertension. 5. Hypercholesteremia. 6. Presumed peripheral vascular disease as evidenced on exam. 7. Seizure disorder with repeated falls. PLAN/RECOMMENDATIONS: 1. From a cardiovascular standpoint, for now we will recommend just simple medications like aspirin, low-dose beta dutch, etc. 2. Smoking cessation counseling provided. She is currently on a nicotine patch. 3. Appreciate primary team aid in management. 4. Gentle IV fluids for rhabdo management. 5. N.p.o. after midnight for pharmacologic stress test tomorrow due to inability to exercise. 6. Further plan/recommendations to follow. MD MICHELLE Kang/WENDI /[id number]
[2020-06-28] MEDS: MAGNESIUM/ALUMINUM/SIMETHICONE 30 ML UDC PO PRN (23:03)
[2020-06-29] VITALS: BP 91/62
[2020-06-29] MEDS: DEXTROSE 5%/0.9% SOD CHL 1,000 ML IV SCH (02:25)
[2020-06-29 04:00] VITALS: BP 106/84
[2020-06-29] MEDS: ONDANSETRON HCL INJ 2MG/ML 2ML 2 MG/ML VIAL IV PRN (06:11)
[2020-06-29 06:15] LABS: ANION GAP 11.5 mmol/L (8-16); BLOOD UREA NITROGEN 8 mg/dL (7-26); BUN/CREATININE RATIO 9 (6-25); CALCIUM 8.8 mg/dL (8.4-10.2); CARBON DIOXIDE 21 mmol/L (22-29); CHLORIDE 112 mmol/L (98-107); CREATININE, SERUM 0.87 mg/dL (0.57-1.11); EST GLOMERULAR FILTRATION RATE > 60 ML/MIN (60-); GLUCOSE 158 mg/dL (74-118); POTASSIUM 4.5 mmol/L (3.5-5.1); SODIUM 140 mmol/L (136-145)
[2020-06-29 06:42] LABS: CREATINE KINASE 223 IU/L (29-168)
[2020-06-29 07:09] LABS: CHOL/HDL RATIO 3.1 (3.0-3.6)
[2020-06-29 07:40] VITALS: BP 146/97
[2020-06-29] MEDS: MAGNESIUM/ALUMINUM/SIMETHICONE 30 ML UDC PO PRN (07:41)
[2020-06-29 07:57] VITALS: BP 146/97
--- NOTE | 2020-06-29 08:03 | NUR ---
Pt received in bed with eyes open. AOX3 and able to verbalize needs. Denies any pain at this time. Pt is NPO at this time in prep for stress test to be done toady.
[2020-06-29] MEDS: ALBUTEROL/IPRATROPIUM 3 ML NEB NEB SCH ×3 (08:05→14:50)
[2020-06-29] MEDS ORDERED: TIOTROPIUM 18 MCG INH POWDER INH SCH (09:00)
[2020-06-29] MEDS ORDERED: PREDNISONE 20 MG TAB PO SCH (09:00)
[2020-06-29] MEDS ORDERED: VENLAFAXINE HCL 75 MG TAB PO SCH (09:00)
[2020-06-29] MEDS ORDERED: REGADENOSON 0.4 MG/5 ML SYR IV ONE (09:55)
--- NOTE | 2020-06-29 10:00 | NUR ---
Pt being transferred to nuclear med department for stress test. Pt is aox3 and able to verbalize needs. 0 s/s of acute distress noted at this time.
[2020-06-29 11:44] VITALS: BP 101/69
--- NOTE | 2020-06-29 12:00 | NUR ---
Pt came back from stress test at this time. 0 s/s of acute distress noted. Denies any pain. Received orders to discharge patient if stress test is negative. Waiting to hear back from Cardiology.
[2020-06-29] MEDS: PREDNISONE 20 MG TAB PO SCH (12:02)
[2020-06-29] MEDS: NICOTINE 21 MG/EA PATCH TOP SCH (12:02)
[2020-06-29] MEDS: ASPIRIN 81 MG ENTERIC COATED PO SCH (12:02)
[2020-06-29] MEDS: BENZTROPINE MESYLATE 1 MG TAB PO SCH (12:02)
[2020-06-29] MEDS: DEPAKOTE DELAYED-RELEASE TAB 500 MG PO SCH (12:02)
[2020-06-29] MEDS: VENLAFAXINE HCL 75 MG TAB PO SCH (12:02)
--- NOTE | 2020-06-29 13:30 | NUR ---
Dr. Davis was here to see pt and to read stress test. He states stress test was negative and patient can discharge.
--- NOTE | 2020-06-29 14:40 | NUR ---
Pt discharged home at this time. Pt verbalized understanding of all discharge instructions and follow up appointments. 0 s/s acute distress noted at time of discharge. Pt was discharged with one prescription for ASA and verbalized understanding of new medications.
--- NOTE | 2020-06-29 17:15 | Myoview Stress Test ---
DATE OF STUDY: 06/28/2020 13:50:00 Stress Test - Treadmill ONLY ACQUISITION NUMBER: [id number] TITLE OF THE TEST: Lexiscan and nuclear cardiac stress test. TECHNICAL DETAILS: This was resting, stress protocol. For the resting images, a total of 11 mCi of Myoview was given followed half an hour after the injection with proper imaging. For the stress images, the patient received Lexiscan 0.4 mg intravenously followed by 33 mCi of Myoview. Half an hour after that, proper SPECT imaging and scanning were done. The patient tolerated the procedure. There were no complications. RESULTS: A: Hemodynamic: 1. Heart rate remained stable from 79 to 89 per minute. 2. Blood pressure dropped from 110/70 to 90/60. 3. No ST-T segment changes. B: Nuclear Images: 1. Myocardial perfusion: a. Resting images showed smooth distribution of the isotope in all the segments with decreased uptake in the apex. b. Stress images: Again showed smooth distribution in all the isotope and filling up in the apex. Conclusion: Normal myocardial perfusion. 2. Segmental wall motion: Normal segmental wall motion with no segmental wall motion abnormality. 3. Heart volumes: End-diastolic volume 57 mm and end systolic volume 70 mm with left ventricular ejection fraction of 70%. IMPRESSION: Low probability of nuclear stress test for ischemia or coronary artery disease. Limitations are discussed and explained with the patient. MD MALCOLM Moody/MODL /[id number] ISAAC
--- NOTE | 2020-06-29 18:30 | Discharge Summary ---
HOSPITAL COURSE: She is a 60-year-old female who has past medical history positive for smoking, history of COPD, came with chest pain radiated to the left side of the chest with no radiation to the neck. Apparently, she fell. She had a hip pain and x-ray of the hip came back negative. Troponins are negative, but the CK and CK-MB were high most likely secondary to rhabdomyolysis troponins are negative x3. The patient is going to have adenosine Cardiolite stress test today, if this is negative, the patient might be able to go home today. PHYSICAL EXAMINATION: HEART: Showed regular rhythm. Normal S1 and S2 sound. LUNGS: Clear bilaterally. ABDOMEN: Soft. EXTREMITIES: Show no edema. VITAL SIGNS: Blood pressure 146/97, temperature , heart rate 88 per minute, respiratory rate 21 per minute, and oxygen saturation 97%. LABORATORY DATA: On the CBC; white blood count 7.99, hemoglobin 13.0, hematocrit 43.8, and platelet count 344,000. On the BMP; sodium 140, potassium 4.5, chloride 112, CO2 of 21, BUN 8, creatinine 0.87, GFR is 160, glucose 158, calcium 8.8, magnesium 2.1, total CPK is 223 down from 404. CK-MB is 6.20, troponin has been negative 4 times already. Triglycerides 57, cholesterol 179, LDL 110, HDL cholesterol 58, cholesterol/HDL ratio is 3.1 FINAL DIAGNOSES: 1. Atypical chest pain. 2. Rhabdomyolysis. 3. Chronic obstructive pulmonary disease. 4. History of smoking. PLAN OF TREATMENT: We are going to continue normal saline 8 mL an hour, significantly. Continue albuterol q.4 hours as needed for shortness of breath. DuoNebs q.4 hours, aspirin 81 mg in the morning. She is allergic to Lipitor who had to stop it. Continue Cogentin at mg twice a day, Depakote 500 mg twice a day, hydroxyzine 50 mg three times a day as needed for anxiety, Bystolic 5 mg daily, nicotine patch 21 mg daily, Zofran 4 mg IV q.4 hours as needed for nausea and vomiting, prednisone 40 mg daily, Seroquel 600 mg at bedtime, Advair 1 inhalation twice a day, Effexor 150 mg daily, Ambien 10 mg p.r.n. for insomnia. We did a tentative discharge summary adenosine Cardiolite nuclear medicine stress test is negative for ischemia, yesterday nuclear medical tech on the case. If the patient is to go home today, we will follow her up in a week. MD KARRIE Torres/WENDI /[id number]
== END 2020-06-29 14:40 | disposition home or self-care (01) ==
LOC: ER 20:40 → ERHOLD 06-28 00:29 → MED/SURG 06-28 02:00
PROVIDERS: ADMIT Internal Medicine; ATTEND Internal Medicine
DX: R07.89 Other chest pain (principal); J44.1 Chronic obstructive pulmonary disease with (acute) exacerbation; M62.82 Rhabdomyolysis; K21.9 Gastro-esophageal reflux disease without esophagitis; F17.210 Nicotine dependence, cigarettes, uncomplicated; Z88.8 Allergy status to other drugs, medicaments and biological substances; I10 Essential (primary) hypertension; F31.9 Bipolar disorder, unspecified; Z91.81 History of falling; Z82.49 Family history of ischemic heart disease and other diseases of the circulatory system; Z82.61 Family history of arthritis; Z84.89 Family history of other specified conditions; G40.909 Epilepsy, unspecified, not intractable, without status epilepticus; E78.00 Pure hypercholesterolemia, unspecified; Z11.59 Encounter for screening for other viral diseases; M25.552 Pain in left hip; W18.30XA Fall on same level, unspecified, initial encounter
CPT/HCPCS: 36415 ×3; 71046; 73502; 78452; 80048; 80053; 80061; 80307; 81001; 82550 ×3; 82553 ×3; 83690; 83735; 84484 ×3; 85025; 85610; 85730; 93005; 93017; 93306; 94640 ×3; 99284; A9502; G0378 ×2; J2405 ×2; J2785; J7042 ×2; J7512 ×2; U0002

== ENCOUNTER 2020-09-11 10:28 | Observation (INO) | payer OTHER ==
[~2020-09-11] VITALS: Ht 170.2 cm; Wt 53.5 kg
[2020-09-11] MEDS ORDERED: ASPIRIN 81 MG CHEW TAB PO ONE ×2 (10:45→13:00)
[2020-09-11 10:46] LABS: BASOPHILS # (AUTO) 0.1 (0.0-0.1); BASOPHILS % 0.3 % (0.0-1.0); EOSINOPHILS # (AUTO) 0.1 (0.0-0.4); EOSINOPHILS % 0.5 % (0.0-6.0); HEMOGLOBIN 12.7 g/dL (12.0-16.0); LYMPHOCYTES # (AUTO) 2.2 (1.0-3.2); LYMPHOCYTES % 12.8 % (18.0-39.1); MEAN CORPUSCULAR HEMOGLOBIN 28.2 pg (28-32); MEAN CORPUSCULAR HGB CONC 32.6 g/dL (31-35); MEAN CORPUSCULAR VOLUME 86.7 fL (81-99); MONOCYTES # (AUTO) 0.7 (0.2-0.8); MONOCYTES % 3.8 % (4.4-11.3); NEUTROPHILS # (AUTO) 14.1 (2.1-6.9); PLATELET COUNT 354 x10e3/uL (140-360); RED CELL DISTRIBUTION WIDTH 16.6 % (11.7-14.4)
--- NOTE | 2020-09-11 10:55 | Emergency Department Note ---
History of Present Illnes History of Present Illness Chief Complaint: Chest Pain History of Present Illness This is a 60 year old female arrived to the ED with complaints of chest pain shortness of breath that is worsening over the past several days.. Chief Complaint Comment Patient in from home via EMS with complaints of shortness of breath that started this morning. Patient also reports chronic chest pain over the last year for which she has been seeing a check out clerk and has had a thorough workup. Patient does report a history of COPD and uses oxygen at home via nasal cannula. Patient was given aspirin enroute to the hospital for chest pain. Patient is not in any obvious distress. Lung sounds clear bilatera lly. 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 Any updates have been documented here. Past Medical History Recent Fever: No Clinical Suspicion of Infectio: No New/Unexplained Change in Ment: No Past Medical History: Asthma, GERD Other Medical History: BIPOLAR Past Surgical History: Appendectomy, Tubal Ligation Other Surgery: LEFT GANGLION CYST Social History Smoking Cessation: Former smoker Counseling Performed: No Alcohol Use: None Any Illegal Drug Use: No Other Last Tetanus: UTD Any Pre-Existing Lines (PICC,: No Review of Systems Review of Systems Constitutional: Reports no symptoms EENTM: Reports no symptoms Cardiovascular: Reports as per HPI, Reports chest pain Respiratory: Reports as per HPI, Reports cough Gastrointestinal: Reports no symptoms Genitourinary: Reports no symptoms Musculoskeletal: Reports no symptoms Integumentary: Reports no symptoms Neurological: Reports no symptoms Psychological: Reports no symptoms Endocrine: Reports no symptoms Hematological/Lymphatic: Reports no symptoms Physical Exam Related Data Allergies: Coded Allergies: tiotropium (Verified Allergy, Severe, CAUSES CHEST PAIN, 06/28/20) Uncoded Allergies: SPIRIVA (Allergy, Severe, CAUSES CHEST PAIN, 09/01/19) Triage Vital Signs Vital Signs Date Time Temp Pulse Resp B/P (MAP) Pulse Ox O2 Delivery O2 Flow Rate FiO2 09/11/20 10:32 99.7 98 24 97/69 100 Nasal Cannula 2.0 Vital signs reviewed: Yes Physical Exam CONSTITUTIONAL Constitutional: Present well-developed, Present well-nourished HENT HENT: Present normocephalic, Present atraumatic, Present oropharynx clear/moist, Present nose normal HENT L/R: Present left ext ear normal, Present right ext ear normal EYES Eyes: Reports PERRL, Reports conjunctivae normal NECK Neck: Present ROM normal PULMONARY Pulmonary: Present effort normal, Present breath sounds normal CARDIOVASCULAR Cardiovascular: Present regular rhythm, Present heart sounds normal, Present capillary refill normal, Present normal rate GASTROINTESTINAL Abdominal: Present soft, Present nontender, Present bowel sounds normal GENITOURINARY Genitourinary: Present exam deferred SKIN Skin: Present warm, Present dry MUSCULOSKELETAL Musculoskeletal: Present ROM normal NEUROLOGICAL Neurological: Present alert, Present oriented x 3, Present no gross motor or sensory deficits PSYCHOLOGICAL Psychological: Present mood/affect normal, Present judgement normal Results Laboratory Result Diagram: 09/11/20 1036 Laboratory Laboratory Tests Test 09/11/20 10:36 White Blood Count 17.25 x10e3/uL (4.8-10.8) Red Blood Count 4.50 x10e6/uL (3.6-5.1) Hemoglobin 12.7 g/dL (12.0-16.0) Hematocrit 39.0 % (34.2-44.1) Mean Corpuscular Volume 86.7 fL (81-99) Mean Corpuscular Hemoglobin 28.2 pg (28-32) Mean Corpuscular Hemoglobin Concent 32.6 g/dL (31-35) Red Cell Distribution Width 16.6 % (11.7-14.4) Platelet Count 354 x10e3/uL (140-360) Neutrophils (%) (Auto) 82.0 % (38.7-80.0) Lymphocytes (%) (Auto) 12.8 % (18.0-39.1) Monocytes (%) (Auto) 3.8 % (4.4-11.3) Eosinophils (%) (Auto) 0.5 % (0.0-6.0) Basophils (%) (Auto) 0.3 % (0.0-1.0) Neutrophils # (Auto) 14.1 (2.1-6.9) Lymphocytes # (Auto) 2.2 (1.0-3.2) Monocytes # (Auto) 0.7 (0.2-0.8) Eosinophils # (Auto) 0.1 (0.0-0.4) Basophils # (Auto) 0.1 (0.0-0.1) Absolute Immature Granulocyte (auto 0.11 x10e3/uL (0-0.1) Imaging Imaging results reviewed: Yes Procedures 12 Lead ECG Interpretation ECG Interpretation : ECG: ECG 1 Prior ECG tracings: reviewed Rhythm: sinus tachycardia Rate: normal QRS axis: normal Conduction: complete RBBB ST segments normal: Yes T waves normal: Yes Clinical Impression: normal ECG Assessment & Plan Medical Decision Making MDM 60-year-old female arrived to the ED with complaints of chest pain. Patient noted leukocytosis. CT chest ordered to rule out pulmonary embolus. Patient with high heart score/chronic risk factors. Patient admitted further cardiac workup and monitoring. Patient's primary care doctor informed. Assessment & Plan Final Impression: (1) Chest pain Depart Disposition: ADMITTED Last Vital Signs Date Time Temp Pulse Resp B/P (MAP) Pulse Ox O2 Delivery O2 Flow Rate FiO2 09/11/20 10:47 98 16 95/77 99 Room Air 2.0 09/11/20 10:32 99.7 Home Meds Reported Medications Paroxetine Hcl (PAXIL) 40 Mg Tablet, 40 MG PO HS, TAB 09/11/20 Eszopiclone (LUNESTA) 2 Mg Tablet, 2 MG PO HS 09/11/20 Prednisone (PREDNISONE) 20 Mg Tab, 40 MG PO DAILY, TAB 07/29/18 Albuterol Sulfate (ALBUTEROL SULFATE) 0.63 Mg/3 Ml Vial.neb, 0.63 MG INH QID PRN for SHORTNESS OF BREATH 07/29/18 Fluticasone/Salmeterol (ADVAIR 250-50 DISKUS) 1 Each Disk.w.dev, 1 INH INH Q12H 07/28/18 Quetiapine Fumarate (QUETIAPINE FUMARATE) 100 Mg Tablet, 600 MG PO HS, #30 TAB 07/28/18 Albuterol Sulf* (PROAIR HFA INHALER*) 8.5 Gm Inh, 2 INH INH Q4HR PRN for MARIEL RTNESS OF BREATH 2 puffs 05/24/18 Venlafaxine Hcl (VENLAFAXINE HCL) 75 Mg Tab, 150 MG PO DAILY, #30 TAB 05/22/18 Hydroxyzine Hcl (HYDROXYZINE HCL) 25 Mg Tablet, 50 MG PO TID PRN for ANXIETY, #30 TAB 05/22/18 Benztropine Mesylate (BENZTROPINE MESYLATE) 1 Mg Tablet, 1 MG PO BID 05/22/18 Discontinued Reported Medications Tiotropium [place] (SPIRIVA) 18 Mcg Cap.w.dev, 18 MCG INH DAILY, BOTTLE 05/24/18 Divalproex Sodium (DEPAKOTE ER) 500 Mg [id number], 500 MG PO BID 05/22/18 Medications in the ED Aspirin 81 mg PRN ONCE PO ; Start 09/11/20 at 10:45; Stop 09/11/20 at 10:46; Status DC EVAN NAYAK DO Sep 11, 2020 10:51
--- NOTE | 2020-09-11 10:57 | NUR ---
Patient received from [facility] ambulance service. Upon getting the patient settled, the patient reported that she believes her keys were left in the back of the ambulance. Called [facility] ambulance service at 1050 on 09/11/2020 and reported the loss. I was told by Nilay that he sent a message to the lead dispatch for the crew involved and that we should hear back from them within 24 hours. Explained that the patient may not be admitted to the hospital and that she will need her keys before then. Nilay replied with "well that is the best we can do for you". Patient informed of the information. Addendum: 09/11/20 at 1101 by ANNIE Patient reports now that she found her keys in her purse. Will attempt to contact [facility] to update.
[2020-09-11 11:15] LABS: ALBUMIN 3.4 g/dL (3.5-5.0); ALBUMIN/GLOBULIN RATIO 1.4 (0.8-2.0); CALCIUM 8.6 mg/dL (8.4-10.2); CREATININE, SERUM 0.97 mg/dL (0.57-1.11)
--- NOTE | 2020-09-11 11:21 | Diagnostic Imaging Report ---
X-ray chest frontal view History: Chest pain shortness of breath Comparison: 06/27/2020 Findings: Central airways: Unremarkable Cardiac silhouette: Unremarkable Mediastinal silhouettes: Unremarkable Pleura: No pleural effusion, pneumothorax or thickening Diaphragms: Unremarkable Lungs: No focal lung disease Skeletal structures: Unremarkable Extrathoracic soft tissues: Unremarkable Impression: No acute cardiopulmonary abnormality. No significant change. Signed by: Dashawn Charles MD on 09/11/2020 11:18 AM
[2020-09-11 11:22] LABS: CREATINE KINASE MB 1.4 ng/mL (0-5.0)
[2020-09-11] MEDS ORDERED: SODIUM CHLORIDE 0.9% 1000ML 1,000 ML IV STA (11:41)
[2020-09-11] MEDS ORDERED: IOPAMIDOL 370 MG/ML 200 ML INFUS..BTL INJ ONE (11:43)
[2020-09-11] MEDS ORDERED: SODIUM CHLORIDE 0.9% 50ML 50 ML ONE (11:43)
--- NOTE | 2020-09-11 14:02 | Diagnostic Imaging Report ---
EXAM: CTA CHEST WITH CONTRAST, PE PROTOCOL CLINICAL INDICATION: Shortness of breath TECHNIQUE: CTA chest was performed, following the administration of intravenous contrast, as per department pulmonary embolus protocol. Axial, sagittal, and coronal reconstructions were obtained. 3D/MIPS reconstructions were obtained. STUDY QUALITY: This examination for the diagnosis of pulmonary embolism is Satisfactory IV CONTRAST: 100 cc of Isovue-370 RADIATION DOSE REDUCTION: This exam was performed according to the departmental dose-optimization program which includes automated exposure control, adjustment of the mA and/or kV according to patient size and/or use of iterative reconstruction technique. COMPARISON: None FINDINGS: LOWER NECK: No pathologic process in imaged portion of lower neck. PULMONARY ARTERIES: No evidence for pulmonary emboli. THORACIC VESSELS: No acute findings. No aneurysm. Mild atherosclerosis of the thoracic aorta and branch vessels. Left vertebral artery arises from the aortic arch. HEART AND PERICARDIUM: Heart normal size. No coronary artery calcification. Small pericardial effusion. PULMONARY PARENCHYMA AND AIRWAYS: Severe panlobular emphysema. Mild pleural-parenchymal scarring in the apices and posterior basal lower lobes. No large or suspicious pulmonary nodules or masses. Incidental micronodule (right upper lobe axial image 49 and 129) MEDIASTINUM AND MITCH: No lymphadenopathy. A subcarinal lymph node 15 mm in short axis likely reactive. Incidental left paraesophageal lymph node (axial image 65 of 129) 6 mm in short axis PLEURAL SPACES: No pleural fluid, pleural thickening or pneumothorax. CHEST WALL AND AXILLA: No pathologic process. UPPER ABDOMEN: No pathologic process in imaged portion of upper abdomen. MUSCULOSKELETAL: No pathologic process. ADDITIONAL FINDINGS: Moderate circumferential wall thickening of the distal half of the esophagus IMPRESSION: 1. No evidence for acute pulmonary embolism. 2. Severe emphysema. 3. Incidental pulmonary micronodule, nonspecific, recommend 12 month follow-up CT chest if the patient is high risk for lung cancer, otherwise optional follow-up. 4. Moderate circumferential wall thickening of the distal half of the esophagus. Most concerning for esophagitis, less likely neoplasm, consider endoscopic correlation. Standardized Report: [id number]. Signed by: David Huggins MD on 09/11/2020 1:58 PM
--- NOTE | 2020-09-11 14:10 | NUR ---
PT ARRIVED TO ROOM 106, IN STABLE CONDITION.
[2020-09-11 14:38] VITALS: BP 92/68
--- NOTE | 2020-09-11 14:47 | History and Physical ---
I am covering for Dr. Shaver. HISTORY OF PRESENT ILLNESS: Ms. Vizcarra is a 60-year-old female who used to be a heavy smoker. She states she quit a few years ago. She has COPD, insomnia, bipolar disorder, came to the emergency room complaining of sharp chest pain, retrosternal on an off, that she states it was very severe so she decided to come to the emergency room. PAST MEDICAL HISTORY: She has COPD. She has a bipolar disorder, hiatal hernia. SOCIAL HISTORY: She used to smoke. She quit few years ago. She drinks occasionally. ALLERGIES: SHE IS ALLERGIC TO . PAST MEDICAL HISTORY: She used to be a smoker. She has COPD and hypertension. PHYSICAL EXAMINATION: GENERAL: Today, she is awake and alert. She is feeling a little better. VITAL SIGNS: Temperature is 99.7, blood pressure 195/77. HEART: Regular rate. LUNGS: Decreased breath sounds bilaterally. ABDOMEN: Soft. EXTREMITIES: Lower extremities, no edema. No erythema. LABORATORY DATA: On the blood work white count is 17.25, hemoglobin is 12.7, hematocrit is 39, potassium 4.0. Creatinine is 0.97. Chest x-ray shows no acute findings. No significant change. Chest CT is pending. ASSESSMENT AND PLAN: On this patient is: 1. Atypical chest pain. 2. Chronic obstructive pulmonary disease. 3. Hypertension. 4. Hiatal hernia. 5. Bipolar disorder. 6. Leukocytosis. The plan at present time is to admit the patient to the hospital with three sets of CPK. So far, the first one is negative. EKG and Cardiology consult with Dr. Faye. She is going to need a UA. Repeat CBC in the morning. Continue other home medications. All this was discussed with the patient. All questions were answered to satisfaction. MD CELINE Velazquez/CECILL /[id number]
[2020-09-11 16:49] VITALS: BP 97/65
[2020-09-11] MEDS ORDERED: LUNESTA2 MG PO (17:05)
[2020-09-11] MEDS ORDERED: PAXIL40 MG PO (17:06)
[2020-09-11 17:20] VITALS: BP 97/65
[2020-09-11 17:25] VITALS: BP 97/65
--- NOTE | 2020-09-11 19:18 | Consultation ---
DATE OF CONSULTATION: Cardiology Consultation REASON FOR CONSULTATION: Chest pain. HISTORY OF PRESENT ILLNESS: This is a 60-year-old woman, who has a history of chronic tobacco abuse leading to COPD, bipolar disorder, hypertension, and hiatal hernia, who presented to the emergency room with chest pain. The patient reports central sharp chest pain, nonradiating, [id number] intensity, worse with swallowing and food intake. No other exacerbating or relieving factors. She had a recent stress test and echocardiogram at this facility in this year and was within normal limits. REVIEW OF SYSTEMS: A 12-point review of systems was conducted, is negative except stated above in the HPI. PAST MEDICAL HISTORY: As stated above in the HPI. PAST SURGICAL HISTORY: None recent. PAST FAMILY HISTORY: Noncontributory to current illness. SOCIAL HISTORY: No current illicit drug, alcohol, or tobacco use. ALLERGIES: 1. SPIRIVA. 2. TIOTROPIUM. MEDICATIONS: See medication reconciliation form. PHYSICAL EXAMINATION: VITAL SIGNS: Temperature is 98.1, heart rate 81, respirations are 18, oxygen saturation 98% on 2 L nasal cannula. Blood pressure is 97/65. GENERAL: A well-appearing, no apparent distress. Alert and oriented x3. HEAD: Normocephalic and atraumatic. Eyes, the extraocular muscles are intact. Conjunctivae are clear. NECK: No JVD. No bruits. CARDIOVASCULAR: Regular rate and rhythm. LUNGS: Clear to auscultation. ABDOMEN: Soft, nontender, nondistended. EXTREMITIES: No clubbing, cyanosis, or edema. VASCULAR: 2+ pulses. SKIN: Warm, dry, intact. NEUROLOGIC: No focal deficits noted. Cranial nerves grossly intact. PSYCHIATRIC: Normal mood and affect. LABORATORY DATA: Reviewed. White blood cell count of 17, creatinine 0.9. Troponin I 0.001. CT of the chest shows no pulmonary embolism, severe emphysema, pulmonary nodule, moderate circumferential wall thickening of the distal half of the esophagus. IMPRESSION: 1. Precordial pain. 2. Esophageal thickening. 3. Esophagitis. 4. Emphysema. 5. Hypertension. RECOMMENDATIONS: The patient ruled out for acute myocardial infarction. Recent stress test and echocardiogram were within normal limits. The patient's symptoms are likely gastrointestinal related. GI workup per primary team. Continue current cardiovascular medications. No further cardiac workup is required at this point in time. She is stable for discharge from a cardiovascular standpoint. DO BAILEY Sow/WENDI /[id number]
[2020-09-11 20:20] VITALS: BP 104/60
--- NOTE | 2020-09-11 20:30 | NUR ---
Pt. not in room. Notified the feed house supervisor, security the pt. was not in her room and missing.Family members x2 notified the pt. wasnt in her room and was missing . They said she does that sometimes just wanders off.
--- NOTE | 2020-09-11 21:50 | NUR ---
Notified Ren Gupta that the pt. was not in her room and that we couldn't find her.
--- NOTE | 2020-09-12 03:15 | NUR ---
We received a call from telemetry that we needed to change the batteries on the pt. in room 106. Lorri Vizcarra monitor.Telemetry showing Sinus Rhythm but battery low and needed to be changed.Showing that the pt. was still in the hospital. Again we continued to search for the pt. and found her in room 110 sleeping. Family member notified that we found the pt. sleeping in another room. Room 110.
[2020-09-12 04:00] VITALS: BP 92/59
--- NOTE | 2020-09-12 06:12 | NUR ---
Notified Ren Gupta pt. was found in another room sleeping. Room 110.
--- NOTE | 2020-09-12 08:12 | NUR ---
paging Dr. Shaver for orders; pt has no orders for labs or medications to be given at this time.
[2020-09-12 08:16] VITALS: BP 92/59
--- NOTE | 2020-09-12 08:25 | NUR ---
callback received from Dr. Clark who states pt will be discharged today if labs are normal.
[2020-09-12 08:53] VITALS: BP 104/80
[2020-09-12 09:33] LABS: BASOPHILS % 0.2 % (0.0-1.0); EOSINOPHILS # (AUTO) 0.2 (0.0-0.4); HEMATOCRIT 39.1 % (34.2-44.1); HEMOGLOBIN 12.5 g/dL (12.0-16.0); MEAN CORPUSCULAR HEMOGLOBIN 27.9 pg (28-32); MEAN CORPUSCULAR VOLUME 87.3 fL (81-99); MONOCYTES # (AUTO) 0.6 (0.2-0.8); MONOCYTES % 5.7 % (4.4-11.3); NEUTROPHILS # (AUTO) 7.1 (2.1-6.9); NEUTROPHILS % 71.8 % (38.7-80.0); PLATELET COUNT 316 x10e3/uL (140-360); RED BLOOD COUNT 4.48 x10e6/uL (3.6-5.1); RED CELL DISTRIBUTION WIDTH 16.5 % (11.7-14.4)
[2020-09-12 10:05] LABS: BLOOD UREA NITROGEN 7 mg/dL (7-26); BUN/CREATININE RATIO 9 (6-25); CALCIUM 8.1 mg/dL (8.4-10.2); CARBON DIOXIDE 24 mmol/L (22-29); CHLORIDE 107 mmol/L (98-107); CREATININE, SERUM 0.77 mg/dL (0.57-1.11); EST GLOMERULAR FILTRATION RATE > 60 ML/MIN (60-); GLUCOSE 106 mg/dL (74-118); SODIUM 138 mmol/L (136-145)
[2020-09-12 10:17] LABS: CREATINE KINASE 42 IU/L (29-168)
[2020-09-12] MEDS ORDERED: PANTOPRAZOLE SO40 MG PO (10:34)
--- NOTE | 2020-09-12 11:20 | Discharge Summary ---
ADMIT DIAGNOSES: 1. Atypical chest pain. 2. Chronic obstructive pulmonary disease. 3. Hypertensive heart disease. 4. Gastroesophageal reflux disease. 5. Hiatal hernia. 6. Tobacco abuse. DISCHARGE DIAGNOSES: 1. Atypical chest pain, resolved. 2. Hiatal hernia. 3. Esophagitis, likely. 4. Gastroesophageal reflux disease. 5. Chronic obstructive pulmonary disease. 6. Tobacco abuse. 7. Bipolar disorder. HOSPITAL COURSE: This is a 60-year-old white woman, who was initially admitted to [facility] with a diagnosis of precordial chest discomfort/atypical chest pain. The patient underwent serial cardiac enzymes as well as electrocardiograms during this hospitalization, which did not reveal any evidence of acute myocardial ischemia or infarction. The patient was seen by Cardiology during this hospitalization namely Dr. Ken Briones, who agreed that this chest discomfort was atypical for cardiac ischemia. The patient apparently recently had undergone an exercise stress test as well as an echocardiogram which were both within normal limits according to the supervisor heading. Given the fact that the patient has underlying history of hiatal hernia and GERD, it was felt that this precordial chest discomfort was likely secondary to gastrointestinal pathology. On the day of discharge, the patient's complete blood count and basic metabolic profile were within normal limits. One day prior to discharge, the patient underwent a CT of the chest with intravenous contrast that did not reveal any evidence of acute pulmonary embolism but did reveal findings consistent with severe emphysema. An incidental pulmonary micro nodule was identified, but radiologist recommended a 12-month followup CT of the chest. The CT of the chest also revealed moderate circumferential wall thickening of the esophagus, most concerning for esophagitis according to the radiologist. The patient's condition on discharge was stable. One night prior to discharge, the patient left her room and could not be found for several hours. Early this morning, the patient was actually found in another empty hospital bed. And once again patient. CONDITION ON DISCHARGE: Stable. DISCHARGE MEDICATIONS: 1. Pantoprazole 40 mg daily for 6 to 8 weeks. 2. Albuterol inhaler two puffs q.i.d. as needed for shortness of breath and wheezing. 3. Albuterol nebulized treatments up to four times a day for severe shortness of breath and wheezing. 4. Benztropine 1 mg b.i.d. 5. Eszopiclone 2 mg at bedtime. 6. Advair inhaler 250/50 one puff every 12 hours. 7. Hydroxyzine 50 mg t.i.d. p.r.n. anxiety. 8. Paroxetine 40 mg at bedtime. 9. Prednisone 20 mg daily. 10. Quetiapine 600 mg at bedtime. 11. Venlafaxine 150 mg daily. FOLLOWUP INSTRUCTIONS: The patient was instructed to follow up with her primary care physician namely Dr. Ji Shaver within 1 week. Tobacco cessation was highly recommended to the patient. The results of the CT of the chest were conveyed to the patient, particularly the distal esophageal wall thickening. It is recommended that the patient see watch inspector final movement in the near future since she may benefit from upper endoscopy. MD RIKKI Wilkins/WENDI /[id number] cc: MD Brian Torres MD Benjamin Metz, DO
--- NOTE | 2020-09-12 11:37 | NUR ---
SENT TO FOR LOC DETERMINATION: [facility] case account ending in 1091 has been reviewed and completed by [facility] Physicians. Service Line: Level of Care (LOC) / Admission Status Review Initial patient type was submitted as: IO - Initial Observation PAS Recommendation: OU
== END 2020-09-12 11:27 | disposition home or self-care (01) ==
LOC: ER 10:45 → ERHOLD 12:51 → MED/SURG 14:16 → UNDODISOB 21:52 → MED/SURG 09-12 04:49
PROVIDERS: ADMIT Internal Medicine; ATTEND Internal Medicine
DX: R07.89 Other chest pain (principal); J44.9 Chronic obstructive pulmonary disease, unspecified; K21.9 Gastro-esophageal reflux disease without esophagitis; Z72.0 Tobacco use; F31.9 Bipolar disorder, unspecified; K44.9 Diaphragmatic hernia without obstruction or gangrene; I11.9 Hypertensive heart disease without heart failure; J43.9 Emphysema, unspecified; R91.1 Solitary pulmonary nodule; Z11.59 Encounter for screening for other viral diseases
CPT/HCPCS: 36415 ×2; 71045; 71260; 80048; 80053; 82550 ×2; 82553 ×2; 84484 ×2; 85025 ×2; 93005; 99284; G0378 ×2; J7030; Q9967; U0002

== ENCOUNTER 2020-11-18 13:36 | Emergency (ER) | payer OTHER ==
[~2020-11-18] VITALS: Ht 322.6 cm; Wt 49.6 kg
[~2020-11-18 13:36] MED LIST changes: +LUNESTA2 MG PO; +PANTOPRAZOLE SO40 MG PO; +PAXIL40 MG PO
[2020-11-18] MEDS ORDERED: PANTOPRAZOLE 40 MG 10ML VIAL IV STA (14:02)
[2020-11-18] MEDS ORDERED: SODIUM CHLORIDE 0.9% 1000ML 1,000 ML IV STA (14:02)
[2020-11-18] MEDS ORDERED: ONDANSETRON HCL INJ 2MG/ML 2ML 2 MG/ML VIAL IV STA (14:02)
[2020-11-18 15:12] LABS: BASOPHILS % 0.4 % (0.0-1.0); EOSINOPHILS # (AUTO) 0.1 (0.0-0.4); EOSINOPHILS % 1.3 % (0.0-6.0); HEMATOCRIT 46.6 % (34.2-44.1); HEMOGLOBIN 14.8 g/dL (12.0-16.0); LYMPHOCYTES # (AUTO) 2.3 (1.0-3.2); LYMPHOCYTES % 28.1 % (18.0-39.1); MEAN CORPUSCULAR HEMOGLOBIN 27.8 pg (28-32); MEAN CORPUSCULAR HGB CONC 31.8 g/dL (31-35); MEAN CORPUSCULAR VOLUME 87.6 fL (81-99); MONOCYTES # (AUTO) 0.5 (0.2-0.8); MONOCYTES % 6.2 % (4.4-11.3); NEUTROPHILS # (AUTO) 5.3 (2.1-6.9); NEUTROPHILS % 63.6 % (38.7-80.0); PLATELET COUNT 468 x10e3/uL (140-360); RED BLOOD COUNT 5.32 x10e6/uL (3.6-5.1); RED CELL DISTRIBUTION WIDTH 14.3 % (11.7-14.4)
[2020-11-18 15:18] LABS: INR 0.84
[2020-11-18 15:19] LABS: PARTIAL THROMBOPLASTIN TIME 25.8 seconds (23.8-35.5)
[2020-11-18 15:31] LABS: ALBUMIN 4.1 g/dL (3.5-5.0); ALBUMIN/GLOBULIN RATIO 1.1 (0.8-2.0); ANION GAP 16.7 mmol/L (8-16); CALCIUM 9.7 mg/dL (8.4-10.2); CREATININE, SERUM 0.99 mg/dL (0.57-1.11); MAGNESIUM 2.2 MG/DL (1.3-2.1); POTASSIUM 4.7 mmol/L (3.5-5.1)
[2020-11-18 15:38] LABS: CREATINE KINASE MB 1.9 ng/mL (0-5.0)
[2020-11-18 17:32] VITALS: BP 153/84
== END 2020-11-18 17:43 | disposition home or self-care (01) ==
LOC: ER 14:04
DX: R10.13 Epigastric pain (principal); K52.9 Noninfective gastroenteritis and colitis, unspecified; J44.9 Chronic obstructive pulmonary disease, unspecified; K21.9 Gastro-esophageal reflux disease without esophagitis; F41.9 Anxiety disorder, unspecified; F31.9 Bipolar disorder, unspecified
CPT/HCPCS: 36415; 74177; 80053; 82150; 82550; 82553; 83690; 83735; 84484; 85025; 85610; 85730; 93005; 99284; C9113; J2405; J7030

== ENCOUNTER 2020-12-24 18:17 | Emergency (ER) | payer OTHER ==
[~2020-12-24] VITALS: Ht 170.2 cm; Wt 49.4 kg
[2020-12-24] MEDS ORDERED: ULTRAM50 MG PO (21:01)
== END 2020-12-24 21:36 | disposition home or self-care (01) ==
LOC: ER 19:07
DX: S02.2XXA Fracture of nasal bones, initial encounter for closed fracture (principal); Y04.0XXA Assault by unarmed brawl or fight, initial encounter; Y92.008 Other place in unspecified non-institutional (private) residence as the place of occurrence of the external cause; J45.909 Unspecified asthma, uncomplicated; K21.9 Gastro-esophageal reflux disease without esophagitis; F41.9 Anxiety disorder, unspecified; F31.9 Bipolar disorder, unspecified
CPT/HCPCS: 70486; 99283

== ENCOUNTER 2021-05-28 10:41 | Inpatient (IN) | payer OTHER ==
[~2021-05-28] VITALS: Ht 172.7 cm; Wt 63.5 kg
[~2021-05-28 10:41] MED LIST changes: +ULTRAM50 MG PO
[2021-05-28] MEDS ORDERED: SODIUM CHLORIDE 0.9% 1000ML 1,000 ML IV STA (11:02)
[2021-05-28] MEDS ORDERED: THIAMINE HCL INJ 100 MG/ML 2ML VIAL IV ONE (11:15)
[2021-05-28] MEDS ORDERED: FOLIC ACID 5 MG/ML VIAL IV ONE (11:15)
[2021-05-28 11:39] LABS: BASOPHILS % 0.1 % (0.0-1.0); EOSINOPHILS % 0.1 % (0.0-6.0); HEMATOCRIT 45.3 % (34.2-44.1); HEMOGLOBIN 14.4 g/dL (12.0-16.0); LYMPHOCYTES # (AUTO) 0.8 (1.0-3.2); MEAN CORPUSCULAR HEMOGLOBIN 27.7 pg (28-32); MEAN CORPUSCULAR HGB CONC 31.8 g/dL (31-35); MEAN CORPUSCULAR VOLUME 87.1 fL (81-99); MONOCYTES % 6.5 % (4.4-11.3); NEUTROPHILS % 87.8 % (38.7-80.0); PLATELET COUNT 329 x10e3/uL (140-360); RED CELL DISTRIBUTION WIDTH 14.5 % (11.7-14.4)
[2021-05-28 11:48] LABS: INR 0.85; PROTHROMBIN TIME 12.1 seconds (11.9-14.5)
[2021-05-28 11:49] LABS: PARTIAL THROMBOPLASTIN TIME 27.2 seconds (23.8-35.5)
[2021-05-28 12:02] LABS: ALANINE AMINOTRANSFERASE 19 IU/L (0-55); ALBUMIN 4.2 g/dL (3.5-5.0); ALBUMIN/GLOBULIN RATIO 1.1 (0.8-2.0); ALKALINE PHOSPHATASE 161 IU/L (40-150); ANION GAP 21.2 mmol/L (8-16); BLOOD UREA NITROGEN 12 mg/dL (7-26); BUN/CREATININE RATIO 10 (6-25); CALCIUM 9.2 mg/dL (8.4-10.2); CARBON DIOXIDE 26 mmol/L (22-29); CHLORIDE 99 mmol/L (98-107); CREATININE, SERUM 1.18 mg/dL (0.57-1.11); EST GLOMERULAR FILTRATION RATE 47 ML/MIN (60-); GLUCOSE 130 mg/dL (74-118); POTASSIUM 4.2 mmol/L (3.5-5.1); SODIUM 142 mmol/L (136-145)
[2021-05-28 12:43] LABS: SALICYLATE < 5.0 mg/dL (0-30)
[2021-05-28] MEDS ORDERED: OCTREOTIDE ACETATE 0.05 MG/ML AMP IV ONE (13:00)
[2021-05-28] MEDS: Pantoprazole IV 40 MG in SODIUM CHLORIDE 0.9% 50ML 50 ML IV SCH ×2 (13:00→18:10)
[2021-05-28] MEDS: OCTREOTIDE ACETATE 500 MCG in SODIUM CHLORIDE 0.9% 250ML 249 ML IV SCH (13:33)
[2021-05-28 21:34] VITALS: BP 123/93
[2021-05-28 21:42] VITALS: BP 123/93
[2021-05-28 21:48] VITALS: BP 123/93
[2021-05-29] MEDS: Pantoprazole IV 40 MG in SODIUM CHLORIDE 0.9% 50ML 50 ML IV SCH ×3 (00:11→08:21)
[2021-05-29] MEDS: OCTREOTIDE ACETATE 500 MCG in SODIUM CHLORIDE 0.9% 250ML 249 ML IV SCH ×2 (00:11→10:48)
[2021-05-29 00:38] VITALS: BP 126/68
[2021-05-29 05:43] VITALS: BP 109/74
[2021-05-29 06:12] LABS: BASOPHILS % 0.2 % (0.0-1.0); EOSINOPHILS # (AUTO) 0.1 (0.0-0.4); EOSINOPHILS % 0.6 % (0.0-6.0); HEMATOCRIT 39.7 % (34.2-44.1); HEMOGLOBIN 12.4 g/dL (12.0-16.0); LYMPHOCYTES # (AUTO) 2.1 (1.0-3.2); MEAN CORPUSCULAR HEMOGLOBIN 27.4 pg (28-32); MEAN CORPUSCULAR HGB CONC 31.2 g/dL (31-35); MEAN CORPUSCULAR VOLUME 87.6 fL (81-99); MONOCYTES # (AUTO) 0.9 (0.2-0.8); MONOCYTES % 7.1 % (4.4-11.3); NEUTROPHILS % 75.6 % (38.7-80.0); PLATELET COUNT 289 x10e3/uL (140-360); RED BLOOD COUNT 4.53 x10e6/uL (3.6-5.1); RED CELL DISTRIBUTION WIDTH 14.3 % (11.7-14.4)
[2021-05-29 07:54] VITALS: BP 133/72
[2021-05-29 10:05] VITALS: BP 133/72
[2021-05-29] MEDS ORDERED: SALMETEROL/FLUTICASONE 250/50 INH SCH (10:45)
[2021-05-29] MEDS ORDERED: HYDROXYZINE HCL 25 MG TAB PO PRN (10:45)
[2021-05-29] MEDS ORDERED: ALBUTEROL SULFATE HFA 8GM INHALATION AEROSOL INH PRN (10:45)
[2021-05-29] MEDS ORDERED: ALBUTEROL SULF 0.083% NEB SOLN 3 ML NEB INH PRN (10:45)
[2021-05-29 11:37] VITALS: BP 115/79
[2021-05-29] MEDS ORDERED: TRAMADOL HCL 50 MG TAB PO SCH (12:00)
[2021-05-29] MEDS ORDERED: BENZTROPINE MESYLATE 1 MG TAB PO SCH (17:00)
[2021-05-29] MEDS ORDERED: QUETIAPINE FUMARATE 100 MG TAB PO SCH (21:00)
[2021-05-29] MEDS ORDERED: PAROXETINE HCL 20 MG TAB PO SCH (21:00)
[2021-05-30] MEDS ORDERED: VENLAFAXINE HCL 75 MG TAB PO SCH (09:00)
[2021-05-30] MEDS ORDERED: PANTOPRAZOLE SOD 40 MG TABEC PO SCH (09:00)
[2021-05-30] MEDS ORDERED: PREDNISONE 20 MG TAB PO SCH (09:00)
== END 2021-05-29 14:40 | disposition left against medical advice (07) | DRG 872 ==
LOC: ER 10:51 → ERHOLD 15:08 → MED/SURG3 21:00
PROVIDERS: ADMIT Internal Medicine; ATTEND Internal Medicine
DX: A41.9 Sepsis, unspecified organism (principal); K92.0 Hematemesis; G93.40 Encephalopathy, unspecified; J44.9 Chronic obstructive pulmonary disease, unspecified; Z91.81 History of falling; F41.9 Anxiety disorder, unspecified; K21.9 Gastro-esophageal reflux disease without esophagitis; F31.9 Bipolar disorder, unspecified; K74.60 Unspecified cirrhosis of liver; Z20.822 Contact with and (suspected) exposure to COVID-19
CPT/HCPCS: 36415; 70450; 71045; 80053; 80320; 80329; 82140; 82948; 85025; 85610; 85730; 99284; J2353; J2354; J3411; J7030; J7050; U0002